=== PATIENT | female | born 1995 | race Caucasian/White ===

== ENCOUNTER 2017-10-15 20:05 | Emergency (ER) | payer OTHER ==
[2017-10-15] MEDS ORDERED: ONDANSETRON 4 MG (ODT) TAB ONE (20:35)
[2017-10-15] MEDS ORDERED: NA CHLORIDE 0.9% 1,000 ML ONE (22:48)
[2017-10-15] MEDS ORDERED: PROMETHAZINE 25 MG TABLET ONE (22:55)
[2017-10-15 23:11] LABS: Urine Blood NEGATIVE (NEG); Urine Glucose NEGATIVE (NEG); Urine Protein NEGATIVE (NEG); Urine Specific Gravity 1.025 (1.005-1.030)
[2017-10-15 23:34] LABS: Absolute Lymphocytes (CBC) 1.1 K/uL (0.7-4.9); Absolute Monocytes 0.3 K/uL (0.1-1.3); Absolute Neutrophil 3.4 K/uL (1.8-8.0); Basophils % 0.2 % (0-1.3); Eosinophils % 0.1 % (0-4.4); Lymphocytes % 22.1 % (15.3-44.8); MCH 28.6 pg (27.0-35.0); MCV 85.4 fL (80-100); RBC Red Blood Cell Count 4.68 M/uL (3.86-4.86)
[2017-10-15 23:40] LABS: Bicarbonate 25 mEq/L (21-31); Glucose Level 99 mg/dL (65-120); Lipase 20 U/L (22-51); Potassium 3.3 mEq/L (3.6-5.0); Sodium Level 136 mEq/L (135-145)
[2017-10-15 23:43] LABS: Urine Bacteria <20 /HPF (<20); Urine Culture Reflex Order REFLEXED; Urine Mucus 3+ /HPF (NONE SEEN); Urine RBC NONE SEEN /HPF (NONE SEEN)
[2017-10-15] MEDS ORDERED: POTASSIUM CL SA 10 MEQ TAB PO ONE (23:45)
[2017-10-15 23:46] LABS: ALT/SGPT 18 IU/L (10-60); AST/SGOT 27 IU/L (10-42); Albumin 4.4 g/dL (3.2-5.5); Alkaline Phosphatase 93 IU/L (42-121); Amylase Level 25 U/L (28-100); BUN Blood Urea Nitrogen 13 mg/dL (6-20); Bilirubin Direct 0.2 mg/dL (0-0.2); Protein, Total 7.8 g/dL (6.0-8.3)
--- NOTE | 2017-10-16 00:50 | ER ---
Nurse's Notes [facility] Name: Annabel Chamberlain Age: 22 yrs Sex: Female : 1995 Arrival Date: 10/15/2017 Time: 20:13 Bed 8 Private MD: Diagnosis: Other viral enteritis;Hypokalemia;Dehydration Presentation: 10/15 20:31 Presenting complaint: Patient states: I ate at burger yesterday and my stomach got la1 really grumbly and I have been having a lot of vomiting and a headache since then. Transition of care: patient was not received from another setting of care. Onset of symptoms was October 15, 2017. Initial Sepsis Screen: Does the patient meet any 2 criteria? No. Patient's initial sepsis screen is negative. Does the patient have a suspected source of infection? No. Patient's initial sepsis screen is negative. Care prior to arrival: None. 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 - Social history:: Smoking status: Patient/guardian denies using tobacco. - Family history:: not pertinent. - Hospitalizations: : No recent hospitalization is reported. Screenin:40 Abuse screen: Denies threats or abuse. Denies injuries from another. Nutritional mg2 screening: No deficits noted. Tuberculosis screening: No symptoms or risk factors identified. Fall Risk IV access (20 points). Assessment: 22:36 General: Appears in no apparent distress. comfortable, Behavior is calm, cooperative. mg2 Pain: Complains of pain in head, abdomen Pain does not radiate. Pain currently is 5 out of 10 on a pain scale. Quality of pain is described as aching, Pain began 1 day ago. Is intermittent, Alleviated by rest, Aggravated by eating, Also complains of nausea. Neuro: Level of Consciousness is awake, alert, obeys commands, Oriented to person, place, time. Cardiovascular: Capillary refill < 3 seconds Patient's skin is warm and dry. Respiratory: Airway is patent Respiratory effort is even, unlabored, Respiratory pattern is regular, symmetrical. GI: Reports lower abdominal pain, diarrhea, nausea, vomiting. : No signs and/or symptoms were reported regarding the genitourinary system. EENT: No signs and/or symptoms were reported regarding the EENT system. Derm: Skin is intact, Skin is pink, warm \T\ dry. normal. Musculoskeletal: Circulation, motion, and sensation intact. 23:36 Reassessment: patient sent to xray. mg2 10/16 00:16 Reassessment: Patient appears in no apparent distress at this time. Patient and/or mg2 family updated on plan of care and expected duration. Pain level reassessed. Patient is alert, oriented x 3, equal unlabored respirations, skin warm/dry/pink. Vital Signs: 10/15 20:32 BP 115 / 75; Pulse 119; Resp 19; Temp 98.3(TE); Pulse Ox 100% on R/A; Weight 71.67 kg; la1 Height 5 ft. 1 in. (154.94 cm); 22:52 BP 108 / 69; Pulse 108; Resp 16; Pulse Ox 99% on R/A; mt 23:52 BP 112 / 71; Pulse 75; Resp 18; Pulse Ox 99% on R/A; mt 20:32 Body Mass Index 29.85 (71.67 kg, 154.94 cm) la1 ED Course: 20:13 Patient arrived in ED. ds1 20:21 Rubia Trent FNP is [facility] kav 20:21 Kj Phillips MD is Attending Physician. kav 20:32 Triage completed. la1 20:32 Arm band placed on left wrist. la1 22:22 Patel Zamarripa, RN is Primary Nurse. mg2 22:40 No provider procedures requiring assistance completed. Inserted saline lock: 20 gauge mg2 in right antecubital area, using aseptic technique. Blood collected. 22:41 Patient has correct armband on for positive identification. Placed in gown. Bed in low mg2 position. Side rails up X2. Door closed. Noise minimized. Warm blanket given. 22:50 Radiology exam delayed due to PATIENT WAS USING THE RESTROOM NOT READY FOR EXAM. bb2 23:39 Patient moved to radiology via wheelchair. kw 23:39 X-ray completed. Patient tolerated procedure well. kw 23:39 Patient moved back from radiology. kw 23:40 Abdomen 1 View (KUB) XRAY In Process Unspecified. EDMS 05/17 01:01 IV discontinued, intact, bleeding controlled, No redness/swelling at site. Pressure mg2 dressing applied. Administered Medications: 10/15 21:05 Drug: Zofran 4 mg Route: PO; la1 22:53 Drug: NS 0.9% 1000 ml Route: IV; Rate: 1 bolus; Site: right antecubital; mg2 23:42 Follow up: Response: No adverse reaction; IV Status: Completed infusion mg2 22:56 Drug: Phenergan 25 mg Route: PO; mg2 23:42 Follow up: Response: No adverse reaction; Nausea is decreased mg2 23:46 Drug: Potassium Chloride 20 mEq Route: PO; mg2 10/16 01:02 Follow up: Response: No adverse reaction mg2 Outcome: 00:49 Discharge ordered by . rico 01:01 Discharged to home ambulatory, with family. mg2 01:01 Condition: stable 01:01 Discharge instructions given to patient, family, Instructed on discharge instructions, follow up and referral plans. medication usage, Demonstrated understanding of instructions, follow-up care, medications, Prescriptions given X 1. 01:04 Patient left the ED. mg2 Signatures: Dispatcher [employer] EDNE Rubia Trent, SCENIC ARTIST SCENIC ARTIST rico Walton, Deedee ds1 Sarah More Lee, RN RN la1 Krissy Adrian mt, Brittany bb2 Gardose, Michele, RN RN mg2
--- NOTE | 2017-10-16 00:50 | EDPHYS ---
Physician Documentation [facility] Name: Annabel Chamberlain Age: 22 yrs Sex: Female : 1995 Arrival Date: 10/15/2017 Time: 20:13 Bed 8 Private MD: ED Physician Kj Phillips HPI: 10/15 20:21 This 22 yrs old Female presents to ER via Unassigned with complaints of kav Weakness, Fever, Headache. 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 - Social history:: Smoking status: Patient/guardian denies using tobacco. - Family history:: not pertinent. - Hospitalizations: : No recent hospitalization is reported. ROS: 10/16 00:46 Constitutional: Negative for fever, chills, and weight loss, Eyes: Negative for injury, kav pain, redness, and discharge, ENT: Negative for injury, pain, and discharge, Neck: Negative for injury, pain, and swelling, Cardiovascular: Negative for chest pain, palpitations, and edema, Respiratory: Negative for shortness of breath, cough, wheezing, and pleuritic chest pain, Back: Negative for injury and pain, : Negative for injury, bleeding, discharge, and swelling, MS/Extremity: Negative for injury and deformity, Skin: Negative for injury, rash, and discoloration, Neuro: Negative for headache, weakness, numbness, tingling, and seizure, Psych: Negative for depression, anxiety, suicide ideation, homicidal ideation, and hallucinations, Allergy/Immunology: Negative for hives, rash, and allergies, Endocrine: Negative for neck swelling, polydipsia, polyuria, polyphagia, and marked weight changes, Hematologic/Lymphatic: Negative for swollen nodes, abnormal bleeding, and unusual bruising. Abdomen/GI: Positive for abdominal pain, nausea and vomiting. Exam: 00:46 Constitutional: This is a well developed, well nourished patient who is awake, alert, kav and in no acute distress. Head/Face: Normocephalic, atraumatic. Eyes: Pupils equal round and reactive to light, extra-ocular motions intact. Lids and lashes normal. Conjunctiva and sclera are non-icteric and not injected. Cornea within normal limits. Periorbital areas with no swelling, redness, or edema. ENT: Nares patent. No nasal discharge, no septal abnormalities noted. Tympanic membranes are normal and external auditory canals are clear. Oropharynx with no redness, swelling, or masses, exudates, or evidence of obstruction, uvula midline. Mucous membranes moist. Neck: Trachea midline, no thyromegaly or masses palpated, and no cervical lymphadenopathy. Supple, full range of motion without nuchal rigidity, or vertebral point tenderness. No Meningismus. Chest/axilla: Normal chest wall appearance and motion. Nontender with no deformity. No lesions are appreciated. Cardiovascular: Regular rate and rhythm with a normal S1 and S2. No gallops, murmurs, or rubs. Normal PMI, no JVD. No pulse deficits. Respiratory: Lungs have equal breath sounds bilaterally, clear to auscultation and percussion. No rales, rhonchi or wheezes noted. No increased work of breathing, no retractions or nasal flaring. Back: No spinal tenderness. No costovertebral tenderness. Full range of motion. Skin: Warm, dry with normal turgor. Normal color with no rashes, no lesions, and no evidence of cellulitis. MS/ Extremity: Pulses equal, no cyanosis. Neurovascular intact. Full, normal range of motion. Neuro: Awake and alert, GCS 15, oriented to person, place, time, and situation. Cranial nerves II-XII grossly intact. Motor strength 5/5 in all extremities. Sensory grossly intact. Cerebellar exam normal. Normal gait. Psych: Awake, alert, with orientation to person, place and time. Behavior, mood, and affect are within normal limits. 00:46 Abdomen/GI: Inspection: abdomen appears normal, Bowel sounds: hyperactive, in all quadrants, Palpation: abdomen is soft and non-tender. Vital Signs: 10/15 20:32 BP 115 / 75; Pulse 119; Resp 19; Temp 98.3(TE); Pulse Ox 100% on R/A; Weight 71.67 kg; la1 Height 5 ft. 1 in. (154.94 cm); 22:52 BP 108 / 69; Pulse 108; Resp 16; Pulse Ox 99% on R/A; mt 23:52 BP 112 / 71; Pulse 75; Resp 18; Pulse Ox 99% on R/A; mt 20:32 Body Mass Index 29.85 (71.67 kg, 154.94 cm) la1 MDM: 22:17 Medical screening is not applicable. [facility] 10/16 00:46 Data reviewed: vital signs, nurses notes, lab test result(s), radiologic studies, plain kav films. 10/15 22:43 Order name: Amylase, Serum; Complete Time: 00:44 [facility] 10/16 00:44 Interpretation: Abnormal: ARNOL 25. [facility] 10/15 22:43 Order name: Basic Metabolic Panel; Complete Time: 00:44 [facility] 10/15 23:41 Interpretation: Normal except: K 3.3. [facility] 10/15 22:43 Order name: CBC with Diff; Complete Time: 00:44 [facility] 10/16 00:44 Interpretation: Normal except: MCV 85.4; MCH 28.6. 10/15 22:43 Order name: Creatinine for Radiology; Complete Time: 23:41 [facility] 10/15 23:41 Interpretation: Within normal limits. [facility] 10/15 22:43 Order name: Hepatic Function; Complete Time: 00:44 [facility] 10/16 00:44 Interpretation: Within normal limits. 10/15 22:43 Order name: Lipase; Complete Time: 00:44 [facility] 10/15 23:42 Interpretation: Abnormal: LIP 20. 10/15 22:43 Order name: Abdomen 1 View (KUB) XRAY 10/16 00:45 Interpretation: constipation. 10/15 22:43 Order name: Urine Microscopic Only; Complete Time: 00:43 [facility] 10/16 00:43 Interpretation: Normal except: UWBC 5-10; SQEPI 5-10; MUCUS 3+. [facility] 10/15 23:01 Order name: Urine Dipstick--Ancillary (enter results); Complete Time: 23:41 [facility] 10/15 23:41 Interpretation: Abnormal: UKET 3+. 10/15 23:01 Order name: Urine --Ancillary (enter results); Complete Time: 23:41 [facility] 10/15 23:41 Interpretation: Within normal limits. [facility] 10/15 23:45 Order name: Urine Culture EDRI 10/15 22:43 Order name: IV Saline Lock; Complete Time: 22:46 [facility] 10/15 22:43 Order name: Labs collected and sent; Complete Time: 22:46 kav 10/15 22:43 Order name: Urine Dipstick-Ancillary (obtain specimen); Complete Time: 22:57 kav Administered Medications: 10/15 21:05 Drug: Zofran 4 mg Route: PO; la1 22:53 Drug: NS 0.9% 1000 ml Route: IV; Rate: 1 bolus; Site: right antecubital; mg2 23:42 Follow up: Response: No adverse reaction; IV Status: Completed infusion mg2 22:56 Drug: Phenergan 25 mg Route: PO; mg2 23:42 Follow up: Response: No adverse reaction; Nausea is decreased mg2 23:46 Drug: Potassium Chloride 20 mEq Route: PO; mg2 10/16 01:02 Follow up: Response: No adverse reaction mg2 Disposition: 07:10 Co-signature as Attending Physician, Kj Phillips MD I agree with the assessment and brice plan of care. Disposition: 10/16/17 00:49 Discharged to Home. Impression: Other viral enteritis, Hypokalemia, Dehydration. - Condition is Stable. - Discharge Instructions: Viral Gastroenteritis, [id number], Dehydration, Adult, [id number], Hypokalemia, Rehydration, Adult. - Prescriptions for Zofran 4 mg Oral Tablet - take 1 tablet by ORAL route every 12 hours As needed; 20 tablet. - Medication Reconciliation Form, Thank You Letter, Antibiotic Education, Prescription Opioid Use form. - Follow up: Private Physician; When: 5 - 6 days; Reason: If symptoms return, Recheck today's complaints, Continuance of care, Re-evaluation by your physician. - Problem is new. - Symptoms have improved. - Notes: ensure adequate hydration Signatures: Dispatcher [employer] EDKj Aquino MD MD cha Vern, Katherine, KEG FILLER KEG FILLER Pancho Jiang, RN RN la1 Patel Zamarripa RN RN mg2 Corrections: (The following items were deleted from the chart) 00:44 10/15 23:41 Abnormal: K 3.3. kav kav 10/16 00:45 00:45 No acute disease except. kav kav 01:04 00:49 10/16/2017 00:49 Discharged to Home. Impression: Other viral enteritis; mg2 Hypokalemia; Dehydration. Condition is Stable. Forms are Medication Reconciliation Form, Thank You Letter, Antibiotic Education, Prescription Opioid Use. Follow up: Private Physician; When: 5 - 6 days; Reason: If symptoms return, Recheck today's complaints, Continuance of care, Re-evaluation by your physician. Problem is new. Symptoms have improved. kav
[2017-10-16 01:32] VITALS: TEMP 98.3
[2017-10-16 01:33] VITALS: O2SAT 99
[2017-10-16 01:34] VITALS: BP 112/71
--- NOTE | 2017-10-16 08:37 | RAD REPORT ---
EXAM DESCRIPTION: RAD - Abdomen 1 View (KUB) - 10/15/2017 11:44 pm CLINICAL HISTORY: Pain COMPARISON: None. FINDINGS: The bowel gas pattern is non-obstructive. No evidence of free air or pneumatosis. No suspi cious calcifications. No significant bony findings. IMPRESSION: Negative examination.
== END 2017-10-16 01:04 | disposition home or self-care (01) ==
LOC: ER 20:05
DX: A08.39 Other viral enteritis (principal); E86.0 Dehydration; E87.6 Hypokalemia
CPT/HCPCS: 36415; 74018; 80048; 80076; 81003; 81015; 81025; 82150; 83690; 85025; 87086; 87088; 96360; 99284; J7030

== ENCOUNTER 2017-11-02 09:44 | Inpatient (IN) | payer OTHER ==
[2017-11-02] MEDS ORDERED: ONDANSETRON 4 MG/2 ML VIAL ONE (09:59)
[2017-11-02] MEDS ORDERED: FENTANYL CITR 100 MCG/2 ML ONE ×2 (09:59→12:37)
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
[2017-11-02 13:46] LABS: Hematocrit 37.5 % (36.0-45.0); MCH 28.7 pg (27.0-35.0); MCV 85.3 fL (80-100); MPV 9.4 fL (7.6-11.3); RBC Red Blood Cell Count 4.39 M/uL (3.86-4.86)
[2017-11-02 13:49] LABS: Bicarbonate 27 mEq/L (21-31); Glucose Level 115 mg/dL (65-120); Potassium 3.9 mEq/L (3.6-5.0); Sodium Level 138 mEq/L (135-145)
[2017-11-02 13:52] LABS: ALT/SGPT 16 IU/L (10-60); AST/SGOT 29 IU/L (10-42); Albumin 4.3 g/dL (3.2-5.5); Alkaline Phosphatase 79 IU/L (42-121); BUN Blood Urea Nitrogen 11 mg/dL (6-20); Bilirubin Total 0.4 mg/dL (0.3-1.2); Protein, Total 7.3 g/dL (6.0-8.3)
[2017-11-02 13:53] LABS: Urine Blood 3+ (NEG); Urine Glucose NEGATIVE (NEG); Urine Protein NEGATIVE (NEG); Urine Specific Gravity 1.015 (1.005-1.030); Urine pH 5.5 (5.0-7.0)
[2017-11-02 14:20] LABS: Urine Bacteria <20 /HPF (<20); Urine Culture Reflex Order NOT NEEDED; Urine RBC >50 /HPF (NONE SEEN)
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
[2017-11-02] MEDS ORDERED: Morphine 2 MG/2 ML SYR IV PRN (15:28)
[2017-11-02] MEDS ORDERED: ONDANSETRON 4 MG/2 ML VIAL IV PRN (15:28)
[2017-11-02] MEDS: NA CHLORIDE 0.9% 1,000 ML IV SCH (18:08)
[2017-11-02 20:44] VITALS: O2SAT 95
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
[2017-11-03] MEDS: NA CHLORIDE 0.9% 1,000 ML IV SCH (02:00)
[2017-11-03 04:45] LABS: Absolute Lymphocytes (CBC) 1.5 K/uL (0.7-4.9); Absolute Monocytes 0.3 K/uL (0.1-1.3); Absolute Neutrophil 2.1 K/uL (1.8-8.0); Basophils % 0.4 % (0-1.3); Eosinophils % 0.6 % (0-4.4); Hematocrit 33.6 % (36.0-45.0); Lymphocytes % 37.8 % (15.3-44.8); MCH 28.1 pg (27.0-35.0); MCV 84.9 fL (80-100); MPV 9.1 fL (7.6-11.3); Monocytes % 8.6 % (3.3-12.3); RBC Red Blood Cell Count 3.96 M/uL (3.86-4.86)
[2017-11-03 04:46] VITALS: BMI 29.8
[2017-11-03 05:01] LABS: ALT/SGPT 16 IU/L (10-60); AST/SGOT 24 IU/L (10-42); Albumin 3.6 g/dL (3.2-5.5); Alkaline Phosphatase 74 IU/L (42-121); BUN Blood Urea Nitrogen 10 mg/dL (6-20); Bicarbonate 24 mEq/L (21-31); Bilirubin Total 0.7 mg/dL (0.3-1.2); Glucose Level 96 mg/dL (65-120); Potassium 3.3 mEq/L (3.6-5.0); Protein, Total 6.5 g/dL (6.0-8.3); Sodium Level 139 mEq/L (135-145)
--- NOTE | 2017-11-03 07:38 | EKG ---
Test Date: 2017-11-02 Test Time: 09:47:47 Research And Evaluation Analyst: ROMAN MEASUREMENT RESULTS: Intervals: Rate: 65 NC: 140 QRSD: 78 QT: 420 QTc: 436 [place]: P: 45 NC: 140 QRS: 75 T: 65 INTERPRETIVE STATEMENTS: Normal sinus rhythm with sinus arrhythmia Normal ECG Compared to ECG 10/08/2015 10:23:15 No significant changes Electronically Signed On 11-03-17 07:37:49 CDT by Randolph Hahn
[2017-11-03 10:25] VITALS: BP 112/72
[2017-11-03 10:46] VITALS: TEMP 98.1
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
== END 2017-11-03 10:25 | disposition home or self-care (01) | DRG 948 ==
LOC: ER 09:44 → ERHOLD 14:20 → 3RD-ICU 16:54
PROVIDERS: ADMIT Surgery; ATTEND Surgery
DX: R18.8 Other ascites (principal); S80.812A Abrasion, left lower leg, initial encounter; S80.811A Abrasion, right lower leg, initial encounter; S40.212A Abrasion of left shoulder, initial encounter; S70.212A Abrasion, left hip, initial encounter; V43.62XA Car passenger injured in collision with other type car in traffic accident, initial encounter; Y92.410 Unspecified street and highway as the place of occurrence of the external cause; J45.909 Unspecified asthma, uncomplicated; R41.82 Altered mental status, unspecified
CPT/HCPCS: 36415; 70450; 71260; 72125; 74177; 80053; 81003; 81015; 81025; 85025; 85027; 86850; 86900; 86901; 93005; 96374; 96375; 99285; J2405; J3010; J7030

== ENCOUNTER 2018-03-09 12:03 | Emergency (ER) | payer OTHER ==
--- NOTE | 2018-03-09 14:05 | RAD REPORT ---
EXAM DESCRIPTION: Ribs Right - 03/09/2018 1:51 pm CLINICAL HISTORY: Fall, right-sided shoulder and rib pain COMPARISON: None. FINDINGS: No displaced rib fracture is evident. No aggressive rib lesion. No underlying pneumothorax, effusion, infiltrate or pulmonary contusion. IMPRESSION: Negative right rib series.
--- NOTE | 2018-03-09 14:23 | ER ---
Nurse's Notes [facility] Name: Annabel Chamberlain Age: 22 yrs Sex: Female : 1995 Arrival Date: 03/09/2018 Time: 12:07 Bed 12 Private MD: Diagnosis: Other chest pain-right lateral posterior chest wall pain Presentation: 03/09 12:20 Presenting complaint: Patient states: right shoulder pain that began Friday. Pt aa5 states "I think I hurt it when I was wheeling a trash cart out and I fell on Friday". Pt also reports nausea. Transition of care: patient was not received from another setting of care. Onset of symptoms was March 2018. Risk Assessment: Do you want to hurt yourself or someone else? Patient reports no desire to harm self or others. Initial Sepsis Screen: Does the patient meet any 2 criteria? No. Patient's initial sepsis screen is negative. Does the patient have a suspected source of infection? No. Patient's initial sepsis screen is negative. Care prior to arrival: None. 12:20 Method Of Arrival: Ambulatory aa5 12:20 Acuity: STEVEN 4 aa5 Triage Assessment: 14:38 GI: Reports. 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 - Social history:: Smoking status: Patient/guardian denies using tobacco. - Ebola Screening: : No symptoms or risks identified at this time. Screenin:54 Abuse screen: Denies threats or abuse. Denies injuries from another. Nutritional iw screening: No deficits noted. Tuberculosis screening: No symptoms or risk factors identified. Fall Risk None identified. Assessment: 12:52 General: Appears in no apparent distress. comfortable, Behavior is calm, cooperative. iw Pain: Complains of pain in anterior aspect of right shoulder and posterior aspect of right shoulder. Pain: Complains of pain in right scapular area and right subscapular area. Neuro: Level of Consciousness is awake, alert, obeys commands, Oriented to person, place, time, situation, Moves all extremities. Full function. Cardiovascular: Capillary refill < 3 seconds in bilateral fingers Patient's skin is warm and dry. Respiratory: Respiratory effort is even, unlabored, Respiratory pattern is regular. GI: Abdomen is flat, non-distended. Derm: Skin is intact, is healthy with good turgor. Musculoskeletal: Range of motion: intact in all extremities, Reports pain in anterior aspect of right shoulder and posterior aspect of right shoulder. Vital Signs: 12:22 BP 119 / 65; Pulse 52; Resp 16 S; Temp 98.8(TE); Pulse Ox 100% on R/A; Weight 70.31 kg aa5 (R); Height 5 ft. 1 in. (154.94 cm) (R); Pain 9/10; 12:22 Body Mass Index 29.29 (70.31 kg, 154.94 cm) aa5 ED Course: 12:07 Patient arrived in ED. rg4 12:21 Triage completed. aa5 12:21 Arm band placed on. aa5 12:25 Sel[facility] Goode [facility]C [facility]. kb 12:25 Kj Phillips MD is Attending Physician. kb 12:52 Andria Washington, RN is Primary Nurse. iw 12:54 No provider procedures requiring assistance completed. iw 13:47 X-ray completed. Patient tolerated procedure well. Patient moved back from radiology. sw 13:49 Ribs Right XRAY In Process Unspecified. EDMS 14:38 Patient has correct armband on for positive identification. iw 14:38 Patient did not have IV access during this emergency room visit. iw Administered Medications: No medications were administered Outcome: 14:23 Discharge ordered by MD. kb 14:38 Discharged to home ambulatory. iw 14:38 Condition: good 14:38 Discharge instructions given to patient, Instructed on discharge instructions, follow up and referral plans. Demonstrated understanding of instructions, follow-up care. 14:38 Patient left the ED. iw Signatures: Dispatcher [employer] EDID Selin Goode FNP-C FNP-Andria Ramirez, RN RN Niki Barney RN RN aa5 Beverley Harley Rubi rg4
--- NOTE | 2018-03-09 14:23 | EDPHYS ---
Physician Documentation [facility] Name: Annabel Chamberlain Age: 22 yrs Sex: Female : 1995 Arrival Date: 03/09/2018 Time: 12:07 Bed 12 Private MD: ED Physician Kj Phillips HPI: 03/09 14:21 This 22 yrs old Female presents to ER via Ambulatory with complaints of side kb pain, Nausea. 14:21 The patient or guardian reports chest pain that is located primarily in the right kb lateral posterior chest. Onset: The symptoms/episode began/occurred 4 day(s) ago. The pain does not radiate. Associated signs and symptoms: The patient has no apparent associated signs or symptoms. The chest pain is described as dull. Duration: The patient or guardian reports a single episode, that is still ongoing. Modifying factors: The symptoms are alleviated by nothing. the symptoms are aggravated by movement, palpation of area. Severity of pain: At its worst the pain was moderate in the emergency department the pain is unchanged. The patient has not experienced similar symptoms in the past. The patient has not recently seen a physician. Pt reports she was carrying a box that became uneven and fell. Has had pain to right lateral posterior chest since then. Pain worse with raising right arm. . 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 - Social history:: Smoking status: Patient/guardian denies using tobacco. - Ebola Screening: : No symptoms or risks identified at this time. ROS: 14:19 Constitutional: Negative for fever, chills, and weight loss, Cardiovascular: Negative kb for chest pain, palpitations, and edema, Respiratory: Negative for shortness of breath, cough, wheezing, and pleuritic chest pain, Abdomen/GI: Negative for abdominal pain, nausea, vomiting, diarrhea, and constipation, Skin: Negative for injury, rash, and discoloration, Neuro: Negative for headache, weakness, numbness, tingling, and seizure. 14:19 MS/extremity: Positive for pain, tenderness, of the right lateral posterior chest. Exam: 14:19 Constitutional: This is a well developed, well nourished patient who is awake, alert, kb and in no acute distress. Head/Face: Normocephalic, atraumatic. Chest/axilla: Normal chest wall appearance and motion. no deformity. No lesions are appreciated. Cardiovascular: Regular rate and rhythm with a normal S1 and S2. No gallops, murmurs, or rubs. Normal PMI, no JVD. No pulse deficits. Respiratory: Lungs have equal breath sounds bilaterally, clear to auscultation and percussion. No rales, rhonchi or wheezes noted. No increased work of breathing, no retractions or nasal flaring. Abdomen/GI: Soft, non-tender, with normal bowel sounds. No distension or tympany. No guarding or rebound. No evidence of tenderness throughout. Skin: Warm, dry with normal turgor. Normal color with no rashes, no lesions, and no evidence of cellulitis. MS/ Extremity: Pulses equal, no cyanosis. Neurovascular intact. Full, normal range of motion. Neuro: Awake and alert, GCS 15, oriented to person, place, time, and situation. Cranial nerves II-XII grossly intact. Motor strength 5/5 in all extremities. Sensory grossly intact. Cerebellar exam normal. Normal gait. 14:19 Chest/axilla: Palpation: tenderness, that is mild, of the right lateral posterior chest, that totally reproduces the patient's complaints. Vital Signs: 12:22 BP 119 / 65; Pulse 52; Resp 16 S; Temp 98.8(TE); Pulse Ox 100% on R/A; Weight 70.31 kg aa5 (R); Height 5 ft. 1 in. (154.94 cm) (R); Pain 9/10; 12:22 Body Mass Index 29.29 (70.31 kg, 154.94 cm) aa5 MDM: 12:37 Patient medically screened. kb 14:19 Data reviewed: vital signs, nurses notes. Data interpreted: Pulse oximetry: on room air kb is 100 %. Interpretation: normal. Counseling: I had a detailed discussion with the patient and/or guardian regarding: the historical points, exam findings, and any diagnostic results supporting the discharge/admit diagnosis, radiology results, the need for outpatient follow up, a family practitioner, to return to the emergency department if symptoms worsen or persist or if there are any questions or concerns that arise at home. 03/09 12:44 Order name: Ribs Right XRAY; Complete Time: 14:06 kb Administered Medications: No medications were administered Disposition: 03/10 07:26 Co-signature as Attending Physician, Kj Phillips MD I agree with the assessment and brice plan of care. Disposition: 03/09/18 14:23 Discharged to Home. Impression: Other chest pain - right lateral posterior chest wall pain. - Condition is Stable. - Discharge Instructions: Chest Wall Pain, [id number], Chest Contusion, [id number]. - Work release form, Medication Reconciliation Form, Thank You Letter, Antibiotic Education, Prescription Opioid Use form. - Follow up: Emergency Department; When: As needed; Reason: Worsening of condition. Follow up: Private Physician; When: 2 - 3 days; Reason: Recheck today's complaints, Continuance of care, Re-evaluation by your physician. Signatures: Dispatcher [employer] EDSelin Cantu, LABOR CONTRACT ANALYST-C LABOR CONTRACT ANALYST-Kj Denise MD MD cha Williams, Irene, RN RN Niki Desai, RN RN aa5 Corrections: (The following items were deleted from the chart) 03/09 14:38 14:23 03/09/2018 14:23 Discharged to Home. Impression: Other chest pain - right lateral iw posterior chest wall pain. Condition is Stable. Forms are Medication Reconciliation Form, Thank You Letter, Antibiotic Education, Prescription Opioid Use. Follow up: Emergency Department; When: As needed; Reason: Worsening of condition. Follow up: Private Physician; When: 2 - 3 days; Reason: Recheck today's complaints, Continuance of care, Re-evaluation by your physician. kb
[2018-03-09 14:42] VITALS: BP 119/65; TEMP 98.8; O2SAT 100
== END 2018-03-09 14:38 | disposition home or self-care (01) ==
LOC: ER 12:03
DX: R07.89 Other chest pain (principal)
CPT/HCPCS: 99283

== ENCOUNTER 2018-06-04 14:22 | Emergency (ER) | payer OTHER ==
[2018-06-04 15:30] LABS: Urine Blood NEGATIVE (NEG); Urine Glucose NEGATIVE (NEG); Urine Protein TRACE (NEG); Urine Specific Gravity >1.030 (1.005-1.030); Urine pH 5.5 (5.0-7.0)
[2018-06-04 15:43] LABS: Absolute Lymphocytes (CBC) 0.3 K/uL (0.7-4.9); Absolute Monocytes 0.2 K/uL (0.1-1.3); Absolute Neutrophil 6.1 K/uL (1.8-8.0); Basophils % 0.2 % (0-1.3); Eosinophils % 0.1 % (0-4.4); Hematocrit 42.7 % (36.0-45.0); Lymphocytes % 5.1 % (15.3-44.8); MPV 9.3 fL (7.6-11.3); Monocytes % 3.3 % (3.3-12.3); RBC Red Blood Cell Count 5.08 M/uL (3.86-4.86)
[2018-06-04] MEDS ORDERED: NA CHLORIDE 0.9% 1,000 ML ONE (15:51)
[2018-06-04] MEDS ORDERED: ONDANSETRON 4 MG/2 ML VIAL ONE (15:51)
[2018-06-04 16:03] LABS: Albumin 4.3 g/dL (3.4-5.0); Bilirubin Direct 0.2 mg/dL (0-0.2); Bilirubin Total 0.6 mg/dL (0.2-1.0); Potassium 3.5 mmol/L (3.5-5.1); Protein, Total 8.5 g/dL (6.4-8.2)
[2018-06-04 16:08] LABS: Platelet Estimate ADEQ; Urine White Blood Cell Casts OK
[2018-06-04 16:09] LABS: Blood Morphology Comment NOT SEEN (NOT SEEN); Platelets, Giant NOTED
--- NOTE | 2018-06-04 16:46 | EDPHYS ---
Physician Documentation [facility] Name: Annabel Chamberlain Age: 22 yrs Sex: Female : 1995 Arrival Date: 06/04/2018 Time: 14:26 Bed 18 Private MD: MINDY SALAZAR ED Physician Nick Rosas HPI: 06/04 15:58 This 22 yrs old Female presents to ER via Ambulatory with complaints of kb Nausea. 15:58 The patient presents to the emergency department with nausea, vomiting, abdominal pain. kb Onset: The symptoms/episode began/occurred yesterday. Possible causes: unknown. The symptoms are aggravated by nothing. The symptoms are alleviated by nothing. Associated signs and symptoms: Pertinent positives: abdominal pain, nausea, vomiting, Pertinent negatives: anorexia, belching, constipation, diarrhea, dysuria, fever, flatulence, GI bleeding, hematuria, vaginal discharge. Severity of symptoms: At their worst the symptoms were moderate in the emergency department the symptoms are unchanged. The patient has experienced a previous episode. The patient has not recently seen a physician. 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 - Social history:: Smoking status: Patient/guardian denies using tobacco, Patient/guardian denies using alcohol, street drugs. - Ebola Screening: : Patient negative for fever greater than or equal to 101.5 degrees Fahrenheit, and additional compatible Ebola Virus Disease symptoms Patient denies exposure to infectious person Patient denies travel to an Ebola-affected area in the 21 days before illness onset No symptoms or risks identified at this time. ROS: 15:53 Constitutional: Negative for fever, chills, and weight loss, ENT: Negative for injury, kb pain, and discharge, Neck: Negative for injury, pain, and swelling, Cardiovascular: Negative for chest pain, palpitations, and edema, Respiratory: Negative for shortness of breath, cough, wheezing, and pleuritic chest pain, Back: Negative for injury and pain, : Negative for injury, bleeding, discharge, and swelling, MS/Extremity: Negative for injury and deformity, Skin: Negative for injury, rash, and discoloration, Neuro: Negative for headache, weakness, numbness, tingling, and seizure. 15:53 Abdomen/GI: Positive for abdominal pain, nausea and vomiting, Negative for diarrhea, constipation, abdominal cramps, abdominal distension, anorexia. Exam: 15:57 Constitutional: This is a well developed, well nourished patient who is awake, alert, kb and in no acute distress. Head/Face: Normocephalic, atraumatic. ENT: Nares patent. No nasal discharge, no septal abnormalities noted. Tympanic membranes are normal and external auditory canals are clear. Oropharynx with no redness, swelling, or masses, exudates, or evidence of obstruction, uvula midline. Mucous membranes moist. Neck: Trachea midline, no thyromegaly or masses palpated, and no cervical lymphadenopathy. Supple, full range of motion without nuchal rigidity, or vertebral point tenderness. No Meningismus. Chest/axilla: Normal chest wall appearance and motion. Nontender with no deformity. No lesions are appreciated. Cardiovascular: Regular rate and rhythm with a normal S1 and S2. No gallops, murmurs, or rubs. Normal PMI, no JVD. No pulse deficits. Respiratory: Lungs have equal breath sounds bilaterally, clear to auscultation and percussion. No rales, rhonchi or wheezes noted. No increased work of breathing, no retractions or nasal flaring. Back: No spinal tenderness. No costovertebral tenderness. Full range of motion. Skin: Warm, dry with normal turgor. Normal color with no rashes, no lesions, and no evidence of cellulitis. MS/ Extremity: Pulses equal, no cyanosis. Neurovascular intact. Full, normal range of motion. Neuro: Awake and alert, GCS 15, oriented to person, place, time, and situation. Cranial nerves II-XII grossly intact. Motor strength 5/5 in all extremities. Sensory grossly intact. Cerebellar exam normal. Normal gait. 15:57 Abdomen/GI: Inspection: abdomen appears normal, Bowel sounds: normal, in all quadrants, Palpation: soft, in all quadrants, mild abdominal tenderness, in the right upper quadrant. Vital Signs: 14:30 BP 112 / 88; Pulse 135; Resp 20; Temp 99.6(O); Pulse Ox 99% on R/A; Weight 68.04 kg; ch Height 5 ft. 1 in. (154.94 cm); Pain 9/10; 15:25 BP 117 / 63; Pulse 112; Resp 28; Temp 98.4; Pulse Ox 98% ; hs1 16:52 BP 114 / 68; Pulse 95; Resp 18; Pulse Ox 99% on R/A; aj 14:30 Body Mass Index 28.34 (68.04 kg, 154.94 cm) ch MDM: 14:50 Patient medically screened. kb 15:56 Data reviewed: vital signs, nurses notes. Data interpreted: Pulse oximetry: on room air kb is 99 %. Interpretation: normal. 16:45 Counseling: I had a detailed discussion with the patient and/or guardian regarding: the kb historical points, exam findings, and any diagnostic results supporting the discharge/admit diagnosis, lab results, the need for outpatient follow up, a family practitioner, to return to the emergency department if symptoms worsen or persist or if there are any questions or concerns that arise at home. ED course: Tolerating PO intake. 06/04 14:50 Order name: Basic Metabolic Panel; Complete Time: 16:06 kb 06/04 14:50 Order name: CBC with Diff; Complete Time: 16:10 kb 06/04 14:50 Order name: Hepatic Function; Complete Time: 16:06 kb 06/04 14:50 Order name: Lipase; Complete Time: 16:06 kb 06/04 15:12 Order name: Urine Dipstick--Ancillary (enter results); Complete Time: 15:33 ag 06/04 15:12 Order name: Urine --Ancillary (enter results); Complete Time: 15:33 ag 06/04 14:50 Order name: IV Saline Lock; Complete Time: 16:01 kb 06/04 14:50 Order name: Labs collected and sent; Complete Time: 16:01 kb 06/04 15:46 Order name: CBC Smear Scan; Complete Time: 16:10 EDMS 06/04 16:31 Order name: PO challenge; Complete Time: 16:40 kb Administered Medications: 15:25 Drug: Zofran 4 mg Route: IVP; Site: right antecubital; aj 16:40 Follow up: Response: No adverse reaction; Nausea is decreased aj 16:01 Drug: NS 0.9% 1000 ml Route: IV; Rate: 1000 ml; Site: right antecubital; aj 16:41 Follow up: Response: No adverse reaction; IV Status: Completed infusion; IV Intake: aj 1000ml Disposition: 06/05 07:23 Co-signature as Attending Physician, Nick Rosas MD I agree with the assessment and kdr plan of care. Disposition: 06/04/18 16:46 Discharged to Home. Impression: Nausea and vomiting. - Condition is Stable. - Discharge Instructions: Nausea and Vomiting, Adult, [id number]. - Prescriptions for Bentyl 20 mg Oral Tablet - take 1 tablet by ORAL route every 6 hours As needed; 20 tablet. Zofran 4 mg Oral Tablet - take 1 tablet by ORAL route every 6 hours As needed; 20 tablet. - Medication Reconciliation Form, Thank You Letter, Antibiotic Education, Prescription Opioid Use form. - Follow up: Emergency Department; When: As needed; Reason: Worsening of condition. Follow up: Private Physician; When: 2 - 3 days; Reason: Recheck today's complaints, Continuance of care, Re-evaluation by your physician. Signatures: Dispatcher [employer] [facility] Selin Goode, ODILON-Flako PROCESS CONTROLS TECHNICIAN-Marylu Minaya, RN Nancy Kaufman ch, RN RN aj Rittger, Kevin, MD MD kdr Corrections: (The following items were deleted from the chart) 06/04 15:51 15:33 UA MICROSCOPIC+U.LAB.BRZ ordered. [facility] 17:17 16:46 06/04/2018 16:46 Discharged to Home. Impression: Nausea and vomiting. Condition aj is Stable. Forms are Medication Reconciliation Form, Thank You Letter, Antibiotic Education, Prescription Opioid Use. Follow up: Emergency Department; When: As needed; Reason: Worsening of condition. Follow up: Private Physician; When: 2 - 3 days; Reason: Recheck today's complaints, Continuance of care, Re-evaluation by your physician. kb
--- NOTE | 2018-06-04 16:46 | ER ---
Nurse's Notes [facility] Name: Annabel Chamberlain Age: 22 yrs Sex: Female : 1995 Arrival Date: 06/04/2018 Time: 14:26 Bed 18 Private MD: MINDY SALAZAR Diagnosis: Nausea and vomiting Presentation: 06/04 14:28 Presenting complaint: Patient states: pancreatitis hx, I think i am having a flare up. ch I am vomiting bile and I am having stomach pains. started yesterday, fever 100.0. I think I am dehydrated. Transition of care: patient was not received from another setting of care. Onset of symptoms was June 03, 2018 at 15:00. Risk Assessment: Do you want to hurt yourself or someone else? Patient reports no desire to harm self or others. Initial Sepsis Screen: Does the patient meet any 2 criteria? No. Patient's initial sepsis screen is negative. Does the patient have a suspected source of infection? No. Patient's initial sepsis screen is negative. Care prior to arrival: None. 14:28 Method Of Arrival: Ambulatory 14:28 Acuity: STEVEN 3 ch Triage Assessment: 14:30 General: Appears in no apparent distress. uncomfortable, Behavior is calm, cooperative, ch appropriate for age. Pain: Complains of pain in right upper quadrant and left upper quadrant Pain currently is 9 out of 10 on a pain scale. 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 - Social history:: Smoking status: Patient/guardian denies using tobacco, Patient/guardian denies using alcohol, street drugs. - Ebola Screening: : Patient negative for fever greater than or equal to 101.5 degrees Fahrenheit, and additional compatible Ebola Virus Disease symptoms Patient denies exposure to infectious person Patient denies travel to an Ebola-affected area in the 21 days before illness onset No symptoms or risks identified at this time. Screenin:52 Abuse screen: Denies threats or abuse. Denies injuries from another. Nutritional aj screening: No deficits noted. Tuberculosis screening: No symptoms or risk factors identified. Fall Risk None identified. Assessment: 15:59 General: Appears in no apparent distress. comfortable, Behavior is calm, cooperative, aj appropriate for age. Neuro: Level of Consciousness is awake, alert, obeys commands, Oriented to person, place, time, situation, Appropriate for age. Respiratory: Airway is patent Respiratory effort is even, unlabored, Respiratory pattern is regular, symmetrical. GI: Abdomen is flat, non-distended, Reports nausea. Derm: Skin is intact, is healthy with good turgor, Skin is pink, warm \T\ dry. normal. 16:52 Reassessment: Patient appears in no apparent distress at this time. No changes from aj previously documented assessment. Patient and/or family updated on plan of care and expected duration. Pain level reassessed. Patient is alert, oriented x 3, equal unlabored respirations, skin warm/dry/pink. Patient PO challenged with ice chips, no nausea reported Patient states feeling better. Patient states symptoms have improved. Vital Signs: 14:30 BP 112 / 88; Pulse 135; Resp 20; Temp 99.6(O); Pulse Ox 99% on R/A; Weight 68.04 kg; ch Height 5 ft. 1 in. (154.94 cm); Pain 9/10; 15:25 BP 117 / 63; Pulse 112; Resp 28; Temp 98.4; Pulse Ox 98% ; hs1 16:52 BP 114 / 68; Pulse 95; Resp 18; Pulse Ox 99% on R/A; aj 14:30 Body Mass Index 28.34 (68.04 kg, 154.94 cm) ED Course: 14:26 Patient arrived in ED. sb2 14:27 MINDY SALAZAR is Private Physician. sb2 14:29 Triage completed. 14:30 Arm band placed on left wrist. Patient placed in an exam room, on a stretcher. 14:50 Selin Goode FNP-C [facility]. kb 14:50 Nick Rosas MD is Attending Physician. kb 15:38 Bed in low position. Call light in reach. Adult w/ patient. Pulse ox on. NIBP on. [facility] 15:38 Urine collected: clean catch specimen, dixie colored. [facility] 15:39 Nancy Soto, RN is Primary Nurse. aj 16:52 No provider procedures requiring assistance completed. aj 16:54 IV discontinued, intact, 20 g to right AC inserted by [facility] tech. aj 17:00 IV discontinued, intact, Pressure dressing applied. [facility] Administered Medications: 15:25 Drug: Zofran 4 mg Route: IVP; Site: right antecubital; aj 16:40 Follow up: Response: No adverse reaction; Nausea is decreased aj 16:01 Drug: NS 0.9% 1000 ml Route: IV; Rate: 1000 ml; Site: right antecubital; aj 16:41 Follow up: Response: No adverse reaction; IV Status: Completed infusion; IV Intake: aj 1000ml Intake: 16:41 IV: 1000ml; Total: 1000ml. Outcome: 16:46 Discharge ordered by MD. kb 16:55 Discharged to home ambulatory. aj 16:55 Condition: good 16:55 Discharge instructions given to patient, family, Instructed on discharge instructions, follow up and referral plans. medication usage, Demonstrated understanding of instructions, follow-up care, medications, Prescriptions given X 2. 17:17 Patient left the ED. Signatures: Selin Goode, PHOTOCOPIER TECHNICIAN-C ODILON-Marylu Minaya, RN Nancy Kaufman ch, RN Tran Liu [facility] Danitza Tobias sb2 Yusuf Manzano hs1
[2018-06-04 17:37] VITALS: TEMP 98.4
[2018-06-04 17:38] VITALS: BP 114/68; O2SAT 99
== END 2018-06-04 17:17 | disposition home or self-care (01) ==
LOC: ER 14:22
DX: R11.2 Nausea with vomiting, unspecified (principal); F41.9 Anxiety disorder, unspecified; F32.9 Major depressive disorder, single episode, unspecified
CPT/HCPCS: 36415; 80048; 80076; 81003; 81025; 83690; 85025; 96361; 96374; 99284; J2405; J7030

== ENCOUNTER 2018-06-22 08:00 | Day surgery (SDC) | payer OTHER ==
[2018-06-18 16:58] LABS: Potassium 3.7 mmol/L (3.5-5.1)
[2018-06-22 08:33] LABS: Specific Gravity >= 1.030 (1.005-1.030)
[2018-06-22] MEDS ORDERED: Ringers Lactate 1,000 ML IV ONE (08:51)
[2018-06-22] MEDS ORDERED: CEFAZOLIN 1GM (PREMIX IV) 1 GM/50 ML BAG ONE (08:51)
[2018-06-22] MEDS ORDERED: MIDAZOLAM HCL 2 MG/2 ML INJ ONE (09:28)
[2018-06-22] MEDS ORDERED: BUPIVACAINE 0.5% PF 10 ML VIAL ONE (09:59)
[2018-06-22] MEDS ORDERED: PROPOFOL 200 MG/20 ML VIAL IV ONE (10:04)
[2018-06-22] MEDS ORDERED: FENTANYL CITR 100 MCG/2 ML ONE (10:05)
[2018-06-22] MEDS ORDERED: LIDOCAINE 2% MPF 5 ML VIAL ONE (10:05)
[2018-06-22] MEDS ORDERED: DEXAMETHASONE 10 MG/ML VIAL ONE (10:19)
--- NOTE | 2018-06-22 10:34 | P.BOP ---
Preoperative diagnosis: right inguinal tender enlarging mass Postoperative diagnosis: same Primary procedure: Excisional biopsy of deep inguinal tender mass 2.5 x 2 cm Senior Military Analyst: Fifi Quintero) Estimated blood loss: <5cc Specimen: mass Findings: inguinal mass below scarpas fascia Anesthesia: General Complications: None Transferred to: Recovery Room Condition: Good
[2018-06-22] MEDS ORDERED: KETOROLAC 30 MG/ML INJ ONE (10:39)
[2018-06-22] MEDS ORDERED: GLYCOPYRROLATE 0.2 MG/ML SYR ONE (10:43)
[2018-06-22] MEDS: FENTANYL CITR 100 MCG/2 ML ONE ×2 (11:15→11:20)
[2018-06-22 11:17] VITALS: O2SAT 100
[2018-06-22] MEDS ORDERED: CODEINE 30MG/APAP 300MG TAB ONE (12:12)
[2018-06-22 13:53] VITALS: BP 107/64; TEMP 97.5
--- NOTE | 2018-06-22 21:05 | OP ---
Date of Procedure: 06/22/2018 Surgeon: Juan Antonio Blanc MD Lathe Set Up Operator: CAITLIN Ureña. Preoperative Diagnosis: Right inguinal tender and enlarging mass. Postoperative Diagnosis: Right inguinal tender and enlarging mass. Procedure: Excisional biopsy of deep inguinal tender mass below the fascia, 2.5 x 2 cm. Specimen: Mass. Findings: Right inguinal mass below Goran's fascia, cannot rule out lymphadenopathy. Anesthesia: General plus local. Indications: This is a case of 23 years old patient, who comes with a larger mass in the right ingui nal region. We gave her time to recover and to have a followup imaging but the imaging shows increas ing in size. She is more tender in that area. The differential diagnosis was discussed with her fro m the mass, lymphadenopathy versus hernia. We booked her for excisional biopsy of right inguinal mas s with benefits, alternatives, and risks including, but not limited to infection, bleeding, damage to adjacent structures, anesthesia complication, recurrence, nonhealing wound, SC, and even . She also understands this may not relieve her symptoms. She might need more than one surgical intervent ion. She wants to have it excised. She does not want more followup. Description Of Procedure: The patient brought to the operating room, placed in supine position. Ane sthesia was induced without complication. Right inguinal area was prepped and draped in sterile fash ion. A time-out was called. An incision was made in the right inguinal region. Incision was emiliano d down to Goran's fascia. Goran's fascia was opened and then we went to the deep the inguinal memo on, we found this mass present. We carefully obtained control of the mass and removed it bluntly. T he mass was excised, sent to the pathologist. There were no other masses there. I cannot see any he rnias. It is hard for me to know if this is a mass or a large lymph node. We are going to let the p athologist figure that out. The area was irrigated. Then, we proceeded to close this in layers. A 3-0 chromic for the Goran's fascia and then after that, 3-0 chromic subcutaneous tissue and then the subcuticular closure on the skin. Sponge count and instrument counts were correct. The patient mai erated the procedure well. The patient was sent to recovery in stable condition. Disposition: Home. Activity: As tolerated. No heavy lifting. Followup: Follow up in my office in 1 week. Call for appointment [phone]. Medications: Tylenol No. 3 q.4 hours p.r.n. pain, Bactrim-DS p.o. b.i.d. JEANNA/MANUELA Voice ID: [id number] Report ID: [id number]
== END 2018-06-22 13:36 | disposition home or self-care (01) ==
LOC: OR 08:00
PROVIDERS: ATTEND Surgery
PROC: 0JBC0ZZ Excision of Pelvic Region Subcutaneous Tissue and Fascia, Open Approach (ICD-10-PCS; 2018-06-22)
PROC: 0JQ80ZZ Repair Abdomen Subcutaneous Tissue and Fascia, Open Approach (ICD-10-PCS; principal; 2018-06-22 09:45)
DX: R22.2 Localized swelling, mass and lump, trunk (principal); Z90.49 Acquired absence of other specified parts of digestive tract; Z82.49 Family history of ischemic heart disease and other diseases of the circulatory system
CPT/HCPCS: 36415; 80048; 81025; 85025; 88304; J0690; J1100; J2250; J2704; J3010

== ENCOUNTER 2019-03-29 20:05 | Emergency (ER) | payer OTHER, SELFPAY ==
[2019-03-29 21:41] LABS: Absolute Lymphocytes (CBC) 1.7 K/uL (0.7-4.9); Basophils % 0.4 % (0-1.3); Hematocrit 39.2 % (36.0-45.0); Lymphocytes % 37.1 % (15.3-44.8); MPV 9.7 fL (7.6-11.3); RBC Red Blood Cell Count 4.51 M/uL (3.86-4.86)
[2019-03-29 21:46] LABS: Protime INR 0.99
[2019-03-29 21:58] LABS: ALT/SGPT 21 U/L (12-78); AST/SGOT 18 U/L (15-37); Albumin 4.3 g/dL (3.4-5.0); Alkaline Phosphatase 104 U/L (45-117); BUN Blood Urea Nitrogen 16 mg/dL (7-18); Bicarbonate 27 mmol/L (21-32); Bilirubin Direct < 0.1 mg/dL (0-0.2); Bilirubin Total 0.3 mg/dL (0.2-1.0); CKMB Creatine Kinase MB < 1.0 ng/mL (0.3-3.6); Creatine Phosphokinase 74 U/L (26-192); Glucose Level 78 mg/dL (74-106); Lipase 87 U/L (73-393); Magnesium 2.2 mg/dL (1.8-2.4); Potassium 3.5 mmol/L (3.5-5.1); Protein, Total 7.7 g/dL (6.4-8.2); Sodium Level 142 mmol/L (136-145); Troponin (Emerg Dept Use Only) < 0.02 ng/mL (0.0-0.045)
[2019-03-29 22:09] LABS: Barbiturates NEGATIVE (NEGATIVE); Benzodiazepines POSITIVE (NEGATIVE); Cocaine NEGATIVE (NEGATIVE); METHAMPHETAM NEGATIVE (NEGATIVE); Methadone NEGATIVE (NEGATIVE); Opiates NEGATIVE (NEGATIVE); Phencyclidine NEGATIVE (NEGATIVE); THC Cannibis NEGATIVE (NEGATIVE)
[2019-03-29 22:15] LABS: Urine Blood NEGATIVE (NEG); Urine Glucose NEGATIVE (NEG); Urine Protein NEGATIVE (NEG); Urine pH 8.5 (5.0-7.0)
--- NOTE | 2019-03-29 22:37 | EDPHYS ---
Physician Documentation [facility] Name: Annabel Chamberlain Age: 23 yrs Sex: Female : 1995 Arrival Date: 03/29/2019 Time: 20:14 Bed 8 Private MD: ED Physician Amilcar Whitaker HPI: 03/29 22:40 This 23 yrs old Female presents to ER via EMS with complaints of Anxiety. tw4 22:40 The patient presents to the emergency department with anxiety, over unknown tw4 circumstances. Onset: The symptoms/episode began/occurred today. Past psychiatric history: Prior diagnosis: depression, anxiety disorder. The patient has experienced near-syncope, almost passed out, felt faint. Onset: The symptoms/episode began/occurred this morning. Duration: This was a single episode. Context: the episode(s) was witnessed, by no one. Associated injury: The patient did not suffer any apparent associated injury. Associated signs and symptoms: The patient has no apparent associated signs or symptoms. Current symptoms: Currently, the patient is not experiencing any symptoms. 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 - Social history:: Smoking status: Patient/guardian denies using tobacco. - Ebola Screening: : Patient denies travel to an Ebola-affected area in the 21 days before illness onset. ROS: 22:40 Constitutional: Negative for fever, chills, and weight loss, Eyes: Negative for injury, tw4 pain, redness, and discharge, Cardiovascular: Negative for chest pain, palpitations, and edema, Respiratory: Negative for shortness of breath, cough, wheezing, and pleuritic chest pain, Abdomen/GI: Negative for abdominal pain, nausea, vomiting, diarrhea, and constipation, Back: Negative for injury and pain, MS/Extremity: Negative for injury and deformity, Skin: Negative for injury, rash, and discoloration, Neuro: Negative for headache, weakness, numbness, tingling, and seizure. 22:40 Neuro: Positive for near syncope. 22:40 Psych: Positive for anxiety, Negative for depression, drug dependence, alcohol dependence, auditory hallucinations, visual hallucinations. Exam: 22:40 Abdomen/GI: Inspection: abdomen appears normal. tw4 22:40 Constitutional: This is a well developed, well nourished patient who is awake, alert, and in no acute distress. Head/Face: Normocephalic, atraumatic. Chest/axilla: Normal chest wall appearance and motion. Nontender with no deformity. No lesions are appreciated. Cardiovascular: Regular rate and rhythm with a normal S1 and S2. No gallops, murmurs, or rubs. Normal PMI, no JVD. No pulse deficits. Respiratory: Lungs have equal breath sounds bilaterally, clear to auscultation and percussion. No rales, rhonchi or wheezes noted. No increased work of breathing, no retractions or nasal flaring. Abdomen/GI: Soft, non-tender, with normal bowel sounds. No distension or tympany. No guarding or rebound. No evidence of tenderness throughout. Back: No spinal tenderness. No costovertebral tenderness. Full range of motion. MS/ Extremity: Pulses equal, no cyanosis. Neurovascular intact. Full, normal range of motion. Neuro: Awake and alert, GCS 15, oriented to person, place, time, and situation. Cranial nerves II-XII grossly intact. Motor strength 5/5 in all extremities. Sensory grossly intact. Cerebellar exam normal. Normal gait. Vital Signs: 20:17 BP 110 / 65; Pulse 82; Resp 16; Temp 98.0; Pulse Ox 100% on R/A; Weight 70.31 kg; aj1 Height 5 ft. 1 in. (154.94 cm) (R); Pain 6/10; 21:15 BP 120 / 68; Pulse 72; Resp 16; Pulse Ox 100% on R/A; aj1 22:21 BP 114 / 66; Pulse 65; Resp 12; Pulse Ox 100% on R/A; aj1 20:17 Body Mass Index 29.29 (70.31 kg, 154.94 cm) aj1 MDM: 20:24 Patient medically screened. tw4 22:40 Differential Diagnosis: aortic aneurysm, vasovagal episode. Data reviewed: vital signs, tw4 nurses notes. Counseling: I had a detailed discussion with the patient and/or guardian regarding: the historical points, exam findings, and any diagnostic results supporting the discharge/admit diagnosis, lab results. Special discussion: I discussed with the patient/guardian in detail that at this point there is no indication for admission to the hospital. It is understood, however, that if the symptoms persist or worsen the patient needs to return immediately for re-evaluation. 03/29 21:06 Order name: Basic Metabolic Panel; Complete Time: 22:30 tw4 03/29 21:06 Order name: CBC with Diff; Complete Time: 22:30 tw4 03/29 21:06 Order name: Ckmb; Complete Time: 22:30 tw4 03/29 21:06 Order name: CPK; Complete Time: 22:30 tw4 03/29 21:06 Order name: Hepatic Function; Complete Time: 22:30 tw4 03/29 21:06 Order name: Lipase; Complete Time: 22:30 tw4 03/29 21:06 Order name: Magnesium; Complete Time: 22:30 tw4 03/29 21:06 Order name: Protime (+inr); Complete Time: 22:30 tw4 03/29 21:06 Order name: Ptt, Activated; Complete Time: 22:30 tw4 03/29 21:06 Order name: Troponin (emerg Dept Use Only); Complete Time: 22:30 tw4 03/29 21:19 Order name: Urine Drug Screen; Complete Time: 22:30 tw4 03/29 21:46 Order name: Urine Dipstick--Ancillary (enter results); Complete Time: 22:30 mw2 03/29 21:46 Order name: Urine --Ancillary (enter results); Complete Time: 22:30 mw2 03/29 21:06 Order name: Cardiac monitoring; Complete Time: 22:33 tw4 03/29 21:06 Order name: EKG - Nurse/Tech; Complete Time: 22:33 tw4 03/29 21:06 Order name: IV Saline Lock; Complete Time: 22:17 tw4 03/29 21:06 Order name: Labs collected and sent; Complete Time: 22:17 tw4 03/29 21:06 Order name: NPO; Complete Time: 22:17 tw4 03/29 21:06 Order name: O2 Per Protocol; Complete Time: 22:18 tw4 03/29 21:06 Order name: O2 Sat Monitoring; Complete Time: 22:18 tw4 03/29 21:06 Order name: Urine Dipstick-Ancillary (obtain specimen); Complete Time: 22:18 tw4 03/29 21:06 Order name: Urine Test (obtain specimen); Complete Time: 22:16 tw4 Administered Medications: No medications were administered Disposition: 03/29/19 22:36 Discharged to Home. Impression: Anxiety disorder, unspecified. - Condition is Stable. - Prescriptions for Cymbalta 60 mg Oral capsule,delayed release(DR/EC) - take 1 capsule by ORAL route once daily; 30 capsule. - Work release form, Medication Reconciliation Form, Thank You Letter, Antibiotic Education, Prescription Opioid Use form. - Follow up: Private Physician; When: Upon discharge from the Emergency Department; Reason: Recheck today's complaints, Continuance of care. - Problem is new. - Symptoms have improved. Signatures: Dispatcher [employer] EDMS Donna Snyder RN RN aj1 Claudia Angeles RN RN ak1 Amilcar Whitaker MD MD tw4 Corrections: (The following items were deleted from the chart) 23:02 22:36 03/29/2019 22:36 Discharged to Home. Impression: Anxiety disorder, unspecified. ak1 Condition is Stable. Forms are Medication Reconciliation Form, Thank You Letter, Antibiotic Education, Prescription Opioid Use. Follow up: Private Physician; When: Upon discharge from the Emergency Department; Reason: Recheck today's complaints, Continuance of care. Problem is new. Symptoms have improved. tw4
--- NOTE | 2019-03-29 22:37 | ER ---
Nurse's Notes [facility] Name: Annabel Chamberlain Age: 23 yrs Sex: Female : 1995 Arrival Date: 03/29/2019 Time: 20:14 Bed 8 Private MD: Diagnosis: Anxiety disorder, unspecified Presentation: 03/29 20:14 Presenting complaint: Patient states: She has been having anxiety attacks for the past aj1 3 days. States that she used to take medication for anxiety but she has been off of it for about a year, she cannot remember the name of the psychiatrist she saw. Patient also reports chest pain that she reports as tightness. Transition of care: patient was not received from another setting of care. Onset of symptoms was March 2019. Risk Assessment: Do you want to hurt yourself or someone else? Patient reports no desire to harm self or others. Initial Sepsis Screen: Does the patient meet any 2 criteria? No. Patient's initial sepsis screen is negative. Does the patient have a suspected source of infection? No. Patient's initial sepsis screen is negative. Care prior to arrival: None. 20:14 Method Of Arrival: EMS: [facility] aj1 20:14 Acuity: STEVEN 4 aj1 Triage Assessment: 20:17 General: Appears in no apparent distress. comfortable, Behavior is cooperative, aj1 anxious. Pain: Complains of pain in chest. 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 - Social history:: Smoking status: Patient/guardian denies using tobacco. - Ebola Screening: : Patient denies travel to an Ebola-affected area in the 21 days before illness onset. Screenin:19 Abuse screen: Denies threats or abuse. Denies injuries from another. Nutritional aj1 screening: No deficits noted. Tuberculosis screening: No symptoms or risk factors identified. 22:23 Fall Risk None identified. aj1 Assessment: 20:19 General: Appears in no apparent distress. comfortable, Behavior is cooperative, aj1 anxious. Pain: Complains of pain in chest Pain does not radiate. Pain currently is 6 out of 10 on a pain scale. Quality of pain is described as tightness Pain began 2-3 days ago. Neuro: Level of Consciousness is awake, alert, obeys commands, Oriented to person, place, time, situation. Cardiovascular: Heart tones S1 S2 present Patient's skin is warm and dry. Respiratory: Airway is patent Respiratory effort is even, unlabored, Respiratory pattern is regular, symmetrical. GI: No signs and/or symptoms were reported involving the gastrointestinal system. : No signs and/or symptoms were reported regarding the genitourinary system. EENT: No signs and/or symptoms were reported regarding the EENT system. Derm: No signs and/or symptoms reported regarding the dermatologic system. Skin is pink, warm \T\ dry. normal. Musculoskeletal: No signs and/or symptoms reported regarding the musculoskeletal system. Circulation, motion, and sensation intact. 21:15 Reassessment: Patient appears in no apparent distress at this time. No changes from aj1 previously documented assessment. Patient and/or family updated on plan of care and expected duration. Pain level reassessed. Patient is alert, oriented x 3, equal unlabored respirations, skin warm/dry/pink. 22:23 Reassessment: Patient appears in no apparent distress at this time. No changes from aj1 previously documented assessment. Patient and/or family updated on plan of care and expected duration. Pain level reassessed. Patient is alert, oriented x 3, equal unlabored respirations, skin warm/dry/pink. Vital Signs: 20:17 BP 110 / 65; Pulse 82; Resp 16; Temp 98.0; Pulse Ox 100% on R/A; Weight 70.31 kg; aj1 Height 5 ft. 1 in. (154.94 cm) (R); Pain 6/10; 21:15 BP 120 / 68; Pulse 72; Resp 16; Pulse Ox 100% on R/A; aj1 22:21 BP 114 / 66; Pulse 65; Resp 12; Pulse Ox 100% on R/A; aj1 20:17 Body Mass Index 29.29 (70.31 kg, 154.94 cm) aj1 ED Course: 20:14 Patient arrived in ED. aj1 20:16 Triage completed. aj1 20:17 Arm band placed on. aj1 20:19 Patient has correct armband on for positive identification. aj1 20:19 No provider procedures requiring assistance completed. aj1 20:24 Amilcar Whitaker MD is Attending Physician. tw4 22:16 Donna Snyder, RN is Primary Nurse. aj1 22:51 IV discontinued, intact, bleeding controlled, No redness/swelling at site. Pressure ak1 dressing applied. Administered Medications: No medications were administered Outcome: 22:29 Condition: improved ak1 22:36 Discharge ordered by . tw4 23:01 Discharged to home ambulatory, with family. ak1 23:01 Discharge instructions given to patient, Instructed on discharge instructions, follow up and referral plans. no drinking with medication, no driving heavy equipment, medication usage, Demonstrated understanding of instructions, follow-up care, medications, Prescriptions given X 1. 23:02 Patient left the ED. ak1 Signatures: Donna Snyder, RN RN Claudia Patino RN RN ak1 Amilcar Whitaker MD MD tw
[2019-03-29 23:11] VITALS: TEMP 98; O2SAT 100
[2019-03-29 23:13] VITALS: BP 114/66
--- NOTE | 2019-03-30 10:18 | EKG ---
Test Date: 2019-03-29 Test Time: 22:25:39 Lead Carpenter: DESTINY MEASUREMENT RESULTS: Intervals: Rate: 63 VA: 134 QRSD: 80 QT: 426 QTc: 435 Ione: P: 43 VA: 134 QRS: 70 T: 56 INTERPRETIVE STATEMENTS: Normal sinus rhythm with sinus arrhythmia Normal ECG Compared to ECG 11/02/2017 09:47:47 No significant changes Electronically Signed On 03-30-19 10:16:06 CDT by Ben Monsalve
== END 2019-03-29 23:02 | disposition home or self-care (01) ==
LOC: ER 20:05
DX: F41.9 Anxiety disorder, unspecified (principal)
CPT/HCPCS: 36415; 80048; 80076; 80307; 81003; 81025; 82550; 82553; 83690; 83735; 84484; 85025; 85610; 85730; 93005; 99283

== ENCOUNTER 2020-06-27 08:32 | Emergency (ER) | payer SELFPAY ==
--- OUTSIDE RECORDS SUMMARY | 2020-06-27 09:08 | XMS REPORT | Continuity of Care Document ---
:1995 Author Organization [facility] t Address [address] [place] [address] Dr. Pimentel [address] [place] [id number] Care Team Providers Name Role Phone Unavailable Unavailable Unavailable Problems This patient has no known problems. Allergies, Adverse Reactions, Alerts This patient has no known allergies or adverse reactions. Medications This patient has no known medications. Procedures This patient has no known procedures. Results This patient has no known results.
[2020-06-27 10:36] LABS: Bilirubin Direct 0.1 mg/dL (0-0.2); Bilirubin Total 0.4 mg/dL (0.2-1.0); Potassium 3.9 mmol/L (3.5-5.1); Protein, Total 7.5 g/dL (6.4-8.2)
[2020-06-27 10:39] LABS: Absolute Lymphocytes (CBC) 1.2 K/uL (0.7-4.9); Basophils % 0.5 % (0-1.3); Hematocrit 35.4 % (36.0-45.0); Lymphocytes % 37.1 % (15.3-44.8); MPV 9.3 fL (7.6-11.3); RBC Red Blood Cell Count 4.19 M/uL (3.86-4.86)
--- NOTE | 2020-06-27 11:12 | RAD REPORT ---
EXAM DESCRIPTION: US - Transvaginal Study Probe - 06/27/2020 10:38 am CLINICAL HISTORY: right adnexal pain COMPARISON: PELVIC COMPLETE dated 03/16/2010 TECHNIQUE: Endovaginal sonography was performed. FINDINGS: Endometrium is 9 mm in thickness. No endometrial mass or polyp identifiable. No myometrial mass lesions seen. Uterine assessment is somewhat limited due to body habitus affects. No uterine ab normality was seen. Uterus is 8.2 x 4.5 x 4.5 cm. Both ovaries are identified and normal size. Doppler evaluation shows normal blood flow within the ov christophe stroma. No solid or cystic ovarian or adnexal abnormality seen. No blood or fluid in the cul de sac. IMPRESSION: Endovaginal pelvic ultrasound shows no significant or suspicious finding.
[2020-06-27 11:36] LABS: Urine Blood NEGATIVE (NEG); Urine Glucose NEGATIVE (NEG); Urine Protein NEGATIVE (NEG); Urine Specific Gravity 1.025 (1.005-1.030)
[2020-06-27] MEDS ORDERED: KETOROLAC 30 MG/ML INJ ONE (11:46)
[2020-06-27] MEDS ORDERED: ONDANSETRON 4 MG/2 ML VIAL ONE (11:46)
--- NOTE | 2020-06-27 12:37 | RAD REPORT ---
EXAM DESCRIPTION: CT - Abdomen Pelvis W Contrast - 06/27/2020 12:22 pm CLINICAL HISTORY: RLQ abdomen pain COMPARISON: CT ABD PELVIS W CONTRAST dated 08/17/2015 TECHNIQUE: Biphasic, helical CT imaging of the abdomen and pelvis was performed following 100 ml non -ionic IV contrast. No oral contrast. All CT scans are performed using dose optimization technique as appropriate and may include automated exposure control or mA/KV adjustment according to patient size. FINDINGS: No suspicious findings in the lung bases. The liver, spleen, and pancreas show no suspicious findings. Cholecystectomy clips are present. No bi liary tree dilatation. Symmetric renal function is seen with no hydronephrosis or suspicious renal mass. No pyelonephritis o r acute parenchymal process. Nonobstructing 6 mm calcification present lower pole right kidney simila r to 2016. No adrenal abnormalities. No urinary bladder abnormality seen. Uterus and ovaries show no suspicious findings. No dilated bowel loops or bowel wall thickening. No appendicitis. Mild to moderate stool volume seen throughout the colon. No free air, free fluid or inflammatory stranding. No hernia, mass or bulky ly mphadenopathy. No suspicious bony findings. IMPRESSION: Contrast enhanced CT abdomen and pelvis showing no significant or suspicious finding. Nonacute findings detailed in the body of the report.
--- NOTE | 2020-06-27 16:07 | ER ---
Nurse's Notes [facility] Name: Annabel Chamberlain Age: 25 yrs Sex: Female : 1995 Arrival Date: 06/27/2020 Time: 08:35 Bed 19 Private MD: Diagnosis: Lower abdominal pain, unspecified;Bacterial Vaginosis Presentation: 06/27 08:57 Chief complaint: Patient states: RLQ pain that began yesterday. Pt reports she is a few ss days late for her period, but UPT was negative at home. "I know it sounds weird, but I feel like a ball and like it might bust." Denies fever, N/V/D. Coronavirus screen: Client denies travel out of the [place] in the last 14 days. Ebola Screen: Patient denies exposure to infectious person. Patient denies travel to an Ebola-affected area in the 21 days before illness onset. Initial Sepsis Screen: Does the patient meet any 2 criteria? No. Patient's initial sepsis screen is negative. Does the patient have a suspected source of infection? No. Patient's initial sepsis screen is negative. Risk Assessment: Do you want to hurt yourself or someone else? Patient reports no desire to harm self or others. Onset of symptoms was June 26, 2020. 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 - Social history:: Smoking status: Patient denies any tobacco usage or history of. Screenin:33 Abuse screen: Denies threats or abuse. Nutritional screening: No deficits noted. ll1 Tuberculosis screening: No symptoms or risk factors identified. Fall Risk Total Borges Fall Scale indicates No Risk (0-24 pts). Assessment: 10:10 General: Appears uncomfortable, Behavior is calm, cooperative, appropriate for age. ll1 Pain: Complains of pain in RLQ Quality of pain is described as aching, pressure. Neuro: No deficits noted. Cardiovascular: No deficits noted. Respiratory: No deficits noted. GI: Abdomen is flat, Bowel sounds present X 4 quads. Abd is soft and non tender X 4 quads. Reports lower abdominal pain, nausea. 11:10 Reassessment: No changes from previously documented assessment. Patient and/or family ll1 updated on plan of care and expected duration. Pain level reassessed. 12:10 Reassessment: No changes from previously documented assessment. Patient and/or family ll1 updated on plan of care and expected duration. Pain level reassessed. Patient is alert, oriented x 3, equal unlabored respirations, skin warm/dry/pink. 13:10 Reassessment: No changes from previously documented assessment. Patient and/or family ll1 updated on plan of care and expected duration. Pain level reassessed. 14:10 Reassessment: No changes from previously documented assessment. Patient and/or family ll1 updated on plan of care and expected duration. Pain level reassessed. Patient is alert, oriented x 3, equal unlabored respirations, skin warm/dry/pink. 15:10 Reassessment: No changes from previously documented assessment. Patient and/or family ll1 updated on plan of care and expected duration. Pain level reassessed. Patient is alert, oriented x 3, equal unlabored respirations, skin warm/dry/pink. Vital Signs: 08:57 BP 116 / 74; Pulse 70; Resp 14; Temp 98.3(TE); Pulse Ox 100% on R/A; Weight 71.67 kg; Height 5 ft. 1 in. (154.94 cm); Pain 8/10; 16:18 BP 111 / 73; Pulse 63; Resp 16; Pulse Ox 100% ; ll1 08:57 Body Mass Index 29.85 (71.67 kg, 154.94 cm) ED Course: 08:35 Patient arrived in ED. am4 08:59 Triage completed. 08:59 Arm band placed on right wrist. 09:54 Kj Chauhan PA is PHCP. cp 09:54 Kj Phillips MD is Attending Physician. cp 10:04 Nima Gómez RN is Primary Nurse. ll1 10:10 Inserted saline lock: 22 gauge in right antecubital area, using aseptic technique. ll1 Blood collected. 10:34 Patient has correct armband on for positive identification. Bed in low position. Call ll1 light in reach. Side rails up X 1. 10:42 Ultrasound completed. Patient tolerated well. lc3 12:21 CT Abd/Pelvis - IV Contrast Only In Process Unspecified. EDMS 12:21 CT completed. Patient tolerated procedure well. Patient moved to CO via wheelchair. sw Patient moved back from CO. 16:04 Melinda Ernst MD is Referral Physician. cp 16:19 No provider procedures requiring assistance completed. IV discontinued, intact, ll1 bleeding controlled, No redness/swelling at site. Pressure dressing applied. Administered Medications: 11:37 Drug: TORadol - Ketorolac 15 mg Route: IVP; Site: right antecubital; ll1 15:29 Follow up: Response: No adverse reaction; RASS: Alert and Calm (0) ll1 11:37 Drug: Zofran (Ondansetron) 4 mg Route: IVP; Site: right antecubital; ll1 15:29 Follow up: Response: No adverse reaction ll1 15:29 Drug: Zithromax 1 grams Route: PO; ll1 16:21 Follow up: Response: No adverse reaction; RASS: Alert and Calm (0) ll1 15:29 Drug: Rocephin (cefTRIAXone) 250 mg Route: IM; Site: right gluteus; ll1 16:21 Follow up: Response: No adverse reaction; RASS: Alert and Calm (0) ll1 Outcome: 16:07 Discharge ordered by MD. cp 16:19 Discharged to home ambulatory. ll1 16:19 Condition: stable 16:19 Discharge instructions given to patient, Instructed on discharge instructions, follow up and referral plans. medication usage, Demonstrated understanding of instructions, follow-up care, medications, Prescriptions given X 4. 16:21 Patient left the ED. ll1 Signatures: Dispatcher [employer] EDMS Brittany Loomis RN RN Beverley Valdovinos Corey, PA PA cp Cunningham, Laulita lc3 Lewis, Lynsay RN RN ll1 Kaylyn Blanc am4
--- NOTE | 2020-06-27 16:07 | EDPHYS ---
Physician Documentation [facility] – [place], [place] Name: Annabel Chamberlain Age: 25 yrs Sex: Female : 1995 Arrival Date: 06/27/2020 Time: 08:35 Bed 19 Private MD: Kj Samaniego HPI: 06/27 10:02 This 25 yrs old Female presents to ER via Ambulatory with complaints of cp Abdominal Pain. 10:02 The patient presents with abdominal pain right adnexal area. Onset: The cp symptoms/episode began/occurred 1 week(s) ago, and became worse last night. The symptoms do not radiate. Associated signs and symptoms: Pertinent negatives: nausea and vomiting, anorexia, constipation, diarrhea, dysuria, fever. Modifying factors: the symptoms are aggravated by pressure. 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 - Social history:: Smoking status: Patient denies any tobacco usage or history of. ROS: 10:05 Constitutional: Negative for body aches, chills, fever, poor PO intake. cp 10:05 Eyes: Negative for injury, pain, redness, and discharge. cp 10:05 Respiratory: Negative for cough, shortness of breath, wheezing. 10:05 Abdomen/GI: Positive for abdominal pain, Negative for vomiting, diarrhea, constipation, anorexia, black/tarry stool, rectal bleeding. 10:05 : Positive for vaginal discharge, Negative for urinary symptoms, vaginal bleeding. 10:05 All other systems are negative. Exam: 10:10 Constitutional: The patient appears in no acute distress, alert, awake, non-toxic, well cp developed, well nourished. 10:10 Head/Face: Normocephalic, atraumatic. cp 10:10 Eyes: Periorbital structures: appear normal, Conjunctiva: normal, no exudate, no injection, Sclera: no appreciated abnormality, Lids and lashes: appear normal, bilaterally. 10:10 ENT: External ear(s): are unremarkable, Nose: is normal, Posterior pharynx: Airway: no evidence of obstruction, patent. 10:10 Chest/axilla: Inspection: normal, Palpation: is normal, no crepitus, no tenderness. 10:10 Cardiovascular: Rate: normal, Rhythm: regular. 10:10 Respiratory: the patient does not display signs of respiratory distress, Respirations: normal, no use of accessory muscles, no retractions, labored breathing, is not present, Breath sounds: are clear throughout, no decreased breath sounds, no stridor, no wheezing. 10:10 Abdomen/GI: Inspection: scar(s), are noted in the right lower quadrant, Bowel sounds: active, all quadrants, Palpation: soft, in all quadrants, mild abdominal tenderness, in the right adnexal area, rebound tenderness, is not appreciated, voluntary guarding, is not appreciated, involuntary guarding, is not appreciated. 10:10 Back: CVA tenderness, is absent. 10:10 Skin: cellulitis, is not appreciated, no rash present. 14:30 : Pelvic Exam: External exam: is normal, Speculum exam: scant bleeding, os that is cp closed, bimanual exam reveals no cervical motion tenderness, no adnexa tenderness or masses bilaterally, discharge, bloody, the qa tech was present for the exam, Sexual behavior: the patient is sexually active, and reports a single partner, not applicable. Vital Signs: 08:57 BP 116 / 74; Pulse 70; Resp 14; Temp 98.3(TE); Pulse Ox 100% on R/A; Weight 71.67 kg; ss Height 5 ft. 1 in. (154.94 cm); Pain 8/10; 16:18 BP 111 / 73; Pulse 63; Resp 16; Pulse Ox 100% ; ll1 08:57 Body Mass Index 29.85 (71.67 kg, 154.94 cm) ss MDM: 10:00 Patient medically screened. brice 10:30 Differential diagnosis: appendicitis, bowel obstruction, Ectopic , cp Endometriosis, Ovarian Torsion, Pelvic Inflammatory Disease, Tubal Ovarian Abcess, Ureterolithiasis, urinary tract infection. 16:05 Data reviewed: vital signs, nurses notes, lab test result(s), radiologic studies, CT cp scan, ultrasound. 16:05 Counseling: I had a detailed discussion with the patient and/or guardian regarding: the cp historical points, exam findings, and any diagnostic results supporting the discharge/admit diagnosis, lab results, radiology results, the need for outpatient follow up, an OB/Gyne specialist, to return to the emergency department if symptoms worsen or persist or if there are any questions or concerns that arise at home. Response to treatment: the patient's symptoms have markedly improved after treatment, and as a result, I will discharge patient. Special discussion: Based on the patient's Hx, exam, and Dx evaluation, there is no indication for emergent surgery or inpatient Tx. It is understood by the patient/guardian that if the Sx's persist or worsen they need to return immediately for re-evaluation. 06/27 10:02 Order name: Basic Metabolic Panel 06/27 10:02 Order name: CBC with Diff; Complete Time: 11:15 06/27 11:15 Interpretation: Normal except: WBC 3.10; HCT 35.4; NEUT A 1.7. 06/27 10:02 Order name: Hepatic Function; Complete Time: 10:41 06/27 10:02 Order name: Lipase; Complete Time: 10:41 06/27 10:02 Order name: Basic Metabolic Panel; Complete Time: 10:41 [facility] 06/27 10:41 Interpretation: Normal except: CL 110; GFR 87. 06/27 11:31 Order name: Urine Dipstick--Ancillary (enter results); Complete Time: 13:37 06/27 10:02 Order name: US Transvaginal Study (Probe) 06/27 11:13 Order name: US; Complete Time: 11:15 [facility] 06/27 11:17 Order name: CT Abd/Pelvis - IV Contrast Only; Complete Time: 13:37 06/27 11:31 Order name: Urine --Ancillary (enter results); Complete Time: 13:37 06/27 13:41 Order name: GC (GONORR/CHLAMYDIA) Probe 06/27 13:41 Order name: Wet Prep; Complete Time: 16:04 06/27 10:02 Order name: IV Saline Lock; Complete Time: 10:04 06/27 10:02 Order name: Labs collected and sent; Complete Time: 10:04 06/27 10:02 Order name: Urine Dipstick-Ancillary (obtain specimen); Complete Time: 10:59 cp 06/27 10:02 Order name: Urine Test (obtain specimen); Complete Time: 10:59 cp 06/27 13:38 Order name: PO challenge; Complete Time: 15:12 cp 06/27 13:41 Order name: Pelvic Exam Setup; Complete Time: 15:12 cp Administered Medications: 11:37 Drug: TORadol - Ketorolac 15 mg Route: IVP; Site: right antecubital; ll1 15:29 Follow up: Response: No adverse reaction; RASS: Alert and Calm (0) ll1 11:37 Drug: Zofran (Ondansetron) 4 mg Route: IVP; Site: right antecubital; ll1 15:29 Follow up: Response: No adverse reaction ll1 15:29 Drug: Zithromax 1 grams Route: PO; ll1 16:21 Follow up: Response: No adverse reaction; RASS: Alert and Calm (0) ll1 15:29 Drug: Rocephin (cefTRIAXone) 250 mg Route: IM; Site: right gluteus; ll1 16:21 Follow up: Response: No adverse reaction; RASS: Alert and Calm (0) ll1 Disposition: 17:32 Co-signature as Attending Physician, Kj Phillips MD I agree with the assessment and brice plan of care. Disposition: 06/27/20 16:07 Discharged to Home. Impression: Lower abdominal pain, unspecified, Bacterial Vaginosis. - Condition is Stable. - Discharge Instructions: Abdominal Pain, Adult, Bacterial Vaginosis. - Prescriptions for Zofran 4 mg Oral Tablet - take 1 tablet by ORAL route every 12 hours As needed; 20 tablet. Metronidazole 500 mg Oral Tablet - take 1 tablet by ORAL route every 8 hours; 30 tablet. Doxycycline Monohydrate 100 mg Oral Tablet - take 1 tablet by ORAL route every 12 hours for 10 days; 20 tablet. Ibuprofen 800 mg Oral Tablet - take 1 tablet by ORAL route every 8 hours As needed take with food; 30 tablet. - Medication Reconciliation Form, Thank You Letter, Antibiotic Education, Prescription Opioid Use, Work release form form. - Follow up: Melinda Ernst MD; When: 2 - 3 days; Reason: Recheck today's complaints. - Problem is new. - Symptoms have improved. Signatures: Dispatcher [employer] Kj Duran MD MD cha Smirch Brittany, RN RN ss Kj Chauhan PA PA cp Nima Gómez, RN RN ll1 Corrections: (The following items were deleted from the chart) 16:08 16:07 06/27/2020 16:07 Discharged to Home. Impression: Lower abdominal pain, cp unspecified. Condition is Stable. Forms are Medication Reconciliation Form, Thank You Letter, Antibiotic Education, Prescription Opioid Use. Follow up: Melinda Ernst; When: 2 - 3 days; Reason: Recheck today's complaints. Problem is new. Symptoms have improved. cp 16:21 16:08 06/27/2020 16:07 Discharged to Home. Impression: Lower abdominal pain, ll1 unspecified; Bacterial Vaginosis. Condition is Stable. Discharge Instructions: Abdominal Pain, Adult, Bacterial Vaginosis. Prescriptions for Zofran 4 mg Oral Tablet - take 1 tablet by ORAL route every 12 hours As needed; 20 tablet, Metronidazole 500 mg Oral Tablet - take 1 tablet by ORAL route every 8 hours; 30 tablet, Doxycycline Monohydrate 100 mg Oral Tablet - take 1 tablet by ORAL route every 12 hours for 10 days; 20 tablet, Ibuprofen 800 mg Oral Tablet - take 1 tablet by ORAL route every 8 hours As needed take with food; 30 tablet. and Forms are Medication Reconciliation Form, Thank You Letter, Antibiotic Education, Prescription Opioid Use. Follow up: Melinda Kabill; When: 2 - 3 days; Reason: Recheck today's complaints. Problem is new. Symptoms have improved. cp
[2020-06-27 16:27] VITALS: TEMP 98.3; O2SAT 100
[2020-06-27 16:28] VITALS: BP 111/73
[2020-06-29 20:48] LABS: C.trachomatis RNA,TMA Not Detected (Not Detected)
== END 2020-06-27 16:21 | disposition home or self-care (01) ==
LOC: ER 08:32
DX: N76.0 Acute vaginitis (principal)
CPT/HCPCS: 36415; 74177; 76830; 80048; 80076; 81003; 81025; 83690; 85025; 87210; 87490; 87590; 96372; 96374; 96375; 99284; J2405; Q9967

== ENCOUNTER 2022-04-08 20:35 | Emergency (ER) | payer OTHER, SELFPAY ==
--- OUTSIDE RECORDS SUMMARY | 2022-04-08 20:38 | XMS REPORT | Continuity of Care Document ---
:1995 Author Organization [facility] t Address [address] [place] [address] Care Team Providers Name Role Phone PCP, PATIENT DOES NOT HAVE A Primary Care Physician Unavaila LETI Lees Attending Clinician Unavailable Isaac UNIT AIDPortia Smith Attending Clinician Unknown, Attending Attending Clinician Unavailable PORTIA GRAY Attending Clinician Unavailable Brissa Alves Attending Clinician Lissett Julio Attending Clinician LISSETT TORRES Attending Clinician Unavailable Doctor Unassigned, [place] Attending Clinician Unavailable UNKNOWN, ATTENDING Attending Clinician Unavailable REN MEZA Attending Clinician Unavailable Jose CHOUPRen Attending Clinician GANESH LUNA Attending Clinician Unavailable Payers Payer Name Policy Type Policy Number Effective Date Expiration Date Bhaskar CEBALLOS [place] [id number] 2021 HEALTHCARE 00:00:00 Problems Condition Condition Condition Status Onset Resolution Last Treating Co mments Source Name Details Category Date Date Treatment Clinician Date Anxiety Anxiety Disease Active Univers and and 9-12 [place] Anemia, Anemia, Disease Active Univers unspecifie unspecifie 2-08 it y of d anemia d anemia 00:00: [place] type type 00 Medical Branch Surveillan Surveillan Disease Active U nivers ce of ce of 2-08 [place] of [place] prescribed 00 Me dical contracept contracept Br anch timo method timo method Well woman Well woman Disease Active U nivers exam with exam with 2-08 ity of routine routine 00:00: [place] gynecologi gynecologi 00 Me dical arturo exam arturo exam Branch Susceptibl Susceptibl Disease Active U nivers e to e to 4-28 ity of varicella varicella [place] (non-immun (non-immun 00 Me dical e), e), Branch currently currently Rubella Rubella Disease Active Univers non-immune non-immune 4 it y of status, status, 00:00: [place] antepartum antepartum 00 Me dical Branch Generalize Generalize Disease Active U nivagatha d anxiety d anxiety 4-27 ity of disorder disorder 00:00: [place] 00 Medical Branch History of History of Disease Active U nivagatha depression depression - it y of 00:00: [place] 00 Medical Branch Asthma Asthma Disease Active Overview: Univer s 4-27 Formattin ity of 00:00: g of this [place] 00 note Medical might be Branch different from the original. 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 [place] History SDOH University o f Alcohol Std [place] Medical Drinks Branch History [facility] University o f Alcohol Binge [place] Medic al Branch Exposure to 2022-03-17 2022-03-27 Not sure University of SARS-CoV-2 00:00:00 09:04:00 [facility] (event) Branch Alcohol intake 2022-03-27 2022-03-27 Current drinker of Un iversity of 00:00:00 00:00:00 alcohol (finding) [facility] [place] Tobacco use and 2022-02-11 2022-02-11 Smokeless tobacco Un iversity of exposure 00:00:00 00:00:00 non-user [facility] Tobacco Comment 2022-02-11 2022-02-11 Smoked occasionally University of 00:00:00 00:00:00 for 1.5 years, a [facility] dical pack would last 2 Branch months Alcohol Comment 2017-03-10 2017-03-10 on special Universit y of 00:00:00 00:00:00 occassions [facility] Sex Ass[birth year] At [birth year] Universit y of 00:00:00 00:00:00 [facility] Smoking Status Start Date Stop Date Source Ex-smoker 2022-02-11 00:00:00 2022-02-11 00:00:00 Universi ty of [facility] Medications Ordered Filled Start Stop Current Ordering Indication Dosage Frequency Signature Comments Components Source Medication Medication Date Date Medication? Clinician (SIG) Name Name cefdinir 2021-06 Yes [id number] 600mg Take 2 U nivers 300 mg 0-26 11-06 capsules ity of capsule 00:00: 04:59 by mouth [place] 00 :00 in the [facility] for 10 days. cefdinir 2021-06- Yes [id number] 600mg Take 2 U nivers 300 mg 0-26 11-06 capsules ity of capsule 00:00: 04:59 by mouth [place] 00 :00 in the [facility] for 10 days. bromphenira Yes [id number] 10mL Take 10 mL Univers mine-pseudo 9-12 by mouth 4 it y of ephedrine-D 00:00[place] ([place] (BROMFED 00 times Medical DM) 2-30-10 daily as Bran ch mg/5 mL needed for syrup Congestion /Allergies . bromphenira Yes [id number] 10mL Take 10 mL Univers mine-pseudo 9-12 by mouth 4 it y of ephedrine-D 00:00: ([place] (BROMFED 00 times Medical DM) 2-30-10 daily as Bran ch mg/5 mL needed for syrup Congestion /Allergies . bromphenira Yes [id number] 10mL Take 10 mL Univers mine-pseudo 9-12 by mouth 4 it y of ephedrine-D 00:00[place] ([place] (BROMFED 00 times Medical DM) 2-30-10 daily as Bran ch mg/5 mL needed for syrup Congestion /Allergies . bromphenira 2021-0 Yes [id number] 10mL Take 10 mL Univers mine-pseudo 9-12 by mouth 4 it y of ephedrine-D 00:00: (four[place] (BROMFED 00 times Medical DM) 2-30-10 daily as Bran ch mg/5 mL needed for syrup Congestion /Allergies . bromphenira 2021-0 Yes [id number] 10mL Take 10 mL Univers mine-pseudo 9-12 by mouth 4 it y of ephedrine-D 00:00: ([place] (BROMFED 00 times Medical DM) 2-30-10 daily as Bran ch mg/5 mL needed for syrup Congestion /Allergies . ondansetron 2021- No [id number] 4mg Take 1 Univers 4 mg 4-21 09-12 tablet by ity of disintegrat 00:00: 00:00 [place] tablet 00 :00 every 8 Medica l (eight) Branch hours as needed for Nausea and Vomiting (N/V). ondansetron 2021- No [id number] 4mg Take 1 Univers 4 mg 4-21 09-12 tablet by ity of disintegrat 00:00: 00:00 [place] tablet 00 :00 every 8 Medica l (eight) Branch hours as needed for Nausea and Vomiting (N/V). Immunizations Ordered Filled Immunization Date Status Comments [facility] e Immunization Name Name [facility] 2015-02-27 Completed University 00:00:00 [facility] 2015-02-27 Completed University :00:00 [facility] 2015-02-27 Completed University of 00:00:00 [facility] 2015-02-27 Completed University of 00:00:00 [facility] 2015-02-27 Completed University of 00:00:00 [facility] Td 2006-06-02 Completed University of 00:00:00 [facility] 2006-06-02 Completed University of 00:00:00 [facility] 2006-06-02 Completed University of 00:00:00 [facility] 2006-06-02 Completed University of 00:00:00 [facility] 2006-06-02 Completed University of 00:00:00 [facility] Vital Signs Vital Name Observation Time Observation Value Comments Source Systolic blood 2022-03-27 14:14:00 131 mm[Hg] Univer sity of pressure [place] [facility] Diastolic blood 2022-03-27 14:14:00 79 mm[Hg] Unive rsity of pressure [facility] Heart rate 2022-03-27 14:14:00 79 /min Universi ty of [place] [facility] [place] Body temperature 2022-03-27 14:14:00 36.72 [facility] ersity of [facility] Respiratory rate 2022-03-27 14:14:00 18 /min Univ ersity of [place] [facility] Body height 2022-03-27 14:14:00 154.9 cm Universi ty of [place] [facility] [place] Body weight 2022-03-27 14:14:00 73.982 kg Universi ty of [place] [facility] BMI 2022-03-27 14:14:00 30.82 kg/m2 Universi ty of [place] [facility] [place] Oxygen saturation in 2022-03-27 14:14:00 98 /min University of Arterial blood by [facility] Pulse oximetry Branch Systolic blood 2022-02-11 16:49:00 120 mm[Hg] Univer sity of pressure [place] [facility] Diastolic blood 2022-02-11 16:49:00 82 mm[Hg] Unive rsity of pressure [facility] Heart rate 2022-02-11 16:49:00 81 /min Universi ty of [place] [facility] Body temperature 2022-02-11 16:49:00 37.22 [facility] ersity of [place] [facility] [place] Body height 2022-02-11 16:49:00 156.2 cm Universi ty of [place] [facility] Body weight 2022-02-11 16:49:00 72.439 kg Universi ty of [place] [facility] BMI 2022-02-11 16:49:00 29.69 kg/m2 Universi ty of [place] [facility] Oxygen saturation in 2022-02-11 16:49:00 99 /min University of Arterial blood by [facility] Pulse oximetry Branch Procedures Procedure Date / Time Performed Performing Clinician Sour e POCT URINALYSIS 2022-03-27 00:00:00 Portia Gray [place] o f [facility] POCT TEST 2022-03-27 00:00[facility]00 [facility] Start End Encounter Admission Attending Care Care Encounter Source Date/Time Date/Time Type Type Clinicians Facility Department ID 2022-04-09 2022-04-09 Outpatient Kelsey AMIN [facility] [id number] Univers 16:20:00 16:20:[address] [facility] 2022-03-27 2022-03-27 Urgent Portia Gray [facility] [id number] Univers 09:20:00 09:40:00 Care Unknown, [facility] HEALTH [id number] ity of [place] 4.2.7.2.686 Kike as SLICK?BLEA [id number] [address] MEDICAL OFFICE BUILDING 2022-03-27 2022-03-27 Outpatient Kelsey GRAY [facility] [id number] Univers 09:20:00 09:20:[address] [facility] 2022-03-27 2022-03-27 Letter Isaac [facility] [id number] Univers 00:00:00 00:00:00 (Out) [facility] 350.1.13.10 it y of [place] 4.2.7.2.686 Kike as SLICK?BLEA [id number] [address] MEDICAL OFFICE BUILDING 2022-02-11 2022-02-11 [facility] [id number] Univers 11:20:00 12:21:36 Visit [facility] 350.1.13.10 ity of [place] 4.2.7.2.686 Kike as SLICK?BLEA [id number] [facility] [address] [place] MEDICAL OFFICE BUILDING 2022-02-11 2022-02-11 Outpatient Kelsey AMIN [facility] [id number] Univers 11:20:00 12:21:[address] [facility] 2022-02-11 2022-02-11 Outpatient Kelsey AMIN [facility] [id number] Univers 11:20:00 11:20:[address] [facility] 2022-02-11 2022-02-11 Vinnie [facility] [id number] Univers 00:00:00 00:00:00 (Out) [facility] 350.1.13.10 ity of [place] 4.2.7.2.686 Kike as SLICK?BLEA [id number] [facility] [address] [place] MEDICAL OFFICE [facility] 2022-02-08 2022-02-08 Outpatient R ISAAC [facility] [id number] Univers 16:20:00 16:50:[address] [facility] 2022-02-08 2022-02-08 Urgent Isaac Atiliobaldev [facility] 1.2.840.114 [id number] Univers 16:20:00 16:40:00 Care [facility] 350.1.13.10 ity of [place] 4.2.7.2.686 Kike as SLICK?BLEA [id number] [facility] [address] [facility] OFFICE [facility] 2021-09-20 2021-09-20 Urgent [place] [facility] 1.2.840.114 [id number] Univers 11:00:00 11:34:43 [facility] 350.1.13.10 ity of [place] 4.2.7.2.686 Kike as SLICK?BLEA [id number] [facility] [address] [place] MEDICAL OFFICE [facility] 2021-09-20 2021-09-20 Outpatient R BRIAN [facility] [id number] Univers 11:00:00 11:34:43 [facility] 2021-09-20 2021-09-20 Orders Doctor ECHEVERRIA 1.2.840.114 [id number] Univers 00:00:00 00:00:00 Only Unassigned, YOVANA 350.1.13.10 ity of [place] [facility] 4.2.7.2.686 Kike as [id number] [address] 2021-09-19 2021-09-19 Outpatient R ANDREW [facility] [id number] Univers 19:20:00 19:20:[address] [facility] 2021-09-19 2021-09-19 Clinic [facility] 1.2.840.114 [id number] Univers 00:00:00 00:00:00 Assessment [facility] 350.1.13.10 ity of [place] 4.2.7.2.686 Kike as SLICK?BLEA [id number] [place] [address] MEDICAL OFFICE BUILDING 2021-06-10 2021-06-10 [facility]patient [facility] [id number] Univers 17:00:00 18:43:38 REN [facility] 2021-06-10 2021-06-10 Urgent Unknown, Attending 1.2.840.1 [id number] Univers 17:00:00 18:43:38 Ren Mcdonnell 57438.1.1 ity of 3.104.2.7 [place] .[id number] Medica l .8 [place] 2021-06-10 2021-06-10 Travel 1.2.840.1 [id number] [id number] Univers 00:00:00 00:00:00 [id number] 350.1.13.10 ity of 3.104.2.7 4[place]7.3.698 [place] .[id number] 084.8 Medica l .8 [place] 2020-09-04 2020-09-04 Outpatient [facility] [id number] Univers 14:40:00 14:40:00 [facility] 2020-08-07 2020-08-07 Outpatient [facility] [id number] Univers 12:40:00 12:40:00 [facility] 2020-05-24 2020-05-24 Outpatient [facility] [id number] Univers 08:45:00 08:45:00 GANESH [facility] Results Test Description Test Time Test Comments Results Result Comments Source POCT TEST 2022-03-27 14:26:00 Test Item Value Reference Range Interpretation Comme nts POCT PREG (test code = 1605) Negative On board controls acceptable with C Line (test code = 3574) Yes POCT PREG LOT # (test code = 3575) POCT PREG TEST DATE (test code = 3576) [facility] SPECIFIC [id number] 14:21:00 Test Item Value Reference Range Interpretation Comments POCT U SP GRAV (test code = 1.010 mg/dl 1.005-1.025 3255) POCT PH U (test code = 3254) 7 mg/dl 5-8 POCT U LEUK EST (test code = ++ Negative - Negative 3263) POCT U NIT (test code = 3262) negative Negative - Negative POCT U PROT (test code = Negative - Negative 3259) POCT U GLU (test code = 3256) normal Negative - Negative POCT U KETONE (test code = negative Negative - Negative 3258) POCT U UROBILI (test code = normal 0.2-1 3260) POCT U BILI (test code = negative Negative - Negative 3261) POCT U BLD (test code = 3257) negative Negative - Negative POCT U COLOR (test code = yellow 3266) POCT U APPEAR (test code = clear 3267) [facility] [place], NAAT, [id number] 11:31:42 Test Item Value Reference Range Interpretation Comments GONORRHEA, NAAT NEGATIVE NEGATIVE IMPORTA NT NOTICE: SEE (test code = [place] [address]) https://wwwMaterial Mix/Jose Storie Note: Assay methodology is nucleic acid amplification b y termite inspector m ediated amplification ( TMA) utilizing the A ptima Combo 2 Assay. IM PORTANT NOTICE: SEE JAMILAH OUNCEMENT AT https://wwwMaterial Mix/Jose Storie Note: Assay methodology is nucleic acid amplification b y termite inspector m ediated amplification ( TMA) utilizing the A ptima Combo 2 Assay. CHLAMYDIA, NAAT NEGATIVE NEGATIVE IMPORTA NT NOTICE: SEE (test code = [place] [address]) https://wwwMaterial Mix/Jose Storie Note: Assay methodology is nucleic acid amplification b y termite inspector m ediated amplification ( TMA) utilizing the A ptima Combo 2 Assay. IM PORTANT NOTICE: SEE JAMILAH OUNCEMENT AT https://wwwMaterial Mix/[employer] Note: Assay methodology is nucleic acid amplification b y termite inspector m ediated amplification ( TMA) utilizing the A ptima Combo 2 Assay. PAP TEST, THINPREP, [id number] 10:40:24 Test Item Value Reference Range Interpretation Comments SOURCE: (test code = Cervical 8001) SLIDES: (test code = 1 8011) LMP: (test code = 10/13/2021 8021) SPECIMEN ADEQUACY: (NOTE) Satisfac tory for (test code = 76666) evaluati on. Endocervical cells/transform ation zone component present. INTERPRETATION: ASCUS/EPITH. A --------- (test code = 92991) ABNORMALITY; -------- SEE BELOW ------ ------- EPITHELIAL CELL ABNORMALITY Atypical squamo us cells of undete rmined significance (ASC-US)------- ------ ------ ------ ARMATURE TESTER: Jennifer Vazquez (test code = 8101) NIMO Lynne(ASCP)I AC PATHOLOGIST Annalise Swan INTERPRETATION BY: (test code = 8122) LOCATION: (test code (NOTE) Specime ns processed = 60483) at [employer], [address] [facility] [place] [place] [address], Phone: , CLIA: [id number] interpreted at [facility], [address], Path ology [facility]New [facility] [address], Phone: , CLIA: [id number] CPT: (test code = (NOTE) 84134, 881 41 UNLESS 8140) OTHERWISE INDIC ATED, COMPUTER AIDED AND CYTOTECHNOLOGIS T SCREENING PERFO RMED. The Pap test is a screening test with an inherent, bu t low probability of error. Your patient sh ould be reminded to consult you immediately if she experiences any suspicious sign s or symptoms, regar dless of her Pap test result. An alte rnate report format containing imag es or consolidated pr ior Pap history is available as applicable. UNL ESS OTHERWISE INDIC ATED, ALL TESTING PER [facility], [facility]. [address] [place] [address] ROSALIND HEWITT DIRECTOR: RADHA ALEMAN M.D. [place] NUMBER [id number] CAP ACCREDITATION N O. [id number] VAGINAL PATHOGENS DNA [id number] 14:48:29 Test Item Value Reference Range Interpretation Comments CHARLES SPECIES (test code = 08951) NEGATIVE NEGATIVE G. VAGINALIS (test code = 52536) POSITIVE NEGATIVE A T. VAGINALIS (test code = 96976) NEGATIVE NEGATIVE HIV 1/2 4TH GEN, RFLX [id number] 04:04:35 Test Item Value Reference Range Interpretation Comments HIV 1/2 4TH GEN, RFLX CONF (test NON-REACTIVE NON-REACTIVE code = 3514) HEPATITIS PANEL, [id number] 04:04:35 Test Item Value Reference Range Interpretation Comments HEPATITIS A IgM (test NON-REACTIVE NON-REACTIVE code = 45710) HEPATITIS B CORE IgM NON-REACTIVE NON-REACTIVE (test code = 4644) HEPATITIS B SURF AG NON-REACTIVE NON-REACTIVE (test code = 2739) HEPATITIS C ANTIBODY NON-REACTIVE NON-REACTIVE (test code = 4675) INTERPRETATION (NOTE) Hepatitis A HEPATITIS A: (test serology shows no code = 2552) evidence of acu te hepatitis A. INTERPRETATION (NOTE) Hepatitis B HEPATITIS B: (test serology shows no code = 68453) evidence of ac angelo hepatitis B and no indication of exposure to hepatitis B vir us in the previous si xto eight months. INTERPRETATION (NOTE) Hepatitis C HEPATITIS C: (test serology shows no code = 39531) evidence of ex posure to hepatitisC v irus at this time. I t can take up to 12 m onths after exposure tothe hepatitis C vir us for antibodies to become detectab le in the blood in ce rtain patients. UNLES S OTHERWISE INDIC ATED, ALL TESTING PERFORMED [facility], [facility]. [address] [facility] [place] [facility] [place] [address] [facility] MARCELINA DIRECTOR: RADHA ALEMAN M.D. [facility] NUMBER [id number] [place] [id number] 02:50:30 Test Item Value Reference Range Interpretation Comments RPR RESULT (test code = NON-REACTIVE NON-REACTIVE 3501) RPR TITER (test code = 3500) NOT INDIC. TITER NOT INDIC.
[2022-04-08] MEDS ORDERED: LORAZEPAM 0.5 MG TABLET ONE (21:05)
--- NOTE | 2022-04-08 21:43 | ER ---
Nurse's Notes [facility] Name: Annabel Chamberlain Age: 26 yrs Sex: Female : 1995 Arrival Date: 04/08/2022 Time: 20:38 Bed 19 Private MD: Diagnosis: Anxiety disorder, unspecified Presentation: 04/08 20:50 Chief complaint: Patient states: Pt c/o anxiety attacks since this morning. Reports ld1 being out of anxiety medication. Coronavirus screen: At this time, the client does not indicate any symptoms associated with coronavirus-19. Ebola Screen: No symptoms or risks identified at this time. Initial Sepsis Screen: Does the patient meet any 2 criteria? No. Patient's initial sepsis screen is negative. Does the patient have a suspected source of infection? No. Patient's initial sepsis screen is negative. Risk Assessment: Do you want to hurt yourself or someone else? Patient reports no desire to harm self or others. Onset of symptoms was April 08, 2022 at 20:53. 20:50 Method Of Arrival: Ambulatory ld1 20:50 Acuity: STEVEN 3 ld1 Triage Assessment: 20:53 General: Appears in no apparent distress. comfortable, Behavior is calm, cooperative, ld1 appropriate for age. Pain: Denies pain. EENT: No signs and/or symptoms were reported regarding the EENT system. Neuro: Level of Consciousness is awake, alert, obeys commands, Oriented to person, place, time, situation, Appropriate for age. Cardiovascular: Capillary refill < 3 seconds Patient's skin is warm and dry. Respiratory: Airway is patent Respiratory effort is even, unlabored. GI: Abdomen is flat, non-distended. : No signs and/or symptoms were reported regarding the genitourinary system. Derm: No signs and/or symptoms reported regarding the dermatologic system. Historical: - Allergies: 20:53 No Known Allergies; ld1 - PMHx: 20:53 Anxiety; Asthma; Depression; Pancreatitis; Seizures; ld1 - PSHx: 20:53 Cholecystectomy; ld1 - Immunization history:: Adult Immunizations up to date, Client reports receiving the 2nd dose of the Covid vaccine. - Social history:: Smoking status: Patient denies any tobacco usage or history of. Patient/guardian denies using alcohol. Screenin:03 Abuse screen: Denies threats or abuse. Denies injuries from another. Nutritional kd3 screening: No deficits noted. Tuberculosis screening: No symptoms or risk factors identified. Fall Risk None identified. Assessment: 22:04 General: Appears in no apparent distress. Behavior is calm, cooperative. Neuro: Level kd3 of Consciousness is awake, alert, obeys commands, Oriented to person, place, time, situation. Cardiovascular: Patient's skin is warm and dry. Respiratory: Airway is patent Trachea midline Respiratory effort is even, Respiratory pattern is regular. Vital Signs: 20:50 BP 124 / 67; Pulse 66; Resp 18; Pulse Ox 100% on R/A; Weight 72.57 kg; Height 5 ft. 1 ld1 in. (154.94 cm); Pain 0/10; 22:05 BP 121 / 63; Pulse 60; Resp 17; Pulse Ox 100% on R/A; kd3 20:50 Body Mass Index 30.23 (72.57 kg, 154.94 cm) ld1 ED Course: 20:38 Patient arrived in ED. bp1 20:43 [facility] Goode [facility]-C [facility] kb 20:43 Pankaj Salter MD is Attending Physician. kb 20:48 Idalmis Moffett RN is Primary Nurse. kd3 20:53 Triage completed. ld1 20:53 Arm band placed on right wrist. ld1 22:03 Patient has correct armband on for positive identification. kd3 22:03 No provider procedures requiring assistance completed. Patient did not have IV access kd3 during this emergency room visit. Administered Medications: 21:10 Drug: Ativan (LORazepam) 0.5 mg Route: PO; kd3 22:05 Follow up: Response: No adverse reaction; Anxiety decreased kd3 Medication: 22:04 VIS not applicable for this client. kd3 Outcome: 21:42 Discharge ordered by . kb 22:04 Discharged to home ambulatory. kd3 22:04 Condition: stable 22:04 Discharge instructions given to patient, family, Instructed on discharge instructions, follow up and referral plans. medication usage, Demonstrated understanding of instructions, follow-up care, medications, Prescriptions given X 1. 22:05 Patient left the ED. kd3 Signatures: Selin Goode FNP-C FNP-Cheryl Diggs Lauren RN RN ld1 Idalmis Moffett, RN RN kd3
--- NOTE | 2022-04-08 21:43 | EDPHYS ---
Physician Documentation [facility] Name: Annabel Chamberlain Age: 26 yrs Sex: Female : 1995 Arrival Date: 04/08/2022 Time: 20:38 Bed 19 Private MD: ED Physician Pankaj Salter HPI: 04/08 21:03 This 26 yrs old Female presents to ER via Ambulatory with complaints of Anxiety. kb 21:03 The patient presents to the emergency department with anxiety. Onset: The kb symptoms/episode began/occurred this morning. Past psychiatric history: Prior diagnosis: depression, anxiety. Associated signs and symptoms: Pertinent positives; anxiety, Pertinent negatives: abdominal pain, chest pain, chills, delusions, depression, fever, hallucinations, headache, homicidal ideation, nausea, night sweats, palpitations, paranoia, shortness of breath, substance abuse, suicide ideation, tremor, vomiting. Severity of symptoms: At their worst the symptoms were moderate in the emergency department the symptoms have improved mildly. The patient has experienced similar episodes in the past, multiple times. The patient has not recently seen a physician. Pt reports she has had anxiety all day. States it started at work and she normally gets away from everyone to calm herself down, but was unable to today. Reports she has been off of cymbalta for months, but found some natural supplements that normally help. States the store she normally gets the supplements at was out today. Reports she was having back to back anxiety attacks and she is tired of having them. Denies homicidal or suicidal ideations. States this feels exactly like previous anxiety episodes. States she came in to get something to calm her down. Historical: - Allergies: 20:53 No Known Allergies; ld1 - PMHx: 20:53 Anxiety; Asthma; Depression; Pancreatitis; Seizures; ld1 - PSHx: 20:53 Cholecystectomy; ld1 - Immunization history:: Adult Immunizations up to date, Client reports receiving the 2nd dose of the Covid vaccine. - Social history:: Smoking status: Patient denies any tobacco usage or history of. Patient/guardian denies using alcohol. ROS: 21:06 Constitutional: Negative for fever, chills, and weight loss. kb 21:06 Psych: Positive for anxiety, Negative for depression, drug dependence, alcohol dependence, auditory hallucinations, visual hallucinations, homicidal ideation, insomnia, suicide gesture, suicidal ideation. 21:06 All other systems are negative. Exam: 21:06 Constitutional: This is a well developed, well nourished patient who is awake, alert, kb and in no acute distress. Head/Face: Normocephalic, atraumatic. ENT: Moist Mucous membranes Cardiovascular: Regular rate and rhythm with a normal S1 and S2. No gallops, murmurs, or rubs. No pulse deficits. Respiratory: Respirations even and unlabored. No increased work of breathing. Talking in full sentences Abdomen/GI: Soft, non-tender. No distention Skin: Warm, dry with normal turgor. Normal color. MS/ Extremity: Pulses equal, no cyanosis. Neurovascular intact. Full, normal range of motion. Neuro: Awake and alert, GCS 15, oriented to person, place, time, and situation. Moves all extremities. Normal gait. 21:06 Psych: Behavior/mood is pleasant, cooperative, Affect is calm, Oriented to person, place, time, Patient has no thoughts/intents to harm self or others. Judgement / Insight is normal. Memory is normal. Delusions/hallucinations are not present. 21:38 ECG was reviewed by the Attending Physician. Vital Signs: 20:50 BP 124 / 67; Pulse 66; Resp 18; Pulse Ox 100% on R/A; Weight 72.57 kg; Height 5 ft. 1 ld1 in. (154.94 cm); Pain 0/10; 22:05 BP 121 / 63; Pulse 60; Resp 17; Pulse Ox 100% on R/A; kd3 20:50 Body Mass Index 30.23 (72.57 kg, 154.94 cm) ld1 MDM: 20:43 Patient medically screened. 21:02 Data reviewed: vital signs, nurses notes. Data interpreted: Pulse oximetry: on room air kb is 100 %. Interpretation: normal. Counseling: I had a detailed discussion with the patient and/or guardian regarding: the historical points, exam findings, and any diagnostic results supporting the discharge/admit diagnosis, the need for outpatient follow up, a family practitioner, to return to the emergency department if symptoms worsen or persist or if there are any questions or concerns that arise at home. 04/08 20:51 Order name: EKG; Complete Time: 20:51 kb 04/08 20:51 Order name: EKG - Nurse/Tech; Complete Time: 21:32 kb EC:38 Rate is 55 beats/min. Rhythm is regular. QRS [place] is Normal. GA interval is normal at kb 136 msec. QRS interval is normal at 78 msec. QT interval is normal at 413 msec. Administered Medications: 21:10 Drug: Ativan (LORazepam) 0.5 mg Route: PO; kd3 22:05 Follow up: Response: No adverse reaction; Anxiety decreased kd3 Disposition Summary: 04/08/22 21:42 Discharge Ordered Location: Home kb Condition: Stable kb Diagnosis - Anxiety disorder, unspecified kb Followup: kb - With: Emergency Department - When: As needed - Reason: Worsening of condition Followup: kb - With: Private Physician - When: 2 - 3 days - Reason: Recheck today's complaints, Continuance of care, Re-evaluation by your physician Discharge Instructions: - Discharge Summary Sheet kb - Panic Attack, [id number] kb Forms: - Medication Reconciliation Form kb - Thank You Letter kb - Antibiotic Education kb - Prescription Opioid Use kb - Work release form wm Prescriptions: - Hydroxyzine HCl 25 mg Oral Tablet - take 1 tablet by ORAL route every 8 hours As needed; 15 tablet; Refills: 0, kb Product Selection Permitted Signatures: Slein Goode, [employer]-[place], RN RN ld1 Idalmis Moffett RN RN kd3 Corrections: (The following items were deleted from the chart) 21:07 21:03 Pt reports she has had anxiety all day. States it started at work and she kb normally gets away from everyone to calm herself down, but was unable to today. Reports she has been off of cymbalta for months, but found some natural supplements that normally help. States the store she normally gets the supplements at was out today. Reports she was having back to back anxiety attacks and she is tired of having them. Denies homicidal or suicidal ideations. States this feels exactly like previous anxiety episodes. . kb
[2022-04-08 23:28] VITALS: BP 121/63; O2SAT 100
--- NOTE | 2022-04-09 13:56 | EKG ---
Test Date: 2022-04-08 Test Time: 21:29:26 Locker Room Supervisor: ALVA MEASUREMENT RESULTS: Intervals: Rate: 55 NE: 136 QRSD: 78 QT: 432 QTc: 413 [place]: P: 26 NE: 136 QRS: 82 T: 69 INTERPRETIVE STATEMENTS: Sinus bradycardia Otherwise normal ECG Compared to ECG 03/29/2019 22:25:39 Sinus rhythm no longer present Sinus arrhythmia no longer present Electronically Signed On 04-09-22 13:54:24 JOB PRINTER by Earl Whittaker
== END 2022-04-08 22:05 | disposition home or self-care (01) ==
LOC: ER 20:35
DX: F41.9 Anxiety disorder, unspecified (principal)
CPT/HCPCS: 93005; 99283

== ENCOUNTER 2022-10-02 14:36 | Emergency (ER) | payer OTHER ==
--- OUTSIDE RECORDS SUMMARY | 2022-10-02 15:33 | XMS REPORT | Continuity of Care Document ---
:1995 Author Organization [facility] [place] t Address [address] [place] [address]. [address] [place] [address] Care Team Providers Name Role Phone PCP, PATIENT DOES NOT HAVE A Primary Care Physician Unavaila ÁNGELA Nevarez Attending Clinician Unavailable Ángela Gordon MD Attending Clinician Unknown, Attending Attending Clinician Unavailable Provider, [facility] Attending Clinician Unavailable LETI AMIN Attending Clinician Unavailable Portia Valle Attending Clinician PORTIA GRAY Attending Clinician Unavailable Brissa Alves Attending Clinician Lissett Julio Attending Clinician LISSETT TORRES Attending Clinician Unavailable Doctor Unassigned, [place] Attending Clinician Unavailable UNKNOWN, ATTENDING Attending Clinician Unavailable REN MEZA Attending Clinician Unavailable Jose CHOUPRen Attending Clinician ANTONI LUNA Attending Clinician Unavailable Payers Payer Name Policy Type Policy Number Effective Date Expiration Date Bhaskar qiu [facility] [id number] 2021 HEALTHCARE 00:00:00 Problems Condition Condition Condition [...] with 2-08 ity of routine routine 00:00: [place] gynecologi gynecologi 00 Me dical arturo exam arturo exam Branch Rubella Rubella Disease Active Univers non-immune non-immune 09-27 it y of status, status, 00:00: [place] antepartum antepartum 00 Me dical Branch Susceptibl Susceptibl Disease Active U nivers e to e to 09-27 ity of varicella varicella 00:[place] (non-immun (non-immun 00 Me dical e), e), Branch currently currently Generalize Generalize Disease Active U nivagatha d anxiety d anxiety -27 ity of disorder disorder 00:00: [place] 00 Medical Branch History of History of Disease Active U nivers depression depression - it y of 00:00: [place] 00 Medical Branch Asthma Asthma Disease Active Overview: Univer s 09-26 Formattin ity of 00:00: g of this 00 note Medical might be Branch different from the original. 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 Utility Allergies, Adverse Reactions, Alerts Allergy Allergy Status Severity Reaction(s) Onset Inactive Treating Comm ents Source Name Type Date Date Clinician NO KNOWN Drug Active Univers ALLERGIE Class ity of S [facility] Social History Social Habit Start Date Stop Date Quantity Comments Source History of Cigarette Smoker Universi ty of tobacco use [place] [facility] History [facility] University o f Alcohol Frequency [facility] edical Branch History [facility] University o f Alcohol Std [place] [facility] Drinks Branch History [facility] University o f Alcohol Binge [place] [facility] al Branch Alcohol intake 2022-06-30 2022-06-30 Current drinker of Un iversity of 00:00:00 00:00:00 alcohol (finding) [facility] edical Branch Exposure to 2022-03-17 2022-03-27 Not sure University of SARS-CoV-2 00:00:00 09:04:00 [place] [facility] (event) Branch Tobacco use and 2022-02-11 2022-02-11 Smokeless tobacco Un iversity of exposure 00:00:00 00:00:00 non-user [facility] Tobacco Comment 2022-02-11 2022-02-11 Smoked occasionally [facility] 00:00:00 00:00:00 for 1.5 years, a [facility] dical pack would last 2 Branch months Alcohol Comment 2017-03-10 2017-03-10 on special Universit y of 00:00:00 00:00:00 occassions [facility] Sex Assigned At [birth year] Universit y of 00:00:00 00:00:00 [facility] Smoking Status Start Date Stop Date Source Ex-smoker 2022-02-11 00:00:00 2022-02-11 00:00:00 [facility] Medications Ordered Filled Start Stop Current Ordering Indication Dosage Frequency Signature Comments Components Source Medication Medication Date Date Medication? Clinician (SIG) Name Name azelastine Yes [id number] 1{spray Use 1 Univers 137 mcg 1-29 } [place] in ity of (0.1 %) 00:00: each [place] nasal spray 00 nostril in Me dical the Branch morning and 1 [place] in the evening. Use in each nostril as directed fluticasone Yes [id number] 1{spray Use 1 Univers propionate 1-29 } [place] in ity o f 50 00:00: each [place] mcg/actuati 00 nostril in Me dical on nasal the Branch spray morning. benzonatate Yes [id number] 200mg Take 2 Univers 100 mg 1-29 capsules ity of capsule 00:00: by mouth [place] 00 every 8 Medical (eight) Branch hours as needed for Cough. azelastine Yes [id number] 1{spray Use 1 Univers 137 mcg 1-29 } [place] in ity of (0.1 %) 00:00: each [place] nasal spray 00 nostril in Me dical the Branch morning and 1 [place] in the evening. Use in each nostril as directed fluticasone Yes [id number] 1{spray Use 1 Univers propionate 1-29 } [place] in ity o f 50 00:00: each [place] mcg/actuati 00 nostril in Me dical on nasal the Branch spray morning. benzonatate Yes [id number] 200mg Take 2 Univers 100 mg 1-29 capsules ity of capsule 00:00: by mouth [place] 00 every 8 Medical (eight) Branch hours as needed for Cough. amoxicillin 2022- No [id number] 1{tbl} Take 1 Univers -clavulanat 1-29 02-06 tablet by it y of e 00:00: 05:59 mouth in [place] (AUGMENTIN) 00 :00 the Medical 875-125 mg morning Branch per tablet and 1 tablet in the evening. Do all this for 7 days. amoxicillin 2022- No [id number] 1{tbl} Take 1 Univers -clavulanat 1-29 02-06 tablet by it y of e 00:00: 05:59 mouth in [place] (AUGMENTIN) 00 :00 the Medical 875-125 mg morning Branch per tablet and 1 tablet in the evening. Do all this for 7 days. cefdinir 2021-06- No [id number] 600mg Take 2 U nivers 300 mg 0-26 11-06 capsules ity of capsule 00:00: 04:59 by mouth [place] 00 :00 in the Medical morning Branch for 10 days. cefdinir 2021-06- No [id number] 600mg Take 2 U nivers 300 mg 0-26 11-06 capsules ity of capsule 00:00: 04:59 by mouth [place] 00 :00 in the Medical morning Branch for 10 days. bromphenira Yes [id number] 10mL Take 10 mL Univers mine-pseudo 9-12 by mouth 4 it y of ephedrine-D 00:00: (four[place] (BROMFED 00 times Medical DM) 2-30-10 daily as Bran ch mg/5 mL needed for syrup Congestion /Allergies . bromphenira 0 Yes [id number] 10mL Take 10 mL Univers mine-pseudo 9-12 by mouth 4 it y of ephedrine-D 00:00: (four[place] (BROMFED 00 times Medical DM) 2-30-10 daily as Bran ch mg/5 mL needed for syrup Congestion /Allergies . bromphenira Yes [id number] 10mL Take 10 mL Univers mine-pseudo 9-12 by mouth 4 it y of ephedrine-D 00:00: (four[place] (BROMFED 00 times Medical DM) 2-30-10 daily as Bran ch mg/5 mL needed for syrup Congestion /Allergies . bromphenira 2021-0 Yes [id number] 10mL Take 10 mL Univers mine-pseudo 9-12 by mouth 4 it y of ephedrine-D 00:00: (four[place] (BROMFED 00 times Medical DM) 2-30-10 daily as Bran ch mg/5 mL needed for syrup Congestion /Allergies . bromphenira 2021-0 Yes [id number] 10mL Take 10 mL Univers mine-pseudo 9-12 by mouth 4 it y of ephedrine-D 00:00: (four[place] (BROMFED 00 times Medical DM) 2-30-10 daily as Bran ch mg/5 mL needed for syrup Congestion /Allergies . bromphenira 2021-0 Yes [id number] 10mL Take 10 mL Univers mine-pseudo 9-12 by mouth 4 it y of ephedrine-D 00:00: (four[place] (BROMFED 00 times Medical DM) 2-30-10 daily as Bran ch mg/5 mL needed for syrup Congestion /Allergies . bromphenira 0 Yes [id number] 10mL Take 10 mL Univers mine-pseudo 9-12 by mouth 4 it y of ephedrine-D 00:00: (four[place] (BROMFED 00 times Medical DM) 2-30-10 daily as Bran ch mg/5 mL needed for syrup Congestion /Allergies . ondansetron 2021- No [id number] 4mg Take 1 Univers 4 mg 4-21 09-12 tablet by ity of disintegrat 00:00: 00:00 [place] tablet 00 :00 every 8 Medica l (eight) Branch hours as needed for Nausea and Vomiting (N/V). ondansetron 2021- No [id number] 4mg Take 1 Univers 4 mg 4-21 09-12 tablet by ity of disintegrat 00:00: 00:00 [place] tablet 00 :00 every 8 Medica l (eight) Branch hours as needed for Nausea and Vomiting (N/V). Immunizations Ordered Filled Immunization Date Status Comments [facility] e Immunization Name Name TDAP 2015-02-27 Completed University of 00:00:00 [place] [facility] TDAP 2015-02-27 Completed University of 00:00:00 [place] [facility] TDAP 2015-02-27 Completed University of 00:00:00 [place] [facility] TDAP 2015-02-27 Completed University of 00:00:00 [place] [facility] TDAP 2015-02-27 Completed University of 00:00:00 [place] [facility] TDAP 2015-02-27 Completed University of 00:00:00 [place] [facility] TDAP 2015-02-27 Completed University of 00:00:00 [place] [facility] Td 2006-06-02 Completed University of 00:00:00 [facility] Branch Td 2006-06-02 Completed University of 00:00:00 [facility] Branch Td 2006-06-02 Completed University of 00:00:00 [place] [facility] Td 2006-06-02 Completed University of 00:00:00 [facility] Td 2006-06-02 Completed University of 00:00:00 [facility] TD, NOS 2006-06-02 Completed University of 00:00:00 [facility] TD, NOS 2006-06-02 Completed University of 00:00:00 [facility] Vital Signs Vital Name Observation Time Observation Value Comments Source Systolic blood 2022-06-30 19:52:00 125 mm[Hg] Univer sity of pressure [facility] Diastolic blood 2022-06-30 19:52:00 87 mm[Hg] Unive rsity of pressure [facility] Heart rate 2022-06-30 19:52:00 101 /min [facility] Body temperature 2022-06-30 19:52:00 37.06 Kathleen [facility] Respiratory rate 2022-06-30 19:52:00 16 /min [facility] Body height 2022-06-30 19:52:00 156.2 cm [facility] Body weight 2022-06-30 19:52:00 73.755 kg [facility] BMI 2022-06-30 19:52:00 30.23 kg/m2 [facility] Oxygen saturation in 2022-06-30 19:52:00 98 /min [facility] Arterial blood by [facility] Pulse oximetry Branch Systolic blood 2022-03-27 14:14:00 131 mm[Hg] Univer sity of pressure [place] [facility] Diastolic blood 2022-03-27 14:14:00 79 mm[Hg] Unive rsity of pressure [place] [facility] Heart rate 2022-03-27 14:14:00 79 /min Universi ty of [place] [facility] [place] Body temperature 2022-03-27 14:14:00 36.72 Kathleen Univ ersity of [facility] Respiratory rate 2022-03-27 14:14:00 18 /min Univ ersity of [place] [facility] [place] Body height 2022-03-27 14:14:00 154.9 cm Universi ty of [place] [facility] [place] Body weight 2022-03-27 14:14:00 73.982 kg Universi ty of [place] [facility] [place] BMI 2022-03-27 14:14:00 30.82 kg/m2 Universi ty of [place] [facility] [place] Oxygen saturation in 2022-03-27 14:14:00 98 /min University of Arterial blood by [facility] Pulse oximetry Branch Systolic blood 2022-02-11 16:49:00 120 mm[Hg] Univer sity of pressure [place] [facility] Diastolic blood 2022-02-11 16:49:00 82 mm[Hg] Unive rsity of pressure [place] [facility] [place] Heart rate 2022-02-11 16:49:00 81 /min Universi ty of [place] [facility] Body temperature 2022-02-11 16:49:00 37.22 Kathleen Univ ersity of [place] [facility] [place] Body height 2022-02-11 16:49:00 156.2 cm Universi ty of [place] [facility] Body weight 2022-02-11 16:49:00 72.439 kg Universi ty of [place] [facility] BMI 2022-02-11 16:49:00 29.69 kg/m2 Universi ty of [place] [facility] Oxygen saturation in 2022-02-11 16:49:00 99 /min University of Arterial blood by [facility] arturo Pulse oximetry Branch Procedures Procedure Date / Time Performed Performing Clinician Sour e POCT SARS-COV-2 2022-06-30 00:00:00 Ángela Gordon [place] o f [place] ANTIGEN (BINAX NOW) Medical [facility] POCT URINALYSIS 2022-03-27 00:00:00 Portia Gray [place] o f [facility] POCT TEST 2022-03-27 00:00:00 Portia Gray [facility] Encounters Start End Encounter Admission Attending Care Care Encounter Source Date/Time Date/Time Type Type Clinicians Facility Department ID 2022-09-16 2022-09-16 Outpatient [facility] [id number] Antoni 14:28:09 14:28:09 [id number] F Jesus 2022-06-30 2022-06-30 Outpatient Kelsey GORDON [facility] [id number] Univers 14:00:00 14:22:01 ÁNGELA desai [facility] 2022-06-30 2022-06-30 Urgent Ángela Gordon [facility] 1.2.840.114 [id number] Univers 14:00:00 14:20:00 Care Unknown, Attending HEALTH 350.1.13.10 ity [facility] 4.2.7.2.686 Kike as SLICK?BLEA [id number] [address] MEDICAL OFFICE [facility] 2022-06-30 2022-06-30 [facility] [id number] Univers 00:00:00 00:00:00 (Out) Ang HEALTH 350.1.13.10 it y of Urgent Care [place] 4.2.7.2.686 [place] SLICK?BLEA [id number] [address] MEDICAL OFFICE [facility] 2022-04-27 2022-04-27 Outpatient [facility] [id number] Antoni 09:05:52 09:05:52 [id number] [place] 2022-04-26 2022-04-26 Outpatient [facility] [id number] Antoni 12:05:12 12:05:12 [id number] [place] 2022-04-09 2022-04-09 Outpatient Kelsey AMIN [facility] [id number] Univers 16:20:00 16:20:00 LETI desai [facility] 2022-03-27 2022-03-27 Urgent Portia Gray [facility] 1.2.840.114 [id number] Univers 09:20:00 09:40:00 Care Unknown, Attending HEALTH 350.1.13.10 ity of [place] 4.2.7.2.686 Kike as SLICK?BLEA [id number] [facility] [place] [address] MEDICAL OFFICE [facility] 2022-03-27 2022-03-27 Outpatient R ISAAC [facility] [id number] Univers 09:20:00 09:20:00 [facility] 2022-03-27 2022-03-27 Vinnie Gray [facility] 1.2.840.114 [id number] Univers 00:00:00 00:00:00 (Out) [facility] 350.1.13.10 it y of [place] 4.2.7.2.686 Kike as SLICK?BLEA [id number] [address] OFFICE [facility] 2022-02-11 2022-02-11 Office [facility] 1.2.840.114 [id number] Univers 11:20:00 12:21:36 Visit [facility] 350.1.13.10 ity of [place] 4.2.7.2.686 Kike as SLICK?BLEA [id number] [facility] [place] [address] MEDICAL OFFICE [facility] 2022-02-11 2022-02-11 Outpatient R ELOISA [facility] [id number] Univers 11:20:00 12:21:36 [facility] 2022-02-11 2022-02-11 Outpatient R ELOISA, [facility] [id number] Univers 11:20:00 11:20:00 [facility] 2022-02-11 2022-02-11 Vinnie [facility] .2.840.114 [id number] Univers 00:00:00 00:00:00 (Out) [facility] 350.1.13.10 ity of [place] 4.2.7.2.686 Kike as SLICK?BLEA [id number] [address] OFFICE [facility] 2022-02-08 2022-02-08 Outpatient R ISAAC [facility] [id number] Univers 16:20:00 16:50:36 PORTIA jen [facility] 2022-02-08 2022-02-08 Urgent Portia Gray [facility] .2.840.114 [id number] Univers 16:20:00 16:40:00 Care Lefty Brissa [facility] 350.1.13.10 ity of [place] 4.2.7.2.686 Kike as SLICK?BLEA [id number] [address] OFFICE [facility] 2021-09-20 2021-09-20 Urgent Brissa Olea [facility] 1.2.840.114 [id number] Univers 11:00:00 11:34:43 [facility] 350.1.13.10 ity of [place] 4.2.7.2.686 Kike as SLICK?BLEA [id number] [address] OFFICE [facility] 2021-09-20 2021-09-20 [facility] [id number] Univers 11:00:00 11:34:43 [facility] 2021-09-20 2021-09-20 Orders Doctor ECHEVERRIA 1.2.840.114 [id number] Univers 00:00:00 00:00:00 Only Unassigned, [place] 350.1.13.10 ity of [place] [facility] 4.2.7.2.686 Kike as [id number] [address] 2021-09-19 2021-09-19 Outpatient R ANDREW, [facility] [id number] Univers 19:20:00 19:20:00 ATTENDING itjen [facility] 2021-09-19 2021-09-19 Clinic Isaac [facility] 1.2.840.114 [id number] Univers 00:00:00 00:00:00 Assessment Ranpa HEALTH 350.1.13.10 ity of [place] 4.2.7.2.686 Kike as SLICK?BLEA [id number] [address] MEDICAL OFFICE [facility] 2021-06-10 2021-06-10 Outpatient R JOSE [facility] [id number] Univers 17:00:00 18:43:38 REN desai [facility] 2021-06-10 2021-06-10 Urgent Unknown, Attending 1.2.840.1 [id number] Univers 17:00:00 18:43:38 [place] [address].1.1 ity of 3.104.2.7 [place] .[id number] Medica l .[address] [place] 2021-06-10 2021-06-10 Travel 1.2.840.1 [id number] Univers 00:00:00 00:00:00 [id number] 350.1.13.10 ity of 3.104.2.7 4.[place].7.3.698 [place] .[id number] 084.8 Medica l .[address] [place] 2020-09-04 2020-09-04 Outpatient [facility] [id number] Univers 14:40:00 14:40:00 [facility] 2020-08-07 2020-08-07 Outpatient [facility] [id number] Univers 12:40:00 12:40:00 [facility] 2020-05-24 2020-05-24 Outpatient [facility] [id number] Univers 08:45:00 08:45:00 ANTONI [facility] Results Test Description Test Time Test Comments Results Result Comments Source POCT SARS-COV-2 ANTIGEN (BINAX NOW) 2022-06-30 20:18:00 Test Item Value Reference Range Interpretation Comme nts POCT SARS-COV-2 ANTIGEN (test code = 30710-0) Not Detected Not Dete cted On board controls acceptable with C Line (test code = Yes 3574) [facility] [id number] 14:26:00 Test Item Value Reference Range Interpretation Comments POCT PREG (test code = 1605) Negative On board controls acceptable with C Yes Line (test code = 3574) POCT PREG LOT # (test code = 3575) POCT PREG TEST DATE (test code = 3576) General acute hospital URINALYSIS W SPECIFIC [id number] 14:21:00 Test Item Value Reference Range Interpretation [...] U APPEAR (test code = clear 3267) [facility], NAAT, [id number] 11:31:42 Test Item Value Reference Range Interpretation Comments GONORRHEA, NAAT NEGATIVE NEGATIVE IMPORTA NT NOTICE: SEE (test code = [place] [address]) [email or web address] [email or web address] Note: Assay methodology is nucleic acid amplification b y 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 IM PORTANT NOTICE: SEE JAMILAH OUNCEMENT AT [email or web address] [email or web address] Note: Assay methodology is nucleic acid amplification b y 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 CHLAMYDIA, NAAT NEGATIVE NEGATIVE IMPORTA NT NOTICE: SEE (test code = [place] [address]) [email or web address] Note: Assay methodology is nucleic acid amplification b y 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 IM PORTANT NOTICE: SEE JAMILAH OUNCEMENT AT [email or web address] Note: Assay methodology is nucleic acid amplification b y 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 PAP TEST, THINPREP, [id number] 10:40:24 Test Item Value Reference Range Interpretation Comments SOURCE: (test code = Cervical 8001) SLIDES: (test code = 1 8011) LMP: (test code = 10/13/2021 8021) SPECIMEN ADEQUACY: (NOTE) Tyrone barroso for (test code = 42844) evaluati on. Endocervical cells/transform ation zone component present. INTERPRETATION: ASCUS/EPITH. A --------- (test code = 28047) ABNORMALITY; -------- SEE BELOW ------ ------- EPITHELIAL CELL ABNORMALITY Atypical squamo us cells of undete rmined significance (ASC-US)------- ------ ------ ------ ADMINISTRATOR HEALTH CARE FACILITY: Jennifer Vazquez (test code = 8101) NIMO Lynne(ASCP)I AC PATHOLOGIST Annalise Swan INTERPRETATION BY: (test code = 8122) LOCATION: (test code (NOTE) Specime ns processed = 27771) at [facility] [employer] [facility], [address] [place] [address], Phone: , CLIA: [id number] interpreted at [facility]ology Dept, [address] [facility] [place] [address], Phone: , CLIA: [id number] CPT: (test code = (NOTE) 02631, 881 41 UNLESS 8140) OTHERWISE INDIC ATED, [...] ESS OTHERWISE INDIC ATED, ALL TESTING PER FORMED ATCLINICAL PATH OLOGY LABORATORIES, [place] [address] [facility] [place] [address] ROSALIND BARROSO DIRECTOR: RADHA ALEMAN M.D. CLIA NUMBER [id number] CAP ACCREDITATION N O. VAGINAL PATHOGENS DNA [id number] 14:48:29 Test Item Value Reference Range Interpretation Comments CHARLES SPECIES (test code = ) NEGATIVE NEGATIVE G. VAGINALIS (test code = ) POSITIVE NEGATIVE A T. VAGINALIS (test code = ) NEGATIVE NEGATIVE HEPATITIS PANEL, [id number] 04:04:35 Test Item Value Reference Range Interpretation Comments HEPATITIS A IgM (test NON-REACTIVE NON-REACTIVE code = 83481) HEPATITIS B CORE IgM NON-REACTIVE NON-REACTIVE (test code = 4644) HEPATITIS B SURF AG NON-REACTIVE NON-REACTIVE (test code = 2739) HEPATITIS C ANTIBODY NON-REACTIVE NON-REACTIVE (test code = 4675) INTERPRETATION (NOTE) Hepatitis A HEPATITIS A: (test serology shows no code = 2552) evidence of acu te hepatitis A. INTERPRETATION (NOTE) Hepatitis B HEPATITIS B: (test serology shows no code = 18683) evidence of ac [place] hepatitis B and no indication of exposure to hepatitis B vir us in the previous si xto eight months. INTERPRETATION (NOTE) Hepatitis C HEPATITIS C: (test serology shows no code = 70014) evidence of ex posure to hepatitisC v irus at this time. I t can take up to 12 m onths after exposure tothe hepatitis C vir us for antibodies to become detectab le in the blood in ce rtain patients. UNLE SS OTHERWISE INDIC ATED, ALL TESTING PERFORMED ATC NICAL PATHOLOGY LABORATORIES, [place] [address] [facility] [place] [address] ROSALIND BARROSO DIRECTOR: RADHA ALEMAN M.D. CLIA NUMBER [id number] CAP ACCREDITATI ON NO. HIV 1/2 4TH GEN, RFLX [id number] 04:04:35 Test Item Value Reference Range Interpretation Comments HIV 1/2 4TH GEN, RFLX CONF (test NON-REACTIVE NON-REACTIVE code = 3514) [id number] 02:50:30 Test Item Value Reference Range Interpretation Comments RPR RESULT (test code = NON-REACTIVE NON-REACTIVE 3501) RPR TITER (test code = 3500) NOT INDIC. TITER NOT INDIC.
[2022-10-02] MEDS ORDERED: ONDANSETRON 4 MG/2 ML VIAL ONE (17:23)
[2022-10-02] MEDS ORDERED: NA CHLORIDE 0.9% 1,000 ML ONE (17:23)
[2022-10-02 17:36] LABS: Hematocrit 36.1 % (36.0-45.0); Lymphocytes % 45.1 % (15.3-44.8); MCV 81.9 fL (80-100); MPV 8.8 fL (7.6-11.3); RBC Red Blood Cell Count 4.41 M/uL (3.86-4.86)
[2022-10-02 17:41] LABS: Specific Gravity 1.026 (1.005-1.030); Urine Bacteria <20 /HPF (<20); Urine Bilirubin NEGATIVE (Negative); Urine Blood Negative (Negative); Urine Clarity Turbid (Clear); Urine Color Yellow (Yellow); Urine Glucose NEGATIVE (Negative); Urine Mucus 4+ /HPF (None Seen); Urine Protein TRACE (Negative); Urine RBC <5 /HPF (None Seen); Urine Urobilinogen Normal (Normal)
[2022-10-02 17:57] LABS: Specific Gravity 1.026 (1.005-1.030)
[2022-10-02 17:58] LABS: Albumin 4.1 g/dL (3.4-5.0); Bilirubin Total 0.4 mg/dL (0.2-1.0); Potassium 3.5 mEq/L (3.5-5.1); Protein, Total 7.8 g/dL (6.4-8.2)
[2022-10-02] MEDS ORDERED: ASPIRIN 81 MG CHEWABLE TABLET ONE (18:15)
--- NOTE | 2022-10-02 18:35 | RAD REPORT ---
EXAM DESCRIPTION: Kimmie Liriano (2 Views)10/02/2022 6:12 pm CLINICAL HISTORY: Chest pain COMPARISON: 2016 FINDINGS: The lungs appear clear of acute infiltrate. The heart is normal size IMPRESSION: No acute abnormalities displayed
--- NOTE | 2022-10-02 18:37 | EDPHYS ---
Physician Documentation [facility] Name: Annabel Chamberlain Age: 27 yrs Sex: Female : 1995 Arrival Date: 10/02/2022 Time: 14:36 Bed 11 Private MD: ARCHIE Physician Kj Phillips HPI: 10/02 17:56 This 27 yrs old Female presents to ER via Ambulatory with complaints of brice Dizziness, Chest Pain. 17:56 The patient presents with dizziness, generalized weakness. brice 17:56 The patient or guardian reports chest pain that is located primarily in the substernal [facility] area. Onset: The symptoms/episode began/occurred 2 day(s) ago. Context: occurred at work. Modifying factors: The symptoms are alleviated by nothing, the symptoms are aggravated by nothing. Associated signs and symptoms: Pertinent positives: shortness of breath. The pain does not radiate. Severity of symptoms: At their worst the symptoms were mild in the emergency department the symptoms are unchanged. Associated signs and symptoms: Pertinent positives: dizziness. The chest pain is described as aching. Severity of pain: At its worst the pain was mild in the emergency department the pain is unchanged. 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 - Social history:: Smoking status: Patient reports the use of cigarette tobacco products, denies chronic smoking, but will smoke occasionally. - Family history:: not pertinent. ROS: 17:56 Constitutional: Negative for fever, chills, and weight loss, Eyes: Negative for injury, brice pain, redness, and discharge, ENT: Negative for injury, pain, and discharge, Neck: Negative for injury, pain, and swelling, Respiratory: Negative for shortness of breath, cough, wheezing, and pleuritic chest pain, Abdomen/GI: Negative for abdominal pain, nausea, vomiting, diarrhea, and constipation, Back: Negative for injury and pain, : Negative for injury, bleeding, discharge, and swelling, MS/Extremity: Negative for injury and deformity, Skin: Negative for injury, rash, and discoloration, Neuro: Negative for headache, weakness, numbness, tingling, and seizure, Psych: Negative for depression, anxiety, suicide ideation, homicidal ideation, and hallucinations, Allergy/Immunology: Negative for hives, rash, and allergies, Endocrine: Negative for neck swelling, polydipsia, polyuria, polyphagia, and marked weight changes, Hematologic/Lymphatic: Negative for swollen nodes, abnormal bleeding, and unusual bruising. 17:56 Cardiovascular: Positive for chest pain. Exam: 17:56 Constitutional: This is a well developed, well nourished patient who is awake, alert, brice and in no acute distress. Head/Face: Normocephalic, atraumatic. Eyes: Pupils equal round and reactive to light, extra-ocular motions intact. Lids and lashes normal. Conjunctiva and sclera are non-icteric and not injected. Cornea within normal limits. Periorbital areas with no swelling, redness, or edema. ENT: Nares patent. No nasal discharge, no septal abnormalities noted. Tympanic membranes are normal and external auditory canals are clear. Oropharynx with no redness, swelling, or masses, exudates, or evidence of obstruction, uvula midline. Mucous membranes moist. Neck: Trachea midline, no thyromegaly or masses palpated, and no cervical lymphadenopathy. Supple, full range of motion without nuchal rigidity, or vertebral point tenderness. No Meningismus. Chest/axilla: Normal chest wall appearance and motion. Nontender with no deformity. No lesions are appreciated. Cardiovascular: Regular rate and rhythm with a normal S1 and S2. No gallops, murmurs, or rubs. Normal PMI, no JVD. No pulse deficits. Respiratory: Lungs have equal breath sounds bilaterally, clear to auscultation and percussion. No rales, rhonchi or wheezes noted. No increased work of breathing, no retractions or nasal flaring. Abdomen/GI: Soft, non-tender, with normal bowel sounds. No distension or tympany. No guarding or rebound. No evidence of tenderness throughout. Back: No spinal tenderness. No costovertebral tenderness. Full range of motion. Skin: Warm, dry with normal turgor. Normal color with no rashes, no lesions, and no evidence of cellulitis. MS/ Extremity: Pulses equal, no cyanosis. Neurovascular intact. Full, normal range of motion. Neuro: Awake and alert, GCS 15, oriented to person, place, time, and situation. Cranial nerves II-XII grossly intact. Motor strength 5/5 in all extremities. Sensory grossly intact. Cerebellar exam normal. Normal gait. Psych: Awake, alert, with orientation to person, place and time. Behavior, mood, and affect are within normal limits. 17:56 ECG was reviewed by the Attending Physician. 18:02 Abdomen/GI: Inspection: abdomen appears normal, Bowel sounds: normal, Palpation: [facility] abdomen is soft and non-tender, in all quadrants, Liver: no appreciated palpable abnormalities, Hernia: not appreciated. Vital Signs: 15:03 BP 123 / 84; Pulse 65; Resp 16 S; Temp 97.3(TE); Pulse Ox 100% on R/A; Weight 73.48 kg aa5 (R); Height 5 ft. 1 in. (R); 18:50 BP 118 / 80; Pulse 68; Resp 16; Pulse Ox 99% ; ko1 15:03 Body Mass Index 30.61 (73.48 kg, 154.94 cm) aa5 MDM: 14:57 Patient medically screened. kb 15:49 Patient medically screened. brice 17:58 Differential diagnosis: abnormal EKG, acute pericarditis, chest wall pain, brice costochondritis, esophagitis, gastritis, hiatal hernia, pleurisy, pulmonary embolus, stable angina, unstable angina. HEART Score: History: Slightly Suspicious (0), ECG: Normal (0), Age: < or = 45 years (0), Risk Factors: No Risk Factors Known (0), Troponin: < or = 1 x Normal Limit (0). Differential diagnosis: cardiac arrhythmia, CVA, generalized weakness, GI bleed, near-syncope, . BASSAM Risk Score: TOTAL SCORE = 0. Data reviewed: vital signs, nurses notes, lab test result(s), CBC, electrolytes, hepatic panel, EKG, radiologic studies, plain films. Consideration of Admission/Observation Escalation of care including admission/observation considered. 18:35 Independent interpretation of the following test(s) in the Emergency Department EKG: brice See my EKG interpretation above. Test considered but Not performed: CT: NO CT CHEST. 10/02 15:06 Order name: CBC with Diff; Complete Time: 17:59 brice 10/02 15:06 Order name: Comprehensive Metabolic Panel; Complete Time: 17:59 [facility] 10/02 15:06 Order name: Urinalysis w/ reflexes; Complete Time: 17:43 [facility] 10/02 15:06 Order name: PREGU; Complete Time: 17:59 [facility] 10/02 17:18 Order name: Troponin HS; Complete Time: 18:35 [facility] 10/02 17:18 Order name: D-Dimer; Complete Time: 18:35 [facility] 10/02 17:20 Order name: Chest Pa And Lat (2 Views) XRAY [facility] 10/02 15:40 Order name: EKG Strip; Complete Time: 15:40 aa5 EC:56 Rate is 57 beats/min. Rhythm is regular. QRS Rowe is Normal. MI interval is normal. QRS brice interval is normal. QT interval is normal. No Q waves. T waves are Normal. No ST changes noted. Clinical impression: NSR w/ Non-specific ST/T Changes and No evidence of ischemia. Interpreted by me. Reviewed by me. Administered Medications: 17:31 Drug: NS 0.9% IV 1000 ml Route: IV; Rate: 1 bolus; Site: right antecubital; ko1 17:32 Drug: Ondansetron IVP 4 mg Route: IVP; Site: right antecubital; ko1 18:20 Drug: Aspirin PO Chewable Tablet 81 mg Route: PO; ko1 Disposition Summary: 10/02/22 18:36 Discharge Ordered Location: Home brice Problem: new brice Symptoms: have improved brice Condition: Stable brice Diagnosis - Chest pain, unspecified brice - Dizziness and giddiness brice Followup: brice - With: Private Physician - When: 2 - 3 days - Reason: Recheck today's complaints, Continuance of care, Re-evaluation by your physician Followup: brice - With: - When: 2 - 3 days - Reason: Recheck today's complaints, Re-evaluation by your physician Discharge Instructions: - Discharge Summary Sheet brice - Nonspecific Chest Pain, Adult brice - Chest Wall Pain brice - Dizziness brice - Chest Wall Pain, [id number] brice - Nonspecific Chest Pain, Adult, [id number] brice - Aspirin and Your Heart brice - Dizziness, [id number] brice Forms: - Medication Reconciliation Form brice - Thank You Letter brice - Antibiotic Education brice - Prescription Opioid Use brice Prescriptions: - Pepcid 20 mg Oral Tablet - take 1 tablet by ORAL route every 12 hours for 10 days; 20 tablet; Refills: 0, brice Product Selection Permitted Signatures: Dispatcher [employer] Selin Valadez, SHIPPING AND RECEIVING ASSOCIATEStaciaC ODILON-Kj Denise MD MD cha Calderon, Audri, RN RN aa5 Suzan Florentino RN RN ko1
--- NOTE | 2022-10-02 18:37 | ER ---
Nurse's Notes [facility] Name: Annabel Chamberlain Age: 27 yrs Sex: Female : 1995 Arrival Date: 10/02/2022 Time: 14:36 Bed 11 Private MD: Diagnosis: Chest pain, unspecified;Dizziness and giddiness Presentation: 10/02 15:03 Chief complaint: Chief complaint: Patient states: "I started taking a new medicine for aa5 anxiety, propanolol, about 1 or 2 weeks ago and I noticed on Friday it was making me feel dizzy and lightheaded so I went to the pharmacy took my blood pressure and it was 95 (systolic) so they pharmacist told me to stay off the medicine". Pt reports last propanolol dose was yesterday morning. Today reports heaviness to yvonne arms and legs, chest pain, and SOB. 15:03 Acuity: STEVEN 3 aa5 15:03 Coronavirus screen: At this time, the client does not indicate any symptoms associated aa5 with coronavirus-19. Ebola Screen: Patient denies travel to an Ebola-affected area in the 21 days before illness onset. Initial Sepsis Screen: Does the patient meet any 2 criteria? No. Patient's initial sepsis screen is negative. Does the patient have a suspected source of infection? No. Patient's initial sepsis screen is negative. Risk Assessment: Do you want to hurt yourself or someone else? Patient reports no desire to harm self or others. Onset of symptoms was September 2022. 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 - Social history:: Smoking status: Patient reports the use of cigarette tobacco products, denies chronic smoking, but will smoke occasionally. - Family history:: not pertinent. Screenin:30 [facility] ED Fall Risk Assessment (Adult) History of falling in the last 3 months, ko1 including since admission No falls in past 3 months (0 pts) Confusion or Disorientation No (0 pts) Intoxicated or Sedated No (0 pts) Impaired Gait No (0 pts) Mobility Assist Device Used No (0 pt) Altered Elimination No (0 pt) Score/Fall Risk Level 0 - 2 = Low Risk Oriented to surroundings, Maintained a safe environment, Educated pt \\T\\ family on fall prevention, incl call for assistance when getting out of bed, Assessed \\T\\ reinforced patient's understanding of fall precautions, Provided non-skid footwear, Hourly rounding (assess needs \\T\\ fall precautionary measures) done, Used ambulatory aids as needed (educated on \\T\\ assisted with), Used gait belt as appropriate. Abuse screen: Denies threats or abuse. Denies injuries from another. Nutritional screening: No deficits noted. Tuberculosis screening: No symptoms or risk factors identified. Assessment: 17:30 General: Appears in no apparent distress. uncomfortable, Behavior is calm, cooperative, ko1 appropriate for age. Pain: Complains of pain in chest Neuro: No deficits noted. Cardiovascular: No deficits noted. Respiratory: No deficits noted. GI: No deficits noted. : No deficits noted. EENT: No deficits noted. Derm: No deficits noted. Musculoskeletal: No deficits noted. Vital Signs: 15:03 BP 123 / 84; Pulse 65; Resp 16 S; Temp 97.3(TE); Pulse Ox 100% on R/A; Weight 73.48 kg aa5 (R); Height 5 ft. 1 in. (R); 18:50 BP 118 / 80; Pulse 68; Resp 16; Pulse Ox 99% ; ko1 15:03 Body Mass Index 30.61 (73.48 kg, 154.94 cm) aa5 ED Course: 14:50 Patient arrived in ED. am2 14:57 Selin Goode FNP-C is PHCP. kb 14:57 Kj Phillips MD is Attending Physician. kb 15:04 Arm band placed on. aa5 15:05 Kj Phillips MD is Attending Physician. [facility] 15:06 Triage completed. aa5 17:10 Suzan Florentino, SUJATA is Primary Nurse. ko1 17:30 Patient has correct armband on for positive identification. Bed in low position. Call ko1 light in reach. Side rails up X 1. Door closed. Noise minimized. Lights dimmed. Warm blanket given. 17:30 No provider procedures requiring assistance completed. Inserted saline lock: 22 gauge ko1 in right antecubital area, using aseptic technique. Blood collected. 17:31 Troponin HS Sent. ko1 17:31 PREGU Sent. ko1 17:31 Urinalysis w/ reflexes Sent. ko1 17:32 Comprehensive Metabolic Panel Sent. ko1 17:32 CBC with Diff Sent. ko1 18:11 D-Dimer Sent. ko1 18:13 Chest Pa And Lat (2 Views) XRAY In Process Unspecified. EDMS 18:36 Earl Whittaker MD is Referral Physician. brice 18:50 IV discontinued, intact, bleeding controlled, No redness/swelling at site. Pressure ko1 dressing applied. Administered Medications: 17:31 Drug: NS 0.9% IV 1000 ml Route: IV; Rate: 1 bolus; Site: right antecubital; ko1 17:32 Drug: Ondansetron IVP 4 mg Route: IVP; Site: right antecubital; ko1 18:20 Drug: Aspirin PO Chewable Tablet 81 mg Route: PO; ko1 Medication: 17:30 VIS not applicable for this client. ko1 Outcome: 18:36 Discharge ordered by . brice 18:50 Discharged to home ambulatory, with family. ko1 18:50 Condition: improved 18:50 Discharge instructions given to patient, Instructed on discharge instructions, follow up and referral plans. medication usage, Demonstrated understanding of instructions, follow-up care, medications, Prescriptions given X 1. 18:57 Patient left the ED. ko1 Signatures: Dispatcher [employer] EDOH Selin Goode, SCREEN PRINTING MACHINE OPERATOR HELPER-C SCREEN PRINTING MACHINE OPERATOR HELPER-Ckb Kj Phillips MD MD cha Calderon, Audri RN RN [email or web address] Nancy Peguero Kathy, SUJATA RN ko1 Corrections: (The following items were deleted from the chart) 15:09 15:03 Chief complaint: aa5 aa5 15:13 15:03 BP 123 / 84; Pulse 65bpm; Resp 16bpm; Spontaneous; Pulse Ox 100% RA; Temp 97.3F aa5 Temporal; aa5
[2022-10-02 19:11] VITALS: TEMP 97.3
[2022-10-02 19:12] VITALS: BP 118/80; O2SAT 99
--- NOTE | 2022-10-03 11:02 | EKG ---
Test Date: 2022-10-02 Test Time: 15:39:38 Folding Machine Operator: ALISHA MEASUREMENT RESULTS: Intervals: Rate: 57 NE: 128 QRSD: 90 QT: 430 QTc: 418 Fleming: P: 52 NE: 128 QRS: 81 T: 85 INTERPRETIVE STATEMENTS: Sinus bradycardia Otherwise normal ECG Compared to ECG 04/08/2022 21:29:26 No significant changes Electronically Signed On 10-03-22 11:01:36 CDT by Ben Monsalve
== END 2022-10-02 18:57 | disposition home or self-care (01) ==
LOC: ER 14:36
DX: R07.89 Other chest pain (principal); R42 Dizziness and giddiness; R53.1 Weakness; F17.210 Nicotine dependence, cigarettes, uncomplicated
CPT/HCPCS: 85025; 81001; 36415; 81025; 85379; 84484; 80053; 71046; J2405; J7030; 93005; 96374; 99284

== ENCOUNTER 2023-01-27 08:32 | Emergency (ER) | payer OTHER ==
--- OUTSIDE RECORDS SUMMARY | 2023-01-27 08:38 | XMS REPORT | Continuity of Care Document ---
:1995 Author Organization [facility] t Address [address] [place] [address]. [address] [place] [address] Care Team Providers Name Role Phone Pcp, Patient Does Not Have A Primary Care Physician +[phone] Cortney Castañeda MA Attending Clinician Unavailable YAIMA HATCH Attending Clinician Unavailable Yaima Hatch MD Attending Clinician CHARLIE TREJO Attending Clinician Unavailable Charlie Hernández Attending Clinician ÁNGELA GORDON Attending Clinician Unavailable Ángela Gordon MD Attending Clinician Unknown, Attending Attending Clinician Unavailable Doctor Unassigned, [place] Attending Clinician Unavailable Provider, [facility] Attending Clinician Unavailable LETI IRVING Attending Clinician Unavailable Portia Valle Attending Clinician PORTIA GRAY Attending Clinician Unavailable Brissa Alves Attending Clinician Lissett Julio Attending Clinician LISSETT TORRES Attending Clinician Unavailable UNKNOWN, ATTENDING Attending Clinician Unavailable REN MEZA Attending Clinician Unavailable Ren Marcus Attending Clinician ANTONI LUNA Attending Clinician Unavailable Payers Payer Name Policy Type Policy Number Effective Date Expiration Date S [facility] [id number] 2021 HEALTHCARE 00:00:00 Problems Condition Condition Condition Status Onset Resolution Last Treating Co mments Source Name Details Category Date Date Treatment Clinician Date Hand Hand Disease Active Univers injury, injury, 5-16 ity of left, left, 00:00: [place] subsequent subsequent 00 Me dical encounter encounter Bran ch Anxiety Anxiety Disease Active Univers and and [...] with 2-08 ity of routine routine 00:00: [place] gynecologi gynecologi 00 Me dical arturo exam arturo exam Branch Rubella Rubella Disease Active Univers non-immune non-immune 4-28 it y of status, status, 00:00: [place] antepartum antepartum 00 Me dical Branch Susceptibl Susceptibl Disease Active U nivers e to e to 4-28 ity of varicella varicella 00:00: [place] (non-immun (non-immun 00 Me dical e), e), Branch currently currently Generalize Generalize Disease Active U nivers d anxiety d anxiety 4-27 ity of disorder disorder 00:00: [place] 00 Medical Branch History of History of Disease Active U nivers depression depression 4-27 it y of 00:00: [place] 00 Medical Branch Asthma Asthma Disease Active Overview: Univer s 4-27 Formattin ity of 00:00: g of this [place] note Medical might be Branch different from the original. ICD10 Diagnosis Term [employer] Utility Allergies, Adverse Reactions, Alerts Allergy Allergy Status Severity Reaction(s) Onset Inactive Treating Comm ents Source Name Type Date Date Clinician NO KNOWN Drug Active Univers ALLERGIE Class ity of S [facility] Social History Social Habit Start Date Stop Date Quantity Comments Source History of tobacco Cigarette Smoker University of use [facility] History [facility] University o f Alcohol Frequency [place] M ed[facility] History SDHI University o f Alcohol Std Drinks [place] [facility] [place] History [facility], [facility]1983 o f Alcohol Binge [place] [facility] Gender identity Universit y of [facility] Sexual orientation Univer sity of [facility] Alcohol intake 2022-10-16 2022-10-16 Current drinker of Un iversity of 00:00:00 00:00:00 alcohol (finding) [place] edical Branch Exposure to 2022-10-05 2022-10-15 Not sure University of SARS-CoV-2 (event) 00:00:00 11:37:00 [facility] Tobacco use and 2022-02-11 2022-02-11 Smokeless tobacco Un iversity of exposure 00:00:00 00:00:00 non-user [facility] Tobacco Comment 2022-02-11 2022-02-11 Smoked occasionally University 00:00:00 00:00:00 for 1.5 years, a [facility] dical pack would last 2 Branch months History of Social 2022-02-11 2022-02-11 Univers ity of function 00:00:00 00:00:00 [facility] Alcohol Comment 2017-03-10 2017-03-10 on special Universit y of 00:00:00 00:00:00 occassions [facility] Sex Ass[birth year] At [birth year] Universit y of 00:00:00 00:00:00 [facility] Smoking Status Start Date Stop Date Source Ex-smoker 2022-02-11 00:00:00 2022-02-11 00:00:00 Universi ty of [facility] Medications Ordered Filled Start Stop Current Ordering Indication Dosage Frequency Signature Comments Components Source Medication Medication Date Date Medication? Clinician (SIG) Name Name propranoloL Yes Univer s 10 mg 4-18 ity of tablet 00:00: [place] 00 Medical Branch busPIRone 5 2022- Yes 5mg Take 1 Univ ers mg tablet 4-18 tablet by ity o f 00:00: mouth in [place] [address] the Medical morning Branch and 1 tablet in the evening. propranoloL Yes Univer s 10 mg 4-18 ity of tablet 00:00: [place] [facility] busPIRone 5 2022- Yes 5mg Take 1 Univ ers mg tablet 4-18 tablet by ity o f 00:00: mouth in [place] 00 the Medical morning Branch and 1 tablet in the evening. propranoloL 2023-0 Yes Univer s 10 mg 4-18 ity of tablet 00:00: [place] 00 Medical Branch busPIRone 5 2023-0 Yes 5mg Take 1 Univ ers mg tablet 4-18 tablet by ity o f 00:00: mouth in [place] 00 the Medical morning Branch and 1 tablet in the evening. propranoloL 2023-0 Yes Univer s 10 mg 4-18 ity of tablet 00:00: [place] [facility] busPIRone 5 2023-0 Yes 5mg Take 1 Univ ers mg tablet 4-18 tablet by ity o f 00:00: mouth in [place] 00 the Medical morning Branch and 1 tablet in the evening. propranoloL 2023-0 Yes Univer s 10 mg 4-18 ity of tablet 00:00: [place] [facility] busPIRone 5 2023-0 Yes 5mg Take 1 Univ ers mg tablet 4-18 tablet by ity o f 00:00: mouth in [place] the Medical morning Branch and 1 tablet in the evening. propranoloL 2023-0 Yes Univer s 10 mg 4-18 ity of tablet 00:00: [place] [facility] busPIRone 5 2023-0 Yes 5mg Take 1 Univ ers mg tablet 4-18 tablet by ity o f 00:00: mouth in [place] the Medical morning Branch and 1 tablet in the evening. propranoloL 2023-0 Yes Univer s 10 mg 4-18 ity of tablet 00:00: [place] [facility] busPIRone 5 2023-0 Yes 5mg Take 1 Univ ers mg tablet 4-18 tablet by ity o f 00:00: mouth in [place] the Medical morning Branch and 1 tablet in the evening. propranoloL 2023-0 Yes Univer s 10 mg 4-18 ity of tablet 00:00: [place] [facility] busPIRone 5 2023-0 Yes 5mg Take 1 Univ ers mg tablet 4-18 tablet by ity o f 00:00: mouth in [place] [address] the Medical morning Branch and 1 tablet in the evening. propranoloL 2023-0 Yes Univer s 10 mg 4-18 ity of tablet 00:00: [place] [facility] busPIRone 5 2023-0 Yes 5mg Take 1 Univ ers mg tablet 4-18 tablet by ity o f 00:00: mouth in [place] 00 the Medical morning Branch and 1 tablet in the evening. propranoloL 2023-0 Yes Univer s 10 mg 4-18 ity of tablet 00:00: [place] 00 Medical Branch busPIRone 5 3-0 Yes 5mg Take 1 Univ ers mg tablet 4-18 tablet by ity o f 00:00: mouth in [place] 00 the Medical morning Branch and 1 tablet in the evening. azelastine 2023-0 Yes [id number] 1{spray Use 1 Univers 137 mcg 1-29 } [place] in ity of (0.1 %) 00:00: each [place] nasal spray 00 nostril in Me dical the Branch morning and 1 [place] in the evening. Use in each nostril as directed fluticasone 2023-0 Yes [id number] 1{spray Use 1 Univers propionate 1-29 } [place] in ity o f 50 00:00: each [place] mcg/actuati 00 nostril in Me dical on nasal the Branch spray morning. benzonatate 2023-0 Yes [id number] 200mg Take 2 Univers 100 mg 1-29 capsules ity of capsule 00:00: by mouth [place] 00 every 8 Medical (eight) Branch hours as needed for Cough. azelastine 2023-0 Yes [id number] 1{spray Use 1 Univers 137 mcg 1-29 } [place] in ity of (0.1 %) 00:00: each [place] nasal spray 00 nostril in Me dical the Branch morning and 1 [place] in the evening. Use in each nostril as directed fluticasone 2023-0 Yes [id number] 1{spray Use 1 Univers propionate 1-29 } [place] in ity o f 50 00:00: each [place] mcg/actuati 00 nostril in Me dical on nasal the Branch spray morning. benzonatate 2023-0 Yes [id number] 200mg Take 2 Univers 100 mg 1-29 capsules ity of capsule 00:00: by mouth [place] 00 every 8 Medical (eight) Branch hours as needed for Cough. azelastine 2023-0 Yes [id number] 1{spray Use 1 Univers 137 mcg 1-29 } [place] in ity of (0.1 %) 00:00: each [place] nasal spray 00 nostril in Me dical the Branch morning and 1 [place] in the evening. Use in each nostril as directed fluticasone 2023-0 Yes [id number] 1{spray Use 1 Univers propionate 1-29 } [place] in ity o f 50 00:00: each [place] mcg/actuati 00 nostril in Me dical on nasal the Branch spray morning. benzonatate 2023-0 Yes [id number] 200mg Take 2 Univers 100 mg 1-29 capsules ity of capsule 00:00: by mouth [place] 00 every 8 Medical (eight) Branch hours as needed for Cough. azelastine 2023-0 Yes [id number] 1{spray Use 1 Univers 137 mcg 1-29 } [place] in ity of (0.1 %) 00:00: each [place] nasal spray 00 nostril in Me dical the Branch morning and 1 [place] in the evening. Use in each nostril as directed fluticasone 2023-0 Yes [id number] 1{spray Use 1 Univers propionate 1-29 } [place] in ity o f 50 00:00: each [place] mcg/actuati 00 nostril in Me dical on nasal the Branch spray morning. benzonatate 2023-0 Yes [id number] 200mg Take 2 Univers 100 mg 1-29 capsules ity of capsule 00:00: by mouth [place] 00 every 8 Medical (eight) Branch hours as needed for Cough. azelastine 2023-0 Yes [id number] 1{spray Use 1 Univers 137 mcg 1-29 } [place] in ity of (0.1 %) 00:00: each [place] nasal spray 00 nostril in Me dical the Branch morning and 1 [place] in the evening. Use in each nostril as directed fluticasone 2023-0 Yes [id number] 1{spray Use 1 Univers propionate 1-29 } [place] in ity o f 50 00:00: each [place] mcg/actuati 00 nostril in Me dical on nasal the Branch spray morning. benzonatate 2023-0 Yes [id number] 200mg Take 2 Univers 100 mg 1-29 capsules ity of capsule 00:00: by mouth [place] 00 every 8 Medical (eight) Branch hours as needed for Cough. azelastine 2023-0 Yes [id number] 1{spray Use 1 Univers 137 mcg 1-29 } [place] in ity of (0.1 %) 00:00: each [place] nasal spray 00 nostril in Me dical the Branch morning and 1 [place] in the evening. Use in each nostril as directed fluticasone 2023-0 Yes [id number] 1{spray Use 1 Univers propionate 1-29 } [place] in ity o f 50 00:00: each [place] mcg/actuati 00 nostril in Me dical on nasal the Branch spray morning. benzonatate 2023-0 Yes [id number] 200mg Take 2 Univers 100 mg 1-29 capsules ity of capsule 00:00: by mouth [place] 00 every 8 Medical (eight) Branch hours as needed for Cough. azelastine 2023-0 Yes [id number] 1{spray Use 1 Univers 137 mcg 1-29 } [place] in ity of (0.1 %) 00:00: each [place] nasal spray 00 nostril in Me dical the Branch morning and 1 [place] in the evening. Use in each nostril as directed fluticasone 2023-0 Yes [id number] 1{spray Use 1 Univers propionate 1-29 } [place] in ity o f 50 00:00: each [place] mcg/actuati 00 nostril in Me dical on nasal the Branch spray morning. benzonatate 2023-0 Yes [id number] 200mg Take 2 Univers 100 mg 1-29 capsules ity of capsule 00:00: by mouth [place] 00 every 8 Medical (eight) Branch hours as needed for Cough. azelastine 2023-0 Yes [id number] 1{spray Use 1 Univers 137 mcg 1-29 } [place] in ity of (0.1 %) 00:00: each [place] nasal spray 00 nostril in Me dical the Branch morning and 1 [place] in the evening. Use in each nostril as directed fluticasone 2023-0 Yes [id number] 1{spray Use 1 Univers propionate 1-29 } [place] in ity o f 50 00:00: each [place] mcg/actuati 00 nostril in Me dical on nasal the Branch spray morning. benzonatate 2023-0 Yes [id number] 200mg Take 2 Univers 100 mg 1-29 capsules ity of capsule 00:00: by mouth [place] 00 every 8 Medical (eight) Branch hours as needed for Cough. azelastine 2023-0 Yes [id number] 1{spray Use 1 Univers 137 mcg 1-29 } [place] in ity of (0.1 %) 00:00: each [place] nasal spray 00 nostril in Me dical the Branch morning and 1 [place] in the evening. Use in each nostril as directed fluticasone 2023-0 Yes [id number] 1{spray Use 1 Univers propionate 1-29 } [place] in ity o f 50 00:00: each [place] mcg/actuati 00 nostril in Me dical on nasal the Branch spray morning. benzonatate 2023-0 Yes [id number] 200mg Take 2 Univers 100 mg 1-29 capsules ity of capsule 00:00: by mouth [place] 00 every 8 Medical (eight) Branch hours as needed for Cough. azelastine 2023-0 Yes [id number] 1{spray Use 1 Univers 137 mcg 1-29 } [place] in ity of (0.1 %) 00:00: each [place] nasal spray 00 nostril in Me dical the Branch morning and 1 [place] in the evening. Use in each nostril as directed fluticasone 2023-0 Yes [id number] 1{spray Use 1 Univers propionate 1-29 } [place] in ity o f 50 00:00: each [place] mcg/actuati 00 nostril in Me dical on nasal the Branch spray morning. benzonatate 2023-0 Yes [id number] 200mg Take 2 Univers 100 mg 1-29 capsules ity of capsule 00:00: by mouth [place] 00 every 8 Medical (eight) Branch hours as needed for Cough. azelastine 2023-0 Yes [id number] 1{spray Use 1 Univers 137 mcg 1-29 } [place] in ity of (0.1 %) 00:00: each [place] nasal spray 00 nostril in Me dical the Branch morning and 1 [place] in the evening. Use in each nostril as directed fluticasone 2023-0 Yes [id number] 1{spray Use 1 Univers propionate 1-29 } [place] in ity o f 50 00:00: each [place] mcg/actuati 00 nostril in Me dical on nasal the Branch spray morning. benzonatate 2023-0 Yes [id number] 200mg Take 2 Univers 100 mg 1-29 capsules ity of capsule 00:00: by mouth [place] 00 every 8 Medical (eight) Branch hours as needed for Cough. azelastine 2023-0 Yes [id number] 1{spray Use 1 Univers 137 mcg 1-29 } [place] in ity of (0.1 %) 00:00: each [place] nasal spray 00 nostril in Me dical the Branch morning and 1 [place] in the evening. Use in each nostril as directed fluticasone 3-0 Yes [id number] 1{spray Use 1 Univers propionate 1-29 } [place] in ity o f 50 00:00: each [place] mcg/actuati 00 nostril in Me dical on nasal the Branch spray morning. benzonatate 2022-0 Yes [id number] 200mg Take 2 Univers 100 mg 1-29 capsules ity of capsule 00:00: by mouth [place] 00 every 8 Medical (eight) Branch hours as needed for Cough. azelastine 2022-0 Yes [id number] 1{spray Use 1 Univers 137 mcg 1-29 } [place] in ity of (0.1 %) 00:00: each [place] nasal spray 00 nostril in Me dical the Branch morning and 1 [place] in the evening. Use in each nostril as directed fluticasone 2022-0 Yes [id number] 1{spray Use 1 Univers propionate 1-29 } [place] in ity o f 50 00:00: each [place] mcg/actuati 00 nostril in Me dical on nasal the Branch spray morning. benzonatate 2022-0 Yes [id number] 200mg Take 2 Univers 100 mg 1-29 capsules ity of capsule 00:00: by mouth [place] 00 every 8 Medical (eight) Branch hours as needed for Cough. amoxicillin 2022-0 2022- No [id number] 1{tbl} Take 1 Univers -clavulanat 1- 02-06 tablet by it y of e 00:00: 05:59 mouth in [place] (AUGMENTIN) 00 :00 the Medical 875-125 mg morning Branch per tablet and 1 tablet in the evening. Do all this for 7 days. amoxicillin 2022-0 2022- No [id number] 1{tbl} Take 1 Univers -clavulanat 1-29 02-06 tablet by it y of e 00:00: 05:59 mouth in [place] (AUGMENTIN) 00 :00 the Medical 875-125 mg morning Branch per tablet and 1 tablet in the evening. Do all this for 7 days. cefdinir 2021-06 2022- No [id number] 600mg Take 2 U nivers 300 mg 0-26 11-06 capsules ity of capsule 00:00: 04:59 by mouth [place] 00 :00 in the [facility] morning Branch for 10 days. cefdinir 2021-06- No [id number] 600mg Take 2 U nivers 300 mg 0-26 11-06 capsules ity of capsule 00:00: 04:59 by mouth [place] 00 :00 in the [facility] Branch for 10 days. bromphenira 2021-0 Yes [id number] 10mL Take 10 mL Univers mine-pseudo 9-12 by mouth 4 it y of ephedrine-D 00:00: (four) [place] (BROMFED 00 times Medical DM) 2-30-10 daily as Bran ch mg/5 mL needed for syrup Congestion /Allergies . bromphenira 2021-0 Yes [id number] 10mL Take 10 mL Univers mine-pseudo 9-12 by mouth 4 it y of ephedrine-D 00:00: (four) [place] (BROMFED 00 times Medical DM) 2-30-10 daily as Bran ch mg/5 mL needed for syrup Congestion /Allergies . bromphenira 0 Yes [id number] 10mL Take 10 mL Univers mine-pseudo 9-12 by mouth 4 it y of ephedrine-D 00:00: (four) [place] (BROMFED 00 times Medical DM) 2-30-10 daily as Bran ch mg/5 mL needed for syrup Congestion /Allergies . bromphenira 0 Yes [id number] 10mL Take 10 mL Univers mine-pseudo 9-12 by mouth 4 it y of ephedrine-D 00:00: (four) [place] (BROMFED 00 times Medical DM) 2-30-10 daily as Bran ch mg/5 mL needed for syrup Congestion /Allergies . bromphenira 2021-0 Yes [id number] 10mL Take 10 mL Univers mine-pseudo 9-12 by mouth 4 it y of ephedrine-D 00:00: (four) [place] (BROMFED 00 times Medical DM) 2-30-10 daily as Bran ch mg/5 mL needed for syrup Congestion /Allergies . bromphenira 2021-0 Yes [id number] 10mL Take 10 mL Univers mine-pseudo 9-12 by mouth 4 it y of ephedrine-D 00:00: (four) [place] (BROMFED 00 times Medical DM) 2-30-10 daily as Bran ch mg/5 mL needed for syrup Congestion /Allergies . bromphenira 2021-0 Yes [id number] 10mL Take 10 mL Univers mine-pseudo 9-12 by mouth 4 it y of ephedrine-D 00:00: (four) [place] (BROMFED 00 times Medical DM) 2-30-10 daily as Bran ch mg/5 mL needed for syrup Congestion /Allergies . bromphenira 2021-0 Yes [id number] 10mL Take 10 mL Univers mine-pseudo 9-12 by mouth 4 it y of ephedrine-D 00:00: (four) [place] (BROMFED 00 times Medical DM) 2-30-10 daily as Bran ch mg/5 mL needed for syrup Congestion /Allergies . bromphenira 2021-0 Yes [id number] 10mL Take 10 mL Univers mine-pseudo 9-12 by mouth 4 it y of ephedrine-D 00:00: (four) [place] (BROMFED 00 times Medical DM) 2-30-10 daily as Bran ch mg/5 mL needed for syrup Congestion /Allergies . bromphenira 2021-0 Yes [id number] 10mL Take 10 mL Univers mine-pseudo 9-12 by mouth 4 it y of ephedrine-D 00:00: (four) [place] (BROMFED 00 times Medical DM) 2-30-10 daily as Bran ch mg/5 mL needed for syrup Congestion /Allergies . bromphenira 2021-0 Yes [id number] 10mL Take 10 mL Univers mine-pseudo 9-12 by mouth 4 it y of ephedrine-D 00:00: (four) [place] (BROMFED 00 times Medical DM) 2-30-10 daily as Bran ch mg/5 mL needed for syrup Congestion /Allergies . bromphenira 2021-0 Yes [id number] 10mL Take 10 mL Univers mine-pseudo 9-12 by mouth 4 it y of ephedrine-D 00:00: (four) [place] (BROMFED 00 times Medical DM) 2-30-10 daily as Bran ch mg/5 mL needed for syrup Congestion /Allergies . bromphenira 2-0 Yes [id number] 10mL Take 10 mL Univers mine-pseudo 9-12 by mouth 4 it y of ephedrine-D 00:00: (four) [place] (BROMFED 00 times Medical DM) 2-30-10 daily as Bran ch mg/5 mL needed for syrup Congestion /Allergies . bromphenira 0 Yes [id number] 10mL Take 10 mL Univers mine-pseudo 9-12 by mouth 4 it y of ephedrine-D 00:00: (four) [place] (BROMFED 00 times Medical DM) 2-30-10 daily as Bran ch mg/5 mL needed for syrup Congestion /Allergies . bromphenira 0 Yes [id number] 10mL Take 10 mL Univers mine-pseudo 9-12 by mouth 4 it y of ephedrine-D 00:00: (four) [place] (BROMFED 00 times Medical DM) 2-30-10 daily as Bran ch mg/5 mL needed for syrup Congestion /Allergies . bromphenira 0 Yes [id number] 10mL Take 10 mL Univers mine-pseudo 9-12 by mouth 4 it y of ephedrine-D 00:00: (four) [place] (BROMFED 00 times Medical DM) 2-30-10 daily as Bran ch mg/5 mL needed for syrup Congestion /Allergies . bromphenira 0 Yes [id number] 10mL Take 10 mL Univers mine-pseudo 9-12 by mouth 4 it y of ephedrine-D 00:00: (four) [place] (BROMFED 00 times Medical DM) 2-30-10 daily as Bran ch mg/5 mL needed for syrup Congestion /Allergies . bromphenira 0 Yes [id number] 10mL Take 10 mL Univers mine-pseudo 9-12 by mouth 4 it y of ephedrine-D 00:00: (four) [place] (BROMFED 00 times Medical DM) 2-30-10 daily as Bran ch mg/5 mL needed for syrup Congestion /Allergies . ondansetron 2- No [id number] 4mg Take 1 Univers 4 mg 4-21 09-12 tablet by ity of disintegrat 00:00: 00:00 [place] tablet 00 :00 every 8 Medica l (eight) Branch hours as needed for Nausea and Vomiting (N/V). ondansetron 2021- No [id number] 4mg Take 1 Univers 4 mg 09-20 tablet by itjen of disintegrat 00:00: 00:00 [place] tablet 00 :00 every 8 Medica l (eight) Branch hours as needed for Nausea and Vomiting (N/V). Immunizations Ordered Filled Immunization Date Status Comments [facility] e Immunization Name Name SARS-COV-2 COVID-19 2020-10-05 Completed Unive rsity of MODERNA 12+ YRS 00:00:00 [facility] ical VACCINE Branch SARS-COV-2 COVID-19 2020-10-05 Completed Unive rsity of MODERNA 12+ YRS 00:00:00 [facility] ical VACCINE Branch SARS-COV-2 COVID-19 2020-09-04 Completed Unive rsity of MODERNA 12+ YRS 00:00:00 [facility] ical VACCINE Branch SARS-COV-2 COVID-19 2020-09-04 Completed Unive rsity of MODERNA 12+ YRS 00:00:00 [facility] ical VACCINE Branch TDAP 2015-02-27 Completed University of 00:00:00 [facility] TDAP 2015-02-27 Completed University of 00:00:00 [facility] TDAP 2015-02-27 Completed University of 00:00:00 [facility] TDAP 2015-02-27 Completed University of 00:00:00 [facility] TDAP 2015-02-27 Completed University of 00:00:00 [facility] TDAP 2015-02-27 Completed University of 00:00:00 [facility] TDAP 2015-02-27 Completed University of 00:00:00 [facility] TDAP 2015-02-27 Completed University of 00:00:00 [facility] TDAP 2015-02-27 Completed University of 00:00:00 [facility] Branch TDAP 2015-02-27 Completed University of 00:00:00 [facility] TDAP 2015-02-27 Completed University of 00:00:00 [facility] TDAP 2015-02-27 Completed University of 00:00:00 [facility] TDAP 2015-02-27 Completed University of 00:00:00 [facility] TDAP 2015-02-27 Completed University of 00:00:00 [facility] TDAP 2015-02-27 Completed University of 00:00:00 [place] [facility] TDAP 2015-02-27 Completed University of 00:00:00 [place] [facility] TDAP 2015-02-27 Completed University of 00:00:00 [place] [facility] TDAP 2015-02-27 Completed University of 00:00:00 [place] [facility] Td 2006-06-02 Completed University of 00:00:00 [place] [facility] Td 2006-06-02 Completed University of 00:00:00 [place] [facility] Td 2006-06-02 Completed University of 00:00:00 [place] [facility] Td 2006-06-02 Completed University of 00:00:00 [place] [facility] Td 2006-06-02 Completed University of 00:00:00 [place] [facility] TD, NOS 2006-06-02 Completed University of 00:00:00 [place] [facility] TD, NOS 2006-06-02 Completed University of 00:00:00 [place] [facility] TD, NOS 2006-06-02 Completed University of 00:00:00 [place] [facility] TD, NOS 2006-06-02 Completed University of 00:00:00 [place] [facility] TD, NOS 2006-06-02 Completed University of 00:00:00 [place] [facility] TD, NOS 2006-06-02 Completed University of 00:00:00 [place] [facility] TD, NOS 2006-06-02 Completed University of 00:00:00 [place] [facility] TD, NOS 2006-06-02 Completed University of 00:00:00 [place] [facility] TD, NOS 2006-06-02 Completed University of 00:00:00 [place] [facility] TD, NOS 2006-06-02 Completed University of 00:00:00 [place] [facility] TD, NOS 2006-06-02 Completed University of 00:00:00 [place] [facility] TD, NOS 2006-06-02 Completed University of 00:00:00 [place] [facility] TD, NOS 2006-06-02 Completed University of 00:00:00 [facility] Branch Vital Signs Vital Name Observation Time Observation Value Comments Source Systolic blood 2022-10-16 19:28:00 116 mm[Hg] Univer sity of pressure [facility] Diastolic blood 2022-10-16 19:28:00 71 mm[Hg] Unive rsity of pressure [facility] Heart rate 2022-10-16 19:28:00 64 /min [facility] Body height 2022-10-16 19:28:00 156.2 cm [facility] Branch Body weight 2022-10-16 19:28:00 75.025 kg [facility] [place] [facility] BMI 2022-10-16 19:28:00 30.75 kg/m2 [facility] [place] [facility] Oxygen saturation in 2022-10-16 19:28:00 100 /min University of Arterial blood by [place] Medi arturo Pulse oximetry Branch Systolic blood 2022-10-15 16:28:00 101 mm[Hg] Univer sity of pressure [place] [facility] Diastolic blood 2022-10-15 16:28:00 67 mm[Hg] [facility] Heart rate 2022-10-15 16:28:00 70 /min [facility] Body temperature 2022-10-15 16:28:00 37.06 Kathleen [facility] Body height 2022-10-15 16:28:00 156.2 cm [facility] Body weight 2022-10-15 16:28:00 75.615 kg [facility] BMI 2022-10-15 16:28:00 30.99 kg/m2 [facility] Oxygen saturation in 2022-10-15 16:28:00 99 /min University of Arterial blood by [facility] arturo Pulse oximetry Branch Systolic blood 2022-10-07 14:47:00 114 mm[Hg] [facility] Diastolic blood 2022-10-07 14:47:00 74 mm[Hg] [facility] Heart rate 2022-10-07 14:47:00 67 /min [facility] Body temperature 2022-10-07 14:47:00 37 Kathleen [facility] Respiratory rate 2022-10-07 14:47:00 16 /min [facility] Body weight 2022-10-07 14:47:00 75.297 kg [facility] BMI 2022-10-07 14:47:00 30.86 kg/m2 [facility] Oxygen saturation in 2022-10-07 14:47:00 97 /min [facility] Pulse oximetry [facility] Systolic blood 2022-06-30 19:52:00 125 mm[Hg] [facility] Diastolic blood 2022-06-30 19:52:00 87 mm[Hg] [facility] Heart rate 2022-06-30 19:52:00 101 /min [facility] Body temperature 2022-06-30 19:52:00 37.06 Kathleen [facility] Respiratory rate 2022-06-30 19:52:00 16 /min [facility] Body height 2022-06-30 19:52:00 156.2 cm [facility] Body weight 2022-06-30 19:52:00 73.755 kg [facility] BMI 2022-06-30 19:52:00 30.23 kg/m2 [facility] Oxygen saturation in 2022-06-30 19:52:00 98 /min [facility] Arterial blood by [facility] [employer] arturo Pulse oximetry Branch Systolic blood 2022-03-27 14:14:00 131 mm[Hg] [facility] Diastolic blood 2022-03-27 14:14:00 79 mm[Hg] [facility] Heart rate 2022-03-27 14:14:00 79 /min [facility] Body temperature 2022-03-27 14:14:00 36.72 Kathleen [facility] Respiratory rate 2022-03-27 14:14:00 18 /min [facility] Body height 2022-03-27 14:14:00 154.9 cm [facility] Body weight 2022-03-27 14:14:00 73.982 kg [facility] BMI 2022-03-27 14:14:00 30.82 kg/m2 [facility] Oxygen saturation in 2022-03-27 14:14:00 98 /min [facility] Arterial blood by [facility] [employer] arturo Pulse oximetry Branch Systolic blood 2022-02-11 16:49:00 120 mm[Hg] [facility] Diastolic blood 2022-02-11 16:49:00 82 mm[Hg] [facility] Heart rate 2022-02-11 16:49:00 81 /min [facility] Body temperature 2022-02-11 16:49:00 37.22 Kathleen [facility] height 2022-02-11 16:49:00 156.2 cm [facility] Body weight 2022-02-11 16:49:00 72.439 kg [facility] BMI 2022-02-11 16:49:00 29.69 kg/m2 [facility] Oxygen saturation in 2022-02-11 16:49:00 99 /min [facility] Arterial blood by [facility] Pulse oximetry [place] Procedures Procedure Date / Time Performed Performing Clinician Sour e XR WRIST <3 VW LEFT 2022-10-07 15:12:46 Evan Ángela [facility] XR HAND 3+ VW LEFT 2022-10-07 15:12:46 [facility] XR HAND 3+ VW LEFT 2022-10-07 15:12:46 [facility] ASSIGNMENT OF BENEFITS 2022-10-07 14:41:25 Doctor Unassigned, No [facility] POCT SARS-COV-2 2022-06-30 00:00:00 [facility] (BINAX NOW) [facility] POCT URINALYSIS 2022-03-27 00:00:00 Isaac [facility] POCT TEST 2022-03-27 00:00:00 Portia Gray [facility] Encounters Start End Encounter Admission Attending Care Care Encounter Source Date/Time Date/Time Type Type Clinicians Facility Department ID 2022-12-06 2022-12-06 Telephone Castañeda, DEVIKAJihan [id number] Univers 00:00:00 00:00:00 Cortney ESTES 350.1.13.10 i ty mallorie MEYER 4.2.7.2.686 Mitul tolbert [id number] [facility] 086 Branch 2022-10-16 2022-10-16 Outpatient R MAMIE, [facility] [id number] [facility] 14:30:00 14:52:38 YAIMA desai [facility] 2022-10-16 2022-10-16 [facility] [id number] Univers 14:30:00 14:52:38 Visit Yaima CUENCA 350.1.13.10 it y of [place] 4.2.7.2.686 Kike as SLICK?BLEA [id number] Me dical EMILY 198 [facility] OFFICE [facility] 2022-10-15 2022-10-15 Outpatient R RYLIE [facility] [id number] Univers 11:30:00 12:00:30 CHARLIE desai [facility] 2022-10-15 2022-10-15 Office [facility] 1.2.840.114 [id number] Univers 11:30:00 12:00:30 Visit Charlie [facility] 350.1.13.10 it [facility] 4.2.7.2.686 Kike as SLICK?BLEA [id number] Me dicbel DIAZ 044 [facility] 2022-10-14 2022-10-14 Outpatient [facility] [id number] Antoni 11:16:28 11:16:28 0515 [address] [place] 2022-10-07 2022-10-07 Outpatient R EVAN [facility] [id number] Univers 09:54:04 23:59:00 ÁNGELAOSWALD desai [facility] 2022-10-07 2022-10-07 [facility] 1.2.840.114 [id number] Univers 09:54:04 23:59:00 [facility] 350.1.13.10 ity of [place] 4.2.7.2.686 Kike as SLICK?BLEA [id number] Me dical EMILY 808 [facility] 2022-10-07 2022-10-07 [facility] 1.2.840.114 [id number] Univers 09:54:04 23:59:00 Encounter Ángela HEALTH 350.1.13.10 ity of [place] 4.2.7.2.686 Kike as SLICK?BLEA [id number] Me dical KNEY 808 [facility] 2022-10-07 2022-10-07 Ángela Santana [facility] 1.2.840.114 [id number] Univers 09:40:00 10:18:33 Care Unknown, Attending HEALTH 350.1.13.10 ity of [place] 4.2.7.2.686 Kike as SLICK?BLEA [id number] [address] OFFICE [facility] 2022-10-07 2022-10-07 Orders Doctor JUWAN 1.2.840.114 [id number] Univers 00:00:00 00:00:00 Only Unassigned, YOVANA 350.1.13.10 ity of [place] [facility] 4.2.7.2.686 Kike as [id number] [address] 2022-10-07 2022-10-07 Vinnie Gordon [facility] 1.2.840.114 [id number] Univers 00:00:00 00:00:00 (Out) [facility] 350.1.13.10 it y of [place] 4.2.7.2.686 Kike as SLICK?BLEA [id number] [address] OFFICE [facility] 2022-09-16 2022-09-16 Outpatient [facility] [id number] Antoni 14:28:09 14:28:09 0417 F [place] 2022-06-30 2022-06-30 Outpatient R EVAN [facility] [id number] Univers 14:00:00 14:22:01 ÁNGELA itjen [facility] 2022-06-30 2022-06-30 Urgent Ángela Gordon [facility] 1.2.840.114 [id number] Univers 14:00:00 14:20:00 Care Unknown, [facility] 350.1.13.10 ity [facility] 4.2.7.2.686 Kike as SLICK?BLEA [id number] [address] OFFICE [facility] 2022-06-30 2022-06-30 Vinnie Rocha [facility] 1.2.612.574 [id number] Univers 00:00:00 00:00:00 (Out) Ang HEALTH 350.1.13.10 it y of Urgent Care [place] 4.2.7.2.686 [place] SLICK?BLEA [id number] [address] MEDICAL OFFICE [facility] 2022-04-27 2022-04-27 Outpatient [facility] [id number] Antoni 09:05:52 09:05:52 1126 F [place] 2022-04-26 2022-04-26 Outpatient [facility] [id number] Antoni 12:05:12 12:05:12 1125 F Jesus 2022-04-09 2022-04-09 [facility] [id number] Univers 16:20:00 16:20:00 [facility] 2022-03-27 2022-03-27 Urgent LucianPortia wolf [facility] 1.2.840.114 [id number] Univers 09:20:00 09:40:00 Care Unknown, [facility] HEALTH 350.1.13.10 ity of [place] 4.2.7.2.686 Kike as SLICK?BLEA [id number] [address] OFFICE [facility] 2022-03-27 2022-03-27 Outpatient R ISAAC [facility] [id number] Univers 09:20:00 09:20:00 PORTIA [facility] 2022-03-27 2022-03-27 Letter Isaac [facility] 1.2.840.114 [id number] Univers 00:00:00 00:00:00 (Out) [facility] 350.1.13.10 it y of [place] 4.2.7.2.686 Kike as SLICK?BLEA [id number] [address] MEDICAL OFFICE [facility] 2022-02-11 2022-02-11 Office [facility] 1.2.840.114 [id number] Univers 11:20:00 12:21:36 Visit [facility] 350.1.13.10 ity of [place] 4.2.7.2.686 Kike as SLICK?BLEA [id number] [facility] 044 [place] MEDICAL OFFICE [facility] 2022-02-11 2022-02-11 Outpatient Kelsey [facility] [id number] Univers 11:20:00 12:21:36 [facility] 2022-02-11 2022-02-11 Outpatient R [facility] [id number] Univers 11:20:00 11:20:00 LETI itjen [facility] 2022-02-11 2022-02-11 Letter [facility] 1.2.840.114 [id number] Univers 00:00:00 00:00:00 (Out) [facility] 350.1.13.10 ity [facility] 4.2.7.2.686 Kike as SLICK?BLEA [id number] [facility] 044 [place] MEDICAL OFFICE [facility] 2022-02-08 2022-02-08 Outpatient R [facility] [id number] Univers 16:20:00 16:50:36 PORTIA desai [facility] 2022-02-08 2022-02-08 Urgent Portia Gray [facility] 1.2.840.114 [id number] Univers 16:20:00 16:40:00 Care [facility] 350.1.13.10 ity of [place] 4.2.7.2.686 Kike as SLICK?BLEA [id number] [address] MEDICAL OFFICE [facility] 2021-09-20 2021-09-20 Urgent Lefty Brissa [facility] 1.2.840.114 [id number] Univers 11:00:00 11:34:43 Care Dov [facility] 350.1.13.10 ity of [place] 4.2.7.2.686 Kike as SLICK?BLEA [phone] [address] MEDICAL OFFICE [facility] 2021-09-20 2021-09-20 Outpatient R MARGARITAMANSIJEAN [facility]PROT[facility] [id number] Univers 11:00:00 11:34:43 [facility] 2021-09-20 2021-09-20 Orders Doctor ECHEVERRIA 1.2.840.114 [id number] Univers 00:00:00 00:00:00 Only Unassigned, YOVANA 350.1.13.10 ity of [place] [facility] 4.2.7.2.686 Kike as [id number] [address] 2021-09-19 2021-09-19 Outpatient R UNKNOWN, [facility] [id number] Univers 19:20:00 19:20:00 ATTENDING ity [facility] 2021-09-19 2021-09-19 Clinic [facility] 1.2.840.114 [id number] Univers 00:00:00 00:00:00 Assessment [facility] 350.1.13.10 ity of [place] 4.2.7.2.686 Kike as SLICK?BLEA [id number] Pa dical [address] MEDICAL OFFICE BUILDING 2021-06-10 2021-06-10 Outpatient Kelsey [facility] [id number] Univers 17:00:00 18:43:38 REN [facility] 2021-06-10 2021-06-10 Urgent Unknown, Attending 1.2.840.1 [id number] Univers 17:00:00 18:43:38 Ren Mcdonnell 94763.1.1 ity of 3.104.2.7 [place] .[id number] Medica l .8 [place] 2021-06-10 2021-06-10 Travel 1.2.840.1 [id number] [id number] Univers 00:00:00 00:00:00 43349.1.1 350.1.13.10 ity of 3.104.2.7 4.[place]7.3.698 [place] .3.770762 084.8 Medica l .8 [place] 2020-09-04 2020-09-04 Outpatient [facility] [id number] Univers 14:40:00 14:40:00 [facility] 2020-08-07 2020-08-07 Outpatient [facility] [id number] Univers 12:40:00 12:40:00 [facility] 2020-05-24 2020-05-24 Outpatient Kelsey [facility] [id number] Univers 08:45:00 08:45:00 ANTONI [facility] Results Test Description Test Time Test Comments Results Result Comments Source POCT SARS-COV-2 ANTIGEN (BINAX NOW) 2022-06-30 20:18:00 Test Item Value Reference Range Interpretation Comme nts POCT SARS-COV-2 ANTIGEN (test code = 48000-2) Not Detected Not Dete cted On board controls acceptable with C Line (test code = Yes 3572) [facility] [id number] 14:26:00 Test Item Value Reference Range Interpretation Comments POCT PREG (test code = 1605) Negative On board controls acceptable with C Yes Line (test code = 3574) POCT PREG LOT # (test code = 3575) POCT PREG TEST DATE (test code = 3576) [facility] URINALYSIS W SPECIFIC [id number] 14:21:00 Test Item Value Reference Range Interpretation [...] U APPEAR (test code = clear 3267) [facility], NAAT, [id number] 11:31:42 Test Item Value Reference Range Interpretation Comments GONORRHEA, NAAT NEGATIVE NEGATIVE IMPORTA NT NOTICE: SEE (test code = [place] [address]) [email or web address]/Jose heCCollegeWikissUrineKit Note: Assay methodology is nucleic acid amplification b y wrapper off mediated amplification ( TMA) utilizing the A ptima Combo 2 Assay. IM PORTANT NOTICE: SEE JAMILAH OUNCEMENT AT [email or web address]/Jose heCobasUrineKit Note: Assay methodology is nucleic acid amplification b y wrapper off m ediated amplification ( TMA) utilizing the A ptima Combo 2 Assay. CHLAMYDIA, NAAT NEGATIVE NEGATIVE IMPORTA NT NOTICE: SEE (test code = [place] [address]) [email or web address]/Jose Duel Note: Assay methodology is nucleic acid amplification b y wrapper off m ediated amplification ( TMA) utilizing the A ptima Combo 2 Assay. IM PORTANT NOTICE: SEE JAMILAH OUNCEMENT AT [email or web address] Duel Note: Assay methodology is nucleic acid amplification b y wrapper off m ediated amplification ( TMA) utilizing the A ptima Combo 2 Assay. PAP TEST, THINPREP, [id number] 10:40:24 Test Item Value Reference Range Interpretation Comments SOURCE: (test code = Cervical 8001) SLIDES: (test code = 1 8011) LMP: (test code = 10/13/2021 8021) SPECIMEN ADEQUACY: (NOTE) Satisfac torjen for (test code = 33384) evaluati on. Endocervical cells/transform ation zone component present. INTERPRETATION: ASCUS/EPITH. A --------- (test code = 01041) ABNORMALITY; -------- SEE BELOW ------ ------- EPITHELIAL CELL ABNORMALITY Atypical squamo us cells of undete rmined significance (ASC-US)------- ------ ------ ------ CASH MANAGEMENT OFFICER: Jennifer Vazquez (test code = 8101) NIMO Lynne(ASCP)I AC PATHOLOGIST Annalise Swan INTERPRETATION BY: (test code = 8122) LOCATION: (test code (NOTE) Specime ns processed = 88313) at [facility] [employer], [address] [place] [address], Phone: , CLIA: [id number] interpreted at [facility], [address], [facility] ology [place]Gall[facility] [place] [address], Phone: , CLIA: [id number] CPT: (test code = (NOTE) 30736, 881 41 UNLESS 8140) OTHERWISE INDIC ATED, [...] ESS OTHERWISE INDIC ATED, ALL TESTING PER [facility] AT[facility]ICAL [facility], [facility]. [address] [place] [address] ROSALIND PENA DIRECTOR: RADHA ALEMAN M.D. CLIA NUMBER [id number] CAP ACCREDITATION N O. [id number] VAGINAL PATHOGENS DNA [id number] 14:48:29 Test Item Value Reference Range Interpretation Comments CHARLES SPECIES (test code = 48742) NEGATIVE NEGATIVE G. VAGINALIS (test code = 86796) POSITIVE NEGATIVE A T. VAGINALIS (test code = 71731) NEGATIVE NEGATIVE HEPATITIS PANEL, [id number] 04:04:35 Test Item Value Reference Range Interpretation Comments HEPATITIS A IgM (test NON-REACTIVE NON-REACTIVE code = 23432) HEPATITIS B CORE IgM NON-REACTIVE NON-REACTIVE (test code = 4644) HEPATITIS B SURF AG NON-REACTIVE NON-REACTIVE (test code = 2739) HEPATITIS C ANTIBODY NON-REACTIVE NON-REACTIVE (test code = 4675) INTERPRETATION (NOTE) Hepatitis A HEPATITIS A: (test serology shows no code = 2552) evidence of acu te hepatitis A. INTERPRETATION (NOTE) Hepatitis B HEPATITIS B: (test serology shows no code = 33286) evidence of ac angelo hepatitis B and no indication of exposure to hepatitis B vir us in the previous si xto eight months. INTERPRETATION (NOTE) Hepatitis C HEPATITIS C: (test serology shows no code = 30054) evidence of ex posure to hepatitisC v irus at this time. I t can take up to 12 m onths after exposure tothe hepatitis C vir us for antibodies to become detectab le in the blood in ce rtain patients. UNLES S OTHERWISE INDIC ATED, ALL TESTING PERFORMED [facility], [place]. [address] [facility] [address] ROSALIND HEWITT DIRECTOR: RADHA ALEMAN M.D. CLIA NUMBER [id number] [place] [id number] HIV 1/2 4TH GEN, RFLX [id number] 04:04:35 Test Item Value Reference Range Interpretation Comments HIV 1/2 4TH GEN, RFLX CONF (test NON-REACTIVE NON-REACTIVE code = 3514) [id number] 02:50:30 Test Item Value Reference Range Interpretation Comments RPR RESULT (test code = NON-REACTIVE NON-REACTIVE 3501) RPR TITER (test code = 3500) NOT INDIC. TITER NOT INDIC. Notes Date/Time Note Provider Source 2022-12-06 10:20:30-00:00 Formatting of this note is d ifferent from the original. [facility] 12/06/22 [facility] and [facility] ach team contacted patient to assist in completing Health Maintenance topics that are overdue. Annabel Chamberlain [id number] Attempt Number: First Health Maintenance topics attempted to address: Health Maintenance Due Topic Date Due VARICELLA VACCINES (1 of 2 - 2-dose childhood s eries) Never done PNEUMOCOCCAL 0-64 YEARS COMBINED SERIES (1 - PC V) Never done HEPATITIS C (HCV) SCREEN Never done PAP SMEAR 09/26/2017 SARS-CoV-2 (COVID-19) Vaccine (3 - Booster for Moderna series) 11/30/2020 Call outcome: Attempted to c all patient to review overdue health maintenance: Pap Smear. [facility] with call back number. Researched Care everywhere and [facility] with no n ew medical records obtained. [place], [facility] II Community and Population Health 01/09/23 [facility] Wellness and [facility] ach team contacted patient to assist in completing Health Maintenance topics that are overdue. Annabel Chamberlain [id number] Attempt Number: 2nd/Final Health Maintenance topics addressed: Health Maintenance Due Topic Date Due VARICELLA VACCINES (1 of 2 - 2-dose childhood s eries) Never done PNEUMOCOCCAL 0-64 YEARS COMBINED SERIES (1 - PC V) Never done HEPATITIS C (HCV) SCREEN Never done PAP SMEAR 09/26/2017 SARS-CoV-2 (COVID-19) Vaccine (3 - Moderna seri es) 11/30/2020 Call outcome: Called patient to review overdue health maintenance: Pap Smear. Per patient she uses outside source. [place], [facility] II Community [facility] Population [facility]
[2023-01-27] MEDS ORDERED: ONDANSETRON 4 MG/2 ML VIAL ONE (09:03)
[2023-01-27] MEDS ORDERED: FAMOTIDINE 20 MG/2 ML VIAL IV ONE (09:03)
[2023-01-27] MEDS ORDERED: NA CHLORIDE 0.9% 1,000 ML ONE (09:03)
[2023-01-27 09:25] LABS: Specific Gravity > 1.030 (1.005-1.030)
[2023-01-27 09:36] LABS: Specific Gravity > 1.030 (1.005-1.030); Urine Bacteria None Seen /HPF (<20); Urine Bilirubin NEGATIVE (Negative); Urine Blood Negative (Negative); Urine Clarity Extremely Turbid (Clear); Urine Color Yellow (Yellow); Urine Glucose NEGATIVE (Negative); Urine Mucus 4+ /HPF (None Seen); Urine Protein 1+ (Negative); Urine RBC <5 /HPF (None Seen); Urine Urobilinogen Normal (Normal); Urine pH 5.5 (5.0-7.0)
[2023-01-27 09:59] LABS: Absolute Lymphocytes (CBC) 1.3 K/uL (0.7-4.9); Hematocrit 32.9 % (36.0-45.0); Lymphocytes % 37.5 % (15.3-44.8); MCV 83.7 fL (80-100); MPV 8.9 fL (7.6-11.3); Platelets 276 thou/uL (152-406); RBC Red Blood Cell Count 3.93 M/uL (3.86-4.86)
[2023-01-27 10:15] LABS: Albumin 3.3 g/dL (3.4-5.0); Bilirubin Total 0.4 mg/dL (0.2-1.0); Potassium 3.5 mEq/L (3.5-5.1); Protein, Total 6.4 g/dL (6.4-8.2)
--- NOTE | 2023-01-27 10:50 | RAD REPORT ---
EXAM DESCRIPTION: CT - Abdomen Pelvis W Contrast - 01/27/2023 9:54 am CLINICAL HISTORY: upper abd pain, vomiting COMPARISON: Abdomen Pelvis W Contrast dated 06/27/2020; CT ABD PELVIS W CONTRAST dated 08/17/2015 TECHNIQUE: Thin cut axial CT imaging of the abdomen and pelvis was performed following intravenous a dministration of 100 mL Isovue 300. Multiplanar reformats were generated and reviewed. All CT scans are performed using dose optimization technique as appropriate and may include automated exposure control or mA/KV adjustment according to patient size. FINDINGS: No suspicious findings in the lung bases. The liver, spleen, and pancreas show no suspicious findings. Sub centimeter left liver lobe hypoatten uating lesion suggestive of a cyst is stable and not well characterized. Adrenal glands are unremarka ble. Status post cholecystectomy. No evidence of intra or extrahepatic biliary ductal dilation. Symmetric renal function is seen with no hydronephrosis or suspicious renal mass. Right lower pole 6 millimeter nonobstructing calculus. No dilated bowel loops or bowel wall thickening. No free air, free fluid or inflammatory stranding. N o hernia, mass or bulky lymphadenopathy. The urinary bladder is without significant finding. No suspicious bony findings. IMPRESSION: Right lower renal pole 6 millimeter nonobstructing calculus. No evidence of hydrouretero nephrosis. No other acute intra-abdominal process.
--- NOTE | 2023-01-27 11:51 | EDPHYS ---
Physician Documentation [facility] Name: Annabel Chamberlain Age: 27 yrs Sex: Female : 1995 Arrival Date: 01/27/2023 Time: 08:32 Bed 5 Private MD: ED Physician Loki Smith HPI: 01/27 09:40 This 27 yrs old Female presents to ER via Ambulatory with complaints of Abdominal Pain. rn 09:40 The patient presents with abdominal pain in the epigastric area, in the upper abdomen. rn Onset: The symptoms/episode began/occurred 3 day(s) ago. The symptoms do not radiate. Associated signs and symptoms: Pertinent positives: nausea and vomiting, Pertinent negatives: blood in stools, chest pain, constipation, diarrhea, fever. The symptoms are described as achy, crampy. Modifying factors: The symptoms are alleviated by nothing, the symptoms are aggravated by touching the area. Severity of pain: At its worst the pain was moderate in the emergency department the pain is unchanged. The patient has experienced similar episodes in the past. Pt reports gallbladder removed several years ago, has intermittent upper abd pain since that time, approx 3 times/month, started again 3 days ago but not getting better, feels overall the same but also "a little different". No fever. + nausea/vomiting. + early fullness. NO blood in stool. . 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 - Social history:: Smoking status: Patient reports the use of cigarette tobacco products, denies chronic smoking, but will smoke occasionally. - Family history:: not pertinent. - Hospitalizations: : No recent hospitalization is reported. ROS: 09:40 Constitutional: Negative for fever, chills, and weight loss, Eyes: Negative for injury, rn pain, redness, and discharge, Neck: Negative for injury, pain, and swelling, Cardiovascular: Negative for chest pain, palpitations, and edema, Respiratory: Negative for shortness of breath, cough, wheezing, and pleuritic chest pain, Abdomen/GI: + upper abd pain and nuasea/vomiting MS/Extremity: Negative for injury and deformity, Skin: Negative for injury, rash, and discoloration, Neuro: Negative for headache, weakness, numbness, tingling, and seizure. Exam: 09:40 Constitutional: This is a well developed, well nourished patient who is awake, alert, rn seems anxious Cardiovascular: Regular rate and rhythm. No pulse deficits. Respiratory: No increased work of breathing, no retractions or nasal flaring. Abdomen/GI: soft, + epigastric tenderness, no rebound Back: No spinal tenderness. No costovertebral tenderness. Full range of motion. Skin: Warm, dry MS/ Extremity: Pulses equal, no cyanosis. Neuro: Awake and alert, GCS 15 Vital Signs: 08:59 BP 120 / 72; Pulse 72; Resp 18; Temp 97.3; Pulse Ox 100% on R/A; Weight 77.56 kg; mb9 Height 5 ft. 2 in. ; Pain 8/10; 09:49 BP 114 / 56; Pulse 60; Resp 16; Pulse Ox 100% on R/A; mb9 10:59 BP 108 / 57; Pulse 49; Resp 18 S; Pulse Ox 100% on R/A; kc6 08:59 Body Mass Index 31.28 (77.56 kg, 157.48 cm) mb9 08:59 Pain Scale: Adult mb9 MDM: 08:39 Patient medically screened. rn 11:49 Differential diagnosis: appendicitis, bowel obstruction, diverticulitis, Endometriosis, rn gastritis, gastroesophageal reflux disease, non-specific abd pain, pancreatitis, Peptic Ulcer Disease, Pyelonephritis, Ureterolithiasis, urinary tract infection. Differential diagnosis: Perf. Duodenal Ulcer, Perf. Gastric Ulcer. Data reviewed: vital signs, nurses notes. I considered the following discharge prescriptions or medication management in the emergency department Medications were administered in the Emergency Department. See MAR. Counseling: I had a detailed discussion with the patient and/or guardian regarding the historical points, exam findings, and any diagnostic results supporting the discharge/admit diagnosis, lab results, radiology results, the need for outpatient follow up, to return to the emergency department if symptoms worsen or persist or if there are any questions or concerns that arise at home. Response to treatment: the patient's symptoms have mildly improved after treatment, and as a result, I will discharge patient. Special discussion: Based on the patient's Hx, exam, and Dx evaluation, there is no indication for emergent surgery or inpatient Tx. It is understood by the patient/guardian that if the Sx's persist or worsen they need to return immediately for re-evaluation. I discussed with the patient/guardian in detail that at this point there is no indication for admission to the hospital. It is understood, however, that if the symptoms persist or worsen the patient needs to return immediately for re-evaluation. Based on the history and exam findings, there is no indication for further emergent testing or inpatient evaluation. I discussed with the patient/guardian the need to see the game designer for further evaluation of the symptoms. 11:49 ED course: NO acute findings in labs or imaging, pt with long hx of acid problems, not rn taking her medication, will prescribe antacids and have her f/u with GI for scope. Return precautions given and understood. . 01/27 08:49 Order name: CBC with Diff; Complete Time: 10:50 rn 01/27 08:49 Order name: CMP; Complete Time: 10:50 rn 01/27 08:49 Order name: Lipase; Complete Time: 10:50 rn 01/27 08:49 Order name: Test, Urine; Complete Time: 10:50 rn 01/27 08:49 Order name: Urinalysis w/ reflexes; Complete Time: 10:50 rn 01/27 09:40 Order name: Urine Culture EDTX 01/27 08:49 Order name: CT Abd/Pelvis - IV Contrast Only; Complete Time: 10:50 rn 01/27 08:49 Order name: IV Saline Lock; Complete Time: 09:17 rn 01/27 08:49 Order name: Labs collected and sent; Complete Time: 09: rn 01/27 09:35 Order name: Labs - recollect needed: green, lavender; Complete Time: 09:49 iw Administered Medications: 09:10 Drug: NS 0.9% IV 1000 ml Route: IV; Rate: 1 bolus; Site: right antecubital; mb9 12:04 Follow up: Response: No adverse reaction; IV Status: Completed infusion; IV Intake: kc6 1000ml 09:11 Drug: Ondansetron IVP 4 mg Route: IVP; Site: right antecubital; mb9 09:50 Follow up: Response: No adverse reaction mb9 09:13 Drug: Famotidine IVP 20 mg Route: IVP; Site: right antecubital; mb9 09:50 Follow up: Response: No adverse reaction mb9 Disposition Summary: 01/27/23 11:50 Discharge Ordered Location: Home rn Problem: new rn Symptoms: have improved rn Condition: Stable rn Diagnosis - Upper abdominal pain, unspecified rn - Gastritis, unspecified rn - Gastro-esophageal reflux disease without esophagitis rn Followup: rn - With: Familia Dugan MD - When: As needed - Reason: Recheck today's complaints, Re-evaluation by your physician Discharge Instructions: - Abdominal Pain, Adult rn - Gastroesophageal Reflux Disease, Adult rn - Discharge Summary Sheet mb9 Forms: - Medication Reconciliation Form rn - Thank You Letter rn - Antibiotic clay burner - Prescription Opioid Use rn - Patient Portal Instructions rn - Leadership Thank You Letter rn - Work release form mb9 Prescriptions: - Protonix 40 mg Oral Tablet - take 1 tablet by ORAL route once daily; 30 tablet; Refills: 0, Product rn Selection Permitted Signatures: Dispatcher [employer] Andria Staton, RN Loki Centeno MD MD rn Breneman, Mary Beth, RN RN jeb9 Rocio Peter RN kc6
--- NOTE | 2023-01-27 11:51 | ER ---
Nurse's Notes [facility] Name: Annabel Chamberlain Age: 27 yrs Sex: Female : 1995 Arrival Date: 01/27/2023 Time: 08:32 Bed 5 Private MD: Diagnosis: Upper abdominal pain, unspecified;Gastritis, unspecified;Gastro-esophageal reflux disease without esophagitis Presentation: 01/27 08:59 Chief complaint: Patient states: "3 days ago, I started having a dull pain in my right mb9 upper abdomen. Last night, it felt more swollen than usual and I started having N/V.". Coronavirus screen: Vaccine status: Patient reports receiving the 2nd dose of the covid vaccine. Ebola Screen: No symptoms or risks identified at this time. Initial Sepsis Screen: Does the patient meet any 2 criteria? No. Patient's initial sepsis screen is negative. Does the patient have a suspected source of infection? No. Patient's initial sepsis screen is negative. Risk Assessment: Do you want to hurt yourself or someone else? Patient reports no desire to harm self or others. Onset of symptoms was January 27, 2023. 08:59 Method Of Arrival: Ambulatory mb9 08:59 Acuity: STEVEN 3 mb9 Triage Assessment: 09:01 General: Appears uncomfortable, Behavior is calm, cooperative. Pain: Complains of pain mb9 in abdomen Pain radiates to RUQ Pain currently is 8 out of 10 on a pain scale. Quality of pain is described as aching, dull, Pain began gradually, Is continuous. Pain: Aggravated by eating, drinking. EENT: No signs and/or symptoms were reported regarding the EENT system. Neuro: Amador Agitation-Sedation Scale (RASS): 0 - Alert and Calm Level of Consciousness is awake, alert, obeys commands, Oriented to person, place, time, situation, Appropriate for age. Cardiovascular: Patient's skin is warm and dry. Respiratory: Airway is patent Respiratory effort is even, unlabored, Respiratory pattern is regular, symmetrical. GI: Abdomen is round non-distended, Bowel sounds present X 4 quads. Abd is soft Abdomen is tender to palpation in right upper quadrant and right lower quadrant Reports nausea, vomiting, Patient currently denies diarrhea. : No signs and/or symptoms were reported regarding the genitourinary system. Derm: Skin is pink, warm \\T\\ dry. Musculoskeletal: Range of motion: intact in all extremities. 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 - Social history:: Smoking status: Patient reports the use of cigarette tobacco products, denies chronic smoking, but will smoke occasionally. - Family history:: not pertinent. - Hospitalizations: : No recent hospitalization is reported. Screenin:02 [facility] ED Fall Risk Assessment (Adult) History of falling in the last 3 months, mb9 including since admission No falls in past 3 months (0 pts) Confusion or Disorientation No (0 pts) Intoxicated or Sedated No (0 pts) Impaired Gait No (0 pts) Mobility Assist Device Used No (0 pt) Altered Elimination No (0 pt) Score/Fall Risk Level 0 - 2 = Low Risk Oriented to surroundings, Maintained a safe environment, Educated pt \\T\\ family on fall prevention, incl call for assistance when getting out of bed. Abuse screen: Denies threats or abuse. Nutritional screening: No deficits noted. Tuberculosis screening: No symptoms or risk factors identified. Assessment: 09:17 Reassessment: see triage assessment. mb9 09:49 Reassessment: pt taken to CT via wheelchair. mb9 10:01 Reassessment: Patient appears in no apparent distress at this time. Patient and/or kc6 family updated on plan of care and expected duration. Pain level reassessed. Patient is alert, oriented x 3, equal unlabored respirations, skin warm/dry/pink. 10:59 Reassessment: Patient appears in no apparent distress at this time. No changes from kc6 previously documented assessment. Patient and/or family updated on plan of care and expected duration. Pain level reassessed. Patient is alert, oriented x 3, equal unlabored respirations, skin warm/dry/pink. 11:43 Reassessment: Patient appears in no apparent distress at this time. No changes from kc6 previously documented assessment. Patient and/or family updated on plan of care and expected duration. Pain level reassessed. Patient is alert, oriented x 3, equal unlabored respirations, skin warm/dry/pink. Vital Signs: 08:59 BP 120 / 72; Pulse 72; Resp 18; Temp 97.3; Pulse Ox 100% on R/A; Weight 77.56 kg; mb9 Height 5 ft. 2 in. ; Pain 8/10; 09:49 BP 114 / 56; Pulse 60; Resp 16; Pulse Ox 100% on R/A; mb9 10:59 BP 108 / 57; Pulse 49; Resp 18 S; Pulse Ox 100% on R/A; kc6 08:59 Body Mass Index 31.28 (77.56 kg, 157.48 cm) mb9 08:59 Pain Scale: Adult mb9 ED Course: 08:36 Patient arrived in ED. im 08:38 Loki Smith MD is Attending Physician. rn 08:59 Arm band placed on. mb9 09:00 Triage completed. mb9 09:03 Francisca Menezes RN is Primary Nurse. mb9 09:03 Placed in gown. Bed in low position. Call light in reach. Side rails up X 1. Client mb9 placed on continuous cardiac and pulse oximetry monitoring. NIBP monitoring applied. 09:03 No provider procedures requiring assistance completed. mb9 09:17 Inserted saline lock: 20 gauge in right antecubital area, using aseptic technique. mb9 Blood collected. 09:17 CBC with Diff Sent. mb9 09:17 CMP Sent. mb9 09:17 Lipase Sent. mb9 09:17 Test, Urine Sent. mb9 09:17 Urinalysis w/ reflexes Sent. mb9 09:42 Urine Culture Sent. mb9 09:56 CT Abd/Pelvis - IV Contrast Only In Process Unspecified. EDMS 10:01 Report given to SUJATA Chan. mb9 10:01 Report received from Antony Mcdonnell RN. kc6 11:50 Familia Dugan MD is Referral Physician. rn 12:05 IV discontinued, intact, bleeding controlled, No redness/swelling at site. Pressure kc6 dressing applied. Administered Medications: 09:10 Drug: NS 0.9% IV 1000 ml Route: IV; Rate: 1 bolus; Site: right antecubital; mb9 12:04 Follow up: Response: No adverse reaction; IV Status: Completed infusion; IV Intake: kc6 1000ml 09:11 Drug: Ondansetron IVP 4 mg Route: IVP; Site: right antecubital; mb9 09:50 Follow up: Response: No adverse reaction mb9 09:13 Drug: Famotidine IVP 20 mg Route: IVP; Site: right antecubital; mb9 09:50 Follow up: Response: No adverse reaction mb9 Medication: 09:18 VIS not applicable for this client. mb9 Intake: 12:04 IV: 1000ml; Total: 1000ml. kc6 Outcome: 11:50 Discharge ordered by . rn 12:04 Discharged to home ambulatory. kc6 12:04 Condition: improved 12:04 Discharge instructions given to patient, Instructed on discharge instructions, follow up and referral plans. medication usage, Demonstrated understanding of instructions, follow-up care, medications, Prescriptions given X 1. 12:05 Patient left the ED. kc6 Signatures: Dispatcher [employer] EDLoki Murcia MD MD rn Campbell, Kaitlyn, RN RN kc6 Francisca Menezes RN RN jeb9 Lena Bryant Corrections: (The following items were deleted from the chart) 10:01 10:00 Report given to SUJATA Chan mb9
[2023-01-27 12:14] VITALS: TEMP 97.3; O2SAT 100
[2023-01-27 12:27] VITALS: BP 108/57
== END 2023-01-27 12:05 | disposition home or self-care (01) ==
LOC: ER 08:32
DX: K29.70 Gastritis, unspecified, without bleeding (principal); K21.9 Gastro-esophageal reflux disease without esophagitis; F17.210 Nicotine dependence, cigarettes, uncomplicated
CPT/HCPCS: 96361; 87088; 85025; 81001; 87086; 36415; 81025; 83690; 80053; 74177; 96375; 96374; 99284; Q9967; J2405; J7030

== ENCOUNTER 2023-03-12 08:28 | Emergency (ER) | payer OTHER ==
--- OUTSIDE RECORDS SUMMARY | 2023-03-12 08:33 | XMS REPORT | Continuity of Care Document ---
:1995 Author Organization [facility] t Address [address] [place] [address] [address] [place] [address] Care Team Providers Name Role Phone Pcp, Patient Does Not Have A Primary Care Physician +[id number] PORTIA GRAY Attending Clinician Unavailable Ebmary LAMP SHADE MAKERPortia Attending Clinician Unknown, Attending Attending Clinician Unavailable Anatoliy Doe DO Attending Clinician Doctor Unassigned, [place] Attending Clinician Unavailable [facility] Attending Clinician Unavailable Bret Luciano MD Attending Clinician BRET LUCIANO Attending Clinician Unavailable Cortney Castañeda MA Attending Clinician Unavailable YAIMA HATCH Attending Clinician Unavailable Yaima Hatch MD Attending Clinician CHARLIE TREJO Attending Clinician Unavailable Charlie Hernández Attending Clinician ÁNGELA GORDON Attending Clinician Unavailable Ángela Gordon MD Attending Clinician Provider, [facility] Attending Clinician Unavailable LETI IRVING Attending Clinician Unavailable Brissa Alves Attending Clinician Lissett Julio Attending Clinician LISSETT TORRES Attending Clinician Unavailable UNKNOWN, ATTENDING Attending Clinician Unavailable REN MEZA Attending Clinician Unavailable Ren Marcus Attending Clinician ANTONI LUNA Attending Clinician Unavailable Payers Payer Name Policy Type Policy Number Effective Date Expiration Date Bhaskar HWANG [id number] 2021 HEALTHCARE 00:00:00 Problems Condition Condition Condition [...] 00:00: [place] gynecologi gynecologi 00 Me dical atruro exam arturo exam Branch Rubella Rubella Disease Active Univers non-immune non-immune 4-28 it y of status, status, 00:00: [place] antepartum antepartum 00 Me dical Branch Susceptibl Susceptibl Disease Active U nivers e to e to 4-28 ity of varicella var[place]ella [place] ([place]-immun (non-immun 00 Me dical e), e), Branch currently currently Generalize Generalize Disease Active U nivers d anxiety d anxiety 4-27 ity of disorder disorder 00:00: [place] 00 Medical Branch History of History of Disease Active U nivers depression depression 4-27 it y of 00:00: [place] 00 Medical Branch Asthma Asthma Disease Active Overview: Univer s 4-27 Formattin ity of 00:00: g of this [place] 00 note Medical might be Branch different from the original. 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 Allergies, Adverse Reactions, Alerts Allergy Allergy Status Severity Reaction(s) Onset Inactive Treating Comm ents Source Name Type Date Date Clinician NO KNOWN Drug Active Univers ALLERGIE Class ity of S [facility] Social History Social Habit Start Date Stop Date Quantity Comments Source History of tobacco Cigarette Smoker University of use [facility] History SDOH University o [facility] [place] History SDOH University o f Alcohol Std Drinks [facility] History SDAL University o f Alcohol Binge [place] [facility] [place] Gender identity Universit y of [facility] Sexual orientation Univer sity [facility] Alcohol intake 2023-01-28 2023-01-28 Current drinker of Un iversity of 00:00:00 00:00:00 alcohol (finding) [facility] edical [place] History of Social 2023-01-28 2023-01-28 Univers ity of function 00:00:00 00:00:00 [facility] Exposure to 2022-10-05 2022-10-15 Not sure University SARS-CoV-2 (event) 00:00:00 11:37:00 [facility] Tobacco use and 2022-02-11 2022-02-11 Smokeless tobacco Un iversity of exposure 00:00:00 00:00:00 non-user [facility] Tobacco Comment 2022-02-11 2022-02-11 Smoked occasionally University of 00:00:00 00:00:00 for 1.5 years, a [facility] dical pack would last 2 Branch months Alcohol Comment 2017-03-10 2017-03-10 on special Universit y of 00:00:00 00:00:00 occassions [facility] Sex Assigned At [birth year] Universit y of 00:00:00 00:00:00 [facility] Smoking Status Start Date Stop Date Source Ex-smoker 2022-02-11 00:00:00 2022-02-11 00:00:00 Universi ty of [facility] Medications Ordered Filled Start Stop Current Ordering Indication Dosage Frequency Signature Comments Components Source Medication Medication Date Date Medication? Clinician (SIG) Name Name ondansetron 2022-06- No [id number] 4mg Univers (ZOFRAN-ODT 03-06 ity of ) 00:30: 23:44 [place] disintegrat 00 :00 Medical ing tablet Branch 4 mg ondansetron 2022-06- No [id number] 4mg 4 mg, Univers (ZOFRAN-ODT 0-06 10-05 Oral, ity of ) 00:30: 23:44 ONCE, 1 [place] disintegrat 00 :00 dose, On Medi arturo ing tablet [place] Branch 4 mg 03/06/23 at 1930, Routine ondansetron 2022-06- No [id number] 4mg Univers (ZOFRAN-ODT 0-06 10-05 ity of ) 00:30: 23:44 [place] disintegrat 00 :00 Medical ing tablet Branch 4 mg ondansetron 2022-06- No [id number] 4mg 4 mg, Univers (ZOFRAN-ODT 0-06 10-05 Oral, ity of ) 00:30: 23:44 ONCE, 1 [place] disintegrat 00 :00 dose, On Medi arturo ing tablet [place] Branch 4 mg 03/06/23 at 1930, Routine cefdinir 2022-06- Yes [id number] 600mg Take 2 U nivers 300 mg 0-05 10-16 capsules ity of capsule 00:00: 04:59 by mouth [place] 00 :00 in the [facility] morning Branch for 10 days. cefdinir 2022-06- Yes [id number] 600mg Take 2 U nivers 300 mg 0-05 10-16 capsules ity of capsule 00:00: 04:59 by mouth [place] 00 :00 in the [facility] Branch for 10 days. ondansetron 2022-06- Yes [id number] 4mg Take 1 Univers 4 mg 0-05 10-11 tablet by ity of disintegrat 00:00: 04:59 [place] tablet 00 :00 every 8 Medica l (eight) Branch hours as needed for Nausea and Vomiting (N/V) for up to 5 days. ondansetron 2022-06- Yes [id number] 4mg Take 1 Univers 4 mg 0-05 10-11 tablet by ity of disintegrat 00:00: 04:59 [place] tablet 00 :00 every 8 Medica l (eight) Branch hours as needed for Nausea and Vomiting (N/V) for up to 5 days. pantoprazol Yes [id number] 40mg Take 1 Univers e 9-20 tablet by ity of (PROTONIX) 00:00: mouth in [place] 40 mg EC 00 the Medical tablet morning Branch and 1 tablet in the evening. pantoprazol 0 Yes [id number] 40mg Take 1 Univers e 9-20 tablet by ity of (PROTONIX) 00:00: mouth in [place] 40 mg EC 00 the Medical tablet morning Branch and 1 tablet in the evening. pantoprazol 0 Yes [id number] 40mg Take 1 Univers e 9-20 tablet by ity of (PROTONIX) 00:00: mouth in [place] 40 mg EC 00 the Medical tablet morning Branch and 1 tablet in the evening. pantoprazol 2022- Yes [id number] 40mg Take 1 Univers e 8-29 - tablet by ity of (PROTONIX) 00:00: 04:59 mouth in [place] 40 mg EC 00 :00 the Medical tablet morning Branch and 1 tablet in the evening. Do all this for 30 days. pantoprazol 2022- Yes [id number] 40mg Take 1 Univers e 802-28 tablet by ity of (PROTONIX) 00:00: 04:59 mouth in [place] 40 mg EC 00 :00 the Medical tablet morning Branch and 1 tablet in the evening. Do all this for 30 days. pantoprazol 2022- Yes [id number] 40mg Take 1 Univers e 8-28 02- tablet by ity of (PROTONIX) 00:00: 04:59 mouth in [place] 40 mg EC 00 :00 the Medical tablet morning Branch and 1 tablet in the evening. Do all this for 30 days. pantoprazol 2022- Yes [id number] 40mg Take 1 Univers e 8-28 02- tablet by ity of (PROTONIX) 00:00: 04:59 mouth in [place] 40 mg EC 00 :00 the Medical tablet morning Branch and 1 tablet in the evening. Do all this for 30 days. pantoprazol 2022- Yes [id number] 40mg Take 1 Univers e 8-28 02- tablet by ity of (PROTONIX) 00:00: 04:59 mouth in [place] 40 mg EC 00 :00 the Medical tablet morning Branch and 1 tablet in the evening. Do all this for 30 days. pantoprazol 2022-2022- Yes [id number] 40mg Take 1 Univers e 8-29 09-29 tablet by ity of (PROTONIX) 00:00: 04:59 mouth in [place] 40 mg EC 00 :00 the Medical tablet morning Branch and 1 tablet in the evening. Do all this for 30 days. pantoprazol 3-0 3- Yes [id number] 40mg Take 1 Univers e 01-28 tablet by ity of (PROTONIX) 00:00: 04:59 mouth in [place] 40 mg EC 00 :00 the Medical tablet morning Branch and 1 tablet in the evening. Do all this for 30 days. pantoprazol 3-0 3- No [id number] 40mg Take 1 Univers e 01-28 tablet by ity of (PROTONIX) 00:00: 00:00 mouth in [place] 40 mg EC 00 :00 the Medical tablet morning Branch and 1 tablet in the evening. Do all this for 30 days. propranoloL 3-0 Yes Univer s 10 mg 4-18 ity of tablet 00:00: [place] [facility] busPIRone 5 3-0 Yes 5mg Take 1 Univ ers mg tablet 4-18 tablet by ity o f 00:00: mouth in [place] the Medical morning Branch and 1 tablet in the evening. propranoloL 2023-0 Yes Univer s 10 mg 4-18 ity of tablet 00:00: [place] [facility] busPIRone 5 2023-0 Yes 5mg Take 1 Univ ers mg tablet 4-18 tablet by ity o f 00:00: mouth in [place] the Medical morning Branch and 1 tablet in the evening. propranoloL 2023-0 Yes Univer s 10 mg 4-18 ity of tablet 00:00: [place] [facility] busPIRone 5 2023-0 Yes 5mg Take 1 Univ ers mg tablet 4-18 tablet by ity o f 00:00: mouth in [place] the Medical morning Branch and 1 tablet in the evening. propranoloL 2023-0 Yes Univer s 10 mg 4-18 ity of tablet 00:00: [place] [facility] busPIRone 5 2023-0 Yes 5mg Take 1 Univ ers mg tablet 4-18 tablet by ity o f 00:00: mouth in [place] [address] the Medical morning Branch and 1 tablet in the evening. propranoloL 2023-0 Yes Univer s 10 mg 4-18 ity of tablet 00:00: [place] 00 Medical Branch busPIRone 5 3-0 Yes 5mg Take 1 Univ ers mg tablet 4-18 tablet by ity o f 00:00: mouth in [place] 00 the Medical morning Branch and 1 tablet in the evening. propranoloL 2023-0 Yes Univer s 10 mg 4-18 ity of tablet 00:00: [place] 00 Medical Branch busPIRone 5 3-0 Yes 5mg Take 1 Univ ers mg tablet 4-18 tablet by ity o f 00:00: mouth in [place] 00 the Medical morning Branch and 1 tablet in the evening. propranoloL 2023-0 Yes Univer s 10 mg 4-18 ity of tablet 00:00: [place] 00 Medical Branch busPIRone 5 3-0 Yes 5mg Take 1 Univ ers mg tablet 4-18 tablet by ity o f 00:00: mouth in [place] 00 the Medical morning Branch and 1 tablet in the evening. propranoloL 2023-0 Yes Univer s 10 mg 4-18 ity of tablet 00:00: [place] 00 Medical Branch busPIRone 5 3-0 Yes 5mg Take 1 Univ ers mg tablet 4-18 tablet by ity o f 00:00: mouth in [place] the Medical morning Branch and 1 tablet in the evening. propranoloL 2023-0 Yes Univer s 10 mg 4-18 ity of tablet 00:00: [place] 00 Medical Branch busPIRone 5 3-0 Yes 5mg Take 1 Univ ers mg tablet 4-18 tablet by ity o f 00:00: mouth in [place] 00 the Medical morning Branch and 1 tablet in the evening. propranoloL 2023-0 Yes Univer s 10 mg 4-18 ity of tablet 00:00: [place] 00 Medical Branch busPIRone 5 2023-0 Yes 5mg Take 1 Univ ers mg tablet 4-18 tablet by ity o f 00:00: mouth in [place] 00 the Medical morning Branch and 1 tablet in the evening. propranoloL 2023-0 Yes Univer s 10 mg 4-18 ity of tablet 00:00: [place] 00 Medical Branch busPIRone 5 2023-0 Yes 5mg Take 1 Univ ers mg tablet 4-18 tablet by ity o f 00:00: mouth in [place] 00 the Medical morning Branch and 1 tablet in the evening. propranoloL 2023-0 Yes Univer s 10 mg 4-18 ity of tablet 00:00: [place] 00 Medical Branch busPIRone 5 2023-0 Yes 5mg Take 1 Univ ers mg tablet 4-18 tablet by ity o f 00:00: mouth in [place] 00 the Medical morning Branch and 1 tablet in the evening. propranoloL 2023-0 Yes Univer s 10 mg 4-18 ity of tablet 00:00: [place] 00 Medical Branch busPIRone 5 2023-0 Yes 5mg Take 1 Univ ers mg tablet 4-18 tablet by ity o f 00:00: mouth in [place] 00 the Medical morning Branch and 1 tablet in the evening. propranoloL 2023-0 Yes Univer s 10 mg 4-18 ity of tablet 00:00: [place] 00 Medical Branch busPIRone 5 2023-0 Yes 5mg Take 1 Univ ers mg tablet 4-18 tablet by ity o f 00:00: mouth in [place] the Medical morning Branch and 1 tablet in the evening. propranoloL 2023-0 Yes Univer s 10 mg 4-18 ity of tablet 00:00: [place] 00 Medical Branch busPIRone 5 3-0 Yes 5mg Take 1 Univ ers mg tablet 4-18 tablet by ity o f 00:00: mouth in [place] the Medical morning Branch and 1 tablet in the evening. propranoloL 2023-0 Yes Univer s 10 mg 4-18 ity of tablet 00:00: [place] 00 Medical Branch busPIRone 5 2023-0 Yes 5mg Take 1 Univ ers mg tablet 4-18 tablet by ity o f 00:00: mouth in [place] 00 the Medical morning Branch and 1 tablet in the evening. propranoloL 2023-0 Yes Univer s 10 mg 4-18 ity of tablet 00:00: [place] 00 Medical Branch busPIRone 5 2023-0 Yes 5mg Take 1 Univ ers mg tablet 4-18 tablet by ity o f 00:00: mouth in [place] 00 the Medical morning Branch and 1 tablet in the evening. propranoloL 2023-0 Yes Univer s 10 mg 4-18 ity of tablet 00:00: [place] 00 Medical Branch busPIRone 5 2023-0 Yes 5mg Take 1 Univ ers mg tablet 4-18 tablet by ity o f 00:00: mouth in [place] [address] the Medical morning Branch and 1 tablet in the evening. propranoloL 2023-0 Yes Univer s 10 mg 4-18 ity of tablet 00:00: [place] 00 Medical Branch busPIRone 5 3-0 Yes 5mg Take 1 Univ ers mg tablet 4-18 tablet by ity o f 00:00: mouth in [place] 00 the Medical morning Branch and 1 tablet in the evening. propranoloL 2023-0 Yes Univer s 10 mg 4-18 ity of tablet 00:00: [place] [facility] busPIRone 5 2023-0 Yes 5mg Take 1 Univ ers mg tablet 4-18 tablet by ity o f 00:00: mouth in [place] 00 the Medical morning Branch and 1 tablet in the evening. propranoloL 2023-0 Yes Univer s 10 mg 4-18 ity of tablet 00:00: [place] [facility] Branch busPIRone 5 3-0 Yes 5mg Take 1 Univ ers mg tablet 4-18 tablet by ity o f 00:00: mouth in [place] 00 the Medical morning Branch and 1 tablet in the evening. propranoloL 2023-0 Yes Univer s 10 mg 4-18 ity of tablet 00:00: [place] [facility] busPIRone 5 3-0 Yes 5mg Take 1 Univ ers mg tablet 4-18 tablet by ity o f 00:00: mouth in [place] 00 the Medical morning Branch and 1 tablet in the evening. azelastine 2022-0 Yes [id number] 1{spray Use 1 Univers 137 mcg 1-29 } [place] in ity of (0.1 %) 00:00: each [place] nasal spray 00 nostril in [place] the Branch morning and 1 [place] in the evening. Use in each nostril as directed fluticasone 2022-0 Yes [id number] 1{spray Use 1 Univers propionate 1-29 } [place] in ity o f 50 00:00: each [place] mcg/actuati 00 nostril in [place] d[place] on nasal the Branch spray morning. benzonatate 3-0 Yes [id number] 200mg Take 2 Univers 100 mg 1-29 capsules ity of capsule 00:00: by mouth [place] 00 every 8 Medical (eight) Branch hours as needed for Cough. azelastine 2022-0 Yes [id number] 1{spray Use 1 Univers 137 mcg 1-29 } [place] in ity of (0.1 %) 00:00: each [place] nasal spray 00 nostril in Me dical the Branch morning and 1 [place] in the evening. Use in each nostril as directed fluticasone 2023-0 Yes [id number] 1{spray Use 1 Univers propionate 1-29 } [place] in ity o f 50 00:00: each [place] mcg/actuati 00 nostril in Me dical on nasal the Branch spray morning. benzonatate 2023-0 Yes [id number] 200mg Take 2 Univers 100 mg 1-29 capsules ity of capsule 00:00: by mouth [place] 00 every 8 Medical (eight) Branch hours as needed for Cough. azelastine 2023-0 Yes [id number] 1{spray Use 1 Univers 137 mcg 1-29 } [place] in ity of (0.1 %) 00:00: each [place] nasal spray 00 nostril in Me dical the Branch morning and 1 [place] in the evening. Use in each nostril as directed fluticasone 2023-0 Yes [id number] 1{spray Use 1 Univers propionate 1-29 } [place] in ity o f 50 00:00: each [place] mcg/actuati 00 nostril in Me dical on nasal the Branch spray morning. benzonatate 2023-0 Yes [id number] 200mg Take 2 Univers 100 mg 1-29 capsules ity of capsule 00:00: by mouth [place] 00 every 8 Medical (eight) Branch hours as needed for Cough. azelastine 2023-0 Yes [id number] 1{spray Use 1 Univers 137 mcg 1-29 } [place] in ity of (0.1 %) 00:00: each [place] nasal spray 00 nostril in Me dical the Branch morning and 1 [place] in the evening. Use in each nostril as directed fluticasone 2023-0 Yes [id number] 1{spray Use 1 Univers propionate 1-29 } [place] in ity o f 50 00:00: each [place] mcg/actuati 00 nostril in Me dical on nasal the Branch spray morning. benzonatate 2023-0 Yes [id number] 200mg Take 2 Univers 100 mg 1-29 capsules ity of capsule 00:00: by mouth [place] 00 every 8 Medical (eight) Branch hours as needed for Cough. azelastine 2023-0 Yes [id number] 1{spray Use 1 Univers 137 mcg 1-29 } [place] in ity of (0.1 %) 00:00: each [place] nasal spray 00 nostril in Me dical the Branch morning and 1 [place] in the evening. Use in each nostril as directed fluticasone 2023-0 Yes [id number] 1{spray Use 1 Univers propionate 1-29 } [place] in ity o f 50 00:00: each [place] mcg/actuati 00 nostril in Me dical on nasal the Branch spray morning. benzonatate 2023-0 Yes [id number] 200mg Take 2 Univers 100 mg 1-29 capsules ity of capsule 00:00: by mouth [place] 00 every 8 Medical (eight) Branch hours as needed for Cough. azelastine 2023-0 Yes [id number] 1{spray Use 1 Univers 137 mcg 1-29 } [place] in ity of (0.1 %) 00:00: each [place] nasal spray 00 nostril in Me dical the Branch morning and 1 [place] in the evening. Use in each nostril as directed fluticasone 2023-0 Yes [id number] 1{spray Use 1 Univers propionate 1-29 } [place] in ity o f 50 00:00: each [place] mcg/actuati 00 nostril in Me dical on nasal the Branch spray morning. benzonatate 2023-0 Yes [id number] 200mg Take 2 Univers 100 mg 1-29 capsules ity of capsule 00:00: by mouth [place] 00 every 8 Medical (eight) Branch hours as needed for Cough. azelastine 2023-0 Yes [id number] 1{spray Use 1 Univers 137 mcg 1-29 } [place] in ity of (0.1 %) 00:00: each [place] nasal spray 00 nostril in Me dical the Branch morning and 1 [place] in the evening. Use in each nostril as directed fluticasone 2023-0 Yes [id number] 1{spray Use 1 Univers propionate 1-29 } [place] in ity o f 50 00:00: each [place] mcg/actuati 00 nostril in Me dical on nasal the Branch spray morning. benzonatate 2023-0 Yes [id number] 200mg Take 2 Univers 100 mg 1-29 capsules ity of capsule 00:00: by mouth [place] 00 every 8 Medical (eight) Branch hours as needed for Cough. azelastine 2023-0 Yes [id number] 1{spray Use 1 Univers 137 mcg 1-29 } [place] in ity of (0.1 %) 00:00: each [place] nasal spray 00 nostril in Me dical the Branch morning and 1 [place] in the evening. Use in each nostril as directed fluticasone 2023-0 Yes [id number] 1{spray Use 1 Univers propionate 1-29 } [place] in ity o f 50 00:00: each [place] mcg/actuati 00 nostril in Me dical on nasal the Branch spray morning. benzonatate 2023-0 Yes [id number] 200mg Take 2 Univers 100 mg 1-29 capsules ity of capsule 00:00: by mouth [place] 00 every 8 Medical (eight) Branch hours as needed for Cough. azelastine 2023-0 Yes [id number] 1{spray Use 1 Univers 137 mcg 1-29 } [place] in ity of (0.1 %) 00:00: each [place] nasal spray 00 nostril in Me dical the Branch morning and 1 [place] in the evening. Use in each nostril as directed fluticasone 2023-0 Yes [id number] 1{spray Use 1 Univers propionate 1-29 } [place] in ity o f 50 00:00: each [place] mcg/actuati 00 nostril in Me dical on nasal the Branch spray morning. benzonatate 2023-0 Yes [id number] 200mg Take 2 Univers 100 mg 1-29 capsules ity of capsule 00:00: by mouth [place] 00 every 8 Medical (eight) Branch hours as needed for Cough. azelastine 2023-0 Yes [id number] 1{spray Use 1 Univers 137 mcg 1-29 } [place] in ity of (0.1 %) 00:00: each [place] nasal spray 00 nostril in Me dical the Branch morning and 1 [place] in the evening. Use in each nostril as directed fluticasone 2023-0 Yes [id number] 1{spray Use 1 Univers propionate 1-29 } [place] in ity o f 50 00:00: each [place] mcg/actuati 00 nostril in Me dical on nasal the Branch spray morning. benzonatate 2023-0 Yes [id number] 200mg Take 2 Univers 100 mg 1-29 capsules ity of capsule 00:00: by mouth [place] 00 every 8 Medical (eight) Branch hours as needed for Cough. azelastine 2023-0 Yes [id number] 1{spray Use 1 Univers 137 mcg 1-29 } [place] in ity of (0.1 %) 00:00: each [place] nasal spray 00 nostril in Me dical the Branch morning and 1 [place] in the evening. Use in each nostril as directed fluticasone 2023-0 Yes [id number] 1{spray Use 1 Univers propionate 1-29 } [place] in ity o f 50 00:00: each [place] mcg/actuati 00 nostril in Me dical on nasal the Branch spray morning. benzonatate 2023-0 Yes [id number] 200mg Take 2 Univers 100 mg 1-29 capsules ity of capsule 00:00: by mouth [place] 00 every 8 Medical (eight) Branch hours as needed for Cough. azelastine 2023-0 Yes [id number] 1{spray Use 1 Univers 137 mcg 1-29 } [place] in ity of (0.1 %) 00:00: each [place] nasal spray 00 nostril in Me dical the Branch morning and 1 [place] in the evening. Use in each nostril as directed fluticasone 2023-0 Yes [id number] 1{spray Use 1 Univers propionate 1-29 } [place] in ity o f 50 00:00: each [place] mcg/actuati 00 nostril in Me dical on nasal the Branch spray morning. benzonatate 2023-0 Yes [id number] 200mg Take 2 Univers 100 mg 1-29 capsules ity of capsule 00:00: by mouth [place] 00 every 8 Medical (eight) Branch hours as needed for Cough. azelastine 2023-0 Yes [id number] 1{spray Use 1 Univers 137 mcg 1-29 } [place] in ity of (0.1 %) 00:00: each [place] nasal spray 00 nostril in Me dical the Branch morning and 1 [place] in the evening. Use in each nostril as directed fluticasone 2023-0 Yes [id number] 1{spray Use 1 Univers propionate 1-29 } [place] in ity o f 50 00:00: each [place] mcg/actuati 00 nostril in Me dical on nasal the Branch spray morning. benzonatate 2023-0 Yes [id number] 200mg Take 2 Univers 100 mg 1-29 capsules ity of capsule 00:00: by mouth [place] 00 every 8 Medical (eight) Branch hours as needed for Cough. azelastine 2023-0 Yes [id number] 1{spray Use 1 Univers 137 mcg 1-29 } [place] in ity of (0.1 %) 00:00: each [place] nasal spray 00 nostril in Me dical the Branch morning and 1 [place] in the evening. Use in each nostril as directed fluticasone 2023-0 Yes [id number] 1{spray Use 1 Univers propionate 1-29 } [place] in ity o f 50 00:00: each [place] mcg/actuati 00 nostril in Me dical on nasal the Branch spray morning. benzonatate 2023-0 Yes [id number] 200mg Take 2 Univers 100 mg 1-29 capsules ity of capsule 00:00: by mouth [place] 00 every 8 Medical (eight) Branch hours as needed for Cough. azelastine 2023-0 Yes [id number] 1{spray Use 1 Univers 137 mcg 1-29 } [place] in ity of (0.1 %) 00:00: each [place] nasal spray 00 nostril in Me dical the Branch morning and 1 [place] in the evening. Use in each nostril as directed fluticasone 2023-0 Yes [id number] 1{spray Use 1 Univers propionate 1-29 } [place] in ity o f 50 00:00: each [place] mcg/actuati 00 nostril in Me dical on nasal the Branch spray morning. benzonatate 2023-0 Yes [id number] 200mg Take 2 Univers 100 mg 1-29 capsules ity of capsule 00:00: by mouth [place] 00 every 8 Medical (eight) Branch hours as needed for Cough. azelastine 2023-0 Yes [id number] 1{spray Use 1 Univers 137 mcg 1-29 } [place] in ity of (0.1 %) 00:00: each [place] nasal spray 00 nostril in Me dical the Branch morning and 1 [place] in the evening. Use in each nostril as directed fluticasone 2023-0 Yes [id number] 1{spray Use 1 Univers propionate 1-29 } [place] in ity o f 50 00:00: each [place] mcg/actuati 00 nostril in Me dical on nasal the Branch spray morning. benzonatate 2023-0 Yes [id number] 200mg Take 2 Univers 100 mg 1-29 capsules ity of capsule 00:00: by mouth [place] 00 every 8 Medical (eight) Branch hours as needed for Cough. azelastine 2023-0 Yes [id number] 1{spray Use 1 Univers 137 mcg 1-29 } [place] in ity of (0.1 %) 00:00: each [place] nasal spray 00 nostril in Me dical the Branch morning and 1 [place] in the evening. Use in each nostril as directed fluticasone 2023-0 Yes [id number] 1{spray Use 1 Univers propionate 1-29 } [place] in ity o f 50 00:00: each [place] mcg/actuati 00 nostril in Me dical on nasal the Branch spray morning. benzonatate 2023-0 Yes [id number] 200mg Take 2 [facility] 100 mg 1-29 capsules ity of capsule 00:00: by mouth [place] 00 every 8 Medical (eight) Branch hours as needed for Cough. azelastine 2023-0 Yes [id number] 1{spray Use 1 [facility] 137 mcg 1-29 } [place] in ity of (0.1 %) 00:00: each [place] nasal spray 00 nostril in Me dical the Branch morning and 1 [place] in the evening. Use in each nostril as directed fluticasone 2023-0 Yes [id number] 1{spray Use 1 [facility] propionate 1-29 } [place] in ity o f 50 00:00: each [place] mcg/actuati 00 nostril in Me dical on nasal the Branch spray morning. benzonatate 2023-0 Yes [id number] 200mg Take 2 [facility] 100 mg 1-29 capsules ity of capsule 00:00: by mouth [place] 00 every 8 Medical (eight) Branch hours as needed for Cough. azelastine 2023-0 Yes [id number] 1{spray Use 1 [facility] 137 mcg 1-29 } [place] in ity of (0.1 %) 00:00: each [place] nasal spray 00 nostril in Me dical the Branch morning and 1 [place] in the evening. Use in each nostril as directed fluticasone 2023-0 Yes [id number] 1{spray Use 1 [facility] propionate 1-29 } [place] in ity o f 50 00:00: each [place] mcg/actuati 00 nostril in Me dical on nasal the Branch spray morning. benzonatate 2023-0 Yes [id number] 200mg Take 2 [facility] 100 mg 1-29 capsules ity of capsule 00:00: by mouth [place] 00 every 8 Medical (eight) Branch hours as needed for Cough. azelastine 2023-0 Yes [id number] 1{spray Use 1 [facility] 137 mcg 1-29 } [place] in ity of (0.1 %) 00:00: each [place] nasal spray 00 nostril in Me dical the Branch morning and 1 [place] in the evening. Use in each nostril as directed fluticasone 2023-0 Yes [id number] 1{spray Use 1 [facility] propionate 1-29 } [place] in ity o f 50 00:00: each [place] mcg/actuati 00 nostril in Me dical on nasal the Branch spray morning. benzonatate 2023-0 Yes [id number] 200mg Take 2 [facility] 100 mg 1-29 capsules ity of capsule 00:00: by mouth [place] 00 every 8 Medical (eight) Branch hours as needed for Cough. azelastine 3-0 Yes [id number] 1{spray Use 1 [facility] 137 mcg 1-29 } [place] in ity of (0.1 %) 00:00: each [place] nasal spray 00 nostril in Me dical the Branch morning and 1 [place] in the evening. Use in each nostril as directed fluticasone 2023-0 Yes [id number] 1{spray Use 1 [facility] propionate 1-29 } [place] in ity o f 50 00:00: each [place] mcg/actuati 00 nostril in Me dical on nasal the Branch spray morning. benzonatate 2023-0 Yes [id number] 200mg Take 2 [facility] 100 mg 1-29 capsules ity of capsule 00:00: by mouth [place] 00 every 8 Medical (eight) Branch hours as needed for Cough. azelastine 2023-0 Yes [id number] 1{spray Use 1 [facility] 137 mcg 1-29 } [place] in ity of (0.1 %) 00:00: each [place] nasal spray 00 nostril in Me dical the Branch morning and 1 [place] in the evening. Use in each nostril as directed fluticasone 2023-0 Yes [id number] 1{spray Use 1 [facility] propionate 1-29 } [place] in ity o f 50 00:00: each [place] mcg/actuati 00 nostril in Me dical on nasal the Branch spray morning. benzonatate 2023-0 Yes [id number] 200mg Take 2 [facility] 100 mg 1-29 capsules ity of capsule 00:00: by mouth [place] 00 every 8 Medical (eight) Branch hours as needed for Cough. azelastine 2023-0 Yes [id number] 1{spray Use 1 [facility] 137 mcg 1-29 } [place] in ity of (0.1 %) 00:00: each [place] nasal spray 00 nostril in Me dical the Branch morning and 1 [place] in the evening. Use in each nostril as directed fluticasone 2023-0 Yes [id number] 1{spray Use 1 [facility] propionate 1-29 } [place] in ity o f 50 00:00: each [place] mcg/actuati 00 nostril in Me dical on nasal the Branch spray morning. benzonatate 2023-0 Yes [id number] 200mg Take 2 [facility] 100 mg 1-29 capsules ity of capsule 00:00: by mouth [place] 00 every 8 Medical (eight) Branch hours as needed for Cough. azelastine 2023-0 Yes [id number] 1{spray Use 1 [facility] 137 mcg 1-29 } [place] in ity of (0.1 %) 00:00: each [place] nasal spray 00 nostril in Me dical the Branch morning and 1 [place] in the evening. Use in each nostril as directed fluticasone 2023-0 Yes [id number] 1{spray Use 1 [facility] propionate 1-29 } [place] in ity o f 50 00:00: each [place] mcg/actuati 00 nostril in Me dical on nasal the Branch spray morning. benzonatate 2023-0 Yes [id number] 200mg Take 2 [facility] 100 mg 1-29 capsules ity of capsule 00:00: by mouth [place] 00 every 8 Medical (eight) Branch hours as needed for Cough. azelastine 2023-0 Yes [id number] 1{spray Use 1 [facility] 137 mcg 1-29 } [place] in ity of (0.1 %) 00:00: each [place] nasal spray 00 nostril in Me dical the Branch morning and 1 [place] in the evening. Use in each nostril as directed fluticasone 2023-0 Yes [id number] 1{spray Use 1 [facility] propionate 1-29 } [place] in ity o f 50 00:00: each [place] mcg/actuati 00 nostril in Me dical on nasal the Branch spray morning. benzonatate Yes [id number] 200mg Take 2 [facility] 100 mg 1-29 capsules ity of capsule 00:00: by mouth [place] 00 every 8 Medical (eight) Branch hours as needed for Cough. amoxicillin 2022- No [id number] 1{tbl} Take 1 [facility] -clavulanat 1-29 02-06 tablet by it y of e 00:00: 05:59 mouth in [place] (AUGMENTIN) 00 :00 the Medical 875-125 mg morning Branch per tablet and 1 tablet in the evening. Do all this for 7 days. amoxicillin 2022- No [id number] 1{tbl} Take 1 [facility] -clavulanat 1-29 02-06 tablet by it y of e 00:00: 05:59 mouth in [place] (AUGMENTIN) 00 :00 the Medical 875-125 mg morning Branch per tablet and 1 tablet in the evening. Do all this for 7 days. cefdinir 2021-06- No [id number] 600mg Take 2 [facility] 300 mg 0-26 11-06 capsules ity of capsule 00:00: 04:59 by mouth [place] 00 :00 in the Medical morning Branch for 10 days. cefdinir 2021-06- No [id number] 600mg Take 2 U nivers 300 mg 0-26 11-06 capsules ity of capsule 00:00: 04:59 by mouth [place] 00 :00 in the Medical morning Branch for 10 days. bromphenira Yes [id number] 10mL Take 10 mL [facility] mine-pseudo 9-12 by mouth 4 it y of ephedrine-D 00:00: (four[place] (BROMFED 00 times Medical DM) 2-30-10 daily as Bran ch mg/5 mL needed for syrup Congestion /Allergies . bromphenira Yes [id number] 10mL Take 10 mL [facility] mine-pseudo 9-12 by mouth 4 it y of ephedrine-D 00:00: (four[place] ([place]OMF[place] 00 times Medical DM) 2-30-10 daily as Bran ch mg/5 mL needed for syrup Congestion /Allergies . bromphenira Yes [id number] 10mL Take 10 mL [facility] mine-pseudo 9-12 by mouth 4 it y of ephedrine-D 00:00: (four[place] (BROMFED 00 times Medical DM) 2-30-10 daily as Bran ch mg/5 mL needed for syrup Congestion /Allergies . bromphenira 2021-0 Yes [id number] 10mL Take 10 mL [facility] mine-pseudo 9-12 by mouth 4 it y of ephedrine-D 00:00: (four[place] (BROMFED 00 times Medical DM) 2-30-10 daily as Bran ch mg/5 mL needed for syrup Congestion /Allergies . bromphenira 2021-0 Yes [id number] 10mL Take 10 mL [facility] mine-pseudo 9-12 by mouth 4 it y of ephedrine-D 00:00: (four[place] (BROMFED 00 times Medical DM) 2-30-10 daily as Bran ch mg/5 mL needed for syrup Congestion /Allergies . bromphenira 2021-0 Yes [id number] 10mL Take 10 mL [facility] mine-pseudo 9-12 by mouth 4 it y of ephedrine-D 00:00: (four[place] (BROMFED 00 times Medical DM) 2-30-10 daily as Bran ch mg/5 mL needed for syrup Congestion /Allergies . bromphenira 2021-0 Yes [id number] 10mL Take 10 mL [facility] mine-pseudo 9-12 by mouth 4 it y of ephedrine-D 00:00: (four[place] (BROMFED 00 times Medical DM) 2-30-10 daily as Bran ch mg/5 mL needed for syrup Congestion /Allergies . bromphenira 2021-0 Yes [id number] 10mL Take 10 mL [facility] mine-pseudo 9-12 by mouth 4 it y of ephedrine-D 00:00: (four[place] (BROMFED 00 times Medical DM) 2-30-10 daily as Bran ch mg/5 mL needed for syrup Congestion /Allergies . bromphenira 2021-0 Yes [id number] 10mL Take 10 mL [facility] mine-pseudo 9-12 by mouth 4 it y of ephedrine-D 00:00: (four[place] (BROMFED 00 times Medical DM) 2-30-10 daily as Bran ch mg/5 mL needed for syrup Congestion /Allergies . bromphenira 2021-0 Yes [id number] 10mL Take 10 mL [facility] mine-pseudo 9-12 by mouth 4 it y of ephedrine-D 00:00: (four[place] (BROMFED 00 times Medical DM) 2-30-10 daily as Bran ch mg/5 mL needed for syrup Congestion /Allergies . bromphenira 2021-0 Yes [id number] 10mL Take 10 mL [facility] mine-pseudo 9-12 by mouth 4 it y of ephedrine-D 00:00: (four[place] (BROMFED 00 times Medical DM) 2-30-10 daily as Bran ch mg/5 mL needed for syrup Congestion /Allergies . bromphenira 2021-0 Yes [id number] 10mL Take 10 mL [facility] mine-pseudo 9-12 by mouth 4 it y of ephedrine-D 00:00: (four[place] (BROMFED 00 times Medical DM) 2-30-10 daily as Bran ch mg/5 mL needed for syrup Congestion /Allergies . bromphenira 2021-0 Yes [id number] 10mL Take 10 mL [facility] mine-pseudo 9-12 by mouth 4 it y of ephedrine-D 00:00: (four[place] (BROMFED 00 times Medical DM) 2-30-10 daily as Bran ch mg/5 mL needed for syrup Congestion /Allergies . bromphenira 2021-0 Yes [id number] 10mL Take 10 mL [facility] mine-pseudo 9-12 by mouth 4 it y of ephedrine-D 00:00: (four[place] (BROMFED 00 times Medical DM) 2-30-10 daily as Bran ch mg/5 mL needed for syrup Congestion /Allergies . bromphenira 2021-0 Yes [id number] 10mL Take 10 mL [facility] mine-pseudo 9-12 by mouth 4 it y of ephedrine-D 00:00: (four[place] (BROMFED 00 times Medical DM) 2-30-10 daily as Bran ch mg/5 mL needed for syrup Congestion /Allergies . bromphenira 2021-0 Yes [id number] 10mL Take 10 mL [facility] mine-pseudo 9-12 by mouth 4 it y of ephedrine-D 00:00: (four[place] (BROMFED 00 times Medical DM) 2-30-10 daily as Bran ch mg/5 mL needed for syrup Congestion /Allergies . bromphenira 2021-0 Yes [id number] 10mL Take 10 mL [facility] mine-pseudo 9-12 by mouth 4 it y of ephedrine-D 00:00: (four[place] (BROMFED 00 times Medical DM) 2-30-10 daily as Bran ch mg/5 mL needed for syrup Congestion /Allergies . bromphenira 2021-0 Yes [id number] 10mL Take 10 mL [facility] mine-pseudo 9-12 by mouth 4 it y of ephedrine-D 00:00: (four[place] (BROMFED 00 times Medical DM) 2-30-10 daily as Bran ch mg/5 mL needed for syrup Congestion /Allergies . bromphenira 2021-0 Yes [id number] 10mL Take 10 mL [facility] mine-pseudo 9-12 by mouth 4 it y of ephedrine-D 00:00: (four[place] (BROMFED 00 times Medical DM) 2-30-10 daily as Bran ch mg/5 mL needed for syrup Congestion /Allergies . bromphenira 2021-0 Yes [id number] 10mL Take 10 mL [facility] mine-pseudo 9-12 by mouth 4 it y of ephedrine-D 00:00: (four[place] (BROMFED 00 times Medical DM) 2-30-10 daily as Bran ch mg/5 mL needed for syrup Congestion /Allergies . bromphenira 2021-0 Yes [id number] 10mL Take 10 mL [facility] mine-pseudo 9-12 by mouth 4 it y of ephedrine-D 00:00: (four) [place] (BROMFED 00 times Medical DM) 2-30-10 daily as Bran ch mg/5 mL needed for syrup Congestion /Allergies . bromphenira 2021-0 Yes [id number] 10mL Take 10 mL [facility] mine-pseudo 9-12 by mouth 4 it y of ephedrine-D 00:00: (four) [place] (BROMFED 00 times Medical DM) 2-30-10 daily as Bran ch mg/5 mL needed for syrup Congestion /Allergies . bromphenira 2021-0 Yes [id number] 10mL Take 10 mL [facility] mine-pseudo 9-12 by mouth 4 it y of ephedrine-D 00:00: (four) [place] (BROMFED 00 times Medical DM) 2-30-10 daily as Bran ch mg/5 mL needed for syrup Congestion /Allergies . bromphenira 2021-0 Yes [id number] 10mL Take 10 mL [facility] mine-pseudo 9-12 by mouth 4 it y of ephedrine-D 00:00: (four[place] (BROMFED 00 times Medical DM) 2-30-10 daily as Bran ch mg/5 mL needed for syrup Congestion /Allergies . bromphenira 2021-0 Yes [id number] 10mL Take 10 mL [facility] mine-pseudo 9-12 by mouth 4 it y of ephedrine-D 00:00: (four) [place] (BROMFED 00 times Medical DM) 2-30-10 daily as Bran ch mg/5 mL needed for syrup Congestion /Allergies . bromphenira 2021-0 Yes [id number] 10mL Take 10 mL [facility] mine-pseudo 9-12 by mouth 4 it y of ephedrine-D 00:00: (four) [place] (BROMFED 00 times Medical DM) 2-30-10 daily as Bran ch mg/5 mL needed for syrup Congestion /Allergies . bromphenira 2021-0 Yes [id number] 10mL Take 10 mL [facility] mine-pseudo 9-12 by mouth 4 it y of ephedrine-D 00:00: (four) [place] (BROMFED 00 times Medical DM) 2-30-10 daily as Bran ch mg/5 mL needed for syrup Congestion /Allergies . bromphenira 2021-0 Yes [id number] 10mL Take 10 mL [facility] mine-pseudo 9-12 by mouth 4 it y of ephedrine-D 00:00: (four) [place] (BROMFED 00 times Medical DM) 2-30-10 daily as Bran ch mg/5 mL needed for syrup Congestion /Allergies . bromphenira 2021-0 Yes [id number] 10mL Take 10 mL [facility] mine-pseudo 9-12 by mouth 4 it y of ephedrine-D 00:00: (four) [place] (BROMFED 00 times Medical DM) 2-30-10 daily as Bran ch mg/5 mL needed for syrup Congestion /Allergies . bromphenira Yes [id number] 10mL Take 10 mL [facility] mine-pseudo 9-12 by mouth 4 it y of ephedrine-D 00:00: (four) [place] (BROMFED 00 times Medical DM) 2-30-10 daily as Bran ch mg/5 mL needed for syrup Congestion /Allergies . ondansetron 2021- No [id number] 4mg Take 1 [facility] 4 mg -02-11 tablet by ity of disintegrat 00:00: 00:00 [place] tablet 00 :00 every 8 Medica l (eight) Branch hours as needed for Nausea and Vomiting (N/V). ondansetron 2021- No [id number] 4mg Take 1 [facility] 4 mg -02-11 tablet by ity of disintegrat 00:00: 00:00 [place] tablet 00 :00 every 8 Medica l (eight) Branch hours as needed for Nausea and Vomiting (N/V). Immunizations Ordered Filled Date Status Comments Source Immunization Name Immunization Name SARS-COV-2 COVID-19 2020-10-05 Completed Unive rsity of MODER[facility] 12+ YRS 00:00:00 [place] Med ical VACCINE Branch SARS-COV-2 COVID-19 2020-10-05 Completed Unive rsity of [facility] 12+ YRS 00:00:00 [place] Med ical VACCINE Branch SARS-COV-2 COVID-19 2020-10-05 Completed Unive rsity of [facility] 12+ YRS 00:00:00 [place] [facility] ical VACCINE Branch SARS-COV-2 COVID-19 2020-10-05 Completed Unive rsity of [facility] 12+ YRS 00:00:00 [place] Med ical VACCINE Branch SARS-COV-2 COVID-19 2020-10-05 Completed Unive rsity of MOD[facility] 12+ YRS 00:00:00 [place] Med ical VACCINE Branch SARS-COV-2 COVID-19 2020-10-05 Completed Unive rsity of [facility] 12+ YRS 00:00:00 [place] Med ical VACCINE Branch SARS-COV-2 COVID-19 2020-10-05 Completed Unive rsity of MODER[facility] 12+ YRS 00:00:00 [place] [facility] ical VACCINE Branch SARS-COV-2 COVID-19 2020-10-05 Completed Unive rsity of MODERNA 12+ YRS 00:00:00 [place] Med ical VACCINE Branch SARS-COV-2 COVID-19 2020-10-05 Completed Unive rsity of MODER[facility] 12+ YRS 00:00:00 [place] Med ical VACCINE Branch SARS-COV-2 COVID-19 2020-09-04 Completed Unive rsity of MODER[facility] 12+ YRS 00:00:00 [place] Med ical VACCINE Branch SARS-COV-2 COVID-19 2020-09-04 Completed Unive rsity of MODER[facility] 12+ YRS 00:00:00 [place] Med ical VACCINE Branch SARS-COV-2 COVID-19 2020-09-04 Completed Unive rsity of MODER[facility] 12+ YRS 00:00:00 [place] Med ical VACCINE Branch SARS-COV-2 COVID-19 2020-09-04 Completed Unive rsity of MODER[facility] 12+ YRS 00:00:00 [place] [facility] ical VACCINE Branch SARS-COV-2 COVID-19 2020-09-04 Completed Unive rsity of MODERNA 12+ YRS 00:00:00 [place] Med ical VACCINE Branch SARS-COV-2 COVID-19 2020-09-04 Completed Unive rsity of [facility] 12+ YRS 00:00:00 [place] Med ical VACCINE Branch SARS-COV-2 COVID-19 2020-09-04 Completed Unive rsity of MOD[facility] 12+ YRS 00:00:00 [place] Med ical VACCINE Branch SARS-COV-2 COVID-19 2020-09-04 Completed Unive rsity of MODERNA 12+ YRS 00:00:00 [place] Med ical VACCINE Branch SARS-COV-2 COVID-19 2020-09-04 Completed Unive rsity of MODERNA 12+ YRS 00:00:00 [place] Med ical VACCINE Branch TDAP 2015-02-27 Completed University of 00:00:00 [facility] TDAP 2015-02-27 Completed University of 00:00:00 [facility] TDAP 2015-02-27 Completed University of 00:00:00 [facility] TDAP 2015-02-27 Completed University of 00:00:00 [facility] TDAP 2015-02-27 Completed University of 00:00:00 [facility] TDAP 2015-02-27 Completed University of 00:00:00 [place] [facility] TDAP 2015-02-27 Completed University of 00:00:00 [place] [facility] TDAP 2015-02-27 Completed University of 00:00:00 [place] [facility] TDAP 2015-02-27 Completed University of 00:00:00 [place] [facility] TDAP 2015-02-27 Completed University of 00:00:00 [place] [facility] TDAP 2015-02-27 Completed [facility] of 00:00:00 [place] [facility] TDAP 2015-02-27 Completed [facility] of 00:00:00 [place] [facility] TDAP 2015-02-27 Completed University of 00:00:00 [place] [facility] TDAP 2015-02-27 Completed [facility] of 00:00:00 [place] [facility] TDAP 2015-02-27 Completed [facility] of 00:00:00 [place] [facility] TDAP 2015-02-27 Completed [facility] of 00:00:00 [place] [facility] TDAP 2015-02-27 Completed [facility] of 00:00:00 [place] [facility] TDAP 2015-02-27 Completed [facility] of 00:00:00 [place] [facility] TDAP 2015-02-27 Completed University of 00:00:00 [place] [facility] TDAP 2015-02-27 Completed University of 00:00:00 [place] [facility] TDAP 2015-02-27 Completed [facility] of 00:00:00 [place] [facility] TDAP 2015-02-27 Completed University of 00:00:00 [place] [facility] TDAP 2015-02-27 Completed University of 00:00:00 [place] [facility] TDAP 2015-02-27 Completed University of 00:00:00 [place] [facility] TDAP 2015-02-27 Completed University of 00:00:00 [place] [facility] Td 2006-06-02 Completed University of 00:00:00 [place] [facility] Td 2006-06-02 Completed University of 00:00:00 [place] [facility] Td 2006-06-02 Completed University of 00:00:00 [place] [facility] Td 2006-06-02 Completed University of 00:00:00 [place] [facility] Td 2006-06-02 Completed University of 00:00:00 [place] [facility] TD, NOS 2006-06-02 Completed University of 00:00:00 [place] [facility] TD, NOS 2006-06-02 Completed University of 00:00:00 [place] [facility] TD, NOS 2006-06-02 Completed University of 00:00:00 [place] [facility] TD, NOS 2006-06-02 Completed University of 00:00:00 [place] [facility] TD, NOS 2006-06-02 Completed University of 00:00:00 [place] [facility] TD, NOS 2006-06-02 Completed [facility] of 00:00:00 [place] [facility] TD, NOS 2006-06-02 Completed [facility] of 00:00:00 [place] [facility] TD, NOS 2006-06-02 Completed [facility] of 00:00:00 [place] [facility] TD, NOS 2006-06-02 Completed [facility] of 00:00:00 [place] [facility] TD, NOS 2006-06-02 Completed [facility] of 00:00:00 [place] [facility] TD, NOS 2006-06-02 Completed [facility] of 00:00:00 [place] [facility] TD, NOS 2006-06-02 Completed [facility] of 00:00:00 [place] [facility] TD, NOS 2006-06-02 Completed [facility] of 00:00:00 [place] [facility] TD, NOS 2006-06-02 Completed [facility] of 00:00:00 [place] [facility] TD, NOS 2006-06-02 Completed [facility] of 00:00:00 [place] [facility] TD, NOS 2006-06-02 Completed [facility] of 00:00:00 [place] [facility] TD, NOS 2006-06-02 Completed [facility] of 00:00:00 [place] [facility] TD, NOS 2006-06-02 Completed [facility] of 00:00:00 [place] [facility] TD, NOS 2006-06-02 Completed [facility] of 00:00:00 [place] [facility] TD, NOS 2006-06-02 Completed University of 00:00:00 [facility] TD, NOS Unknown Completed [facility] TDAP Unknown Completed [facility] SARS-COV-2 COVID-19 Unknown Completed Unive rsity of MODERNA 12+ YRS [place] [facility] ical VACCINE Branch SARS-COV-2 COVID-19 Unknown Completed Unive rsity of MODERNA 12+ YRS [place] [facility] ical VACCINE Branch TD, NOS Unknown Completed [facility] TDAP Unknown Completed [facility] SARS-COV-2 COVID-19 Unknown Completed Unive rsity of MODER[facility] 12+ YRS [facility] ical VACCINE Branch SARS-COV-2 COVID-19 Unknown Completed Unive rsity of MODERNA 12+ YRS [place] Med ical VACCINE Branch TD, NOS Unknown Completed [facility] TDAP Unknown Completed [facility] SARS-COV-2 COVID-19 Unknown Completed Unive rsity of [place] 12+ YRS [facility] ical VACCINE Branch SARS-COV-2 COVID-19 Unknown Completed Unive rsity of [place] 12+ YRS [facility] ical VACCINE Branch TD, NOS Unknown Completed [facility] TDAP Unknown Completed [facility] SARS-COV-2 COVID-19 Unknown Completed Unive rsity of [facility] 12+ YRS [facility] ical VACCINE Branch SARS-COV-2 COVID-19 Unknown Completed Unive rsity of [facility] 12+ YRS [facility] ical VACCINE Branch TD, NOS Unknown Completed [facility] TDAP Unknown Completed [facility] SARS-COV-2 COVID-19 Unknown Completed Unive rsity of [facility] 12+ YRS [facility] ical VACCINE Branch SARS-COV-2 COVID-19 Unknown Completed Unive rsity of MODERNA 12+ YRS [place] [facility] ical VACCINE Branch Vital Signs Vital Name Observation Time Observation Value Comments Source Systolic blood 2023-03-06 23:28:00 127 mm[Hg] Univer sity of pressure [facility] Diastolic blood 2023-03-06 23:28:00 82 mm[Hg] Unive rsity of [facility] Heart rate 2023-03-06 23:28:00 76 /min [facility] Body temperature 2023-03-06 23:28:00 37.17 Kathleen [facility] Res[facility] 2023-03-06 23:28:00 18 /min [facility] Body height 2023-03-06 23:28:00 154.9 cm [facility] Body weight 2023-03-06 23:28:00 80.06 kg [facility] BMI 2023-03-06 23:28:00 33.35 kg/m2 [facility] Oxygen saturation in 2023-03-06 23:28:00 99 /min [facility] Arterial blood by [facility] Pulse oximetry Branch Systolic blood 2023-01-28 13:56:00 115 mm[Hg] Univer sity of pressure [facility] Diastolic blood 2023-01-28 13:56:00 63 mm[Hg] Unive rsity of pressure [facility] Heart rate 2023-01-28 13:56:00 70 /min [facility] Body temperature 2023-01-28 13:56:00 36.83 [place] [facility] [place] [facility] Respiratory rate 2023-01-28 13:56:00 16 /min [facility] [place] [facility] Body height 2023-01-28 13:56:00 154.9 cm [facility] [place] [facility] Body weight 2023-01-28 13:56:00 79.652 kg [facility] [place] [facility] BMI 2023-01-28 13:56:00 33.18 kg/m2 [facility] [place] [facility] Oxygen saturation in 2023-01-28 13:56:00 99 /min [facility] of Arterial blood by [facility] arturo Pulse oximetry Branch Systolic blood 2022-10-16 19:28:00 116 mm[Hg] Univer sity of pressure [place] [facility] Diastolic blood 2022-10-16 19:28:00 71 mm[Hg] Unive rsity of pressure [place] [facility] Heart rate 2022-10-16 19:28:00 64 /min [facility] [place] [facility] Body height 2022-10-16 19:28:00 156.2 cm [facility] [place] [facility] Body weight 2022-10-16 19:28:00 75.025 kg [facility] [place] [facility] BMI 2022-10-16 19:28:00 30.75 kg/m2 [facility] [place] [facility] Oxygen saturation in 2022-10-16 19:28:00 100 /min [facility] of Arterial blood by [facility] Pulse oximetry Branch Systolic blood 2022-10-15 16:28:00 101 mm[Hg] Univer sity of pressure [place] [facility] Diastolic blood 2022-10-15 16:28:00 67 mm[Hg] Unive rsity of pressure [place] [facility] Heart rate 2022-10-15 16:28:00 70 /min [facility] [place] [facility] Body temperature 2022-10-15 16:28:00 37.06 Kathleen [facility] [place] [facility] Body height 2022-10-15 16:28:00 156.2 cm [facility] [place] [facility] Body weight 2022-10-15 16:28:00 75.615 kg [facility] [place] [facility] BMI 2022-10-15 16:28:00 30.99 kg/m2 [facility] [place] [facility] Oxygen saturation in 2022-10-15 16:28:00 99 /min [facility] Arterial blood by [place] [facility] arturo Pulse oximetry Branch Systolic blood 2022-10-07 14:47:00 114 mm[Hg] Univer sity of pressure [place] [facility] Diastolic blood 2022-10-07 14:47:00 74 mm[Hg] Unive rsity of pressure [place] [facility] Heart rate 2022-10-07 14:47:00 67 /min [facility] [place] [facility] Body temperature 2022-10-07 14:47:00 37 [place] [facility] [place] [facility] Respiratory rate 2022-10-07 14:47:00 16 /min [facility] [place] [facility] Body weight 2022-10-07 14:47:00 75.297 kg [facility] [place] [facility] BMI 2022-10-07 14:47:00 30.86 kg/m2 [facility] [place] [facility] Oxygen saturation in 2022-10-07 14:47:00 97 /min [facility] blood [facility] [facility] Pulse oximetry Branch Systolic blood 2022-06-30 19:52:00 125 mm[Hg] [facility] [place] [facility] Diastolic blood 2022-06-30 19:52:00 87 mm[Hg] [facility] [place] [facility] Heart rate 2022-06-30 19:52:00 101 /min [facility] [place] [facility] Body temperature 2022-06-30 19:52:00 37.06 Kathleen [facility] [place] [facility] Respiratory rate 2022-06-30 19:52:00 16 /min [facility] [place] [facility] Body height 2022-06-30 19:52:00 156.2 cm [facility] [place] [facility] Body weight 2022-06-30 19:52:00 73.755 kg [facility] [place] [facility] BMI 2022-06-30 19:52:00 30.23 kg/m2 [facility] [place] [facility] Oxygen saturation in 2022-06-30 19:52:00 98 /min [facility] of Arterial blood by [place] [facility] Pulse oximetry Branch Systolic blood 2022-03-27 14:14:00 131 mm[Hg] [facility] [place] [facility] Diastolic blood 2022-03-27 14:14:00 79 mm[Hg] [facility] [place] [facility] [place] Heart rate 2022-03-27 14:14:00 79 /min [facility] [place] [facility] [place] Body temperature 2022-03-27 14:14:00 36.72 Kathleen [facility] [place] [facility] Respiratory rate 2022-03-27 14:14:00 18 /min [facility] [place] [facility] [place] Body height 2022-03-27 14:14:00 154.9 cm [facility] [place] [facility] [place] Body weight 2022-03-27 14:14:00 73.982 kg [facility] [place] [facility] BMI 2022-03-27 14:14:00 30.82 kg/m2 Universi ty of [facility] Oxygen saturation in 2022-03-27 14:14:00 98 /min University of Arterial blood by [facility] Pulse oximetry Branch Systolic blood 2022-02-11 16:49:00 120 mm[Hg] Univer sity of [facility] Diastolic blood 2022-02-11 16:49:00 82 mm[Hg] Unive rsity of pressure [facility] Heart rate 2022-02-11 16:49:00 81 /min [facility] [place] [facility] [place] Body temperature 2022-02-11 16:49:00 37.22 Kathleen [facility] [place] [facility] [place] Body height 2022-02-11 16:49:00 156.2 cm [facility] [place] [facility] Body weight 2022-02-11 16:49:00 72.439 kg [facility] [place] [facility] [place] BMI 2022-02-11 16:49:00 29.69 kg/m2 [facility] [place] [facility] [place] Oxygen saturation in 2022-02-11 16:49:00 99 /min [facility] Arterial blood by [place] [facility] art[facility] Pulse oximetry Branch Procedures Procedure Date / Time Performed Performing Clinician Sour e POCT TEST 2023-03-06 23:50:00 Portia Gray [facility] POCT URINALYSIS 2023-03-06 23:30:00 Portia Gray [place] o f [facility] DISCLOSURE AND 2023-01-28 05:01:00 Doctor Unassigned, No [facility] [place] CONSENT, MEDICAL AND Name Medical [facility] SURGICAL PROCEDURES XR WRIST <3 VW LEFT 2022-10-07 15:12:46 Ángela Gordon [facility] XR HAND 3+ VW LEFT 2022-10-07 15:12:46 Evan Ángela [facility] XR HAND 3+ VW LEFT 2022-10-07 15:12:46 Evan [facility] ASSIGNMENT OF BENEFITS 2022-10-07 14:41:25 Doctor Unassigned, No [facility] Name [facility] POCT SARS-COV-2 2022-06-30 00:00:00 Ángela Gordon [facility] ANTIGEN (BINAX NOW) Medical [facility] POCT URINALYSIS 2022-03-27 00:00:00 Lillitnmaryann [facility] POCT TEST 2022-03-27 00:00:00 Portia Gray [facility] Encounters Start End Encounter Admission Attending Care Care Encounter Source Date/Time Date/Time Type Type Clinicians Facility Department ID 2023-03-06 2023-03-06 Outpatient R ISAAC [facility] [id number] Univers 18:00:00 19:09:44 PORTIA desai [facility] 2023-03-06 2023-03-06 Urgent Portia Gray [facility] 1.2.840.114 [id number] Univers 18:00:00 19:09:44 Care Unknown, Attending HEALTH 350.1.13.10 ity of [place] 4.2.7.2.686 Kike as SLICK?BLEA [phone] [address] MEDICAL OFFICE BUILDING 2023-02-18 2023-02-18 Telephone DIA Doe 1.2.840.114 [id number] Univers 00:00:00 00:00:00 Anatoliy Alvin Y HEALTH 350.1.13.10 ity [place] [id number] [place] [id number] Branch 2023-01-30 2023-01-30 Patient Doctor [facility] 1.2.808.803 [id number] Univers 00:00:00 00:00:00 Secure Msg Unassigned, ICAL 350.1.13.10 it[place] SCIENC[place] 4.2.7.2.686 Kike as BLDG [id number] [facility] 020 Branch 2023-01-28 2023-01-28 Route Delivery Driver [facility] UNIVERSIT 1.2.840.114 [id number] Univers 11:00:00 11:15:00 Visit Bret Luciano [facility] 350.1.13. 10 ity [place] [id number] [facility] 316 Branch 2023-01-28 2023-01-28 Office [place] Anatoliy Esquivel UNIVERSIT 1.2.84 0.114 [id number] Univers 08:30:00 09:00:00 Visit Bret Luciano [facility] 350.1.13. 10 ity [place] [id number] [facility] 071 Branch 2023-01-28 2023-01-28 Outpatient R LEONID [facility] [id number] Univers 08:30:00 08:30:00 BRET ity of [facility] 2023-01-28 2023-01-[address] [facility] 1.2.413.926 [id number] Univers 00:00:00 00:00:00 (Out) Anatoliy Esquivel Multistat 350.1.13.10 ity [place] [id number] [facility] 071 Branch 2023-01-28 2023-01-28 Orders Doctor JUWAN 1.2.840.114 [id number] Univers 00:00:00 00:00:00 Only Unassigned, YOVANA 350.1.13.10 [place] HOSP[facility] 4.2.7.2.686 [place] as [id number] [facility] 009 Branch 2022-12-06 2022-12-06 Telephone CastañedaKERRI 1.2.248.077 [id number] Univers 00:00:00 00:00:00 Cortney ESTES 350.1.13.10 i [place] [id number] [facility] 086 Branch 2022-10-16 2022-10-16 [facility] [id number] Univers 14:30:00 14:52:38 YAIMA desai [facility] 2022-10-16 2022-10-16 [facility] 1.2.801.462 [id number] Univers 14:30:00 14:52:38 Visit Yaima CUENCA 350.1.13.10 it [facility] 4.2.7.2.686 Kike as SLICK?BLEA [id number] [place] dical EMILY 198 [facility] OFFICE [facility] 2022-10-15 2022-10-15 Outpatient R NEIL [facility] [id number] Univers 11:30:00 12:00:30 CHARLIE desai [facility] 2022-10-15 2022-10-15 Office [facility] 1.2.840.114 [id number] Univers 11:30:00 12:00:30 Visit Charlie [facility] 350.1.13.10 it y of [place] 4.2.7.2.686 Kike as SLICK?BLEA [id number] [place] t[place] DIAZ 044 [facility] OFFICE [facility] 2022-10-14 2022-10-14 Outpatient SFA [facility] [id number] Antoni 11:16:28 11:16:28 0515 F [place] 2022-10-12 2022-10-12 Patient Doctor JUWAN 1.2.840.114 [id number] Univers 00:00:00 00:00:00 Secure Msg Unassigned, YOVANA 350.1.13.[address] ity [place] [facility] 4.2.7.2.686 [place] as [id number] [address] 2022-10-07 2022-10-07 Outpatient R EVAN [facility] [id number] Univers 09:54:04 23:59:00 ÁNGELA ity [facility] 2022-10-07 2022-10-07 [facility] 1.2.840.114 [id number] Univers 09:54:04 23:59:00 Encounter Ángela [facility] 350.1.13.10 it[facility] 4.2.7.2.686 Kike as SLICK?BLEA [id number] [place] [address] MEDICAL OFFICE [facility] 2022-10-07 2022-10-07 [facility] Evan [facility] 1.2.840.114 [id number] Univers 09:54:04 23:59:00 Encounter Ángela HEALTH 350.1.13.10 ity [facility] 4.2.7.2.686 Kike as SLICK?BLEA [phone] [address] 2022-10-07 2022-10-07 [facility] Evan [facility] 1.2.840.114 [id number] Univers 09:40:00 10:18:33 Care Unknown, Attending HEALTH 350.1.13.10 ity of [place] 4.2.7.2.686 Kike as SLICK?BLEA [id number] [address] 2022-10-07 2022-10-07 Orders Doctor JUWAN 1.2.840.114 [id number] Univers 00:00:00 00:00:00 Only Unassigned, YOVANA 350.1.13.[address] [place] [facility] 4.2.7.2.686 [place] as [id number] [address] 2022-10-07 2022-10-07 [facility] Evan [facility] 1.2.840.114 [id number] Univers 00:00:00 00:00:00 (Out) Ángela HEALTH 350.1.13.10 it y of [place] 4.2.7.2.686 Kike as SLICK?BLEA [id number] [address] 2022-09-16 2022-09-16 Outpatient SFA [facility] [id number] Antoni 14:28:09 14:28:09 0417 F Jesus 2022-06-30 2022-06-30 Outpatient R EVAN [facility] [id number] Univers 14:00:00 14:22:01 ÁNGELA ity of [facility] 2022-06-30 2022-06-30 [facility] Evan [facility] 1.2.840.114 [id number] Univers 14:00:00 14:20:00 Care Unknown, Attending HEALTH 350.1.13.10 ity of [place] 4.2.7.2.686 Kike as SLICK?BLEA [id number] [address] MEDICAL OFFICE [facility] 2022-06-30 2022-06-30 Letter Josefina, [facility] 1.2.330.837 [id number] Univers 00:00:00 00:00:00 (Out) Ang HEALTH 350.1.13.10 it y of Urgent Care [facility] 4.2.7.2.686 [place] SLICK?BLEA [id number] [address] OFFICE [facility] 2022-04-27 2022-04-27 Outpatient [facility] [id number] Antoni 09:05:52 09:05:52 1126 F [place] 2022-04-26 2022-04-26 Outpatient [facility] [id number] Antoni 12:05:12 12:05:12 1125 F [place] 2022-04-09 2022-04-09 Outpatient Kelsey IRVING [facility] [id number] Univers 16:20:00 16:20:00 LETI desai [facility] 2022-03-27 2022-03-27 Urgent Isaac, Portia [facility] 1.2.840.114 [id number] Univers 09:20:00 09:40:00 Care [facility] 350.1.13.10 ity of [place] 4.2.7.2.686 Kike as SLICK?BLEA [id number] [address] OFFICE [facility] 2022-03-27 2022-03-27 Outpatient R ISAAC [facility] [id number] Univers 09:20:00 09:20:00 PORTIA desai [facility] 2022-03-27 2022-03-27 Letter Isaac [facility] 1.2.840.114 [id number] Univers 00:00:00 00:00:00 (Out) Ranmn HEALTH 350.1.13.10 it y [facility] 4.2.7.2.686 Kike as SLICK?BLEA [id number] [address] OFFICE [facility] 2022-02-11 2022-02-11 Office [facility] 1.2.840.114 [id number] Univers 11:20:00 12:21:36 Visit [facility] 350.1.13.10 ity of [place] 4.2.7.2.686 Kiek as SLICK?BLEA [phone] [facility] [address] [place] MEDICAL OFFICE [facility] 2022-02-11 2022-02-11 Outpatient R ELOISA [facility] [id number] Univers 11:20:00 12:21:36 [facility] 2022-02-11 2022-02-11 [facility] [id number] Univers 11:20:00 11:20:00 [facility] 2022-02-11 2022-02-11 [facility] 1.2.840.114 [id number] Univers 00:00:00 00:00:00 (Out) [facility] 350.1.13.10 ity [facility] 4.2.7.2.686 Kike as SLICK?BLEA [id number] [facility] [address] [place] MEDICAL OFFICE [facility] 2022-02-08 2022-02-08 Outpatient R KEYSHAMARY [facility] [id number] Univers 16:20:00 16:50:36 RANIA [facility] 2022-02-08 2022-02-08 Urgent Portia Gray [facility] 1.2.840.114 [id number] Univers 16:20:00 16:40:00 Care [facility] 350.1.13.10 ity [facility] 4.2.7.2.686 Kike as SLICK?BLEA [id number] [facility] [address] [place] MEDICAL OFFICE [facility] 2021-09-20 2021-09-[address] 1.2.840.114 [id number] Univers 11:00:00 11:34:43 Care Beccamira, [facility] HEALTH 350.1.13.10 ity of [place] 4.2.7.2.686 Kike as SLICK?BLEA [phone] [facility] [address] MEDICAL OFFICE [facility] 2021-09-20 2021-09-20 [facility] [id number] Univers 11:00:00 11:34:43 QUNES ity of [facility] 2021-09-20 2021-09-20 Orders Doctor JUWAN 1.2.840.114 [id number] Univers 00:00:00 00:00:00 Only Unassigned, YOVANA 350.1.13.[address] [place] [facility] 4.2.7.2.686 Kike as [id number] [address] 2021-09-19 2021-09-19 Outpatient R ANDREW, [facility] [id number] Univers 19:20:00 19:20:00 ATTENDING ity of [facility] 2021-09-19 2021-09-19 [facility] 1.2.840.114 [id number] Univers 00:00:00 00:00:[address] [facility] 350.1.13.10 ity of [place] 4.2.7.2.686 Kike as SLICK?BLEA [id number] [address] MEDICAL OFFICE BUILDING 2021-06-10 2021-06-10 Outpatient R SUSANA [facility] [id number] Univers 17:00:00 18:43:38 REN ity [facility] 2021-06-10 2021-06-10 Urgent Unknown, Attending 1.2.840.1 [id number] Univers 17:00:00 18:43:38 Ren Mcdonnell 78234.1.1 ity of 3.104.2.7 [place] .3.487875 Medica l .[address] [place] 2021-06-10 2021-06-10 Travel 1.2.840.1 [id number] [id number] Univers 00:00:00 00:00:00 22753.1.1 350.1.13.10 ity of 3.104.2.7 4[place].3.698 [place] .3.084462 084.8 Medica l .[address] [place] 2020-09-04 2020-09-04 Outpatient [facility] [id number] Univers 14:40:00 14:40:00 ity of [facility] 2020-08-07 2020-08-07 Outpatient [facility] [id number] Univers 12:40:00 12:40:00 [facility] 2020-05-24 2020-05-24 Outpatient R CHERYL, [facility] [id number] Univers 08:45:00 08:45:00 ANTONI [facility] Results Test Description Test Time Test Comments Results Result Comments Source POCT TEST 2023-03-06 23:50:00 Test Item Value Reference Range Interpretation Comme nts POCT PREG (test code = 1605) Negative On board controls acceptable with C Line (test code = 3574) Yes POCT PREG LOT # (test code = 3575) POCT PREG TEST DATE (test code = 3576) [id number] 23:50:00 Test Item Value Reference Range Interpretation Comments POCT PREG (test code = 1605) Negative On board controls acceptable with C Yes Line (test code = 3574) POCT PREG LOT # (test code = 3575) POCT PREG TEST DATE (test code = 3576) [facility] URINALYSIS W SPECIFIC [id number] 23:31:00 Test Item Value Reference Range Interpretation Comments POCT U SP GRAV (test code = 1.010 mg/dl 1.005-1.025 5) POCT PH U (test code = 3254) 7 mg/dl 5-8 POCT U LEUK EST (test code = trace Negative - Negative 3263) POCT U NIT (test code = 3262) neg Negative - Negative POCT U PROT (test code = neg Negative - Negative 3259) POCT U GLU (test code = 3256) normal Negative - Negative POCT U KETONE (test code = neg Negative - Negative 3258) POCT U UROBILI (test code = normal 0.2-1 3260) POCT U BILI (test code = neg Negative - Negative 3261) POCT U BLD (test code = 3257) neg Negative - Negative POCT U COLOR (test code = dark yellow 3266) POCT U APPEAR (test code = clear 3267) [facility] URINALYSIS W SPECIFIC [id number] 23:31:00 Test Item Value Reference Range Interpretation Comments POCT U SP GRAV (test code = 1.010 mg/dl 1.005-1.025 3255) POCT PH U (test code = 3254) 7 mg/dl 5-8 POCT U LEUK EST (test code = trace Negative - Negative 3262) POCT U NIT (test code = 3262) neg Negative - Negative POCT U PROT (test code = neg Negative - Negative 9) POCT U GLU (test code = 3256) normal Negative - Negative POCT U KETONE (test code = neg Negative - Negative 8) POCT U UROBILI (test code = normal 0.2-1 0) POCT U BILI (test code = neg Negative - Negative 3260) POCT U BLD (test code = 3257) neg Negative - Negative POCT U COLOR (test code = dark yellow 6) POCT U APPEAR (test code = clear 7) [facility] SARS-COV-2 ANTIGEN (BINAX NOW)2022-06-30 20:18:00 Test Item Value Reference Range Interpretation Comments POCT SARS-COV-2 ANTIGEN (test Not Detected Not Detected code = 17947-8) On board controls acceptable Yes with C Line (test code = 3574) [facility] [id number] 14:26:00 Test Item Value Reference Range Interpretation Comments POCT PREG (test code = 1605) Negative On board controls acceptable with C Yes Line (test code = 3574) POCT PREG LOT # (test code = 3575) POCT PREG TEST DATE (test code = 3576) [facility] URINALYSIS W SPECIFIC [id number] 14:21:00 Test Item Value Reference Range Interpretation Comments POCT U SP GRAV (test code = 1.010 mg/dl 1.005-1.025 5) POCT PH U (test code = 3254) 7 mg/dl 5-8 POCT U LEUK EST (test code = ++ Negative - Negative 3262) POCT U NIT (test code = 3262) negative Negative - Negative POCT U PROT (test code = Negative - Negative 9) POCT U GLU (test code = 3256) normal Negative - Negative POCT U KETONE (test code = negative Negative - Negative 3257) POCT U UROBILI (test code = normal 0.2-1 3260) POCT U BILI (test code = negative Negative - Negative 3261) POCT U BLD (test code = 3257) negative Negative - Negative POCT U COLOR (test code = yellow 3266) POCT U APPEAR (test code = clear 3267) [facility], NAAT, [id number] 11:31:42 Test Item Value Reference Range Interpretation Comments GONORRHEA, NAAT NEGATIVE NEGATIVE IMPORTA NT NOTICE: SEE (test code = [place] [address]) [email or web address] Note: Assay methodology is nucleic acid amplification b y senior tax accountant m ediated amplification ( TMA) utilizing the A ptima Combo 2 Assay. IM PORTANT NOTICE: SEE JAMILAH OUNCEMENT AT [email or web address] Note: Assay methodology is nucleic acid amplification b y senior tax accountant m ediated amplification ( TMA) utilizing the A ptima Combo 2 Assay. CHLAMYDIA, NAAT NEGATIVE NEGATIVE IMPORTA NT NOTICE: SEE (test code = [place] [address]) [email or web address] Note: Assay methodology is nucleic acid amplification b y senior tax accountant m ediated amplification ( TMA) utilizing the A ptima Combo 2 Assay. IM PORTANT NOTICE: SEE JAMILAH OUNCEMENT AT [email or web address] Note: Assay methodology is nucleic acid amplification b y senior tax accountant m ediated amplification ( TMA) utilizing the A ptima Combo 2 Assay. PAP TEST, THINPREP, [id number] 10:40:24 Test Item Value Reference Range Interpretation Comments SOURCE: (test code = Cervical 8001) SLIDES: (test code = 1 8011) LMP: (test code = 10/13/2021 8021) SPECIMEN ADEQUACY: (NOTE) Satisfac tory for (test code = 51033) evaluati on. Endocervical cells/transform ation zone component present. INTERPRETATION: ASCUS/EPITH. A --------- (test code = 04060) ABNORMALITY; -------- SEE BELOW ------ ------- EPITHELIAL CELL ABNORMALITY Atypical squamo us cells of undete rmined significance (ASC-US)------- ------ ------ ------ RETAIL PARTS PROFESSIONAL: Jennifer Vazquez (test code = 8101) NIMO Lynne(ASCP)I PATHOLOGIST Annalise Swan INTERPRETATION BY: (test code = 8122) LOCATION: (test code (NOTE) Specime ns processed = 56194) at [facility] ALICE App [facility], [address] [place] [address], Phone: , CLIA: [id number] interpreted at [facility], [address], [place] [address], Phone: , CLIA: [id number] CPT: (test code = (NOTE) 69175, 881 41 UNLESS 8140) OTHERWISE INDIC ATED, [...] OTHERWISE INDIC ATED, ALL TESTING PER FORMED [facility] [place] [place] [address] [facility] DIRECTOR: RADHA ALEMAN M.D. CLIA NUMBER [id number] CAP ACCREDITATION N O. [id number] VAGINAL PATHOGENS DNA [id number] 14:48:29 Test Item Value Reference Range Interpretation Comments CHARLES SPECIES (test code = 70705) NEGATIVE NEGATIVE G. VAGINALIS (test code = 24887) POSITIVE NEGATIVE A T. VAGINALIS (test code = 54701) NEGATIVE NEGATIVE HEPATITIS PANEL, [id number] 04:04:35 Test Item Value Reference Range Interpretation Comments HEPATITIS A IgM (test NON-REACTIVE NON-REACTIVE code = 59411) HEPATITIS B CORE IgM NON-REACTIVE NON-REACTIVE (test code = 4644) HEPATITIS B SURF AG NON-REACTIVE NON-REACTIVE (test code = 2739) HEPATITIS C ANTIBODY NON-REACTIVE NON-REACTIVE (test code = 4675) INTERPRETATION (NOTE) Hepatitis A HEPATITIS A: (test serology shows no code = 2552) evidence of acu te hepatitis A. INTERPRETATION (NOTE) Hepatitis B HEPATITIS B: (test serology shows no code = 59041) evidence of ac [place] hepatitis B and no indication of exposure to hepatitis B vir us in the previous si xto eight months. INTERPRETATION (NOTE) Hepatitis C HEPATITIS C: (test serology shows no code = 76171) evidence of ex posure to hepatitisC v irus at this time. I t can take up to 12 m onths after exposure tothe hepatitis C vir us for antibodies to become detectab le in the blood in ce rtain patients. UNLES S OTHERWISE INDIC ATED, ALL TESTING PERFORMED [facility], [id number] [place] [address] DIRECTOR: RADHA ALEMAN M.D. CLIA NUMBER [id number] [place] [id number] HIV 1/2 4TH GEN, RFLX [id number] 04:04:35 Test Item Value Reference Range Interpretation Comments HIV 1/2 4TH GEN, RFLX CONF (test NON-REACTIVE NON-REACTIVE code = 3514) [id number] 02:50:30 Test Item Value Reference Range Interpretation Comments RPR RESULT (test code = NON-REACTIVE NON-REACTIVE 3501) RPR TITER (test code = 3500) NOT INDIC. TITER NOT INDIC.
--- NOTE | 2023-03-12 08:40 | ER ---
Nurse's Notes [facility] Name: Annabel Chamberlain Age: 27 yrs Sex: Female : 1995 Arrival Date: 03/12/2023 Time: 08:28 Bed 5 Private MD: Diagnosis: Aphthous Ulcer;Acute gingivitis;Chills (without fever) Presentation: 03/12 08:36 Chief complaint: Patient states: Sores to tongues mouth since Friday. Fever and ll1 nausea last night. + FERRARI and body aches. Coronavirus screen: Client denies travel out of the [place] in the last 14 days. fatigue, fever, headache, nausea, Client presents with at least one sign or symptom that may indicate coronavirus-19. Standard/surgical mask placed on the client. Ebola Screen: Patient denies travel to an Ebola-affected area in the 21 days before illness onset. Initial Sepsis Screen: Does the patient meet any 2 criteria? No. Patient's initial sepsis screen is negative. Does the patient have a suspected source of infection? No. Patient's initial sepsis screen is negative. Risk Assessment: Do you want to hurt yourself or someone else? Patient reports no desire to harm self or others. Onset of symptoms was March 08, 2023. 08:36 Method Of Arrival: Ambulatory ll1 08:36 Acuity: STEVEN 4 ll1 Historical: - Allergies: 08:37 No Known Drug Allergies; ll1 - PMHx: 08:37 Anxiety; Asthma; Depression; Pancreatitis; Seizures; ll1 - PSHx: 08:37 Cholecystectomy; ll1 - Immunization history:: Adult Immunizations up to date. - Social history:: Smoking status: Patient denies any tobacco usage or history of. Vital Signs: 08:36 BP 133 / 85; Pulse 66; Resp 17; Temp 98.7; Pulse Ox 99% ; Pain 8/10; ll1 08:36 Pain Scale: Adult ll1 ED Course: 08:29 Patient arrived in ED. rg4 08:31 Ritchie Hamilton DO is Attending Physician. ms3 08:37 Triage completed. ll1 08:37 Arm band placed on Patient placed in an exam room, on a stretcher. ll1 08:39 Shady Salter DO is Referral Physician. ms3 08:42 Andria Washington, RN is Primary Nurse. iw Administered Medications: No medications were administered Outcome: 08:40 Discharge ordered by . ms3 09:07 Patient left the ED. iw Signatures: Andria Washington, RN RN Jacquelyn Yap rg4 Nima Gómez RN RN ll1 Ritchie Hamilton DO DO ms3
[2023-03-12 09:22] VITALS: BP 133/85; TEMP 98.7; O2SAT 99
--- NOTE | 2023-03-13 09:08 | EDPHYS ---
Physician Documentation [facility] Name: Annabel Chamberlain Age: 27 yrs Sex: Female : 1995 Arrival Date: 03/12/2023 Time: 08:28 Bed 5 Private MD: ED Physician Ritchie Hamilton HPI: 03/12 08:40 This 27 yrs old Female presents to ER via Ambulatory with complaints of Fever, Sore ms3 Throat, Blisters In Mouth. 08:40 27-year-old female with past medical history of anxiety, asthma, depression, ms3 pancreatitis, seizures presents to the emergency department for blisters on her tongue and right inner cheek. Patient states she developed fevers last night. Patient denies vomiting, headache. Patient states the blisters are causing moderate pain.. Historical: - Allergies: 08:37 No Known Drug Allergies; ll1 - PMHx: 08:37 Anxiety; Asthma; Depression; Pancreatitis; Seizures; ll1 - PSHx: 08:37 Cholecystectomy; ll1 - Immunization history:: Adult Immunizations up to date. - Social history:: Smoking status: Patient denies any tobacco usage or history of. ROS: 08:40 Neck: Negative for injury, pain, and swelling, Cardiovascular: Negative for chest pain, ms3 and palpitations. Respiratory: Negative for shortness of breath, cough, wheezing, and pleuritic chest pain, Abdomen/GI: Negative for abdominal pain, nausea, vomiting, diarrhea, and constipation, MS/Extremity: Negative for injury and deformity, Skin: Negative for injury, rash, and discoloration, 08:40 Constitutional: Positive for chills, fever, 08:40 ENT: Positive for Ulcerations of mouth, 08:40 All other systems are negative, Exam: 08:40 Constitutional: This is a well developed, well nourished patient who is awake, alert, ms3 and in no acute distress. Head/Face: Normocephalic, atraumatic. Neck: Trachea midline, no cervical lymphadenopathy. Supple, full range of motion without nuchal rigidity, or vertebral point tenderness. No Meningismus. Chest/axilla: Normal chest wall appearance and motion. Nontender with no deformity. Cardiovascular: Regular rate and rhythm with a normal S1 and S2. No gallops, murmurs, or rubs. Normal PMI, no JVD. No pulse deficits. Respiratory: Lungs have equal breath sounds bilaterally, clear to auscultation and percussion. No rales, rhonchi or wheezes noted. No increased work of breathing, no retractions or nasal flaring. Abdomen/GI: Soft, non-tender, with normal bowel sounds. No distension or tympany. No guarding or rebound. No evidence of tenderness throughout. Skin: Warm, dry with normal turgor. Normal color with no rashes, no lesions, and no evidence of cellulitis. 08:40 ENT: Mouth: Oral mucosa: noted to have ulceration(s), on the tongue, right frontal inner cheek, Gums: reddened, Vital Signs: 08:36 BP 133 / 85; Pulse 66; Resp 17; Temp 98.7; Pulse Ox 99% ; Pain 8/10; ll1 08:36 Pain Scale: Adult ll1 MDM: 08:38 Patient medically screened. ms3 08:40 Differential diagnosis: viral Infection, Stomatitis versus aphthous ulcer. Data ms3 reviewed: vital signs, nurses notes, and as a result, I will discharge patient. Counseling: I had a detailed discussion with the patient and/or guardian regarding the historical points, exam findings, and any diagnostic results supporting the discharge/admit diagnosis, the need for outpatient follow up, to return to the emergency department if symptoms worsen or persist or if there are any questions or concerns that arise at home. Special discussion: I discussed with the patient/guardian in detail that at this point there is no indication for admission to the hospital. It is understood, however, that if the symptoms persist or worsen the patient needs to return immediately for re-evaluation. Administered Medications: No medications were administered Disposition: 09:47 Chart complete. ms3 Disposition Summary: 03/12/23 08:40 Discharge Ordered Notes: Location: Home ms3 Condition: Stable ms3 Diagnosis - Aphthous Ulcer ms3 - Acute gingivitis ms3 - Chills (without fever) ms3 Followup: ms3 - With: Shady Salter DO - When: 2 - 3 days - Reason: Recheck today's complaints Discharge Instructions: - Discharge Summary Sheet ms3 - Gingivitis, Ujff-ot-[id number] ms3 - Stomatitis, [id number]-ko-Hqcl ms3 Forms: - Work release form iw - Medication Reconciliation Form ms3 - Thank You Letter ms3 - Antibiotic Education ms3 - Prescription Opioid Use ms3 - Patient Portal Instructions ms3 - Leadership Thank You Letter ms3 Signatures: Nima Gómez, RN RN ll1 Ritchie Hamilton, DO ms3
== END 2023-03-12 09:07 | disposition home or self-care (01) ==
LOC: ER 08:28
DX: K12.0 Recurrent oral aphthae (principal); K05.00 Acute gingivitis, plaque induced

== ENCOUNTER → 2023-06-09 | Emergency (ER) | payer OTHER ==
[~2023-06-09] MED LIST: FAMOTIDINE 20 MG/2 ML VIAL IV ONE; NA CHLORIDE 0.9% 1,000 ML ONE; ONDANSETRON 4 MG/2 ML VIAL ONE
--- OUTSIDE RECORDS SUMMARY | 2023-06-09 07:02 | XMS REPORT | Continuity of Care Document ---
Author Name Unknown Address [address] [place] [address] [facility] thconnect Address 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 [id number] Antoni Lee 2022-09-16 14:28:09 2022-09-16 14:28:09 Outpatient [facility] [id number] Antoni Echevarria Jesus 2022-04-27 09:05:52 2022-04-27 09:05:52 Outpatient [facility] [id number] Antoni Lee 2022-04-26 12:05:12 2022-04-26 12:05:12 Outpatient [facility] [id number] Antoni Lee Results Test Description Test Time Test Comments Results Result Co mments Source PAP TEST, THINPREP, [id number] 10:40:24* Test Item Value Reference Range Interpretation Comme nts SOURCE: (test code = 8001) Cervical SLIDES: (test code = 8011) 1 LMP: (test code = 8021) 10/13/2021 SPECIMEN ADEQUACY: (test code = 79174) (NOTE) Satisfactory for evaluation. Endocervical cells/transformation zone component present. INTERPRETATION: (test code = 66697) ASCUS/EPITH. ABNORMALITY; SEE BELOW A - ------- EPITHELIAL CELL ABNORMALITY Atypical squamous cells of undetermined significance (ASC-US) RN PALLIATIVE: (test code = 8101) NIMO Mclean(ASCP)I AC PATHOLOGIST INTERPRETATION BY: (test code = 8122) Annalise Swan LOCATION: (test code = 56555) (NOTE) Specimens proces sed at [facility], [address] [place] [address], , CLIA: [id number] interpreted at [facility] Pathology Dept, [address] [place] [address] [place] [address], , CLIA: [id number] CPT: (test code = 8140) (NOTE) 306[address], 17473 UNL ESS OTHERWISE INDICATED, COMPUTER AIDED AND RN PALLIATIVE SCREENING PERFORMED. The Pap test is a screening test with an inherent, but low probability of error. Your patient should be reminded to consult you immediately if she experiences any suspicious signs or symptoms, regardless of her Pap test result. An alternate report format containing images or consolidated prior Pap history is available as applicable. UNLESS OTHERWISE INDICATED, ALL TESTING PERFORMED [facility] [employer], [facility]. [address] [place] [address] OUTSIDE ENERGY SALES REPRESENTATIVES: RADHA ALEMAN M.D. CLIA NUMBER [id number] [facility] [place]. [id number] [facility] DNA [id number] 14:48:29* Test Item Value Reference Range Interpretation Comme nts CHARLES SPECIES (test code = 01506) NEGATIVE NEGATIVE G. VAGINALIS (test code = ) POSITIVE NEGATIVE A T. VAGINALIS (test code = 27297) NEGATIVE NEGATIVE HEPATITIS PANEL, [id number] 04:04:35* Test Item Value Reference Range Interpretation Comme nts HEPATITIS A IgM (test code = 50384) NON-REACTIVE NON-REACTIVE HEPATITIS B CORE IgM (test code = 4644) NON-REACTIVE NON-REACTIVE HEPATITIS B SURF AG (test code = 2739) NON-REACTIVE NON-REACTIVE HEPATITIS C ANTIBODY (test code = 4675) NON-REACTIVE NON-REACTIVE INTERPRETATION HEPATITIS A: (test code = 2552) (NOTE) Hepatitis A sero logy shows no evidence of acute hepatitis A. INTERPRETATION HEPATITIS B: (test code = 99921) (NOTE) Hepatitis B sero logy shows no evidence of acute hepatitis B andno indication of exposure to hepatitis B virus in the previous chicho eight months. INTERPRETATION HEPATITIS C: (test code = 45390) (NOTE) Hepatitis C sero logy shows no evidence of exposure to hepatitisC virus at this time. It can take up to 12 months after exposure tothe hepatitis C virus for antibodies to become detectable in the blood in certain patients. UNLESS OTHERWISE INDICATED, ALL TESTING PERFORMED [facility] [employer] [address] [place] [address] OUTSIDE ENERGY SALES REPRESENTATIVES: RADHA ALEMAN M.D. CLIA NUMBER [id number] [facility] [place]. [id number] HIV 1/2 4TH GEN, RFLX [id number] 04:04:35* Test Item Value Reference Range Interpretation Comme nts HIV 1/2 4TH GEN, RFLX CONF ( test code = 3514) NON-REACTIVE NON-REACTIVE [id number] 02:50:30* Test Item Value Reference Range Interpretation Comme nts RPR RESULT (test code = 3501) NON-REACTIVE NON-REACTIVE RPR TITER (test code = 3500) NOT INDIC. TITER NOT INDIC.
[2023-06-09 08:48] LABS: Absolute Lymphocytes (CBC) 1.3 K/uL (0.7-4.9); Hematocrit 33.7 % (36.0-45.0); Lymphocytes % 37.4 % (15.3-44.8); MPV 8.8 fL (7.6-11.3); Platelets 348 thou/uL (152-406); RBC Red Blood Cell Count 4.21 M/uL (3.86-4.86)
[2023-06-09 09:06] LABS: Specific Gravity 1.019 (1.005-1.030)
[2023-06-09 09:07] LABS: Albumin 3.8 g/dL (3.4-5.0); Bilirubin Total 0.3 mg/dL (0.2-1.0); Potassium 3.6 mEq/L (3.5-5.1); Protein, Total 7.5 g/dL (6.4-8.2)
[2023-06-09 09:28] LABS: Specific Gravity 1.019 (1.005-1.030); Urine Bacteria <20 /HPF (<20); Urine Bilirubin NEGATIVE (Negative); Urine Blood 3+ (Negative); Urine Clarity Turbid (Clear); Urine Color Light-Yellow (Yellow); Urine Glucose NEGATIVE (Negative); Urine Mucus 2+ /HPF (None Seen); Urine Protein NEGATIVE (Negative); Urine RBC <5 /HPF (None Seen); Urine Urobilinogen Normal (Normal)
--- NOTE | 2023-06-09 09:31 | RAD REPORT ---
EXAM DESCRIPTION: CTAbdomen Pelvis W Contrast - 06/09/2023 9:18 am CLINICAL HISTORY: Abdominal pain. ABD PAIN COMPARISON: Abdomen Pelvis W Contrast dated 01/27/2023; Abdomen Pelvis W Contrast dated 06/27/2020 ; CT ABD PELVIS W CONTRAST dated 08/17/2015 TECHNIQUE: Biphasic CT imaging of the abdomen and pelvis was performed with 100 ml non-ionic IV cont rast. All CT scans are performed using dose optimization technique as appropriate and may include automated exposure control or mA/KV adjustment according to patient size. FINDINGS: The lung bases are clear.Cholecystectomy. The liver, spleen, pancreas, adrenal glands and left kidney are within normal limits. 5 mm calculus i nferior right kidney without hydronephrosis. No bowel obstruction, free air, free fluid or abscess. The appendix is not identified as a discrete structure, however, no secondary findings of appendicitis are identified. No evidence of significan t lymphadenopathy. No suspicious bony findings. IMPRESSION: No acute intra-abdominal or pelvic finding. 5 mm calculus inferior right kidney without hydronephrosis.
--- NOTE | 2023-06-09 12:36 | ER ---
Nurse's Notes [facility] Name: Annabel Chamberlain Age: 27 yrs Sex: Female : 1995 Arrival Date: 06/09/2023 Time: 06:59 Bed 14 Private MD: Diagnosis: Abdominal pain, Generalized Presentation: 06/09 07:23 Chief complaint: Patient states: diarrhea since June 05 , had it in May, was iw seen at [place] and followed up with GI and it's not better, also has upper abd pain. Coronavirus screen: At this time, the client does not indicate any symptoms associated with coronavirus-19. Ebola Screen: Patient negative for fever greater than or equal to 101.5 degrees Fahrenheit, and additional compatible Ebola Virus Disease symptoms Patient denies exposure to infectious person. Patient denies travel to an Ebola-affected area in the 21 days before illness onset. No symptoms or risks identified at this time. Risk Assessment: Do you want to hurt yourself or someone else? Patient reports no desire to harm self or others. 07:23 Method Of Arrival: EMS iw 07:23 Acuity: STEVEN 3 iw 13:04 Initial Sepsis Screen: Does the patient meet any 2 criteria? No. Patient's initial cp4 sepsis screen is negative. Does the patient have a suspected source of infection? No. Patient's initial sepsis screen is negative. Onset of symptoms was June 09, 2023. Triage Assessment: 13:04 General: Appears in no apparent distress. Behavior is calm, cooperative, appropriate cp4 for age. 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 - Social history:: Smoking status: Patient denies any tobacco usage or history of. Screenin:02 [facility] ED Fall Risk Assessment (Adult) History of falling in the last 3 months, cp4 including since admission No falls in past 3 months (0 pts). [facility] ED Fall Risk Assessment (Adult) Confusion or Disorientation No (0 pts) Intoxicated or Sedated No (0 pts) Impaired Gait No (0 pts) Mobility Assist Device Used No (0 pt) Altered Elimination No (0 pt) Score/Fall Risk Level 0 - 2 = Low Risk Oriented to surroundings, Maintained a safe environment, Educated pt \T\ family on fall prevention, incl call for assistance when getting out of bed, Assessed \T\ reinforced patient's understanding of fall precautions, Provided non-skid footwear, Hourly rounding (assess needs \T\ fall precautionary measures) done. Abuse screen: Denies injuries from another. Nutritional screening: No deficits noted. Tuberculosis screening: No symptoms or risk factors identified. Assessment: 13:02 Pain: Complains of pain in abdomen. GI: Bowel sounds present X 4 quads. Abd is soft and cp4 non tender X 4 quads. Vital Signs: 08:17 BP 107 / 57; Pulse 73; Resp 16; Temp 97.5; Pulse Ox 99% on R/A; Weight 79.38 kg; Height iw 5 ft. 1 in. ; Pain 8/10; 09:00 BP 101 / 67; Pulse 52; Resp 16; Pulse Ox 100% ; cp4 13:01 BP 106 / 64; Pulse 67; Resp 18; Pulse Ox 100% ; cp4 08:17 Body Mass Index 33.07 (79.38 kg, 154.94 cm) iw 08:17 Pain Scale: Adult iw ED Course: 07:02 Patient arrived in ED. rg4 07:03 Ritchie Hamilton DO is Attending Physician. ms3 07:24 Triage completed. iw 08:17 Andria Washington, RN is Primary Nurse. iw 08:18 Arm band placed on. iw 08:43 CBC with Diff Sent. bc6 08:43 CMP Sent. bc6 08:43 Lipase Sent. bc6 08:43 Inserted saline lock: 22 gauge in right antecubital area, using aseptic technique. bc6 Blood collected. 08:56 Test, Urine Sent. bc6 08:56 Urinalysis w/ reflexes Sent. bc6 09:20 CT Abd/Pelvis - IV Contrast Only In Process Unspecified. EDMS 12:35 Matt Rosario MD is Referral Physician. ms3 13:02 Bed in low position. Call light in reach. Side rails up X 1. Provided Education on: cp4 abdominal pain. 13:02 No provider procedures requiring assistance completed. intact, bleeding controlled, No cp4 redness/swelling at site. Pressure dressing applied. Administered Medications: 08:45 Drug: Famotidine IVP 20 mg IVP once; dilute with 10 mL 0.9% NaCl; give over 2 minutes iw Route: IVP; Site: right antecubital; 13:00 Follow up: Response: No adverse reaction cp4 08:45 Drug: Ondansetron IVP 4 mg IVP once; over 2 minutes Route: IVP; Site: right antecubital;iw 13:01 Follow up: Response: No adverse reaction cp4 09:35 Drug: NS 0.9% IV 1000 ml IV at 1 bolus Per protocol; 1000 mL bolus Route: IV; Rate: 1 cp4 bolus; Site: right antecubital; 10:00 Follow up: Response: No adverse reaction; IV Status: Completed infusion cp4 Medication: 13:02 VIS not applicable for this client. cp4 Outcome: 12:35 Discharge ordered by MD. ms3 13:02 Discharged to home ambulatory, cp4 13:02 Condition: stable 13:02 Discharge instructions given to patient, Instructed on discharge instructions, follow up and referral plans. Demonstrated understanding of instructions, follow-up care, 13:09 Patient left the ED. cp4 Signatures: Dispatcher [employer] EDAndria Okeefe RN RN iw Garcia, Rubi rg4 Ritchie Hamilton DO DO ms3 Madhia England bc6 Marylu Chnug cp4
--- NOTE | 2023-06-09 12:36 | EDPHYS ---
Physician Documentation [facility] Name: Annabel Chamberlain Age: 27 yrs Sex: Female : 1995 Arrival Date: 06/09/2023 Time: 06:59 Bed 14 Private MD: ED Physician Ritchie Hamilton HPI: 06/09 07:45 This 27 yrs old Female presents to ER via EMS with complaints of Abdominal Pain. ms3 07:45 27-year-old female presents to the emergency department for abdominal pain that became ms3 worse on June 05, 2023. Patient states her discomfort is an 8/10 located in the left upper quadrant and epigastric regions. Patient endorses nausea, vomiting, diarrhea that occurs when eating. Of note patient was seen at [facility] 1 month ago and was diagnosed with colitis. Patient subsequently followed up with Dr. Rosario and had an upper and lower endoscopy without significant findings on May 22, 2023.. 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 - Social history:: Smoking status: Patient denies any tobacco usage or history of. ROS: 07:45 Constitutional: Negative for fever, and chills. Neck: Negative for injury, pain, and ms3 swelling, Cardiovascular: Negative for chest pain, and palpitations. Respiratory: Negative for shortness of breath, cough, wheezing, and pleuritic chest pain, 07:45 Skin: Negative for injury, rash, and discoloration, 07:45 Abdomen/GI: Positive for abdominal pain, nausea, vomiting, and diarrhea, 07:45 All other systems are negative, Exam: 07:45 Constitutional: This is a well developed, well nourished patient who is awake, alert, ms3 and in no acute distress. Head/Face: Normocephalic, atraumatic. Neck: Trachea midline, no cervical lymphadenopathy. Supple, full range of motion without nuchal rigidity, or vertebral point tenderness. No Meningismus. Chest/axilla: Normal chest wall appearance and motion. Nontender with no deformity. Cardiovascular: Regular rate and rhythm with a normal S1 and S2. No gallops, murmurs, or rubs. Normal PMI, no JVD. No pulse deficits. Respiratory: Lungs have equal breath sounds bilaterally, clear to auscultation and percussion. No rales, rhonchi or wheezes noted. No increased work of breathing, no retractions or nasal flaring. 07:45 Abdomen/GI: Inspection: abdomen appears normal, Bowel sounds: normal, Palpation: moderate abdominal tenderness, in the epigastric area and right upper quadrant, Vital Signs: 08:17 BP 107 / 57; Pulse 73; Resp 16; Temp 97.5; Pulse Ox 99% on R/A; Weight 79.38 kg; Height iw 5 ft. 1 in. ; Pain 8/10; 09:00 BP 101 / 67; Pulse 52; Resp 16; Pulse Ox 100% ; cp4 13:01 BP 106 / 64; Pulse 67; Resp 18; Pulse Ox 100% ; cp4 08:17 Body Mass Index 33.07 (79.38 kg, 154.94 cm) iw 08:17 Pain Scale: Adult iw MDM: 07:16 Patient medically screened. ms3 07:45 Differential diagnosis: gastritis, non-specific abd pain, pancreatitis, Peptic Ulcer ms3 Disease. 12:35 Data reviewed: vital signs, nurses notes, and as a result, I will discharge patient. I ms3 considered the following discharge prescriptions or medication management in the emergency department Medications were administered in the Emergency Department. See MAR. Counseling: I had a detailed discussion with the patient and/or guardian regarding the historical points, exam findings, and any diagnostic results supporting the discharge/admit diagnosis, lab results, radiology results, the need for outpatient follow up, to return to the emergency department if symptoms worsen or persist or if there are any questions or concerns that arise at home. Special discussion: I discussed with the patient/guardian in detail that at this point there is no indication for admission to the hospital. It is understood, however, that if the symptoms persist or worsen the patient needs to return immediately for re-evaluation. ED course: Discussed labs, imaging with patient and her mother. Patient to follow-up with Dr. Rosario in 2 to 3 days. Patient understands and agrees with plan. All questions were answered. Return precautions discussed include worsening symptoms, or any other concerns. On reevaluation patient is improved, alert and orient x 4, no apparent distress, nontoxic-appearing, tolerating p.o.. 06/09 07:33 Order name: CBC with Diff; Complete Time: 10:08 ms3 06/09 07:33 Order name: CMP; Complete Time: 10:08 ms3 06/09 07:33 Order name: Lipase; Complete Time: 10:08 ms3 06/09 07:33 Order name: Test, Urine; Complete Time: 10:08 ms3 06/09 07:33 Order name: Urinalysis w/ reflexes; Complete Time: 10:08 ms3 06/09 07:33 Order name: CT Abd/Pelvis - IV Contrast Only; Complete Time: 10:08 ms3 06/09 07:33 Order name: IV Saline Lock; Complete Time: 08:43 ms3 06/09 07:33 Order name: Labs collected and sent; Complete Time: 08:43 ms3 Administered Medications: 08:45 Drug: Famotidine IVP 20 mg IVP once; dilute with 10 mL 0.9% NaCl; give over 2 minutes iw Route: IVP; Site: right antecubital; 13:00 Follow up: Response: No adverse reaction cp4 08:45 Drug: Ondansetron IVP 4 mg IVP once; over 2 minutes Route: IVP; Site: right antecubital;iw 13:01 Follow up: Response: No adverse reaction cp4 09:35 Drug: NS 0.9% IV 1000 ml IV at 1 bolus Per protocol; 1000 mL bolus Route: IV; Rate: 1 cp4 bolus; Site: right antecubital; 10:00 Follow up: Response: No adverse reaction; IV Status: Completed infusion cp4 Disposition Summary: 06/09/23 12:35 Discharge Ordered Notes: Location: Home ms3 Condition: Stable ms3 Diagnosis - Abdominal pain, Generalized ms3 Followup: ms3 - With: Matt Rosario MD - When: 2 - 3 days - Reason: Recheck today's complaints Discharge Instructions: - Discharge Summary Sheet ms3 - Abdominal Pain, Adult ms3 Forms: - Work release form rg4 - Medication Reconciliation Form ms3 - Thank You Letter ms3 - Antibiotic Education ms3 - Prescription Opioid Use ms3 - Patient Portal Instructions ms3 - Leadership Thank You Letter ms3 Signatures: Dispatcher [employer] TALITA Washington, Andria, RN RN iw Ritchie Hamilton DO DO ms3 Marylu Chung cp4
[2023-06-09 13:32] VITALS: TEMP 97.5
[2023-06-09 13:49] VITALS: BP 106/64; O2SAT 100
== END ==
LOC: ER 06:59
DX: R10.84 Generalized abdominal pain (principal); R11.2 Nausea with vomiting, unspecified
CPT/HCPCS: 85025; 81001; 36415; 81025; 83690; 80053; 74177; 96375; 96374; 99284; Q9967; J2405; J7030

== ENCOUNTER 2024-06-29 09:54 | Emergency (ER) | payer OTHER ==
[2024-06-29] MEDS ORDERED: KETOROLAC 30 MG/ML INJ ONE (11:10)
[2024-06-29] MEDS ORDERED: DIPHENHYDRAMINE 50 MG/ML VIAL ONE (11:10)
[2024-06-29] MEDS ORDERED: METOCLOPRAMIDE 10 MG/2mL INJ ONE (11:11)
[2024-06-29] MEDS ORDERED: NA CHLORIDE 0.9% 1,000 ML ONE (11:11)
--- NOTE | 2024-06-29 11:56 | EDPHYS ---
Physician Documentation [facility] Name: Annabel Chamberlain Age: 29 yrs Sex: Female : 1995 Arrival Date: 06/29/2024 Time: 09:54 Bed 20 Private MD: ED Physician Ritchie Hamilton HPI: 06/29 11:04 This 29 yrs old Female presents to ER via Ambulatory with complaints of Headache, Neck ms3 Pain, >24Hrs Old. 11:04 29 year old female presents to the Emergency Department with a headache that has ms3 persisted for a week and a half. The headache began in the front of her head, the pain is now localized on the left side, and extends through the back of the ears. She rates the pain as a 10 out of 10 on the severity scale. This is the first occurrence of such a headache for the patient. Associated symptoms include nausea and lightheadedness, but no vomiting. The patient reports not having any fevers or chills.. 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 - Infectious Disease History:: Denies. - Social history:: Smoking status: Reported history of juuling and/or vaping. ROS: 11:04 Constitutional: Negative for fever, and chills. Cardiovascular: Negative for chest ms3 pain, and palpitations. Respiratory: Negative for shortness of breath, cough, wheezing, and pleuritic chest pain, Abdomen/GI: Negative for abdominal pain, nausea, vomiting, diarrhea, and constipation, MS/Extremity: Negative for injury and deformity, 11:04 Neuro: Positive for headache, Exam: 11:04 Constitutional: This is a well developed, well nourished patient who is awake, alert, ms3 and in no acute distress. Cardiovascular: Regular rate and rhythm with a normal S1 and S2. No gallops, murmurs, or rubs. Normal PMI, no JVD. No pulse deficits. Respiratory: Lungs have equal breath sounds bilaterally, clear to auscultation and percussion. No rales, rhonchi or wheezes noted. No increased work of breathing, no retractions or nasal flaring. Abdomen/GI: Soft, non-tender, with normal bowel sounds. No distension or tympany. No guarding or rebound. No evidence of tenderness throughout. Skin: Warm, dry with normal turgor. Normal color with no rashes, no lesions, and no evidence of cellulitis. Vital Signs: 10:30 BP 122 / 83; Pulse 75; Resp 17; Temp 98.6(O); Pulse Ox 100% ; Weight 81.65 kg; Height 5 ap3 ft. 1 in. ; Pain 10/10; 12:00 BP 104 / 70; Pulse 70; Resp 17 S; Temp 98.1(T); Pulse Ox 99% on R/A; ha1 10:30 Body Mass Index 34.01 (81.65 kg, 154.94 cm) ap3 10:30 Pain Scale: Adult ap3 MDM: 10:09 Medical Screening Exam initiated ms3 11:04 Differential diagnosis: migraine, tension headache, Sinusitis. ms3 11:56 Data reviewed: vital signs, nurses notes, and as a result, I will discharge patient. I ms3 considered the following discharge prescriptions or medication management in the emergency department Medications were administered in the Emergency Department. See MAR. Counseling: I had a detailed discussion with the patient and/or guardian regarding the historical points, exam findings, and any diagnostic results supporting the discharge/admit diagnosis, the need for outpatient follow up, to return to the emergency department if symptoms worsen or persist or if there are any questions or concerns that arise at home. Response to treatment: the patient's symptoms have markedly improved after treatment, and as a result, I will discharge patient. Special discussion: I discussed with the patient/guardian in detail that at this point there is no indication for admission to the hospital. It is understood, however, that if the symptoms persist or worsen the patient needs to return immediately for re-evaluation. ED course: On reevaluation patient states her symptoms are improved, patient is alert and oriented x 4, no apparent distress, nontoxic-appearing, speaking full sentences. Patient to follow-up with Dr. Kramer in 2 to 3 days. Patient understands agrees plan. All questions were answered. Return precautions discussed include worsening symptoms, or any other concerns.. Administered Medications: 11:15 Drug: Ketorolac IVP 10 mg 10 mg IVP once Route: IVP; Site: left antecubital; ha1 11:35 Follow up: Response: No adverse reaction; Marked relief of symptoms; Pain is decreased ha1 11:15 Drug: NS 0.9% IV 1000 ml IV at 1000 ml once; to be given as a bolus over 60 minutes ha1 Route: IV; Rate: 1000 ml; Site: left antecubital; 12:23 Follow up: Response: No adverse reaction; IV Status: Completed infusion; IV Intake: ha1 1000ml 11:17 Drug: metoCLOPramide IVP 10 mg IVP once; over 1 to 2 minutes Route: IVP; Site: left ha1 antecubital; 11:35 Follow up: Response: No adverse reaction; Marked relief of symptoms ha1 11:17 Drug: diphenhydrAMINE IVP 25 mg IVP once Route: IVP; Site: left antecubital; ha1 11:35 Follow up: Response: No adverse reaction; Marked relief of symptoms ha1 Disposition Summary: 06/29/24 11:56 Discharge Ordered Notes: Location: Home ms3 Condition: Stable ms3 Diagnosis - Headache ms3 Followup: ms3 - With: Jorge Kramer MD - When: 2 - 3 days - Reason: Recheck today's complaints Discharge Instructions: - Discharge Summary Sheet ms3 - General Headache Without Cause ms3 Forms: - Medication Reconciliation Form ms3 - Antibiotic Education ms3 - Prescription Opioid Use ms3 - Patient Portal Instructions ms3 - Leadership Thank You Letter ms3 Signatures: Nancy Frank RN RN ap3 Ritchie Hamilton DO DO ms3 Amy Willoughby RN RN ha1
--- NOTE | 2024-06-29 11:56 | ER ---
Nurse's Notes [facility] Name: Annabel Chamberlain Age: 29 yrs Sex: Female : 1995 Arrival Date: 06/29/2024 Time: 09:54 Bed 20 Private MD: Diagnosis: Headache Presentation: 06/29 10:30 Chief complaint: Patient states: she has had a left sided headache for approx 1.5 ap3 weeks. patient states she woke up this morning and it was worse. patient currently rates her pain as a 10/10 on the pain scale and describes the pain as "crushing". Coronavirus screen: At this time, the client does not indicate any symptoms associated with coronavirus-19. Ebola Screen: No symptoms or risks identified at this time. Initial Sepsis Screen: Does the patient meet any 2 criteria? No. Patient's initial sepsis screen is negative. Does the patient have a suspected source of infection? No. Patient's initial sepsis screen is negative. Risk Assessment: Do you want to hurt yourself or someone else? Patient reports no desire to harm self or others. Onset of symptoms is unknown. 10:30 Method Of Arrival: Ambulatory ap3 10:30 Acuity: STEVEN 3 ap3 Triage Assessment: 10:33 Headache History: Other headache for 1.5 weeks. General: Appears uncomfortable, ap3 Behavior is calm, cooperative, appropriate for age. Pain: Complains of pain in head Pain currently is 10 out of 10 on a pain scale. Pain began 1.5 weeks ago Also complains of nausea, photophobia. Neuro: Reports headache photophobia. Cardiovascular: Patient's skin is warm and dry. Respiratory: Airway is patent Respiratory effort is even, unlabored, Respiratory pattern is regular, symmetrical. GI: Reports nausea. 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 - Infectious Disease History:: Denies. - Social history:: Smoking status: Reported history of juuling and/or vaping. Screenin:34 [facility] ED Fall Risk Assessment (Adult) History of falling in the last 3 months, ap3 including since admission No falls in past 3 months (0 pts) Confusion or Disorientation No (0 pts) Intoxicated or Sedated No (0 pts) Impaired Gait No (0 pts) Mobility Assist Device Used No (0 pt) Altered Elimination No (0 pt) Score/Fall Risk Level 0 - 2 = Low Risk Oriented to surroundings, Maintained a safe environment, Educated pt \\T\\ family on fall prevention, incl call for assistance when getting out of bed, Assessed \\T\\ reinforced patient's understanding of fall precautions, Provided non-skid footwear, Used ambulatory aids as needed (educated on \\T\\ assisted with), Used gait belt as appropriate. Abuse screen: Denies threats or abuse. Nutritional screening: No deficits noted. Tuberculosis screening: No symptoms or risk factors identified. Assessment: 11:00 General: Appears uncomfortable, Behavior is calm, cooperative. Pain: Complains of pain ha1 in left side of head Pain does not radiate. Pain currently is 10 out of 10 on a pain scale. Quality of pain is described as aching, throbbing, Pain began 2-3 days ago. Neuro: Level of Consciousness is awake, alert, obeys commands, Oriented to person, place, time, situation. Cardiovascular: Capillary refill < 3 seconds Patient's skin is warm and dry. Respiratory: Airway is patent Respiratory effort is even, unlabored, Respiratory pattern is regular, symmetrical. GI: No signs and/or symptoms were reported involving the gastrointestinal system. Abdomen is round non-distended. : No signs and/or symptoms were reported regarding the genitourinary system. Derm: Skin is pink, warm \\T\\ dry. 12:00 Reassessment: Patient and/or family updated on plan of care and expected duration. Pain ha1 level reassessed. Patient is alert, oriented x 3, equal unlabored respirations, skin warm/dry/pink. pain 2/10 Patient states feeling better. Patient states symptoms have improved. Vital Signs: 10:30 BP 122 / 83; Pulse 75; Resp 17; Temp 98.6(O); Pulse Ox 100% ; Weight 81.65 kg; Height 5 ap3 ft. 1 in. ; Pain 10/10; 12:00 BP 104 / 70; Pulse 70; Resp 17 S; Temp 98.1(T); Pulse Ox 99% on R/A; ha1 10:30 Body Mass Index 34.01 (81.65 kg, 154.94 cm) ap3 10:30 Pain Scale: Adult ap3 ED Course: 09:59 Patient arrived in ED. sj2 10:04 Ritchie Hamilton DO is Attending Physician. ms3 10:19 Inserted saline lock: 20 gauge in left antecubital area, using aseptic technique. bc6 Flushed with 10 mL NS. 10:32 Triage completed. ap3 10:34 Arm band placed on right wrist. ap3 11:00 Patient has correct armband on for positive identification. Placed in gown. Bed in low ha1 position. Call light in reach. Side rails up X 1. 11:00 Provided Education on: medication administration . ha1 11:06 Amy Willoughby, SUJATA is Primary Nurse. ha1 11:55 Jorge Kramer MD is Referral Physician. ms3 12:22 No provider procedures requiring assistance completed. IV discontinued, intact, ha1 bleeding controlled, No redness/swelling at site. Pressure dressing applied. Administered Medications: 11:15 Drug: Ketorolac IVP 10 mg 10 mg IVP once Route: IVP; Site: left antecubital; ha1 11:35 Follow up: Response: No adverse reaction; Marked relief of symptoms; Pain is decreased ha1 11:15 Drug: NS 0.9% IV 1000 ml IV at 1000 ml once; to be given as a bolus over 60 minutes ha1 Route: IV; Rate: 1000 ml; Site: left antecubital; 12:23 Follow up: Response: No adverse reaction; IV Status: Completed infusion; IV Intake: ha1 1000ml 11:17 Drug: metoCLOPramide IVP 10 mg IVP once; over 1 to 2 minutes Route: IVP; Site: left ha1 antecubital; 11:35 Follow up: Response: No adverse reaction; Marked relief of symptoms ha1 11:17 Drug: diphenhydrAMINE IVP 25 mg IVP once Route: IVP; Site: left antecubital; ha1 11:35 Follow up: Response: No adverse reaction; Marked relief of symptoms ha1 Medication: 11:25 VIS not applicable for this client. ha1 Intake: 12:23 IV: 1000ml; Total: 1000ml. ha1 Outcome: 11:56 Discharge ordered by . ms3 12:22 Discharged to home ambulatory, ha1 12:22 Condition: stable 12:22 Discharge instructions given to Instructed on discharge instructions, follow up and referral plans. Demonstrated understanding of instructions, follow-up care, 12:22 Patient left the ED. ha1 Signatures: Nancy Frank RN RN ap3 Ritchie Hamilton DO DO ms3 Amy Willoughby RN RN ha1 Madiha England bc6 Regina Soriano2
[2024-06-29 15:22] VITALS: BP 104/70; TEMP 98.1; O2SAT 99
--- OUTSIDE RECORDS SUMMARY | 2024-06-30 02:20 | XMS REPORT | Continuity of Care Document ---
Author Name Unknown Address [address] [facility] [place] [address] [facility] Address [address] [facility] [address] [place] [address] Care Team Providers Care Shredding Specialist Name Role Phone Helen Lima Primary Care Physician BINA JONES Attending Clinician Unavailable SABINO HOLDER Attending Clinician Unavailable Anatoliy Doe DO Attending Clinician [phone] Doctor Unassigned, Aguada Attending Clinician U CARLOS Pérez Attending Clinician Unavailable Carlos Ernandez Attending Clinician [phone] EbPortia Anderson Attending Clinician [phone] Unknown, Attending Attending Clinician Unavailab le UNKNOWN, ATTENDING Attending Clinician Unavailab le [facility] Attending Clinician Unavailable Bret Luciano MD Attending Clinician [phone] BRET LUCIANO Attending Clinician UnavailCortney Stiles MA Attending Clinician Unavaila YAIMA Casarez Attending Clinician UnavailYaima Mar MD Attending Clinician [phone] CHARLIE YOUNGBLOOD Attending Clinician Unavailable Charlie Hernández Attending Clinician [phone] ÁNGELA GORDON Attending Clinician Unavailable Ángela Grodon MD Attending Clinician [phone] Provider, [facility] Attending Clinician Unavailable MEAGAN AMIN Attending Clinician Unavailable PORTIA GRAY Attending Clinician Unavailable Brissa Alves Attending Clinician [phone] Lissett Julio Attending Clinician [phone] LISSETT TORRES Attending Clinician UnavailREN Rosenthal Attending Clinician Unavailable Ren Marcus Attending Clinician ANTONI LUNA Attending Clinician Unavail BINA French Admitting Clinician Unavailable Payers Payer Name Policy Type Policy Number Effective Date Expirati on Date Source [facility] [id number] 2021 00:00:00 Problems Condition Name Condition Details Condition Category Status Onset Date Resolution Date Last Treatment Date Treating Clinician Comments Source Abdominal pain, epigastric Abdominal pain, epigastric Disease Active 01-28 00:00: 00 [facility] Nausea and vomiting, unspecifie d vomiting type Nausea and vomiting, unspecifie d vomiting type Disease Active 01-28 00:00: 00 [facility] Hand injury, left, subsequent encounter Hand injury, left, subsequent encounter Disease Active -16 00:00: 00 [facility] Anxiety and depression Anxiety and depression Disease Active 02-11 00:00: 00 [facility] Anemia, unspecifie d anemia type Anemia, unspecifie d anemia type Disease Active 07-10 00:00: 00 [facility] Surveillan ce of previously prescribed contracept timo method Surveillan ce of previously prescribed contracept timo method Disease Active 07-10 00:00: 00 [facility] Well woman exam with routine gynecologi arturo exam Well woman exam with routine gynecologi arturo exam Disease Active 07-10 00:00: 00 [facility] Rubella non-immune status, antepartum Rubella non-immune status, antepartum Disease Active 09-27 00:00: 00 [facility] Susceptibl e to varicella (non-immun e), currently Susceptibl e to varicella (non-immun e), currently Disease Active 09-27 00:00: 00 [facility] Generalize d anxiety disorder Generalize d anxiety disorder Disease Active 09-26 00:00: 00 [facility] History of depression History of depression Disease Active 09-26 00:00: 00 [facility] Asthma Asthma Disease Active 09-26 00:00: 00 Overview: Formattin g of this note might be different from the original. ICD10 Diagnosis Term [employer] [facility] Allergies, Adverse Reactions, Alerts Allergy Name Allergy Type Status Severity Reaction(s) Onset Date Inactive Date Treating Clinician Comments Source [place] - Intraven ous Propensi ty to adverse reaction to drug Active 11-20 00:00: 00 Antoni F Jesus NO KNOWN ALLERGIE S Drug Class Active [facility] Social History Social Habit Start Date Stop Date Quantity Comments Source History of tobacco use Cigarette Smoker [facility] History SDOH Alcohol Frequency [facility] History SDOH Alcohol Std Drinks [facility] History SDOH Alcohol Binge [facility] Gender identity [facility] Sexual orientation [facility] Alcohol intake 2023-05-07 00:00:00 2023-05-07 00:00:00 Current drinker of alcohol (finding) [facility] Alcoholic beverage intake 2023-05-07 00:00:00 2023-05-07 00:00:00 Current drinker of alcohol (finding) [facility] History of Social function 2023-01-28 00:00:00 2023-01-28 00:00:00 [facility] Exposure to SARS-CoV-2 (event) 2022-10-05 00:00:00 2022-10-15 11:37:00 Not sure [facility] Tobacco use and exposure 2022-02-11 00:00:00 2022-02-11 00:00:00 Smokeless tobacco non-user [facility] Tobacco Comment 2022-02-11 00:00:00 2022-02-11 00:00:00 Smoked occasionally for 1.5 years, a pack would last 2 months [facility] Alcohol Comment 2017-03-10 00:00:00 2017-03-10 00:00:00 on special occassions [facility] Sex assigned at 1995 00:00:00 1995 00:00:00 [facility] Smoking Status Start Date Stop Date Source Ex-smoker 2022-02-11 00:00:00 2022-02-11 [facility]ations Ordered Medication Name Filled Medication Name Start Date Stop Date Current Medication? Ordering Clinician Indication Dosage Frequency Signature (SIG) Comments Components Source triamcinolo ne acetonide 0.1 % topical cream 2023-06 00:00: 00 Yes 1% Antoni Lee mupirocin 2 % topical ointment 2023-06 00:00: 00 Yes 1% Antoni Lee metronidazo le 500 mg tablet 2023-06 00:00: 00 Yes 1mg Antoni Lee Cipro 500 mg tablet 2023-06 00:00: 00 Yes 1mg Antoni Lee naproxen 375 mg tablet 2023-06 00:00: 00 Yes mg Antoni Lee ondansetron 4 mg disintegrat ing tablet 2023-06 00:00: 00 Yes mg Antoni Lee AMOXICILLIN /CLAVULANAT E POTASSIUM 500-125 MG TABS 06-27 00:00: 00 Yes Antoni Lee LIDOCAINE HYDROCHLORI DE VISCOUS 2 % SOLN 06-27 00:00: 00 Yes Antoni Lee CHOLESTYRAM INE 4 GM PACK 06-10 00:00: 00 Yes Antoni Lee METHSCOPOLA MINE BROMIDE 5 MG TABS 06-10 00:00: 00 Yes Antoni Lee SULFAMETHOX AZOLE/TRIME THOPRIM DS 800-160 MG TABS 06-09 00:00: 00 Yes Antoni Lee BROMPHEN/PS EUDOEPHEDRI NE HCL/DEXTRO METHORPHAN HBR 30-2-10 MG/5ML SYRP 2022-06- 00:00: 00 Yes Antoni Lee FLUTICASONE PROPIONATE 50 MCG/ACT SUSP 2022-06 00:00: 00 Yes Antoni Lee OMEPRAZOLE 20 MG CPDR 2022-06 00:00: 00 Yes Antoni Lee FAMOTIDINE 20 MG TABS 2022-06 00:00: 00 Yes Antoni Lee METOCLOPRAM CAYDEN HYDROCHLORI DE 10 MG TABS 2022-06 00:00: 00 Yes Antoni Lee SODIUM SULFATE/POT ASSIUM SULFATE/MA GNESIUM SULFATE 17.5-3.13-1 .6 GM/177ML SOLN 2022-06 00:00: 00 Yes Antoni Lee TAKE 1 TABLET TWICE DAILY. 2022-06 00:00: 00 09-18 00:00 :00 No 10 Antoni Lee LESSINA 0.1-20 MG-MCG TABS 2022-06 00:00: 00 Yes Antoni Lee dicyclomine (BENTYL) injection 20 mg 2022-06 16:30: 00 05-07 17:32 :00 No 20mg 20 mg, Intramuscu lar, ONCE NOW, 1 dose, On Fri05/07/23 at 1030, [facility] ondansetron (ZOFRAN (PF)) injection 4 mg 2022-06 15:45: 00 05-07 15:45 :00 No 4mg 4 mg, Slow IV Push, ONCE, 1 dose, On Fri05/07/23 at 0945, [facility] ketorolac (TORADOL) injection 30 mg 2022-06 15:45: 00 05-07 15:45 :00 No 30mg 30 mg, Slow IV Push, ONCE, 1 dose, On Fri05/07/23 at 0945, [facility] TAKE 1 TABLET BY MOUTH FOUR TIMES DAILY NEEDED FOR ABDOMINAL PAIN 2022-06 00:00: 00 Yes Antoni Lee CEFDINIR 300 MG 2022-06 00:00: 00 Yes Antoni Lee ONDANSETRON ODT 4 MG TBDP 2022-06 00:00: 00 Yes Antoni Lee ondansetron 4 mg disintegrat ing tablet 2022-06 00:00: 00 Yes [id number] 4mg Take 1 tablet by mouth every 8 (eight) hours as needed for Nausea and Vomiting (N/V). [facility] dicyclomine 20 mg tablet 2022-06 2- 00:00: 00 Yes [id number] 20mg Take 1 tablet by mouth 4 (four) times daily as needed for Abdominal pain. [facility] cefdinir 300 mg capsule 2022-06 2 00:00: 00 05-15 05:59 :00 No [id number] 300mg Take 1 capsule by mouth every 12 (twelve) hours for 7 days. [facility] ONDANSETRON ODT 8 MG TBDP 2022-06 2- 00:00: 00 Yes Antoni Lee pantoprazol e (PROTONIX) 40 mg EC tablet 2022-06 00:00: 00 Yes [id number] 40mg Take 1 tablet by mouth in the morning and 1 tablet in the evening. [facility] VALACYCLOVI R 1GM 2022-06 0-13 00:00: 00 Yes Antoni Lee ondansetron (ZOFRAN-ODT ) disintegrat ing tablet 4 mg 2022-06 0-06 00:30: 00 03-06 23:44 :00 No [id number] 4mg [facility] cefdinir 300 mg capsule 2022-06 0-05 00:00: 00 03-17 04:59 :00 No [id number] 600mg Take 2 capsules by mouth in the morning for 10 days. [facility] ondansetron 4 mg disintegrat ing tablet 2022-06 0-05 00:00: 00 03-12 04:59 :00 No [id number] 4mg Take 1 tablet by mouth every 8 (eight) hours as needed for Nausea and Vomiting (N/V) for up to 5 days. [facility] MUPIROCIN 2 % OINT 02-24 00:00: 00 Yes Antoni Lee PANTOPRAZOL E SODIUM 40 MG TBEC - 00:00: 00 Yes Antoni Lee pantoprazol e (PROTONIX) 40 mg EC tablet 02-19 00:00: 00 05-05 00:00 :00 No [id number] 40mg Take 1 tablet by mouth in the morning and 1 tablet in the evening. [facility] PROPRANOLOL HYDROCHLORI DE 10 MG TABS 02-15 00:00: 00 Yes Antoni Lee TAKE 1 TABLET TWICE DAILY. 16 00:00: 00 09-18 00:00 :00 No 10 Antoin Lee TAKE 1 OR 2 TABLETS AT BEDTIME NEEDED FOR SLEEP. 02-15 00:00: 00 09-18 00:00 :00 No 100 Antoni Lee pantoprazol e (PROTONIX) 40 mg EC tablet 01-28 00:00: 00 02-19 00:00 :00 No [id number] 40mg Take 1 tablet by mouth in the morning and 1 tablet in the evening. Do all this for 30 days. [facility] PANTOPRAZOL E SODIUM 40 MG TBEC 01-27 00:00: 00 Yes Antoni Lee TRIAMCINOLO NE ACETONIDE 0.5 % CREA 12-29 00:00: 00 Yes Antoni Lee TAKE 1 TABLET BY MOUTH TWICE A DAY 12-17 00:00: 00 09-18 00:00 :00 No 75 Antoni Lee TAKE 1 TABLET NEEDED. 12-17 00:00: 00 09-18 00:00 :00 No 10 Antoni Lee 1/2 TO 1 TAB AT BEDTIME PRN SLEEP 12-17 00:00: 00 09-18 00:00 :00 No 50 Antoni Lee NITROFURANT OIN MONOHYDRATE 100 MG 11-30 00:00: 00 Yes Antoni Lee TAKE 1 TABLET NEEDED. 11-12 00:00: 00 09-18 00:00 :00 No 10 Antoni Lee TAKE 1 TABLET BY MOUTH TWICE A DAY 11-12 00:00: 00 09-18 00:00 :00 No 75 Antoni Lee TAKE 1 TABLET BY MOUTH TWICE A DAY 5-15 00:00: 09-18 00:00 :00 No 75 Antoni Lee TAKE 1 TABLET NEEDED. 5-15 00:00: 00 09-18 00:00 :00 No 10 Antoni Lee IPRATROPIUM BROMIDE 0.06 % SOLN 09-26 00:00: 00 Yes Antoni Lee TAKE 1 CAPSULE WEEKLY. 09-26 00:00: 00 09-18 00:00 :00 No [id number] Antoni Lee busPIRone 5 mg tablet 09-17 00:00: 00 Yes 5mg Take 1 tablet by mouth in the morning and 1 tablet in the evening. [facility] TAKE 1 TWICE A DAY NEEDED 09-17 00:00: 00 09-18 00:00 :00 No 10 Antoni Lee TAKE 1 TABLET TWICE DAILY. 09-17 00:00: 00 09-18 00:00 :00 No 5 Antoni Lee TAKE 1 TABLET TWICE DAILY. 09-16 00:00: 00 09-18 00:00 :00 No 20 Antoni Lee TAKE 1/2 TABLET BY MOUTH DAILY FOR 7 DAYS. INCREASE TO 1 TABLET DAILY 09-06 00:00: 00 Yes Antoni Lee TAKE 1 TWICE A DAY NEEDED 09-06 00:00: 00 09-18 00:00 :00 No 10 Antoni Lee TAKE HALF A TAB DAILY X 7 DAYS THEN INCREASED TO 1 TAB DAILY 09-06 00:00: 00 09-18 00:00 :00 No 50 Antoni Lee ONDANSETRON ODT 4 MG TBDP 08-20 00:00: 00 Yes Antoni Lee FLUTICASONE PROPIONATE 50 MCG/ACT SUSP 08-20 00:00: 00 Yes Antoni Lee SERTRALINE HCL 50 MG TABS 08-07 00:00: 00 Yes Antoni Lee TAKE HALF A TAB DAILY X 7 DAYS THEN INCREASED TO 1 TAB DAILY 08-07 00:00: 00 09-18 00:00 :00 No 50 Antoni Lee TAKE 1 TWICE A DAY NEEDED 308 00:00: 00 09-18 00:00 :00 No 10 Antoni Lee TAKE 1 TABLET BY MOUTH DAILY DIRECTED 07-25 00:00: 00 Yes Antoni Lee TAKE 1-2 TABS BID NEEDED FOR ANXIETY 07-25 00:00: 00 09-18 00:00 :00 No 50 Antoni Lee TAKE 1 TABLET DAILY DIRECTED. 07-25 00:00: 00 09-18 00:00 :00 No 25 Antoin Lee AZELASTINE HYDROCHLORI DE 0.1 % SOLN 06-30 00:00: 00 Yes Antoni Lee FLUTICASONE PROPIONATE 50 MCG/ACT SUSP 06-30 00:00: 00 Yes Antoni Lee BENZONATATE 100 MG 06-30 00:00: 00 Yes Antoni Lee azelastine 137 mcg (0.1 %) nasal spray 06-30 00:00: 00 Yes [id number] 1{spray } Use 1 [place] in each nostril in the morning and 1 [place] in the evening. Use in each nostril as directed [facility] fluticasone propionate 50 mcg/actuati on nasal spray 06-30 00:00: 00 Yes [id number] 1{spray } Use 1 [place] in each nostril in the morning. [facility] benzonatate 100 mg capsule 06-30 00:00: 00 Yes [id number] 200mg Take 2 capsules by mouth every 8 (eight) hours as needed for Cough. [facility] amoxicillin -clavulanat e (AUGMENTIN) 875-125 mg per tablet 06-30 00:00: 00 07-08 05:59 :00 No [id number] 1{tbl} Take 1 tablet by mouth in the morning and 1 tablet in the evening. Do all this for 7 days. [facility] SERTRALINE HCL 25 MG TABS 06-27 00:00: 00 Yes Antoni Lee TAKE 1 TABLET TWICE DAILY NEEDED. 06-27 00:00: 00 09-18 00:00 :00 No 50 Antoni Lee TAKE 1 TABLET DAILY DIRECTED. 06-27 00:00: 00 09-18 00:00 :00 No 25 Antoni Lee SERTRALINE 50MG TABLETS 2021-06 00:00: 00 Yes Antoni Lee TAKE HALF A TAB DAILY X 7 DAYS THEN INCREASED TO 1 TAB DAILY 2021-06 00:00: 00 09-18 00:00 :00 No 50 Antoni Lee TAKE 1 CAPSULE BY MOUTH AT BEDTIME 2021-06 00:00: 00 Yes Antoni Lee HYDROXYZINE HYDROCHLORI DE 25 MG TABS 2021-06 00:00: 00 09-18 00:00 :00 No Antoni Lee CEFDINIR 300 MG 2021-06 00:00: 00 Yes Antoni Lee cefdinir 300 mg capsule 2021-06 00:00: 00 04-07 04:59 :00 No [id number] 600mg Take 2 capsules by mouth in the morning for 10 days. [facility] TAKE 1 TABLET BY MOUTH EVERY 8 HOURS UNTIL FINISH 2021-06 00:00: 00 Yes Antoni Lee TAKE 1 TABLET BY MOUTH EVERY 8 HOURS NEEDED FOR PAIN 2021-06 00:00: 00 Yes Antoni Lee BROMPHEN/PS EUDOEPHEDRI NE HCL/DEXTRO METHORPHAN HBR 30-2-10 MG/5ML SYRP 02-11 00:00: 00 Yes Antoni Lee bromphenira mine-pseudo ephedrine-D M (BROMFED DM) 2-30-10 mg/5 mL syrup 02-11 00:00: 00 Yes [id number] 10mL Take 10 mL by mouth 4 (four) times daily as needed for Congestion /Allergies . [facility] TAKE 1 TABLET BY MOUTH TWICE DAILY 11-23 00:00: 00 Yes Antoni Lee metronidazo le 500 mg tablet 11-22 00:00: 00 Yes 1mg Antoni Lee Dose Unknown 11-20 00:00: 00 Yes Antoni Lee Dose Unknown 6-21 00:00: 00 Yes Antoni Lee Dose Unknown -21 00:00: 00 Yes Antoni Lee Dose Unknown 11-20 00:00: 00 Yes Antoni Lee Dose Unknown 11-20 00:00: 00 Yes Antoni Lee CHLORHEXIDI NE GLUCONATE 0.12 % SOLN 6-16 00:00: 00 Yes Antnoi Lee DISSOLVE 1 TABLET ON THE TONGUE EVERY 8 HOURS NEEDED FOR NAUSEA OR VOMITING 09-20 00:00: 00 Yes Antoni Lee ondansetron 4 mg disintegrat ing tablet 09-20 00:00: 00 02-11 00:00 :00 No [id number] 4mg Take 1 tablet by mouth every 8 (eight) hours as needed for Nausea and Vomiting (N/V). [facility] NITROFURANT OIN MONOHYDRATE 100 MG 4- 00:00: 00 Yes Antoni Lee PHENAZOPYRI DINE HCL 200 MG TABS - 00:00: 00 Yes Antoni Lee AMOXICILLIN 500 MG 3- 00:00: 00 Yes Antoni Lee IBUPROFEN 800MG TABLETS - 00:00: 00 Yes Antoni Lee CHLORHEXIDI NE 0.12% ORAL RINSE 3-11 00:00: 00 Yes Antoni Lee TAKE 1 CAPSULE BY MOUTH EVERY 8 HOURS UNTIL FINISHED - 00:00: 00 Yes Antoni Lee doxycycline monohydrate 100 mg capsule 1- 00:00: 00 Yes 1mg Antoni Lee Dose Unknown - 00:00: 00 Yes Antoni Lee Claritin 10 mg tablet 02-07 00:00: 00 Yes 1mg Antoni Lee Flonase Allergy Relief 50 mcg/actuati on nasal spray,suspe nsion - 00:00: 00 Yes 1mcg/ac tuation Antoni Lee azithromyci n 500 mg tablet 2017-06 00:00: 00 Yes 2mg Antoni Lee metronidazo le 500 mg tablet 2017-06 00:00: 00 Yes 1mg Antoni Lee hydroxyzine HCl 25 mg tablet 11-22 00:00: 00 Yes 1mg Antnoi Lee Ciprodex 0.3 %-0.1 % ear drops,suspe nsion 08-15 00:00: 00 Yes 4% Antoni Lee Lexapro 10 mg tablet 06-20 00:00: 00 Yes 1mg Antoni Lee trazodone 50 mg tablet 06-20 00:00: 00 Yes 12mg Antoni Lee Dose Unknown 2015-06 00:00: 00 Yes Antoni Lee Seroquel 25 mg tablet 2015-06 00:00: 00 Yes 1mg Antoni Lee cyclobenzap rine 10 mg tablet 2015-06 00:00: 00 Yes 1mg Antoni Lee amoxicillin 500 mg tablet 2015-06 00:00: 00 Yes 1mg Antoni Lee citalopram 20 mg tablet 02-21 00:00: 00 Yes 1mg Antoni Lee meclizine 25 mg chewable tablet 07-28 00:00: 00 Yes 1mg Antoni Lee Immunizations Ordered Immunization Name Filled Immunization Name Date Status Comments Source Moderna COVID-19 Vaccine Moderna COVID-19 Vaccine 2020-10-05 00:00:00 Completed Antoni Lee SARS-COV-2 COVID-19 MODERNA 12+ YRS VACCINE 2020-10-05 00:00:00 Completed [facility] SARS-COV-2 COVID-19 MODERNA 12+ YRS VACCINE 2020-10-05 00:00:00 Completed [facility] SARS-COV-2 COVID-19 MODERNA 12+ YRS VACCINE 2020-10-05 00:00:00 Completed [facility] SARS-COV-2 COVID-19 MODERNA 12+ YRS VACCINE 2020-10-05 00:00:00 Completed [facility] SARS-COV-2 COVID-19 MODERNA 12+ YRS VACCINE 2020-10-05 00:00:00 Completed [facility] Moderna COVID-19 Vaccine Moderna COVID-19 Vaccine 2020-09-04 00:00:00 Completed Antoni Lee SARS-COV-2 COVID-19 MODERNA 12+ YRS VACCINE 2020-09-04 00:00:00 Completed [facility] SARS-COV-2 COVID-19 MODERNA 12+ YRS VACCINE 2020-09-04 00:00:00 Completed [facility] SARS-COV-2 COVID-19 MODERNA 12+ YRS VACCINE 2020-09-04 00:00:00 Completed [facility] SARS-COV-2 COVID-19 MODERNA 12+ YRS VACCINE 2020-09-04 00:00:00 Completed [facility] TDAP 2015-02-27 00:00:00 Completed [facility] TDAP 2015-02-27 00:00:00 Completed [facility] TDAP 2015-02-27 00:00:00 Completed [facility] TDAP 2015-02-27 00:00:00 Completed [facility] TDAP 2015-02-27 00:00:00 Completed [facility] TDAP 2015-02-27 00:00:00 Completed [facility] TDAP 2015-02-27 00:00:00 Completed [facility] TDAP 2015-02-27 00:00:00 Completed [facility] TDAP 2015-02-27 00:00:00 Completed [facility] TDAP 2015-02-27 00:00:00 Completed [facility] TDAP 2015-02-27 00:00:00 Completed [facility] TDAP 2015-02-27 00:00:00 Completed [facility] TDAP 2015-02-27 00:00:00 Completed [facility] TDAP 2015-02-27 00:00:00 Completed [facility] TDAP 2015-02-27 00:00:00 Completed [facility] TDAP 2015-02-27 00:00:00 Completed [facility] TDAP 2015-02-27 00:00:00 Completed [facility] Td 2006-06-02 00:00:00 Completed [facility] Td 2006-06-02 00:00:00 Completed [facility] Td 2006-06-02 00:00:00 Completed [facility] Td 2006-06-02 00:00:00 Completed [facility] TD, NOS 2006-06-02 00:00:00 Completed [facility] TD, NOS 2006-06-02 00:00:00 Completed [facility] TD, NOS 2006-06-02 00:00:00 Completed [facility] TD, NOS 2006-06-02 00:00:00 Completed [facility] TD, NOS 2006-06-02 00:00:00 Completed [facility] TD, NOS 2006-06-02 00:00:00 Completed [facility] TD, NOS 2006-06-02 00:00:00 Completed [facility] TD, NOS 2006-06-02 00:00:00 Completed [facility] TD, NOS 2006-06-02 00:00:00 Completed [facility] TD, NOS 2006-06-02 00:00:00 Completed [facility] TD, NOS 2006-06-02 00:00:00 Completed [facility] TD, NOS 2006-06-02 00:00:00 Completed [facility] TD, NOS 2006-06-02 00:00:00 Completed [facility] TD, NOS Unknown Completed [facility] TDAP Unknown Completed [facility] SARS-COV-2 COVID-19 MODERNA 12+ YRS VACCINE Unknown Completed [facility] TD, NOS Unknown Completed [facility] TDAP Unknown Completed [facility] SARS-COV-2 COVID-19 MODERNA 12+ YRS VACCINE Unknown Completed [facility] TD, NOS Unknown Completed [facility] TDAP Unknown Completed [facility] SARS-COV-2 COVID-19 MODERNA 12+ YRS VACCINE Unknown Completed [facility] TD, NOS Unknown Completed [facility] TDAP Unknown Completed [facility] SARS-COV-2 COVID-19 MODERNA 12+ YRS VACCINE Unknown Completed [facility] TD, NOS Unknown Completed [facility] TDAP Unknown Completed [facility] SARS-COV-2 COVID-19 MODERNA 12+ YRS VACCINE Unknown Completed [facility] TD, NOS Unknown Completed [facility] TDAP Unknown Completed [facility] SARS-COV-2 COVID-19 MODERNA 12+ YRS VACCINE Unknown Completed [facility] TD, NOS Unknown Completed [facility] TDAP Unknown Completed [facility] SARS-COV-2 COVID-19 MODERNA 12+ YRS VACCINE Unknown Completed [facility] TD, NOS Unknown Completed [facility] TDAP Unknown Completed [facility] SARS-COV-2 COVID-19 MODERNA 12+ YRS VACCINE Unknown Completed [facility] TD, NOS Unknown Completed [facility] TDAP Unknown Completed [facility] SARS-COV-2 COVID-19 MODERNA 12+ YRS VACCINE Unknown Completed [facility] TD, NOS Unknown Completed [facility] TDAP Unknown Completed [facility] [place] TD, NOS Unknown Completed [facility] TDAP Unknown Completed [facility] [place] SARS-COV-2 COVID-19 MODERNA 12+ YRS VACCINE Unknown Completed [facility] [place] TD, NOS Unknown Completed [facility] [place] TDAP Unknown Completed [facility] [place] SARS-COV-2 COVID-19 MODERNA 12+ YRS VACCINE Unknown Completed [facility] [place] TD, NOS Unknown Completed [facility] [place] TDAP Unknown Completed [facility] [place] SARS-COV-2 COVID-19 MODERNA 12+ YRS VACCINE Unknown Completed [facility] [place] TD, NOS Unknown Completed [facility] [place] TDAP Unknown Completed [facility] [place] SARS-COV-2 COVID-19 MODERNA 12+ YRS VACCINE Unknown Completed [facility] [place] Vital Signs Vital Name Observation Time Observation Value Comments S ource Systolic blood pressure 2023-05-07 19:28:00 115 mm[Hg] [facility] Diastolic blood pressure 2023-05-07 19:28:00 63 mm[Hg] [facility] Heart rate 2023-05-07 19:28:00 64 /min [facility] Respiratory rate 2023-05-07 19:28:00 18 /min [facility] [place] Oxygen saturation in Arterial blood by Pulse oximetry 2023-05-07 19:28:00 99 /min [facility] Body temperature 2023-05-07 15:34:11 37.22 Kathleen [facility] [place] Body height 2023-05-07 15:33:00 154.9 cm [facility] Body weight 2023-05-07 15:33:00 79.833 kg [facility] BMI 2023-05-07 15:33:00 33.25 kg/m2 [facility] Systolic blood pressure 2023-03-06 23:28:00 127 mm[Hg] [facility] Diastolic blood pressure 2023-03-06 23:28:00 82 mm[Hg] [facility] Heart rate 2023-03-06 23:28:00 76 /min [facility] Body temperature 2023-03-06 23:28:00 37.17 Kathleen [facility] [place] Respiratory rate 2023-03-06 23:28:00 18 /min [facility] [place] Body height 2023-03-06 23:28:00 154.9 cm [facility] Body weight 2023-03-06 23:28:00 80.06 kg [facility] BMI 2023-03-06 23:28:00 33.35 kg/m2 [facility] Oxygen saturation in Arterial blood by Pulse oximetry 2023-03-06 23:28:00 99 /min [facility] Systolic blood pressure 2023-01-28 13:56:00 115 mm[Hg] [facility] Diastolic blood pressure 2023-01-28 13:56:00 63 mm[Hg] [facility] Heart rate 2023-01-28 13:56:00 70 /min [facility] Body temperature 2023-01-28 13:56:00 36.83 Kathleen [facility] [place] Respiratory rate 2023-01-28 13:56:00 16 /min [facility] [place] Body height 2023-01-28 13:56:00 154.9 cm [facility] Body weight 2023-01-28 13:56:00 79.652 kg [facility] BMI 2023-01-28 13:56:00 33.18 kg/m2 [facility] Oxygen saturation in Arterial blood by Pulse oximetry 2023-01-28 13:56:00 99 /min [facility] Systolic blood pressure 2022-10-16 19:28:00 116 mm[Hg] [facility] Diastolic blood pressure 2022-10-16 19:28:00 71 mm[Hg] [facility] Heart rate 2022-10-16 19:28:00 64 /min [facility] Body height 2022-10-16 19:28:00 156.2 cm [facility] Body weight 2022-10-16 19:28:00 75.025 kg [facility] BMI 2022-10-16 19:28:00 30.75 kg/m2 [facility] Oxygen saturation in Arterial blood by Pulse oximetry 2022-10-16 19:28:00 100 /min [facility] Systolic blood pressure 2022-10-15 16:28:00 101 mm[Hg] [facility] Diastolic blood pressure 2022-10-15 16:28:00 67 mm[Hg] [facility] Heart rate 2022-10-15 16:28:00 70 /min [facility] Body temperature 2022-10-15 16:28:00 37.06 Kathleen [facility] [place] Body height 2022-10-15 16:28:00 156.2 cm [facility] Body weight 2022-10-15 16:28:00 75.615 kg [facility] BMI 2022-10-15 16:28:00 30.99 kg/m2 [facility] Oxygen saturation in Arterial blood by Pulse oximetry 2022-10-15 16:28:00 99 /min [facility] Systolic blood pressure 2022-10-07 14:47:00 114 mm[Hg] [facility] Diastolic blood pressure 2022-10-07 14:47:00 74 mm[Hg] [facility] Heart rate 2022-10-07 14:47:00 67 /min [facility] Body temperature 2022-10-07 14:47:00 37 Kathleen [facility] [place] Respiratory rate 2022-10-07 14:47:00 16 /min [facility] [place] Body weight 2022-10-07 14:47:00 75.297 kg [facility] BMI 2022-10-07 14:47:00 30.86 kg/m2 [facility] Oxygen saturation in Arterial blood by Pulse oximetry 2022-10-07 14:47:00 97 /min [facility] Systolic blood pressure 2022-06-30 19:52:00 125 mm[Hg] [facility] Diastolic blood pressure 2022-06-30 19:52:00 87 mm[Hg] [facility] Heart rate 2022-06-30 19:52:00 101 /min [facility] Body temperature 2022-06-30 19:52:00 37.06 Kathleen [facility] [place] Respiratory rate 2022-06-30 19:52:00 16 /min [facility] [place] Body height 2022-06-30 19:52:00 156.2 cm [facility] Body weight 2022-06-30 19:52:00 73.755 kg [facility] BMI 2022-06-30 19:52:00 30.23 kg/m2 [facility] Oxygen saturation in Arterial blood by Pulse oximetry 2022-06-30 19:52:00 98 /min [facility] Systolic blood pressure 2022-03-27 14:14:00 131 mm[Hg] [facility] Diastolic blood pressure 2022-03-27 14:14:00 79 mm[Hg] [facility] Heart rate 2022-03-27 14:14:00 79 /min [facility] Body temperature 2022-03-27 14:14:00 36.72 Kathleen [facility] [place] Respiratory rate 2022-03-27 14:14:00 18 /min [facility] [place] Body height 2022-03-27 14:14:00 154.9 cm [facility] Body weight 2022-03-27 14:14:00 73.982 kg [facility] BMI 2022-03-27 14:14:00 30.82 kg/m2 [facility] Oxygen saturation in Arterial blood by Pulse oximetry 2022-03-27 14:14:00 98 /min [facility] Systolic blood pressure 2022-02-11 16:49:00 120 mm[Hg] Curran o [facility] Diastolic blood pressure 2022-02-11 16:49:00 82 mm[Hg] [facility] Heart rate 2022-02-11 16:49:00 81 /min [facility] Body temperature 2022-02-11 16:49:00 37.22 Kathleen [facility] [place] Body height 2022-02-11 16:49:00 156.2 cm [facility] Body weight 2022-02-11 16:49:00 72.439 kg [facility] BMI 2022-02-11 16:49:00 29.69 kg/m2 [facility] Oxygen saturation in Arterial blood by Pulse oximetry 2022-02-11 16:49:00 99 /min Curran o [facility] BP Systolic 2024-05-11 13:27:00 121 mm[Hg] Step hen F Jesus BP Diastolic 2024-05-11 13:27:00 80 mm[Hg] Bradley phen F Jesus Weight Measured 2024-05-11 13:27:00 184.60 pounds Antoni F Jesus Height Measured 2024-05-11 13:27:00 61.00 inches Antoni F Jesus Body Temperature 2024-05-11 13:27:00 97.80 degrees Antoni F Jesus Heart Rate 2024-05-11 13:27:00 61.00 /min Ashley en F Jesus Respiratory Rate 2024-05-11 13:27:00 18.00 /min Antoni F Jesus BP Systolic 2024-03-22 15:18:00 110 mm[Hg] Step hen F Jesus BP Diastolic 2024-03-22 15:18:00 72 mm[Hg] Bradley phen F Jesus Weight Measured 2024-03-22 15:18:00 184.00 pounds Antoni F Jesus Height Measured 2024-03-22 15:18:00 61.00 inches Antoni F Jesus Body Temperature 2024-03-22 15:18:00 98.10 degrees Antoni F Jesus Heart Rate 2024-03-22 15:18:00 76.00 /min Ashley en F Jesus Respiratory Rate 2024-03-22 15:18:00 18.00 /min Antoni F Jesus Weight Measured 2023-10-24 20:11:00 Antoni F Jesus Height Measured 2023-10-24 20:11:00 Antoni F Jesus Body Temperature 2023-10-24 20:11:00 Antoni F Jesus Heart Rate 2023-10-24 20:11:00 Ashley en F Jesus Respiratory Rate 2023-10-24 20:11:00 Antoni F Jesus BP Systolic 2023-10-24 20:11:00 Step hen F Jesus BP Diastolic 2023-10-24 20:11:00 Bradley phen F Jesus BP Systolic 2022-10-14 11:24:00 115 mm[Hg] Step hen F Jesus BP Diastolic 2022-10-14 11:24:00 74 mm[Hg] Bradley phen F Jesus Weight Measured 2022-10-14 11:24:00 165.80 pounds Antoni F Jesus Height Measured 2022-10-14 11:24:00 61.90 inches Antoni F Jesus Body Temperature 2022-10-14 11:24:00 98.20 degrees Antoni F Jesus Heart Rate 2022-10-14 11:24:00 65.00 /min Ashley en F Jesus Respiratory Rate 2022-10-14 11:24:00 19.00 /min Antoni F Jesus BP Systolic 2022-09-16 14:36:00 137 mm[Hg] Step hen F Jesus BP Diastolic 2022-09-16 14:36:00 98 mm[Hg] Bradley phen F Jesus Weight Measured 2022-09-16 14:36:00 168.00 pounds Antoni F Jesus Height Measured 2022-09-16 14:36:00 61.90 inches Antoni F Jesus Body Temperature 2022-09-16 14:36:00 98.40 degrees Antoni F Jesus Heart Rate 2022-09-16 14:36:00 67.00 /min Ashley en F Jesus Respiratory Rate 2022-09-16 14:36:00 16.00 /min Antoni F Jesus BP Systolic 2021-11-20 09:21:00 115 mm[Hg] Step hen F Jesus BP Diastolic 2021-11-20 09:21:00 77 mm[Hg] Bradley phen F Jesus Weight Measured 2021-11-20 09:21:00 157.60 pounds Antoni F Jesus Height Measured 2021-11-20 09:21:00 61.90 inches Antoni F Jesus Body Temperature 2021-11-20 09:21:00 97.50 degrees Antoni F Jesus Heart Rate 2021-11-20 09:21:00 77.00 /min Ashley en F Jesus Respiratory Rate 2021-11-20 09:21:00 16.00 /min Antoni F Jesus BP Systolic 2021-02-08 09:09:00 Step hen F Jesus BP Diastolic 2021-02-08 09:09:00 Bradley phen F Jesus Weight Measured 2021-02-08 09:09:00 163.00 pounds Antoni F Jesus Height Measured 2021-02-08 09:09:00 61.90 inches Antoni F Jesus Body Temperature 2021-02-08 09:09:00 Antoni F Jesus Heart Rate 2021-02-08 09:09:00 Ashley en F Jesus Respiratory Rate 2021-02-08 09:09:00 Antoni F Jesus BP Systolic 2021-02-06 15:01:00 102 mm[Hg] Step hen F Jesus BP Diastolic 2021-02-06 15:01:00 70 mm[Hg] Bradley phen F Jesus Weight Measured 2021-02-06 15:01:00 163.00 pounds Antoni F Jesus Height Measured 2021-02-06 15:01:00 61.90 inches Antoni F Jesus Body Temperature 2021-02-06 15:01:00 98.20 degrees Antoni F Jesus Heart Rate 2021-02-06 15:01:00 113.00 /min Step hen F Jesus Respiratory Rate 2021-02-06 15:01:00 Antoni F Jesus BP Systolic 2018-04-17 15:04:00 117 mm[Hg] Step hen F Jesus BP Diastolic 2018-04-17 15:04:00 76 mm[Hg] Bradley phen F Jesus Weight Measured 2018-04-17 15:04:00 154.40 pounds Antoni F Jesus Height Measured 2018-04-17 15:04:00 61.80 inches Antoni F Jesus Body Temperature 2018-04-17 15:04:00 97.80 degrees Antoni F Jesus Heart Rate 2018-04-17 15:04:00 86.00 /min Ashley en F Jesus Respiratory Rate 2018-04-17 15:04:00 17.00 /min Antoni F Jesus BP Systolic 2016-11-22 12:10:00 132 mm[Hg] Step hen F Jesus BP Diastolic 2016-11-22 12:10:00 80 mm[Hg] Bradley phen F Jesus Weight Measured 2016-11-22 12:10:00 146.40 pounds Antoni F Jesus Height Measured 2016-11-22 12:10:00 61.80 inches Antoni F Jesus Body Temperature 2016-11-22 12:10:00 98.60 degrees Antoni F Jesus Heart Rate 2016-11-22 12:10:00 80.00 /min Ashley en F Jesus Respiratory Rate 2016-11-22 12:10:00 16.00 /min Antoni F Jesus BP Systolic 2016-08-15 08:49:00 107 mm[Hg] Step hen F Jesus BP Diastolic 2016-08-15 08:49:00 71 mm[Hg] Bradley phen F Jesus Weight Measured 2016-08-15 08:49:00 141.40 pounds Antoni F Jesus Height Measured 2016-08-15 08:49:00 61.80 inches Antoni F Jesus Body Temperature 2016-08-15 08:49:00 98.10 degrees Antoni F Jesus Heart Rate 2016-08-15 08:49:00 60.00 /min Ashley en F Jesus Respiratory Rate 2016-08-15 08:49:00 18.00 /min Antoni F Jesus BP Systolic 2016 10:18:00 113 mm[Hg] Step hen F Jesus BP Diastolic 2016 10:18:00 73 mm[Hg] Bradley phen F Jesus Weight Measured 2016 10:18:00 141.00 pounds Antoni F Jesus Height Measured 2016 10:18:00 61.80 inches Antoni F Jesus Body Temperature 2016 10:18:00 98.20 degrees Antoni F Jesus Heart Rate 2016 10:18:00 72.00 /min Ashley en F Jesus Respiratory Rate 2016 10:18:00 Antoni F Jesus Procedures Procedure Date / Time Performed Performing Clinicia n Source LIPASE 2023-05-07 17:28:00 [facility] COMP. METABOLIC PANEL ([id number]) 2023-05-07 17:28:00 Carlos Wall [facility] [place] CBC WITH DIFF 2023-05-07 17:28:00 Carlos Wall [facility] URINALYSIS 2023-05-07 17:28:00 [facility] POCT TEST 2023-05-07 17:28:00 Radha Wall [facility] ASSIGNMENT OF BENEFITS 2023-05-07 15:42:39 Docto r Unassigned, Aguada [facility] [place] CONSENT/REFUSAL FOR DIAGNOSIS AND TREATMENT 2023-05-07 15:14:30 Doctor Unassigned, Aguada [facility] [place] POCT TEST 2023-03-06 23:50:00 Portia Gray [facility] [place] POCT URINALYSIS 2023-03-06 23:30:00 Portia Gray [facility] DISCLOSURE AND CONSENT, MEDICAL AND SURGICAL PROCEDURES 2023-01-28 05:01:00 Doctor Unassigned, Aguada [facility] [place] XR WRIST <3 VW LEFT 2022-10-07 15:12:46 [facility] VW LEFT 2022-10-07 15:12:46 Ángela Gordon Un [facility] XR HAND 3+ VW LEFT 2022-10-07 15:12:46 Ángela Gordon [facility] ASSIGNMENT OF BENEFITS 2022-10-07 14:41:25 Docto r Unassigned, Aguada [facility] [place] POCT SARS-COV-2 ANTIGEN (BINAX NOW) 2022-06-30 00:00:00 Ángela Gordon [facility] [place] POCT URINALYSIS 2022-03-27 00:00:00 Portia Gray [facility] POCT TEST 2022-03-27 00:00:00 Portia Gray [facility] [place] [id number] Ecg Routine Ecg W/least 12 Lds W/i r 2016-04-05 00:00:00 Antoni Lee Encounters Start Date/Time End Date/Time Encounter Type Admission Type Attending [facility] Care Department Encounter ID Source 2023-05-09 15:07:35 Outpatient R BINA JONES [facility] [id number] [facility] 2024-05-11 13:22:03 2024-05-11 13:22:03 Outpatient [facility] [id number] Antoni Lee 2024-05-11 00:00:00 2024-05-11 00:00:00 Outpatient Visit [facility] [id number] Antoni Lee 2024-03-22 15:04:37 2024-03-22 15:04:37 Outpatient SFA [facility] [id number] Antoni Lee 2024-03-22 00:00:00 2024-03-22 00:00:00 Outpatient Visit [facility] [id number] Antoni Lee 2024-03-18 08:15:00 2024-03-18 08:15:00 Outpatient R SABINO HOLDER [facility] [id number] [facility] 2023-10-24 00:00:00 2023-10-28 07:41:31 Telephone Anatoliy Doe [facility] [id number] 350.1.13.10 4.2.7.2.686 [id number] [facility] 2023-10-25 12:59:36 2023-10-25 12:59:36 Outpatient [facility] [id number] Antoni Lee 2023-10-24 00:00:00 2023-10-24 00:00:00 Outpatient Visit [facility] [id number] Antoni Lee 2023-05-20 10:30:00 2023-05-20 10:30:00 Outpatient R [facility] [id number] [facility] 2023-05-13 00:00:00 2023-05-13 00:00:00 Patient Secure Msg Doctor Unassigned, Aguada [facility] 1.2840.114 350.1.13.10 4.2.7.2.686 [id number] [facility] 2023-05-09 00:00:00 2023-05-09 00:00:[address] [facility] Anatoliy [facility] 1.2840.114 350.1.13.10 4.2.7.2.686 [id number] [facility] 2023-05-09 00:00:00 2023-05-09 00:00:[address] [facility] 1.2840.114 350.1.13.10 4.2.7.2.686 [id number] [facility] 2023-05-07 09:37:00 2023-05-07 13:29:00 Emergency X CARLOS WALL [facility] ERT [id number] [facility] 2023-05-07 09:37:00 2023-05-07 13:29:00 Emergency Carlos Wall [facility] 1.2840.114 350.1.13.10 4.2.7.2.686 [id number] [facility] 2023-05-07 00:00:00 2023-05-07 00:00:[address] [facility] Anatoliy [facility] 1.2840.114 350.1.13.10 4.2.7.2.686 [id number] [facility] 2023-05-07 00:00:00 2023-05-07 00:00:[address] [facility] Anatoliy [facility] 1.2.840.114 350.1.13.10 4.2.7.2.686 [id number] [facility] 2023-05-06 00:00:00 2023-05-06 00:00:00 Telephone Anatoliy Doe [facility] 1.114 350.1.13.10 4.2.7.2.686 [id number] [facility] 2023-05-05 00:00:00 2023-05-05 00:00:00 Refill Anatoliy Doe [facility] 1..114 350.1.13.10 4.2.7.2.686 [id number] [facility] 2023-03-06 18:00:00 2023-03-06 19:09:44 Urgent Care Portia Gray Unknown, Attending [facility] 1.114 350.1.13.10 4.2.7.2.686 [id number] [facility] 2023-03-06 13:40:00 2023-03-06 13:40:00 Outpatient R UNKNOWN, ATTENDING [facility] [id number] [facility] 2023-02-18 00:00:00 2023-02-18 00:00:00 Telephone Anatoliy Doe [facility] 1.114 350.1.13.10 4.2.7.2.686 [id number] [facility] 2023-01-30 00:00:00 2023-01-30 00:00:00 Patient Secure Msg Doctor Unassigned, Aguada [facility] 1.114 350.1.13.10 4.2.7.2.686 [id number] [facility] 2023-01-28 11:00:00 2023-01-28 11:15:00 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 Refinish Technician Visit [facility] 1.2.840.114 350.1.13.10 4.2.7.2.686 [id number] [facility] 2023-01-28 08:30:00 2023-01-28 09:00:00 Office Visit Anatoliy Doe Bret Betancourt [facility] 1.114 350.1.13.10 4.2.7.2.686 [id number] [facility] 2023-01-28 08:30:00 2023-01-28 08:30:00 Outpatient BRET MEDRANO [facility] [id number] [facility] 2023-01-28 00:00:00 2023-01-28 00:00:00 Letter (Out) Brook Anatoliy Alvin [facility] 1.114 350.1.13.10 4.2.7.2.686 [id number] [facility] 2023-01-28 00:00:00 2023-01-28 00:00:00 Orders Only Doctor Unassigned, Aguada [facility] 1.114 350.1.13.10 4.2.7.2.686 [id number] [facility] 2022-12-06 00:00:00 2022-12-06 00:00:00 Telephone Castañeda, Cortney MEYER 1.114 350.1.13.10 4.2.7.2.686 [id number] [facility] 2022-10-16 14:30:00 2022-10-16 14:52:38 Outpatient R YAIMA HATCH [facility] [id number] [facility] 2022-10-16 14:30:00 2022-10-16 14:52:38 Office Visit Yaima Hatch [facility] 1.114 350.1.13.10 4.2.7.2.686 [id number] [facility] 2022-10-15 11:30:00 2022-10-15 12:00:30 Outpatient R CHARLIE YOUNGBLOOD [facility] [id number] [facility] 2022-10-15 11:30:00 2022-10-15 12:00:30 Office Visit Charlie Youngblood [facility] 1.84114 350.1.13.10 4.2.7.2.686 [id number] [facility] 2022-10-14 11:16:28 2022-10-14 11:16:28 Outpatient SFA [facility] [id number] Antoni Lee 2022-10-12 00:00:00 2022-10-12 00:00:00 Patient Secure Msg Doctor Unassigned, Aguada [facility] 1.114 350.1.13.10 4.2.7.2.686 [id number] [facility] 2022-10-07 09:54:04 2022-10-07 23:59:00 Outpatient R ÁNGELA GORDON [facility] [id number] [facility] 2022-10-07 09:54:04 2022-10-07 23:59:00 Hospital Encounter Evan [facility] 1.84.114 350.1.13.10 4.2.7.2.686 [id number] [facility] 2022-10-07 09:54:04 2022-10-07 23:59:00 [facility] 1.84.114 350.1.13.10 4.2.7.2.686 [id number] [facility] 2022-10-07 09:40:00 2022-10-07 10:18:33 Urgent Care Ángela Gordon Unknown, Attending [facility] 1.84.114 350.1.13.10 4.2.7.2.686 [id number] [facility] 2022-10-07 00:00:00 2022-10-07 00:00:00 Orders Only Doctor Unassigned, Aguada [facility] 1.84114 350.1.13.10 4.2.7.2.686 [id number] [facility] 2022-10-07 00:00:00 2022-10-07 00:00:00 Letter (Out) [facility] 1.84.114 350.1.13.10 4.2.7.2.686 [id number] [facility] 2022-09-16 14:28:09 2022-09-16 14:28:09 Outpatient SFA [facility] [id number] Antoni F Jesus 2022-06-30 14:00:00 2022-06-30 14:22:01 Outpatient R ÁNGELA GORDON [facility] [id number] [facility] 2022-06-30 14:00:00 2022-06-30 14:20:00 Urgent Care Ángela Gordon Unknown, Attending [facility] 1.84.114 350.1.13.10 4.2.7.2.686 [id number] [facility] 2022-06-30 00:00:00 2022-06-30 00:00:00 Letter (Out) Felipe R[facility] 1.2840.114 350.1.13.10 4.2.7.2.686 [id number] [facility] 2022-04-27 09:05:52 2022-04-27 09:05:52 Outpatient [facility] [id number] Antoni Lee 2022-04-26 12:05:12 2022-04-26 12:05:12 Outpatient [facility] [id number] Antoni Lee 2022-04-09 16:20:00 2022-04-09 16:20:00 Outpatient R MEAGAN AMIN [facility] [id number] [facility] 2022-03-27 09:20:00 2022-03-27 09:40:00 Urgent Care Portia Gray Johnny, Attending [facility] [id number] [facility] 2022-03-27 09:20:00 2022-03-27 09:20:00 Outpatient PORTIA STERLING [facility] [id number] [facility] [facility]) 2022-03-27 00:00:00 2022-03-27 00:00:00 Letter (Out) Pandamary Portia [facility] [id number] 350.1.13.10 [id number] [id number] [facility] 2022-02-11 11:20:00 2022-02-11 12:21:36 Office Visit Eloisa [facility] 1.2.840.114 350.1.13.10 4.2.7.2.686 [id number] [facility] 2022-02-11 11:20:00 2022-02-11 12:21:36 Outpatient MEAGAN LOOMIS [facility] [id number] [facility] 2022-02-11 11:20:00 2022-02-11 11:20:00 Outpatient MEAGAN LOOMIS [facility] [id number] [facility] 2022-02-11 00:00:00 2022-02-11 00:00:00 Letter (Out) Meagan Amin [facility] 1.2.840.114 350.1.13.10 4.2.7.2.686 [id number] [facility] 2022-02-08 16:20:00 2022-02-08 16:50:36 Outpatient R PORTIA GRAY [facility] [id number] [facility] 2022-02-08 16:20:00 2022-02-08 16:40:00 [facility] 1..840.114 350.1.13.10 4.2.7.2.686 [id number] [facility] 2021-09-20 11:00:00 2021-09-20 11:34:43 [facility] 1..840.114 350.1.13.10 4.2.7.2.686 [id number] [facility] 2021-09-20 11:00:00 2021-09-20 11:34:43 [facility] [id number] [facility] 2021-09-20 00:00:00 2021-09-20 00:00:00 Orders Only Doctor Unassigned, [place] [facility] 1.840.114 350.1.13.10 4.2.7.2.686 [id number] [facility] 2021-09-19 19:20:00 2021-09-19 19:20:00 Outpatient R UNKNOWN, ROSLYN [facility] [id number] [facility] 2021-09-19 00:00:00 2021-09-19 00:00:00 Clinic Assessment Portia Gray [facility] 1.2.840.114 350.1.13.10 4.2.7.2.686 [id number] [facility] 2021-06-10 17:00:00 2021-06-10 18:43:38 Outpatient REN THOMAS [facility] [id number] [facility] 2021-06-10 17:00:00 2021-06-10 18:43:38 Urgent Care Unknown, Attending Ren Garcia 1.2.840.1 [id number] 3.104.2.7 [id number] [facility] 2021-06-10 00:00:00 2021-06-10 00:00:00 Travel 1.2.840.1 [id number] 3.104.2.7 [id number] 1.2.840.114 350.1.13.10 4.2.7.3.698 [id number] [facility] 2020-09-04 14:40:00 2020-09-04 14:40:00 Outpatient [facility] [id number] [facility] 2020-08-07 12:40:00 2020-08-07 12:40:00 Outpatient [facility] [id number] [facility] 2020-05-24 08:45:00 2020-05-24 08:45:00 Outpatient ANTONI TOLBERT [facility] [id number] [facility] Results Test Description Test Time Test Comments Results Result Co mments Source [facility] [id number] 23:50:00* Test Item Value Reference Range Interpretation Comme nts POCT PREG (test code = 1605) Negative On board controls acceptable with C Line (test code = 3574) Yes POCT PREG LOT # (test code = 3575) POCT PREG TEST DATE ( test code = 3576) [facility] [id number] 23:50:00* Test Item Value Reference Range Interpretation Comme nts POCT PREG (test code = 1605) Negative On board controls acceptable with C Line (test code = 3574) Yes POCT PREG LOT # (test code = 3575) POCT PREG TEST DATE ( test code = 357) [facility] URINALYSIS W SPECIFIC [id number] 23:31:00* Test Item Value Reference Range Interpretation Comme nts POCT U SP GRAV (test code = 3255) 1.010 mg/dl 1.005-1.025 POCT PH U (test code = 3254) 7 mg/dl 5-8 POCT U LEUK EST (test code = 3263) trace Negative - Negative POCT U NIT (test code = 3262) neg Negative - Negati ve POCT U PROT (test code = 3259) neg Negative - Negative POCT U GLU (test code = 3256) normal Negative - Negati ve POCT U KETONE (test code = 3258) neg Negative - Negative POCT U UROBILI (test code = 3260) normal 0.2-1 POCT U BILI (test code = 3261) neg Negative - Negative POCT U BLD (test code = 3257) neg Negative - Negati ve POCT U COLOR (test code = 3266) dark yellow POCT U APPEAR (test code = 3267) clear [facility] URINALYSIS W SPECIFIC [id number] 23:31:00* Test Item Value Reference Range Interpretation Comme nts POCT U SP GRAV (test code = 3255) 1.010 mg/dl 1.005-1.025 POCT PH U (test code = 3254) 7 mg/dl 5-8 POCT U LEUK EST (test code = 3263) trace Negative - Negative POCT U NIT (test code = 3262) neg Negative - Negati ve POCT U PROT (test code = 3259) neg Negative - Negative POCT U GLU (test code = 3256) normal Negative - Negati ve POCT U KETONE (test code = 3258) neg Negative - Negative POCT U UROBILI (test code = 3260) normal 0.2-1 POCT U BILI (test code = 3261) neg Negative - Negative POCT U BLD (test code = 3257) neg Negative - Negati ve POCT U COLOR (test code = 3266) dark yellow POCT U APPEAR (test code = 3267) clear [facility], [id number] 00:00:00* Test Item Value Reference Range Interpretation Comme nts IRON, SERUM (test code = 2222) 27 UG/DL Antoni LeeVITAMIN D, 25 [id number] 00:00:00* Test Item Value Reference Range Interpretation Comme nts VITAMIN D, 25 OH (test code = 4958) 14 NG/ML Antoni LeeTSH, THIRD [id number] 00:00:00* Test Item Value Reference Range Interpretation Comme nts TSH, THIRD GENERATION (test code = 2821) 2.600 UIU/ML Antoni LeeCBC W/AUTO [id number] 00:00:00* Test Item Value Reference Range Interpretation Comme nts WBC (test code = 1001) 5.0 K/UL RBC (test code = 1002) 4.13 M/UL HEMOGLOBIN (test code = 1003) 11.6 G/DL HEMATOCRIT (test code = 1004) 34.5 % MCV (test code = 1005) 83.5 fL MCH (test code = 1006) 28.1 PG MCHC (test code = 1007) 33.6 G/DL RDW (test code = 1038) 14.2 % NEUTROPHILS (test code = 1008) 58.4 % LYMPHOCYTES (test code = 1010) 32.1 % MONOCYTES (test code = 1011) 6.3 % EOSINOPHILS (test code = 1012) 2.6 % BASOPHILS (test code = 1013) 0.4 % IMMATURE GRANULOCYTES (test code = 1036) 0.2 % NUCLEATED RBCS (test code = 1065) 0.0 /100WBC'S PLATELET COUNT (test code = 1015) 320 K/UL ABSOLUTE NEUTROPHILS (test c ode = 1066) 2.89 K/UL ABSOLUTE LYMPHOCYTES (test c ode = 1067) 1.59 K/UL ABSOLUTE MONOCYTES (test cod e = 1068) 0.31 K/UL ABSOLUTE EOSINOPHILS (test c ode = 1040) 0.13 K/UL ABSOLUTE BASOPHILS (test cod e = 1069) 0.02 K/UL ABS IMMATURE GRANULOCYTES (t est code = 1020) 0.01 K/UL ABS NUCLEATED RBCS (test cod e = 16435) 0.00 K/UL Antoni LeeCOMPREHENSIVE METABOLIC [id number] 00:00:00* Test Item Value Reference Range Interpretation Comme nts GLUCOSE (test code = 2217) 119 MG/DL BUN (test code = 2208) 13 MG/DL CREATININE (test code = 2214) 0.74 MG/DL eGFR (2020 CKD-EPI) (test code = 69909) 112 ML/MIN/1.73 CALC BUN/CREAT (test code = 2235) 18 RATIO SODIUM (test code = 2231) 140 MEQ/L POTASSIUM (test code = 2228) 4.1 MEQ/L CHLORIDE (test code = 2215) 104 MEQ/L CARBON DIOXIDE (test code = 2206) 25 MEQ/L CALCIUM (test code = 2209) 9.8 MG/DL PROTEIN, TOTAL (test code = 2229) 6.9 G/DL ALBUMIN (test code = 2201) 4.5 G/DL CALC GLOBULIN (test code = 2240) 2.4 G/DL CALC A/G RATIO (test code = 2234) 1.9 RATIO BILIRUBIN, TOTAL (test code = 2207) 0.2 MG/DL ALKALINE PHOSPHATASE (test code = 2204) 99 U/L AST (test code = 2218) 24 U/L ALT (test code = 2219) 28 U/L Antoni LeeVITAMIN [id number] 00:00:00* Test Item Value Reference Range Interpretation Comme richard VITAMIN B-12 (test code = 2840) 500 PG/ML Antoni LeeIRON, [id number] 00:00:00* Test Item Value Reference Range Interpretation Comme [facility] IRON, SERUM (test code = 2222) 27 UG/DL Antoni LeeVITAMIN D, 25 [id number] 00:00:00* Test Item Value Reference Range Interpretation Comme richard VITAMIN D, 25 OH (test code = 4958) 14 NG/ML Antoni LeeTSH, THIRD [id number] 00:00:00* Test Item Value Reference Range Interpretation Comme nts TSH, THIRD GENERATION (test code = 2821) 2.600 UIU/ML Antoni LeeCBC W/AUTO [id number] 00:00:00* Test Item Value Reference Range Interpretation Comme nts WBC (test code = 1001) 5.0 K/UL RBC (test code = 1002) 4.13 M/UL HEMOGLOBIN (test code = 1003) 11.6 G/DL HEMATOCRIT (test code = 1004) 34.5 % MCV (test code = 1005) 83.5 fL MCH (test code = 1006) 28.1 PG MCHC (test code = 1007) 33.6 G/DL RDW (test code = 1038) 14.2 % NEUTROPHILS (test code = 1008) 58.4 % LYMPHOCYTES (test code = 1010) 32.1 % MONOCYTES (test code = 1011) 6.3 % EOSINOPHILS (test code = 1012) 2.6 % BASOPHILS (test code = 1013) 0.4 % IMMATURE GRANULOCYTES (test code = 1036) 0.2 % NUCLEATED RBCS (test code = 1065) 0.0 /100WBC'S PLATELET COUNT (test code = 1015) 320 K/UL ABSOLUTE NEUTROPHILS (test c ode = 1066) 2.89 K/UL ABSOLUTE LYMPHOCYTES (test c ode = 1067) 1.59 K/UL ABSOLUTE MONOCYTES (test cod e = 1068) 0.31 K/UL ABSOLUTE EOSINOPHILS (test c ode = 1040) 0.13 K/UL ABSOLUTE BASOPHILS (test cod e = 1069) 0.02 K/UL ABS IMMATURE GRANULOCYTES (t est code = 1020) 0.01 K/UL ABS NUCLEATED RBCS (test cod e = 36333) 0.00 K/UL Antoni LeeCOMPREHENSIVE METABOLIC [id number] 00:00:00* Test Item Value Reference Range Interpretation Comme nts GLUCOSE (test code = 2217) 119 MG/DL BUN (test code = 2208) 13 MG/DL CREATININE (test code = 2214) 0.74 MG/DL eGFR (2020 CKD-EPI) (test code = 72782) 112 ML/MIN/1.73 CALC BUN/CREAT (test code = 2235) 18 RATIO SODIUM (test code = 2231) 140 MEQ/L POTASSIUM (test code = 2228) 4.1 MEQ/L CHLORIDE (test code = 2215) 104 MEQ/L CARBON DIOXIDE (test code = 2206) 25 MEQ/L CALCIUM (test code = 2209) 9.8 MG/DL PROTEIN, TOTAL (test code = 2229) 6.9 G/DL ALBUMIN (test code = 2201) 4.5 G/DL CALC GLOBULIN (test code = 2240) 2.4 G/DL CALC A/G RATIO (test code = 2234) 1.9 RATIO BILIRUBIN, TOTAL (test code = 7) 0.2 MG/DL ALKALINE PHOSPHATASE (test code = 2203) 99 U/L AST (test code = 2217) 24 U/L ALT (test code = 2218) 28 U/L Antoni LeeVITAMIN [id number] 00:00:00* Test Item Value Reference Range Interpretation Comme [facility] VITAMIN B-12 (test code = 2840) 500 PG/ML Antoni LeeIRON, [id number] 00:00:00* Test Item Value Reference Range Interpretation Comme [facility] IRON, SERUM (test code = 222) 27 UG/DL Antoni LeeVITAMIN D, 25 [id number] 00:00:00* Test Item Value Reference Range Interpretation Comme [facility] VITAMIN D, 25 OH (test code = 4958) 14 NG/ML Antoni LeeTSH, THIRD [id number] 00:00:00* Test Item Value Reference Range Interpretation Comme [facility] TSH, THIRD GENERATION (test code = 2821) 2.600 UIU/ML Antoni LeeCBC W/AUTO [id number] 00:00:00* Test Item Value Reference Range Interpretation Comme nts WBC (test code = 1001) 5.0 K/UL RBC (test code = 1002) 4.13 M/UL HEMOGLOBIN (test code = 1003) 11.6 G/DL HEMATOCRIT (test code = 1004) 34.5 % MCV (test code = 1005) 83.5 fL MCH (test code = 1006) 28.1 PG MCHC (test code = 1007) 33.6 G/DL RDW (test code = 1038) 14.2 % NEUTROPHILS (test code = 1008) 58.4 % LYMPHOCYTES (test code = 1010) 32.1 % MONOCYTES (test code = 1011) 6.3 % EOSINOPHILS (test code = 1012) 2.6 % BASOPHILS (test code = 1013) 0.4 % IMMATURE GRANULOCYTES (test code = 1036) 0.2 % NUCLEATED RBCS (test code = 1065) 0.0 /100WBC'S PLATELET COUNT (test code = 1015) 320 K/UL ABSOLUTE NEUTROPHILS (test c ode = 1066) 2.89 K/UL ABSOLUTE LYMPHOCYTES (test c ode = 1067) 1.59 K/UL ABSOLUTE MONOCYTES (test cod e = 1068) 0.31 K/UL ABSOLUTE EOSINOPHILS (test c ode = 1040) 0.13 K/UL ABSOLUTE BASOPHILS (test cod e = 1069) 0.02 K/UL ABS IMMATURE GRANULOCYTES (t est code = 1020) 0.01 K/UL ABS NUCLEATED RBCS (test cod e = 51027) 0.00 K/UL Antoni LeeCOMPREHENSIVE METABOLIC [id number] 00:00:00* Test Item Value Reference Range Interpretation Comme nts GLUCOSE (test code = 2217) 119 MG/DL BUN (test code = 2208) 13 MG/DL CREATININE (test code = 2214) 0.74 MG/DL eGFR (2020 CKD-EPI) (test code = 54465) 112 ML/MIN/1.73 CALC BUN/CREAT (test code = 2235) 18 RATIO SODIUM (test code = 2231) 140 MEQ/L POTASSIUM (test code = 2228) 4.1 MEQ/L CHLORIDE (test code = 2215) 104 MEQ/L CARBON DIOXIDE (test code = 2206) 25 MEQ/L CALCIUM (test code = 2209) 9.8 MG/DL PROTEIN, TOTAL (test code = 2229) 6.9 G/DL ALBUMIN (test code = 2201) 4.5 G/DL CALC GLOBULIN (test code = 2240) 2.4 G/DL CALC A/G RATIO (test code = 2234) 1.9 RATIO BILIRUBIN, TOTAL (test code = 2207) 0.2 MG/DL ALKALINE PHOSPHATASE (test code = 2204) 99 U/L AST (test code = 2218) 24 U/L ALT (test code = 2219) 28 U/L [id number] 00:00:00* Test Item Value Reference Range Interpretation Comme nts VITAMIN B-12 (test code = 2840) 500 PG/ML Antoni LeePOCT SARS-COV-2 ANTIGEN (BINAX NOW)2022-06-30 20:18:00* Test Item Value Reference Range Interpretation Comme nts POCT SARS-COV-2 ANTIGEN (eda t code = 33990-8) Not Detected Not Detected On board controls acceptable with C Line (test code = 3574) Yes [facility] [id number] 00:00:00* Test Item Value Reference Range Interpretation Comme nts GLUCOSE (test code = 2217) 92 MG/DL BUN (test code = 2208) 14 MG/DL CREATININE (test code = 2214) 0.72 MG/DL eGFR (2020 CKD-EPI) (test code = 04884) 117 ML/MIN/1.73 CALC BUN/CREAT (test code = 2235) 19 RATIO SODIUM (test code = 2231) 141 MEQ/L POTASSIUM (test code = 2228) 5.0 MEQ/L CHLORIDE (test code = 2215) 106 MEQ/L CARBON DIOXIDE (test code = 2206) 23 MEQ/L CALCIUM (test code = 2209) 10.2 MG/DL PROTEIN, TOTAL (test code = 2229) 7.1 G/DL ALBUMIN (test code = 2201) 4.6 G/DL CALC GLOBULIN (test code = 2240) 2.5 G/DL CALC A/G RATIO (test code = 2234) 1.8 RATIO BILIRUBIN, TOTAL (test code = 2207) 0.3 MG/DL ALKALINE PHOSPHATASE (test code = 2204) 94 U/L AST (test code = 2218) 20 U/L ALT (test code = 2219) 15 U/L Antoni LeeLIPID [id number] 00:00:00* Test Item Value Reference Range Interpretation Comme nts CHOLESTEROL (test code = 2210) 219 MG/DL TRIGLYCERIDES (test code = 2232) 71 MG/DL HDL CHOLESTEROL (test code = 2220) 70 MG/DL CALC LDL CHOL (test code = 2237) 132 MG/DL RISK RATIO LDL/HDL (test cod e = 2238) 1.89 RATIO Antoni LeeZULEYMA, THIRD [id number] 00:00:00* Test Item Value Reference Range Interpretation Comme nts TSH, THIRD GENERATION (test code = 2821) 3.630 UIU/ML Antoni LeeCOMPREHENSIVE METABOLIC [id number] 00:00:00* Test Item Value Reference Range Interpretation Comme nts GLUCOSE (test code = 2217) 92 MG/DL BUN (test code = 2208) 14 MG/DL CREATININE (test code = 2214) 0.72 MG/DL eGFR (2020 CKD-EPI) (test code = 52074) 117 ML/MIN/1.73 CALC BUN/CREAT (test code = 2235) 19 RATIO SODIUM (test code = 2231) 141 MEQ/L POTASSIUM (test code = 2228) 5.0 MEQ/L CHLORIDE (test code = 2215) 106 MEQ/L CARBON DIOXIDE (test code = 2206) 23 MEQ/L CALCIUM (test code = 2209) 10.2 MG/DL PROTEIN, TOTAL (test code = 2229) 7.1 G/DL ALBUMIN (test code = 2201) 4.6 G/DL CALC GLOBULIN (test code = 2240) 2.5 G/DL CALC A/G RATIO (test code = 2234) 1.8 RATIO BILIRUBIN, TOTAL (test code = 2207) 0.3 MG/DL ALKALINE PHOSPHATASE (test code = 2204) 94 U/L AST (test code = 2218) 20 U/L ALT (test code = 2219) 15 U/L Antoni LeeLIPID [id number] 00:00:00* Test Item Value Reference Range Interpretation Comme nts CHOLESTEROL (test code = 2210) 219 MG/DL TRIGLYCERIDES (test code = 2232) 71 MG/DL HDL CHOLESTEROL (test code = 2220) 70 MG/DL CALC LDL CHOL (test code = 2237) 132 MG/DL RISK RATIO LDL/HDL (test cod e = 2238) 1.89 RATIO Antoni JohnsonH, THIRD [id number] 00:00:00* Test Item Value Reference Range Interpretation Comme nts TSH, THIRD GENERATION (test code = 2821) 3.630 UIU/ML Antoni LeeCOMPREHENSIVE METABOLIC [id number] 00:00:00* Test Item Value Reference Range Interpretation Comme nts GLUCOSE (test code = 2217) 92 MG/DL BUN (test code = 2208) 14 MG/DL CREATININE (test code = 2214) 0.72 MG/DL eGFR (2020 CKD-EPI) (test code = 48487) 117 ML/MIN/1.73 CALC BUN/CREAT (test code = 2235) 19 RATIO SODIUM (test code = 2231) 141 MEQ/L POTASSIUM (test code = 2228) 5.0 MEQ/L CHLORIDE (test code = 2215) 106 MEQ/L CARBON DIOXIDE (test code = 2206) 23 MEQ/L CALCIUM (test code = 2209) 10.2 MG/DL PROTEIN, TOTAL (test code = 2229) 7.1 G/DL ALBUMIN (test code = 2201) 4.6 G/DL CALC GLOBULIN (test code = 2240) 2.5 G/DL CALC A/G RATIO (test code = 2234) 1.8 RATIO BILIRUBIN, TOTAL (test code = 2207) 0.3 MG/DL ALKALINE PHOSPHATASE (test code = 2204) 94 U/L AST (test code = 2218) 20 U/L ALT (test code = 2219) 15 U/L Antoni LeeLIPID [id number] 00:00:00* Test Item Value Reference Range Interpretation Comme nts CHOLESTEROL (test code = 2210) 219 MG/DL TRIGLYCERIDES (test code = 2232) 71 MG/DL HDL CHOLESTEROL (test code = 2220) 70 MG/DL CALC LDL CHOL (test code = 2237) 132 MG/DL RISK RATIO LDL/HDL (test cod e = 2238) 1.89 RATIO Antoni LeeTSH, THIRD [id number] 00:00:00* Test Item Value Reference Range Interpretation Comme nts TSH, THIRD GENERATION (test code = 2821) 3.630 UIU/ML Antoni LeeHEMOGLOBIN [id number] 00:00:00* Test Item Value Reference Range Interpretation Comme nts HEMOGLOBIN A1c (test code = 00433) 5.1 % Antoni LeeCBC W/AUTO [id number] 00:00:00* Test Item Value Reference Range Interpretation Comme nts WBC (test code = 1001) 3.7 K/UL RBC (test code = 1002) 4.46 M/UL HEMOGLOBIN (test code = 1003) 12.5 G/DL HEMATOCRIT (test code = 1004) 37.8 % MCV (test code = 1005) 84.8 fL MCH (test code = 1006) 28.0 PG MCHC (test code = 1007) 33.1 G/DL RDW (test code = 1038) 13.5 % NEUTROPHILS (test code = 1008) 50.0 % LYMPHOCYTES (test code = 1010) 39.0 % MONOCYTES (test code = 1011) 7.1 % EOSINOPHILS (test code = 1012) 3.3 % BASOPHILS (test code = 1013) 0.3 % IMMATURE GRANULOCYTES (test code = 1036) 0.3 % NUCLEATED RBCS (test code = 1065) 0.0 /100WBC'S PLATELET COUNT (test code = 1015) 347 K/UL ABSOLUTE NEUTROPHILS (test c ode = 1066) 1.84 K/UL ABSOLUTE LYMPHOCYTES (test c ode = 1067) 1.43 K/UL ABSOLUTE MONOCYTES (test cod e = 1068) 0.26 K/UL ABSOLUTE EOSINOPHILS (test c ode = 1040) 0.12 K/UL ABSOLUTE BASOPHILS (test cod e = 1069) 0.01 K/UL ABS IMMATURE GRANULOCYTES (t est code = 1020) 0.01 K/UL ABS NUCLEATED RBCS (test cod e = 31191) 0.00 K/UL Antoni LeeHEMOGLOBIN [id number] 00:00:00* Test Item Value Reference Range Interpretation Comme nts HEMOGLOBIN A1c (test code = 02940) 5.1 % Antoni LeeCBC W/AUTO [id number] 00:00:00* Test Item Value Reference Range Interpretation Comme nts WBC (test code = 1001) 3.7 K/UL RBC (test code = 1002) 4.46 M/UL HEMOGLOBIN (test code = 1003) 12.5 G/DL HEMATOCRIT (test code = 1004) 37.8 % MCV (test code = 1005) 84.8 fL MCH (test code = 1006) 28.0 PG MCHC (test code = 1007) 33.1 G/DL RDW (test code = 1038) 13.5 % NEUTROPHILS (test code = 1008) 50.0 % LYMPHOCYTES (test code = 1010) 39.0 % MONOCYTES (test code = 1011) 7.1 % EOSINOPHILS (test code = 1012) 3.3 % BASOPHILS (test code = 1013) 0.3 % IMMATURE GRANULOCYTES (test code = 1036) 0.3 % NUCLEATED RBCS (test code = 1065) 0.0 /100WBC'S PLATELET COUNT (test code = 1015) 347 K/UL ABSOLUTE NEUTROPHILS (test c ode = 1066) 1.84 K/UL ABSOLUTE LYMPHOCYTES (test c ode = 1067) 1.43 K/UL ABSOLUTE MONOCYTES (test cod e = 1068) 0.26 K/UL ABSOLUTE EOSINOPHILS (test c ode = 1040) 0.12 K/UL ABSOLUTE BASOPHILS (test cod e = 1069) 0.01 K/UL ABS IMMATURE GRANULOCYTES (t est code = 1020) 0.01 K/UL ABS NUCLEATED RBCS (test cod e = 90040) 0.00 K/UL Antoni LeeHEMOGLOBIN [id number] 00:00:00* Test Item Value Reference Range Interpretation Comme nts HEMOGLOBIN A1c (test code = 06562) 5.1 % Antoni LeeCBC W/AUTO [id number] 00:00:00* Test Item Value Reference Range Interpretation Comme nts WBC (test code = 1001) 3.7 K/UL RBC (test code = 1002) 4.46 M/UL HEMOGLOBIN (test code = 1003) 12.5 G/DL HEMATOCRIT (test code = 1004) 37.8 % MCV (test code = 1005) 84.8 fL MCH (test code = 1006) 28.0 PG MCHC (test code = 1007) 33.1 G/DL RDW (test code = 1038) 13.5 % NEUTROPHILS (test code = 1008) 50.0 % LYMPHOCYTES (test code = 1010) 39.0 % MONOCYTES (test code = 1011) 7.1 % EOSINOPHILS (test code = 1012) 3.3 % BASOPHILS (test code = 1013) 0.3 % IMMATURE GRANULOCYTES (test code = 1036) 0.3 % NUCLEATED RBCS (test code = 1065) 0.0 /100WBC'S PLATELET COUNT (test code = 1015) 347 K/UL ABSOLUTE NEUTROPHILS (test c ode = 1066) 1.84 K/UL ABSOLUTE LYMPHOCYTES (test c ode = 1067) 1.43 K/UL ABSOLUTE MONOCYTES (test cod e = 1068) 0.26 K/UL ABSOLUTE EOSINOPHILS (test c ode = 1040) 0.12 K/UL ABSOLUTE BASOPHILS (test cod e = 1069) 0.01 K/UL ABS IMMATURE GRANULOCYTES (t est code = 1020) 0.01 K/UL ABS NUCLEATED RBCS (test cod e = 09671) 0.00 K/UL Antoni Echevarria AustinPOCT [id number] 14:26:00* Test Item Value Reference Range Interpretation Comme nts POCT PREG (test code = 1605) Negative On board controls acceptable with C Line (test code = 3574) Yes POCT PREG LOT # (test code = 3575) POCT PREG TEST DATE ( test code = 3576) [facility] URINALYSIS W SPECIFIC [id number] 14:21:00* Test Item Value Reference Range Interpretation Comme nts POCT U SP GRAV (test code = 3255) 1.010 mg/dl 1.005-1.025 POCT PH U (test code = 3254) 7 mg/dl 5-8 POCT U LEUK EST (test code = 3263) ++ Negative - Negative POCT U NIT (test code = 3262) negative Negative - Negati ve POCT U PROT (test code = 3259) Negative - Negative POCT U GLU (test code = 3256) normal Negative - Negati ve POCT U KETONE (test code = 3258) negative Negative - Negative POCT U UROBILI (test code = 3260) normal 0.2-1 POCT U BILI (test code = 3261) negative Negative - Negative POCT U BLD (test code = 3257) negative Negative - Negati ve POCT U COLOR (test code = 3266) yellow POCT U APPEAR (test code = 3267) clear [facility], NAAT, [id number] 11:31:42* Test Item Value Reference Range Interpretation Comme nts GONORRHEA, NAAT (test code = 18648) NEGATIVE NEGATIVE IMPORTANT NO DIGNA: SEE ANNOUNCEMENT AT [email or web address] Note: Assay methodology is nucleic acid amplification by meter mechanic mediated amplification (TMA) utilizing the Aptima Combo 2 Assay. IMPORTANT NOTICE: SEE ANNOUNCEMENT AT [email or web address] Note: Assay methodology is nucleic acid amplification by meter mechanic mediated amplification (TMA) utilizing the Aptima Combo 2 Assay. CHLAMYDIA, NAAT (test code = 57155) NEGATIVE NEGATIVE IMPORTANT NO DIGNA: SEE ANNOUNCEMENT AT [email or web address] Note: Assay methodology is nucleic acid amplification by meter mechanic mediated amplification (TMA) utilizing the Aptima Combo 2 Assay. IMPORTANT NOTICE: SEE ANNOUNCEMENT AT [email or web address] Note: Assay methodology is nucleic acid amplification by meter mechanic mediated amplification (TMA) utilizing the Aptima Combo 2 Assay. PAP TEST, THINPREP, [id number] 10:40:24* Test Item Value Reference Range Interpretation Comme nts SOURCE: (test code = 8001) Cervical SLIDES: (test code = 8011) 1 LMP: (test code = 8021) 10/13/2021 SPECIMEN ADEQUACY: (test code = 62075) (NOTE) Satisfactory for evaluation. Endocervical cells/transformation zone component present. INTERPRETATION: (test code = 38802) ASCUS/EPITH. ABNORMALITY; SEE BELOW A - ------- EPITHELIAL CELL ABNORMALITY Atypical squamous cells of undetermined significance (ASC-US) LAY OUT MACHINE OPERATOR: (test code = 8101) NIMO Mclean(ASCP)I AC PATHOLOGIST INTERPRETATION BY: (test code = 8122) Annalise Swan LOCATION: (test code = 10476) (NOTE) Specimens proces sed at [facility], [address] [place] [id number], , CLIA: [id number] interpreted at [facility] Pathology Dept, [address], [place] [address], , CLIA: [id number] CPT: (test code = 8140) (NOTE) 17865, 41093 UNL ESS OTHERWISE INDICATED, COMPUTER AIDED AND LAY OUT MACHINE OPERATOR SCREENING PERFORMED. The Pap test is a screening test with an inherent, but low probability of error. Your patient should be reminded to consult you immediately if she experiences any suspicious signs or symptoms, regardless of her Pap test result. An alternate report format containing images or consolidated prior Pap history is available as applicable. UNLESS OTHERWISE INDICATED, ALL TESTING PERFORMED [facility] [address] [place] [address] [employer] LEADER: RADHA ALEMAN M.D. CLIA NUMBER [id number] [facility] [place]. [id number] PAP TEST, THINPREP, [id number] 00:00:00* Test Item Value Reference Range Interpretation Comme nts SOURCE: (test code = 8001) Cervical SLIDES: (test code = 8011) 1 LMP: (test code = 8021) 10/13/2021 SPECIMEN ADEQUACY: (test code = 78369) (NOTE) INTERPRETATION: (test code = 50230) ASCUS/EPITH. ABNORMALITY; SEE BELOW LAY OUT MACHINE OPERATOR: (test code = 8101) NIMO Mclean(ASCP[facility] INTERPRETATION BY: (test code = 8122) Annalise Swan LOCATION: (test code = 29889) (NOTE) CPT: (test code = 8140) (NOTE) Antoni Swathi LeeGC AND CHLAMYDIA, AMPLIFIED, [id number] 00:00:00* Test Item Value Reference Range Interpretation Comme nts GONORRHEA, NAAT (test code = 65480) NEGATIVE CHLAMYDIA, NAAT (test code = 20027) NEGATIVE Antoni LeePAP TEST, THINPREP, [id number] 00:00:00* Test Item Value Reference Range Interpretation Comme nts SOURCE: (test code = 8001) Cervical SLIDES: (test code = 8011) 1 LMP: (test code = 8021) 10/13/2021 SPECIMEN ADEQUACY: (test code = 63705) (NOTE) INTERPRETATION: (test code = 55978) ASCUS/EPITH. ABNORMALITY; SEE BELOW LAY OUT MACHINE OPERATOR: (test code = 8101) NIMO Mclean(ASCP)[facility] PATH[facility] INTERPRETATION BY: (test code = 8122) Annalise [facility] LOCATION: (test code = 12626) (NOTE) CPT: (test code = 8140) (NOTE) Antoni Echevarria AustinGC AND CHLAMYDIA, AMPLIFIED, [id number] 00:00:00* Test Item Value Reference Range Interpretation Comme nts GONORRHEA, NAAT (test code = 04744) NEGATIVE CHLAMYDIA, NAAT (test code = 80206) NEGATIVE Antoni LeePAP TEST, THINPREP, [id number] 00:00:00* Test Item Value Reference Range Interpretation Comme nts SOURCE: (test code = 8001) Cervical SLIDES: (test code = 8011) 1 LMP: (test code = 8021) 10/13/2021 SPECIMEN ADEQUACY: (test code = 30073) (NOTE) INTERPRETATION: (test code = 04755) ASCUS/EPITH. ABNORMALITY; SEE BELOW LAY OUT MACHINE OPERATOR: (test code = 8101) NIMO Mclean(ASCP[facility] PATH[facility] INTERPRETATION BY: (test code = 8122) Annalise Swan LOCATION: (test code = 24373) (NOTE) CPT: (test code = 8140) (NOTE) Antoni LeeGC AND CHLAMYDIA, AMPLIFIED, [id number] 00:00:00* Test Item Value Reference Range Interpretation Comme nts GONORRHEA, NAAT (test code = 52197) NEGATIVE CHLAMYDIA, NAAT (test code = 54682) NEGATIVE Antoni Echevarria JesusVAGINAL PATHOGENS DNA [id number] 14:48:29* Test Item Value Reference Range Interpretation Comme nts CHARLES SPECIES (test code = 99279) NEGATIVE NEGATIVE G. VAGINALIS (test code = 21831) POSITIVE NEGATIVE A T. VAGINALIS (test code = 46244) NEGATIVE NEGATIVE HIV 1/2 4TH GEN, RFLX [id number] 04:04:35* Test Item Value Reference Range Interpretation Comme nts HIV 1/2 4TH GEN, RFLX CONF ( test code = 3514) NON-REACTIVE NON-REACTIVE HEPATITIS PANEL, [id number] 04:04:35* Test Item Value Reference Range Interpretation Comme nts HEPATITIS A IgM (test code = 03476) NON-REACTIVE NON-REACTIVE HEPATITIS B CORE IgM (test code = 4644) NON-REACTIVE NON-REACTIVE HEPATITIS B SURF AG (test code = 2739) NON-REACTIVE NON-REACTIVE HEPATITIS C ANTIBODY (test code = 4675) NON-REACTIVE NON-REACTIVE INTERPRETATION HEPATITIS A: (test code = 2552) (NOTE) Hepatitis A sero logy shows no evidence of acute hepatitis A. INTERPRETATION HEPATITIS B: (test code = 33916) (NOTE) Hepatitis B sero logy shows no evidence of acute hepatitis B andno indication of exposure to hepatitis B virus in the previous chicho eight months. INTERPRETATION HEPATITIS C: (test code = 90066) (NOTE) Hepatitis C sero logy shows no evidence of exposure to hepatitisC virus at this time. It can take up to 12 months after exposure tothe hepatitis C virus for antibodies to become detectable in the blood in certain patients. UNLESS OTHERWISE INDICATED, ALL TESTING PERFORMED [facility] [address] [place] [address] [employer] LEADER: RADHA ALEMAN M.D. CLIA NUMBER [id number] [facility] [place]. [id number] 02:50:30* Test Item Value Reference Range Interpretation Comme nts RPR RESULT (test code = 3501) NON-REACTIVE NON-REACTIVE RPR TITER (test code = 3500) NOT INDIC. TITER NOT INDIC. ACUTE HEPATITIS [id number] 00:00:00* Test Item Value Reference Range Interpretation Comme nts HEPATITIS A IgM (test code = 76331) NON-REACTIVE HEPATITIS B CORE IgM (test c ode = 4644) NON-REACTIVE HEPATITIS B SURF AG (test co de = 2739) NON-REACTIVE HEPATITIS C ANTIBODY (test c ode = 4675) NON-REACTIVE INTERPRETATION HEPATITIS A: (test code = 2552) (NOTE) INTERPRETATION HEPATITIS B: (test code = 59518) (NOTE) INTERPRETATION HEPATITIS C: (test code = 16547) (NOTE) Antoni F AustinVAGINAL PATHOGENS DNA [id number] 00:00:00* Test Item Value Reference Range Interpretation Comme nts CHARLES SPECIES (test code = ) NEGATIVE G. VAGINALIS (test code = ) POSITIVE T. VAGINALIS (test code = 67417) NEGATIVE Antoni Echevarria AustinHIV AB/AG COMBO RFLX [id number] 00:00:00* Test Item Value Reference Range Interpretation Comme nts HIV 1/2 4TH GEN, RFLX CONF ( test code = 3514) NON-REACTIVE Antoni Echevarria [id number] 00:00:00* Test Item Value Reference Range Interpretation Comme nts RPR RESULT (test code = 3501) NON-REACTIVE RPR TITER (test code = 3500) NOT INDIC. TITER Antoni LeeACUTE HEPATITIS [id number] 00:00:00* Test Item Value Reference Range Interpretation Comme nts HEPATITIS A IgM (test code = 74559) NON-REACTIVE HEPATITIS B CORE IgM (test c ode = 4644) NON-REACTIVE HEPATITIS B SURF AG (test co de = 2739) NON-REACTIVE HEPATITIS C ANTIBODY (test c ode = 4675) NON-REACTIVE INTERPRETATION HEPATITIS A: (test code = 2552) (NOTE) INTERPRETATION HEPATITIS B: (test code = 60259) (NOTE) INTERPRETATION HEPATITIS C: (test code = 20079) (NOTE) Antoni Echevarria AustinVAGINAL PATHOGENS DNA [id number] 00:00:00* Test Item Value Reference Range Interpretation Comme nts CHARLES SPECIES (test code = ) NEGATIVE G. VAGINALIS (test code = 29908) POSITIVE T. VAGINALIS (test code = 76570) NEGATIVE Antoni LeeHIV AB/AG COMBO RFLX [id number] 00:00:00* Test Item Value Reference Range Interpretation Comme nts HIV 1/2 4TH GEN, RFLX CONF ( test code = 3514) NON-REACTIVE Antoni Echevarria [id number] 00:00:00* Test Item Value Reference Range Interpretation Comme nts RPR RESULT (test code = 3501) NON-REACTIVE RPR TITER (test code = 3500) NOT INDIC. TITER Antoni Echevarria AustinACUTE HEPATITIS [id number] 00:00:00* Test Item Value Reference Range Interpretation Comme nts HEPATITIS A IgM (test code = 06086) NON-REACTIVE HEPATITIS B CORE IgM (test c ode = 4679) NON-REACTIVE HEPATITIS B SURF AG (test co de = 9069) NON-REACTIVE HEPATITIS C ANTIBODY (test c ode = 4643) NON-REACTIVE INTERPRETATION HEPATITIS A: (test code = 2552) (NOTE) INTERPRETATION HEPATITIS B: (test code = 78363) (NOTE) INTERPRETATION HEPATITIS C: (test code = 15094) (NOTE) Antoni Echevarria AustinVAGINAL PATHOGENS DNA [id number] 00:00:00* Test Item Value Reference Range Interpretation Comme nts CHARLES SPECIES (test code = ) NEGATIVE G. VAGINALIS (test code = 23024) POSITIVE T. VAGINALIS (test code = 21855) NEGATIVE Antoni LeeHIV AB/AG COMBO RFLX [id number] 00:00:00* Test Item Value Reference Range Interpretation Comme nts HIV 1/2 4TH GEN, RFLX CONF ( test code = 3514) NON-REACTIVE Antoni [id number] 00:00:00* Test Item Value Reference Range Interpretation Comme nts RPR RESULT (test code = 3501) NON-REACTIVE RPR TITER (test code = 3500) NOT INDIC. TITER Antoni Echevarria AustinVAGINAL PATHOGENS DNA [id number] 00:00:00* Test Item Value Reference Range Interpretation Comme nts CHARLES SPECIES (test code = ) NEGATIVE G. VAGINALIS (test code = 39375) POSITIVE T. VAGINALIS (test code = 05221) NEGATIVE Antoni Echevarria AustinGC AND CHLAMYDIA, AMPLIFIED, [id number] 00:00:00* Test Item Value Reference Range Interpretation Comme nts GONORRHEA, TMA (test code = 30258) NEGATIVE CHLAMYDIA, TMA (test code = 89365) POSITIVE Antoni Echevarria AustinVAGINAL PATHOGENS DNA [id number] 00:00:00* Test Item Value Reference Range Interpretation Comme nts CHARLES SPECIES (test code = 65865) NEGATIVE G. VAGINALIS (test code = 92139) POSITIVE T. VAGINALIS (test code = 13306) NEGATIVE Antoni Echevarria AustinGC AND CHLAMYDIA, AMPLIFIED, [id number] 00:00:00* Test Item Value Reference Range Interpretation Comme nts GONORRHEA, TMA (test code = 80114) NEGATIVE CHLAMYDIA, TMA (test code = 54852) POSITIVE Antoni LeeVAGINAL PATHOGENS DNA [id number] 00:00:00* Test Item Value Reference Range Interpretation Comme nts CHARLES SPECIES (test code = 20952) NEGATIVE G. VAGINALIS (test code = 94327) POSITIVE T. VAGINALIS (test code = 32393) NEGATIVE Antoni LeeGC AND CHLAMYDIA, AMPLIFIED, [id number] 00:00:00* Test Item Value Reference Range Interpretation Comme nts GONORRHEA, TMA (test code = 85126) NEGATIVE CHLAMYDIA, TMA (test code = 38984) POSITIVE Antoni [id number] 00:00:00* Test Item Value Reference Range Interpretation Comme nts TSH (test code = 2821) 2.6 UIU/ML Antoni LeeCOMPREHENSIVE METABOLIC [id number] 00:00:00* Test Item Value Reference Range Interpretation Comme nts GLUCOSE (test code = 2217) 93 MG/DL BUN (test code = 2208) 10 MG/DL CREATININE (test code = 2214) 0.87 MG/DL eGFR AMER. (test cod e = 17927) 110 ML/MIN/1.73 eGFR NON- AMER. (test code = 50061) 95 ML/MIN/1.73 CALC BUN/CREAT (test code = 2235) 11 RATIO SODIUM (test code = 2231) 141 MEQ/L POTASSIUM (test code = 2228) 4.3 MEQ/L CHLORIDE (test code = 2215) 102 MEQ/L CARBON DIOXIDE (test code = 2206) 24 MEQ/L CALCIUM (test code = 2209) 9.8 MG/DL PROTEIN, TOTAL (test code = 2229) 7.3 G/DL ALBUMIN (test code = 2201) 4.6 G/DL CALC GLOBULIN (test code = 2240) 2.7 G/DL CALC A/G RATIO (test code = 2234) 1.7 RATIO BILIRUBIN, TOTAL (test code = 2207) 0.3 MG/DL ALKALINE PHOSPHATASE (test code = 2204) 115 U/L AST (test code = 2218) 16 U/L ALT (test code = 2219) 10 U/L Antoni LeeLIPID [id number] 00:00:00* Test Item Value Reference Range Interpretation Comme nts CHOLESTEROL (test code = 2210) 211 MG/DL TRIGLYCERIDES (test code = 2232) 77 MG/DL HDL CHOLESTEROL (test code = 2220) 75 MG/DL CALC LDL CHOL (test code = 2237) 121 MG/DL RISK RATIO LDL/HDL (test cod e = 2238) 1.61 RATIO Antoni LeeCBC W/AUTO [id number] 00:00:00* Test Item Value Reference Range Interpretation Comme nts WBC (test code = 1001) 4.4 K/UL RBC (test code = 1002) 4.27 M/UL HEMOGLOBIN (test code = 1003) 11.1 G/DL HEMATOCRIT (test code = 1004) 34.0 % MCV (test code = 1005) 79.6 fL MCH (test code = 1006) 26.0 PG MCHC (test code = 1007) 32.6 G/DL RDW (test code = 1038) 14.7 % NEUTROPHILS (test code = 1008) 57.4 % LYMPHOCYTES (test code = 1010) 34.2 % MONOCYTES (test code = 1011) 5.5 % EOSINOPHILS (test code = 1012) 2.7 % BASOPHILS (test code = 1013) 0.2 % PLATELET COUNT (test code = 1015) 319 K/UL Antoni LeeHEMOGLOBIN [id number] 00:00:00* Test Item Value Reference Range Interpretation Comme richard HEMOGLOBIN A1c (test code = 10460) 5.0 % Antoni [id number] 00:00:00* Test Item Value Reference Range Interpretation Comme richard TSH (test code = 2821) 2.6 UIU/ML Antoni LeeCOMPREHENSIVE METABOLIC [id number] 00:00:00* Test Item Value Reference Range Interpretation Comme nts GLUCOSE (test code = 2217) 93 MG/DL BUN (test code = 2208) 10 MG/DL CREATININE (test code = 2214) 0.87 MG/DL eGFR AMER. (test cod e = 04224) 110 ML/MIN/1.73 eGFR NON- AMER. (test code = 97387) 95 ML/MIN/1.73 CALC BUN/CREAT (test code = 2235) 11 RATIO SODIUM (test code = 2231) 141 MEQ/L POTASSIUM (test code = 2228) 4.3 MEQ/L CHLORIDE (test code = 2215) 102 MEQ/L CARBON DIOXIDE (test code = 2206) 24 MEQ/L CALCIUM (test code = 2209) 9.8 MG/DL PROTEIN, TOTAL (test code = 2229) 7.3 G/DL ALBUMIN (test code = 2201) 4.6 G/DL CALC GLOBULIN (test code = 2240) 2.7 G/DL CALC A/G RATIO (test code = 2234) 1.7 RATIO BILIRUBIN, TOTAL (test code = 2207) 0.3 MG/DL ALKALINE PHOSPHATASE (test code = 2204) 115 U/L AST (test code = 2218) 16 U/L ALT (test code = 2219) 10 U/L Antoni LeeLIPID [id number] 00:00:00* Test Item Value Reference Range Interpretation Comme nts CHOLESTEROL (test code = 2210) 211 MG/DL TRIGLYCERIDES (test code = 2232) 77 MG/DL HDL CHOLESTEROL (test code = 2220) 75 MG/DL CALC LDL CHOL (test code = 2237) 121 MG/DL RISK RATIO LDL/HDL (test cod e = 2238) 1.61 RATIO Antoni LeeCBC W/AUTO [id number] 00:00:00* Test Item Value Reference Range Interpretation Comme nts WBC (test code = 1001) 4.4 K/UL RBC (test code = 1002) 4.27 M/UL HEMOGLOBIN (test code = 1003) 11.1 G/DL HEMATOCRIT (test code = 1004) 34.0 % MCV (test code = 1005) 79.6 fL MCH (test code = 1006) 26.0 PG MCHC (test code = 1007) 32.6 G/DL RDW (test code = 1038) 14.7 % NEUTROPHILS (test code = 1008) 57.4 % LYMPHOCYTES (test code = 1010) 34.2 % MONOCYTES (test code = 1011) 5.5 % EOSINOPHILS (test code = 1012) 2.7 % BASOPHILS (test code = 1013) 0.2 % PLATELET COUNT (test code = 1015) 319 K/UL Antoni LeeHEMOGLOBIN [id number] 00:00:00* Test Item Value Reference Range Interpretation Comme nts HEMOGLOBIN A1c (test code = 14952) 5.0 % Antoni [id number] 00:00:00* Test Item Value Reference Range Interpretation Comme nts TSH (test code = 2821) 2.6 UIU/ML Antoni LeeCOMPREHENSIVE METABOLIC [id number] 00:00:00* Test Item Value Reference Range Interpretation Comme nts GLUCOSE (test code = 2217) 93 MG/DL BUN (test code = 2208) 10 MG/DL CREATININE (test code = 2214) 0.87 MG/DL eGFR AMER. (test cod e = 94136) 110 ML/MIN/1.73 eGFR NON- AMER. (test code = 48328) 95 ML/MIN/1.73 CALC BUN/CREAT (test code = 2235) 11 RATIO SODIUM (test code = 2231) 141 MEQ/L POTASSIUM (test code = 2228) 4.3 MEQ/L CHLORIDE (test code = 2215) 102 MEQ/L CARBON DIOXIDE (test code = 2206) 24 MEQ/L CALCIUM (test code = 2209) 9.8 MG/DL PROTEIN, TOTAL (test code = 2229) 7.3 G/DL ALBUMIN (test code = 2201) 4.6 G/DL CALC GLOBULIN (test code = 2240) 2.7 G/DL CALC A/G RATIO (test code = 2234) 1.7 RATIO BILIRUBIN, TOTAL (test code = 2207) 0.3 MG/DL ALKALINE PHOSPHATASE (test code = 2204) 115 U/L AST (test code = 2218) 16 U/L ALT (test code = 2219) 10 U/L Antoin LeeLIPID [id number] 00:00:00* Test Item Value Reference Range Interpretation Comme nts CHOLESTEROL (test code = 2210) 211 MG/DL TRIGLYCERIDES (test code = 2232) 77 MG/DL HDL CHOLESTEROL (test code = 2220) 75 MG/DL CALC LDL CHOL (test code = 2237) 121 MG/DL RISK RATIO LDL/HDL (test cod e = 2238) 1.61 RATIO Antoni LeeCBC W/AUTO [id number] 00:00:00* Test Item Value Reference Range Interpretation Comme nts WBC (test code = 1001) 4.4 K/UL RBC (test code = 1002) 4.27 M/UL HEMOGLOBIN (test code = 1003) 11.1 G/DL HEMATOCRIT (test code = 1004) 34.0 % MCV (test code = 1005) 79.6 fL MCH (test code = 1006) 26.0 PG MCHC (test code = 1007) 32.6 G/DL RDW (test code = 1038) 14.7 % NEUTROPHILS (test code = 1008) 57.4 % LYMPHOCYTES (test code = 1010) 34.2 % MONOCYTES (test code = 1011) 5.5 % EOSINOPHILS (test code = 1012) 2.7 % BASOPHILS (test code = 1013) 0.2 % PLATELET COUNT (test code = 1015) 319 K/UL Antoni LeeHEMOGLOBIN [id number] 00:00:00* Test Item Value Reference Range Interpretation Comme nts HEMOGLOBIN A1c (test code = 09117) 5.0 % Antoni Echevarria AustinTHYROID II PROFILE (T3U, T4, T7, TSH)[id number] 00:00:00* Test Item Value Reference Range Interpretation Comme nts T3 UPTAKE (test code = 2817) 29.4 % T4 (THYROXINE) (test code = 2819) 6.1 UG/DL CALCULATED T7 (FTI) (test co de = 2820) 1.79 TSH (test code = 2821) 1.2 UIU/ML Antoni LeeTHYROID II PROFILE (T3U, T4, T7, TSH)2016-02-23 00:00:00* Test Item Value Reference Range Interpretation Comme nts T3 UPTAKE (test code = 2817) 29.4 % T4 (THYROXINE) (test code = 2819) 6.1 UG/DL CALCULATED T7 (FTI) (test co de = 2820) 1.79 TSH (test code = 2821) 1.2 UIU/ML Antoni Echevarria AustinTHYROID II PROFILE (T3U, T4, T7, TSH)2016-02-23 00:00:00* Test Item Value Reference Range Interpretation Comme nts T3 UPTAKE (test code = 2817) 29.4 % T4 (THYROXINE) (test code = 2819) 6.1 UG/DL CALCULATED T7 (FTI) (test co de = 2820) 1.79 TSH (test code = 2821) 1.2 UIU/ML Antoni Lee
== END 2024-06-29 12:22 | disposition home or self-care (01) ==
LOC: ER 09:54
DX: R51.9 Headache, unspecified (principal); M54.2 Cervicalgia
CPT/HCPCS: 96361; 96375; 96374; 99284; J2765; J1200; J7030

== ENCOUNTER 2024-07-18 18:48 | Emergency (ER) | payer OTHER ==
--- OUTSIDE RECORDS SUMMARY | 2024-07-18 18:52 | XMS REPORT | Continuity of Care Document ---
Author Name Unknown Address [address] [facility] [place] [address] [facility] Address [address] [facility] [place] [address] [place] [address] Care Team Providers Care Electromechanical Inspector Name Role Phone Guillermina Barragan Primary Care Physician BINA JONES Attending Clinician Unavailable Daisha Meraz MD Attending Clinician + [phone] SABINO HOLDER Attending Clinician Unavailable Anatoliy Doe DO Attending Clinician [phone] Doctor Unassigned, [place] Attending Clinician U CARLOS Pérez Attending Clinician Unavailable Carlos Ernandez Attending Clinician [phone] Tracey Valle Attending Clinician [phone] Unknown, Attending Attending Clinician Unavailab le UNKNOWN, ATTENDING Attending Clinician Unavailab ronni [facility] Attending Clinician Unavailable Bret Luciano MD Attending Clinician [phone] BRET LUCIANO Attending Clinician UnavailCortney Stiles MA Attending Clinician UnavailKARLO Hernández Attending Clinician UnavailKarlo Mar MD Attending Clinician [phone] CHARLIE YOUNGBLOOD Attending Clinician Unavailable Charlie Hernández Attending Clinician [phone] NANCY GORDON Attending Clinician Unavailable Nancy Gordon MD Attending Clinician Provider, [facility] Attending Clinician Unavailable LETI IRVING Attending Clinician Unavailable TRACEY GRAY Attending Clinician Unavailable Lefty CHOUP, Brissa Attending Clinician Dov TOOL SMITHLissett Smith Attending Clinician LISSETT TORRES Attending Clinician UnavailTERESA Rosenthal Attending Clinician Unavailable Jose DONALD, Teresa Attending Clinician ANTONI LUNA Attending Clinician Unavail able BINA JONES Admitting Clinician Unavailable Payers Payer Name Policy Type Policy Number Effective Date Expirati on Date Source [facility] [id number] 2021 00:00:00 Problems Condition Name Condition Details Condition Category Status Onset Date Resolution Date Last Treatment Date Treating Clinician Comments Source Abdominal pain, epigastric Abdominal pain, epigastric Disease Active 01-28 00:00: 00 [facility] Nausea and vomiting, unspecifie d vomiting type Nausea and vomiting, unspecifie d vomiting type Disease Active 01-28 00:00: 00 [facility] Hand injury, left, subsequent encounter Hand injury, left, subsequent encounter Disease Active 5-16 00:00: 00 [facility] Anxiety and depression Anxiety and depression Disease Active 9-12 00:00: 00 [facility] Anemia, unspecifie d anemia type Anemia, unspecifie d anemia type Disease Active 07-10 00:00: 00 [facility] Surveillan ce of previously prescribed contracept timo method Surveillan ce of previously prescribed contracept timo method Disease Active 07-10 00:00: 00 [facility] Well woman exam with routine gynecologi arturo exam Well woman exam with routine gynecologi arturo exam Disease Active 07-10 00:00: 00 [facility] Rubella non-immune status, antepartum Rubella non-immune status, antepartum Disease Active 09-27 00:00: 00 [facility] Susceptibl e to varicella (non-immun e), currently Susceptibl e to varicella (non-immun e), currently Disease Active 09-27 00:00: 00 [facility] Generalize d anxiety disorder Generalize d anxiety disorder Disease Active 09-26 00:00: 00 [facility] History of depression History of depression Disease Active 09-26 00:00: 00 [facility] Asthma Asthma Disease Active 09-26 00:00: 00 Overview: Formattin g of this note might be different from the original. ICD10 Diagnosis Term [employer] Nurse Utility [facility] Anemia of in third trimester Anemia of in third trimester Disease Resolve d 2014-06 2-17 00:00: 00 2015-07-10 00:00:00 2015-07-10 13:00:16 [facility] 39 weeks gestation of 39 weeks gestation of Disease Resolve d 2014-06 2- 00:00: 00 2015-07-10 00:00:00 2015-07-10 13:00:16 [facility] Severe preeclamps ia Severe preeclamps ia Disease Resolve d 2014-06 2-15 00:00: 00 2015-07-10 00:00:00 2015-07-10 13:11:43 [facility] Chronic cholecysti tis with calculus Chronic cholecysti tis with calculus Disease Resolve d 2014-06 2- 00:00: 00 2015-07-10 00:00:00 2015-07-10 13:00:16 [facility] Nausea/vom iting in Nausea/vom iting in Disease Resolve d 2014-06 2- 00:00: 00 2015-07-10 00:00:00 2015-07-10 13:00:16 [facility] Pancreatit is Pancreatit is Disease Resolve d 2014-06 007 00:00: 00 2015-07-10 00:00:00 2015-07-10 13:11:53 [facility] Gastroesop hageal reflux during , antepartum Gastroesop hageal reflux during , antepartum Disease Resolve d 723 00:00: 00 2015-07-10 00:00:00 2015-07-10 13:11:34 [facility] Nausea and vomiting during prior to 22 weeks gestation Nausea and vomiting during prior to 22 weeks gestation Disease Resolve d 5- 00:00: 00 2015-07-10 00:00:00 2015-07-10 13:11:39 [facility] Supervisio n of other high-risk Supervisio n of other high-risk Disease Resolve d 09-26 00:00: 00 2015-07-10 00:00:00 2021-12-16 00:35:46 [facility] Obesity complicati ng , childbirth , or puerperium , antepartum Obesity complicati ng , childbirth , or puerperium , antepartum Disease Resolve d 09-26 00:00: 00 2015-07-10 00:00:00 2021-12-16 00:35:46 [facility] Vaginal yeast infection Vaginal yeast infection Disease Resolve d 12-22 00:00: 00 2015-01-17 00:00:00 2015-01-17 16:20:45 [facility] Chlamydia trachomati s infection of lower genitourin carlo sites Chlamydia trachomati s infection of lower genitourin carlo sites Disease Resolve d 09-22 00:00: 00 2014-09-26 00:00:00 2014-09-26 16:50:24 [facility] Not immune to rubella Not immune to rubella Disease Resolve d 09-22 00:00: 00 2014-09-26 00:00:00 2021-12-16 00:29:57 [facility] Abdominal pain, right upper quadrant Abdominal pain, right upper quadrant Disease Resolve d 2011-06 00:00: 00 2014-09-26 00:00:00 2014-09-26 16:50:22 [facility] Allergies, Adverse Reactions, Alerts Allergy Name Allergy Type Status Severity Reaction(s) Onset Date Inactive Date Treating Clinician Comments Source [place] - Intraven ous Propensi ty to adverse reaction to drug Active 11-20 00:00: 00 Antoni Lee NO KNOWN ALLERGIE S Drug Class Active [facility] Social History Social Habit Start Date Stop Date Quantity Comments Source History of tobacco use Cigarette Smoker [facility] History SDOH Alcohol Frequency [facility] History SDOH Alcohol Std Drinks [facility] History SDOH Alcohol Binge [facility] Gender identity [facility] Sexual orientation [facility] Alcohol intake 2023-05-07 00:00:00 2023-05-07 00:00:00 Current drinker of alcohol (finding) [facility] History of Social function 2023-01-28 00:00:00 2023-01-28 00:00:00 [facility] Exposure to SARS-CoV-2 (event) 2022-10-05 00:00:00 2022-10-15 11:37:00 Not sure [facility] Tobacco Comment 2022-02-11 00:00:00 2022-02-11 00:00:00 Smoked occasionally for 1.5 years, a pack would last 2 months [facility] Alcohol Comment 2017-03-10 00:00:00 2017-03-10 00:00:00 on special occassions [facility] Tobacco use and exposure 2012-05-04 00:00:00 2012-05-04 00:00:00 Smokeless tobacco non-user [facility] Alcoholic beverage intake 2012-05-04 00:00:00 2012-05-04 00:00:00 Current non-drinker of alcohol (finding) [facility] Sex assigned at 1995 00:00:00 1995 00:00:00 [facility] Smoking Status Start Date Stop Date Source Ex-smoker 2022-02-11 00:00:00 2022-02-11 00:00:00 [facility] Never smoked tobacco [facility] Medications Ordered Medication Name Filled Medication Name Start Date Stop Date Current Medication? Ordering Clinician Indication Dosage Frequency Signature (SIG) Comments Components Source meclizine 25 mg tablet 07-05 00:00: 00 Yes 1mg Antoni Lee amoxicillin 875 mg-potassiu maryann clavulanate 125 mg tablet - 00:00: 00 Yes 1mg Antoni Lee Fioricet 50 mg-300 mg-40 mg capsule 2- 00:00: 00 Yes 1mg Antoni Lee prednisone 20 mg tablet - 00:00: 00 Yes mg Antoni Lee montelukast 10 mg tablet 06-30 00:00: 00 Yes mg Antoni Lee azithromyci n 500 mg tablet 06-30 00:00: 00 Yes mg Antoni Lee metronidazo le 500 mg tablet 2023-06 2- 00:00: 00 Yes 1mg Antoni Lee fluconazole 150 mg tablet 2023-06 00:00: 00 Yes mg Antoni Lee triamcinolo ne acetonide 0.1 % topical cream 2023-06 00:00: 00 Yes 1% Antoni Lee mupirocin 2 % topical ointment 2023-06 0- 00:00: 00 Yes 1% Antoni Lee metronidazo le 500 mg tablet 2023-06 0- 00:00: 00 Yes 1mg Antoni Lee Cipro 500 mg tablet 2023-06- 00:00: 00 Yes 1mg Antoni Lee naproxen 375 mg tablet 2023-06 0- 00:00: 00 Yes mg Antoni Lee ondansetron 4 mg disintegrat ing tablet 2023-06 00:00: 00 Yes mg Antoni Lee AMOXICILLIN /CLAVULANAT E POTASSIUM 500-125 MG TABS - 00:00: 00 Yes Antoni Lee LIDOCAINE HYDROCHLORI DE VISCOUS 2 % SOLN - 00:00: 00 Yes Antoni Lee CHOLESTYRAM INE 4 GM PACK - 00:00: 00 Yes Antoni Lee METHSCOPOLA MINE BROMIDE 5 MG TABS - 00:00: 00 Yes Antoni Lee SULFAMETHOX AZOLE/TRIME THOPRIM DS 800-160 MG TABS - 00:00: 00 Yes Antoni Lee BROMPHEN/PS EUDOEPHEDRI NE HCL/DEXTRO METHORPHAN HBR 30-2-10 MG/5ML SYRP 2022-06 00:00: 00 Yes Antoni Lee FLUTICASONE PROPIONATE [...] NOW, 1 dose, On Fri05/07/23 at 1030, [facility] ondansetron (ZOFRAN (PF)) injection 4 mg 2022-06 15:45: 00 05-07 15:45 :00 No 4mg 4 mg, Slow IV Push, ONCE, 1 dose, On Fri05/07/23 at 0945, [facility] ketorolac (TORADOL) injection 30 mg 2022-06 15:45: 00 05-07 15:45 :00 No 30mg 30 mg, Slow IV Push, ONCE, 1 dose, On Fri05/07/23 at 0945, [facility] TAKE 1 TABLET BY MOUTH FOUR TIMES DAILY NEEDED FOR ABDOMINAL PAIN 2022-06 00:00: 00 Yes Antoni Lee CEFDINIR 300 MG 2022-06 00:00: 00 Yes Antoni Lee ONDANSETRON ODT 4 MG TBDP 2022-06 00:00: 00 Yes Antoni Lee ondansetron 4 mg disintegrat ing tablet 2022-06 2- 00:00: 00 Yes [id number] 4mg Take 1 tablet by mouth every 8 (eight) hours as needed for Nausea and Vomiting (N/V). [facility] dicyclomine 20 mg tablet 2022-06 2 00:00: 00 Yes [id number] 20mg Take 1 tablet by mouth 4 (four) times daily as needed for Abdominal pain. [facility] cefdinir 300 mg capsule 2022-06 2 00:00: 00 05-15 05:59 :00 No [id number] 300mg Take 1 capsule by mouth every 12 (twelve) hours for 7 days. [facility] ONDANSETRON ODT 8 MG TBDP 2022-06 2 00:00: 00 Yes Antoni Lee pantoprazol e (PROTONIX) 40 mg EC tablet 2022-06 2 00:00: 00 Yes [id number] 40mg Take 1 tablet by mouth in the morning and 1 tablet in the evening. [facility] VALACYCLOVI R 1GM 2022-06 0-13 00:00: 00 Yes Antoni eLe ondansetron (ZOFRAN-ODT ) disintegrat ing tablet 4 mg 2022-06 0-06 00:30: 00 03-06 23:44 :00 No [id number] 4mg [facility] cefdinir 300 mg capsule 2022-06 0-05 00:00: 00 03-17 04:59 :00 No [id number] 600mg Take 2 capsules by mouth in the morning for 10 days. [facility] ondansetron 4 mg disintegrat ing tablet 2022-06 0-05 00:00: 00 03-12 04:59 :00 No [id number] 4mg Take 1 tablet by mouth every 8 (eight) hours as needed for Nausea and Vomiting (N/V) for up to 5 days. [facility] MUPIROCIN 2 % OINT 9- 00:00: 00 Yes Antoni Lee PANTOPRAZOL E SODIUM 40 MG TBEC 9-20 00:00: 00 Yes Antoni Lee pantoprazol e (PROTONIX) 40 mg EC tablet -20 00:00: 00 05-05 00:00 :00 No [id number] 40mg Take 1 tablet by mouth in the morning and 1 tablet in the evening. [facility] PROPRANOLOL HYDROCHLORI DE 10 MG TABS 16 00:00: 00 Yes Antoni Lee TAKE 1 TABLET TWICE DAILY. 16 00:00: 00 09-18 00:00 :00 No 10 Antoni Lee TAKE 1 OR 2 TABLETS AT BEDTIME NEEDED FOR SLEEP. 02-15 00:00: 00 09-18 00:00 :00 No 100 Antoni Lee pantoprazol e (PROTONIX) 40 mg EC tablet 8-29 00:00: 00 02-19 00:00 :00 No [id number] 40mg Take 1 tablet by mouth in the morning and 1 tablet in the evening. Do all this for 30 days. [facility] PANTOPRAZOL E SODIUM 40 MG TBEC 8-28 00:00: 00 Yes Antoni Lee TRIAMCINOLO NE ACETONIDE 0.5 % CREA 730 00:00: 00 Yes Antoni Lee TAKE 1 TABLET BY MOUTH TWICE A DAY 12-17 00:00: 00 09-18 00:00 :00 No 75 Antoni Lee TAKE 1 TABLET NEEDED. 12-17 00:00: 00 09-18 00:00 :00 No 10 Antoni Lee 1/2 TO 1 TAB AT BEDTIME PRN SLEEP 12-17 00:00: 00 09-18 00:00 :00 No 50 Antoni Lee NITROFURANT OIN MONOHYDRATE 100 MG 7 00:00: 00 Yes Antoni Lee TAKE 1 TABLET NEEDED. 11-12 00:00: 00 09-18 00:00 :00 No 10 Antoni Lee TAKE 1 TABLET BY MOUTH TWICE A DAY 11-12 00:00: 09-18 00:00 :00 No 75 Antoni Lee TAKE 1 TABLET BY MOUTH TWICE A DAY 10-14 00:00: 00 09-18 00:00 :00 No 75 Antoni Lee TAKE 1 TABLET NEEDED. 10-14 00:00: 00 09-18 00:00 :00 No 10 Antoni Lee IPRATROPIUM BROMIDE 0.06 % SOLN 09-26 00:00: 00 Yes Antoni Lee TAKE 1 CAPSULE WEEKLY. 09-26 00:00: 00 09-18 00:00 :00 No [id number] Antoni Lee busPIRone 5 mg tablet 09-17 00:00: 00 Yes 5mg Take 1 tablet by mouth in the morning and 1 tablet in the evening. [facility] TAKE 1 TWICE A DAY NEEDED 09-17 [...] DAYS THEN INCREASED TO 1 TAB DAILY 3 00:00: 00 09-18 00:00 :00 No 50 Antoni Lee TAKE 1 TWICE A DAY NEEDED 3 00:00: 00 09-18 00:00 :00 No 10 Antoni Lee TAKE 1 TABLET BY MOUTH DAILY DIRECTED 07-25 00:00: 00 Yes Antoni Lee TAKE 1-2 TABS BID NEEDED FOR ANXIETY 07-25 00:00: 00 09-18 00:00 :00 No 50 Antoni Lee TAKE 1 TABLET DAILY DIRECTED. 07-25 00:00: 00 09-18 00:00 :00 No 25 Antoni Lee AZELASTINE HYDROCHLORI DE 0.1 % SOLN 06-30 00:00: 00 Yes Antoni Lee FLUTICASONE PROPIONATE 50 MCG/ACT SUSP 06-30 00:00: 00 Yes Antoni Lee BENZONATATE 100 MG 06-30 00:00: 00 Yes Antoni Lee azelastine 137 mcg (0.1 %) nasal spray 06-30 00:00: 00 Yes [id number] 1{spray } Use 1 Stewardson in each nostril in the morning and 1 [place]son in the evening. Use in each nostril as directed [facility] fluticasone propionate 50 mcg/actuati on nasal spray 06-30 00:00: 00 Yes [id number] 1{spray } Use 1 Stewardson in each nostril in the morning. [facility] benzonatate 100 mg capsule 06-30 00:00: 00 Yes [id number] 200mg Take 2 capsules by mouth every 8 (eight) hours as needed for Cough. [facility] amoxicillin -clavulanat e (AUGMENTIN) 875-125 mg per tablet 06-30 00:00: 00 07-08 05:59 :00 No [id number] 1{tbl} Take 1 tablet by mouth in the morning and 1 tablet in the evening. Do all this for 7 days. [facility] SERTRALINE HCL 25 MG TABS 06-27 00:00: [...] 2021-06 00:00: 00 04-07 04:59 :00 No [id number] 600mg Take 2 capsules by mouth in the morning for 10 days. [facility] TAKE 1 TABLET BY MOUTH EVERY 8 HOURS UNTIL FINISH 2021-06 0 00:00: 00 Yes Antoni Lee TAKE 1 TABLET BY MOUTH EVERY 8 HOURS NEEDED FOR PAIN 2021-06 00:00: 00 Yes Antoni Lee BROMPHEN/PS EUDOEPHEDRI NE HCL/DEXTRO METHORPHAN HBR 30-2-10 MG/5ML SYRP 12 00:00: 00 Yes Antoni Lee bromphenira mine-pseudo ephedrine-D M (BROMFED DM) 2-30-10 mg/5 mL syrup 02-11 00:00: 00 Yes [id number] 10mL Take 10 mL by mouth 4 (four) times daily as needed for Congestion /Allergies . [facility] TAKE 1 TABLET BY MOUTH TWICE DAILY [...] Lee CHLORHEXIDI NE GLUCONATE 0.12 % SOLN 11-15 00:00: 00 Yes Antoni Lee DISSOLVE 1 TABLET ON THE TONGUE EVERY 8 HOURS NEEDED FOR NAUSEA OR VOMITING 09-20 00:00: 00 Yes Antoni Lee ondansetron 4 mg disintegrat ing tablet 09-20 00:00: 00 02-11 00:00 :00 No [id number] 4mg Take 1 tablet by mouth every 8 (eight) hours as needed for Nausea and Vomiting (N/V). [facility] NITROFURANT OIN MONOHYDRATE 100 MG 08-31 00:00: 00 Yes Antoni Lee PHENAZOPYRI DINE HCL 200 MG TABS - 00:00: 00 Yes Antoni Lee AMOXICILLIN 500 MG - 00:00: 00 Yes Antoni Lee IBUPROFEN 800MG TABLETS - 00:00: 00 Yes Antoni Lee CHLORHEXIDI NE 0.12% ORAL RINSE - 00:00: 00 Yes Antoni Lee TAKE 1 CAPSULE BY MOUTH EVERY 8 HOURS UNTIL FINISHED 07-31 00:00: 00 Yes Antoni Lee doxycycline monohydrate 100 mg capsule 06-29 00:00: 00 Yes 1mg Antoni Lee Dose Unknown 06-29 00:00: 00 Yes Antoni Lee Claritin 10 mg tablet 02-07 00:00: 00 Yes 1mg Antoni Lee Flonase Allergy Relief 50 mcg/actuati on nasal spray,suspe nsion 02-07 00:00: 00 Yes 1mcg/ac tuation Antoni Lee azithromyci n 500 mg tablet 2017-06 00:00: 00 Yes 2mg Antoni Lee metronidazo le 500 mg tablet 2017-06 00:00: 00 Yes 1mg Antoni Lee hydroxyzine HCl 25 mg tablet 11-22 00:00: 00 Yes 1mg Antoni Lee Ciprodex 0.3 %-0.1 % ear drops,suspe [...] Filled Immunization Name Date Status Comments Source TD, NOS 2023-10-24 00:00:00 Completed [facility] TDAP 2023-10-24 00:00:00 Completed [facility] SARS-COV-2 COVID-19 MODERNA 12+ YRS VACCINE 2023-10-24 00:00:00 Completed [facility] TD, NOS 2023-05-13 00:00:00 Completed [facility] TDAP 2023-05-13 00:00:00 Completed [facility] SARS-COV-2 COVID-19 MODERNA 12+ YRS VACCINE 2023-05-13 00:00:00 Completed [facility] TD, NOS 2023-05-09 00:00:00 Completed [facility] TDAP 2023-05-09 00:00:00 Completed [facility] SARS-COV-2 COVID-19 MODERNA 12+ YRS VACCINE 2023-05-09 00:00:00 Completed [facility] TD, NOS 2023-05-09 00:00:00 Completed [facility] TDAP 2023-05-09 00:00:00 Completed [facility] SARS-COV-2 COVID-19 MODERNA 12+ YRS VACCINE 2023-05-09 00:00:00 Completed [facility] TD, NOS 2023-05-07 09:37:00 Completed [facility] TDAP 2023-05-07 09:37:00 Completed [facility] SARS-COV-2 COVID-19 MODERNA 12+ YRS VACCINE 2023-05-07 09:37:00 Completed [facility] TD, NOS 2023-05-07 00:00:00 Completed [facility] TDAP 2023-05-07 00:00:00 Completed [facility] SARS-COV-2 COVID-19 MODERNA 12+ YRS VACCINE 2023-05-07 00:00:00 Completed [facility] TD, NOS 2023-05-07 00:00:00 Completed [facility] TDAP 2023-05-07 00:00:00 Completed [facility] SARS-COV-2 COVID-19 MODERNA 12+ YRS VACCINE 2023-05-07 00:00:00 Completed [facility] TD, NOS 2023-05-06 00:00:00 Completed [facility] TDAP 2023-05-06 00:00:00 Completed [facility] SARS-COV-2 COVID-19 MODERNA 12+ YRS VACCINE 2023-05-06 00:00:00 Completed [facility] TD, NOS 2023-05-05 00:00:00 Completed [facility] TDAP 2023-05-05 00:00:00 Completed [facility] SARS-COV-2 COVID-19 MODERNA 12+ YRS VACCINE 2023-05-05 00:00:00 Completed [facility] TD, NOS 2023-03-06 18:00:00 Completed [facility] TDAP 2023-03-06 18:00:00 Completed [facility] SARS-COV-2 COVID-19 MODERNA 12+ YRS VACCINE 2023-03-06 18:00:00 Completed [facility] TD, NOS 2023-02-18 00:00:00 Completed [facility] TDAP 2023-02-18 00:00:00 Completed [facility] SARS-COV-2 COVID-19 MODERNA 12+ YRS VACCINE 2023-02-18 00:00:00 Completed [facility] TD, NOS 2023-01-30 00:00:00 Completed [facility] TDAP 2023-01-30 00:00:00 Completed [facility] SARS-COV-2 COVID-19 MODERNA 12+ YRS VACCINE 2023-01-30 00:00:00 Completed [facility] TD, NOS 2023-01-28 08:30:00 Completed [facility] TDAP 2023-01-28 08:30:00 Completed [facility] TD, NOS 2022-10-12 00:00:00 Completed [facility] TDAP 2022-10-12 00:00:00 Completed [facility] SARS-COV-2 COVID-19 MODERNA 12+ YRS VACCINE 2022-10-12 00:00:00 Completed [facility] Moderna COVID-19 Vaccine Moderna COVID-19 Vaccine 2020-10-05 00:00:00 Completed Antoni Lee SARS-COV-2 COVID-19 MODERNA 12+ YRS VACCINE 2020-10-05 00:00:00 Completed [facility] SARS-COV-2 COVID-19 MODERNA 12+ YRS VACCINE 2020-10-05 00:00:00 Completed [facility] SARS-COV-2 COVID-19 MODERNA 12+ YRS VACCINE 2020-10-05 00:00:00 Completed [facility] SARS-COV-2 COVID-19 MODERNA 12+ YRS VACCINE 2020-10-05 00:00:00 Completed [facility] SARS-COV-2 COVID-19 MODERNA 12+ YRS VACCINE 2020-10-05 00:00:00 Completed [facility] Moderna COVID-19 Vaccine Moderna COVID-19 Vaccine 2020-09-04 00:00:00 Completed Antoni Lee SARS-COV-2 COVID-19 MODERNA 12+ YRS VACCINE 2020-09-04 00:00:00 Completed [facility] SARS-COV-2 COVID-19 MODERNA 12+ YRS VACCINE 2020-09-04 00:00:00 Completed [facility] SARS-COV-2 COVID-19 MODERNA 12+ YRS VACCINE 2020-09-04 00:00:00 Completed [facility] SARS-COV-2 COVID-19 MODERNA 12+ YRS VACCINE 2020-09-04 00:00:00 Completed [facility] TDAP 2015-02-27 00:00:00 Completed [facility] TDAP 2015-02-27 00:00:00 Completed [facility] TDAP 2015-02-27 00:00:00 Completed [facility] TDAP 2015-02-27 00:00:00 Completed [facility] TDAP 2015-02-27 00:00:00 Completed [facility] TDAP 2015-02-27 00:00:00 Completed [facility] TDAP 2015-02-27 00:00:00 Completed [facility] TDAP 2015-02-27 00:00:00 Completed [facility] TDAP 2015-02-27 00:00:00 Completed [facility] TDAP 2015-02-27 00:00:00 Completed [facility] TDAP 2015-02-27 00:00:00 Completed [facility] TDAP 2015-02-27 00:00:00 Completed [facility] TDAP 2015-02-27 00:00:00 Completed [facility] TDAP 2015-02-27 00:00:00 Completed [facility] TDAP 2015-02-27 00:00:00 Completed [facility] TDAP 2015-02-27 00:00:00 Completed [facility] TDAP 2015-02-27 00:00:00 Completed [facility] Td 2006-06-02 00:00:00 Completed [facility] Td 2006-06-02 00:00:00 Completed [facility] Td 2006-06-02 00:00:00 Completed [facility] Td 2006-06-02 00:00:00 Completed [facility] TD, NOS 2006-06-02 00:00:00 Completed [facility] TD, NOS 2006-06-02 00:00:00 Completed [facility] TD, NOS 2006-06-02 00:00:00 Completed [facility] TD, NOS 2006-06-02 00:00:00 Completed [facility] TD, NOS 2006-06-02 00:00:00 Completed [facility] TD, NOS 2006-06-02 00:00:00 Completed [facility] TD, NOS 2006-06-02 00:00:00 Completed [facility] TD, NOS 2006-06-02 00:00:00 Completed [facility] TD, NOS 2006-06-02 00:00:00 Completed [facility] TD, NOS 2006-06-02 00:00:00 Completed [facility] TD, NOS 2006-06-02 00:00:00 Completed [facility] TD, NOS 2006-06-02 00:00:00 Completed [facility] TD, NOS 2006-06-02 00:00:00 Completed [facility] TD, NOS 2006-06-02 00:00:00 Completed [facility] Vital Signs Vital Name Observation Time Observation Value Comments S ource Systolic blood pressure 2023-05-07 19:28:00 115 mm[Hg] [facility] Diastolic blood pressure 2023-05-07 19:28:00 63 mm[Hg] [facility] Heart rate 2023-05-07 19:28:00 64 /min [facility] Respiratory rate 2023-05-07 19:28:00 18 /min [facility] Oxygen saturation in Arterial blood by Pulse oximetry 2023-05-07 19:28:00 99 /min [facility] Body temperature 2023-05-07 15:34:11 37.22 Kathleen [facility] Body height 2023-05-07 15:33:00 154.9 cm [facility] Body weight 2023-05-07 15:33:00 79.833 kg [facility] BMI 2023-05-07 15:33:00 33.25 kg/m2 [facility] Systolic blood pressure 2023-03-06 23:28:00 127 mm[Hg] [facility] Diastolic blood pressure 2023-03-06 23:28:00 82 mm[Hg] [facility] Heart rate 2023-03-06 23:28:00 76 /min [facility] Body temperature 2023-03-06 23:28:00 37.17 Kathleen [facility] Respiratory rate 2023-03-06 23:28:00 18 /min [facility] Body height 2023-03-06 23:28:00 154.9 cm [facility] Body weight 2023-03-06 23:28:00 80.06 kg [facility] BMI 2023-03-06 23:28:00 33.35 kg/m2 [facility] Oxygen saturation in Arterial blood by Pulse oximetry 2023-03-06 23:28:00 99 /min [facility] Systolic blood pressure 2023-01-28 13:56:00 115 mm[Hg] [facility] Diastolic blood pressure 2023-01-28 13:56:00 63 mm[Hg] [facility] Heart rate 2023-01-28 13:56:00 70 /min [facility] Body temperature 2023-01-28 13:56:00 36.83 Kathleen [facility] Respiratory rate 2023-01-28 13:56:00 16 /min [facility] Body height 2023-01-28 13:56:00 154.9 cm [facility] Body weight 2023-01-28 13:56:00 79.652 kg [facility] BMI 2023-01-28 13:56:00 33.18 kg/m2 [facility] Oxygen saturation in Arterial blood by Pulse oximetry 2023-01-28 13:56:00 99 /min [facility] Systolic blood pressure 2022-10-16 19:28:00 116 mm[Hg] [facility] Diastolic blood pressure 2022-10-16 19:28:00 71 mm[Hg] [facility] Heart rate 2022-10-16 19:28:00 64 /min [facility] Body height 2022-10-16 19:28:00 156.2 cm [facility] Body weight 2022-10-16 19:28:00 75.025 kg [facility] BMI 2022-10-16 19:28:00 30.75 kg/m2 [facility] Oxygen saturation in Arterial blood by Pulse oximetry 2022-10-16 19:28:00 100 /min [facility] Systolic blood pressure 2022-10-15 16:28:00 101 mm[Hg] [facility] Diastolic blood pressure 2022-10-15 16:28:00 67 mm[Hg] [facility] Heart rate 2022-10-15 16:28:00 70 /min [facility] Body temperature 2022-10-15 16:28:00 37.06 Kathleen [facility] Body height 2022-10-15 16:28:00 156.2 cm [facility] Body weight 2022-10-15 16:28:00 75.615 kg [facility] BMI 2022-10-15 16:28:00 30.99 kg/m2 [facility] Oxygen saturation in Arterial blood by Pulse oximetry 2022-10-15 16:28:00 99 /min [facility] Systolic blood pressure 2022-10-07 14:47:00 114 mm[Hg] [facility] Diastolic blood pressure 2022-10-07 14:47:00 74 mm[Hg] [facility] Heart rate 2022-10-07 14:47:00 67 /min [facility] Body temperature 2022-10-07 14:47:00 37 Kathleen [facility] Respiratory rate 2022-10-07 14:47:00 16 /min [facility] Body weight 2022-10-07 14:47:00 75.297 kg [facility] BMI 2022-10-07 14:47:00 30.86 kg/m2 [facility] Oxygen saturation in Arterial blood by Pulse oximetry 2022-10-07 14:47:00 97 /min [facility] Systolic blood pressure 2022-06-30 19:52:00 125 mm[Hg] [facility] Diastolic blood pressure 2022-06-30 19:52:00 87 mm[Hg] [facility] Heart rate 2022-06-30 19:52:00 101 /min [facility] Body temperature 2022-06-30 19:52:00 37.06 Kathleen [facility] Respiratory rate 2022-06-30 19:52:00 16 /min [facility] Body height 2022-06-30 19:52:00 156.2 cm [facility] Body weight 2022-06-30 19:52:00 73.755 kg [facility] BMI 2022-06-30 19:52:00 30.23 kg/m2 [facility] Oxygen saturation in Arterial blood by Pulse oximetry 2022-06-30 19:52:00 98 /min [facility] Systolic blood pressure 2022-03-27 14:14:00 131 mm[Hg] [facility] Diastolic blood pressure 2022-03-27 14:14:00 79 mm[Hg] [facility] Heart rate 2022-03-27 14:14:00 79 /min [facility] Body temperature 2022-03-27 14:14:00 36.72 Kathleen [facility] Respiratory rate 2022-03-27 14:14:00 18 /min [facility] Body height 2022-03-27 14:14:00 154.9 cm [facility] Body weight 2022-03-27 14:14:00 73.982 kg [facility] BMI 2022-03-27 14:14:00 30.82 kg/m2 [facility] Oxygen saturation in Arterial blood by Pulse oximetry 2022-03-27 14:14:00 98 /min [facility] Systolic blood pressure 2022-02-11 16:49:00 120 mm[Hg] [facility] Diastolic blood pressure 2022-02-11 16:49:00 82 mm[Hg] [facility] Heart rate 2022-02-11 16:49:00 81 /min [facility] 2022-02-11 16:49:00 37.22 Kathleen [facility] Body height 2022-02-11 16:49:00 156.2 cm [facility] Body weight 2022-02-11 16:49:00 72.439 kg [facility] BMI 2022-02-11 16:49:00 29.69 kg/m2 [facility] Oxygen saturation in Arterial blood by Pulse oximetry 2022-02-11 16:49:00 99 /min [place] [facility] BP Systolic 2024-07-05 09:28:00 117 mm[Hg] Step hen F Jesus BP Diastolic 2024-07-05 09:28:00 76 mm[Hg] Bradley phen F Jesus Weight Measured 2024-07-05 09:28:00 180.00 pounds Antoni F Jesus Height Measured 2024-07-05 09:28:00 61.00 inches Antoni F Jesus Body Temperature 2024-07-05 09:28:00 98.90 degrees Antoni F Jesus Heart Rate 2024-07-05 09:28:00 82.00 /min Ashley en F Jesus Respiratory Rate 2024-07-05 09:28:00 18.00 /min Antoni F Jesus BP Systolic 2024-05-11 13:27:00 121 mm[Hg] Step [...] Height Measured 2016 10:18:00 61.80 inches Antoni Lee Body Temperature 2016 10:18:00 98.20 degrees Antoni Lee Heart Rate 2016 10:18:00 72.00 /min Ashley Lee Respiratory Rate 2016 10:18:00 Antoni Lee Procedures Procedure Date / Time Performed Performing Clinician Source LIPASE 2023-05-07 17:28:00 Carlos Wall [facility] COMP. METABOLIC PANEL (09640) 2023-05-07 17:28:00 Carlos Wall [facility] CBC WITH DIFF 2023-05-07 17:28:00 Carlos Wall [facility] URINALYSIS 2023-05-07 17:28:00 Carlos Wall [facility] POCT TEST 2023-05-07 17:28:[address] [facility] ASSIGNMENT OF BENEFITS 2023-05-07 15:42:39 Docto r Unassigned, [place] [facility] CONSENT/REFUSAL FOR DIAGNOSIS AND TREATMENT 2023-05-07 15:14:30 Doctor Unassigned, [place] [facility] POCT TEST 2023-03-06 23:50:00 Tracey Gray [facility] POCT URINALYSIS 2023-03-06 23:30:00 Tracey Gray [facility] DISCLOSURE AND CONSENT, MEDICAL AND SURGICAL PROCEDURES 2023-01-28 05:01:00 Doctor Unassigned, [place] [facility] XR WRIST <3 VW LEFT 2022-10-07 15:12:46 [facility] HAND 3+ VW LEFT 2022-10-07 15:12:46 Nancy [facility] HAND 3+ VW LEFT 2022-10-07 15:12:46 Nancy Gordon [facility] ASSIGNMENT OF BENEFITS 2022-10-07 14:41:25 Docto r Unassigned, [place] [facility] POCT SARS-COV-2 ANTIGEN (BINAX NOW) 2022-06-30 00:00:00 Nancy Gordon [facility] POCT URINALYSIS 2022-03-27 00:00:00 Tracey Gray [facility] POCT TEST 2022-03-27 00:00:00 Tracey Gray [facility] [address] Ecg Routine Ecg W/least 12 Lds W/i r 2016-04-05 00:00:00 Antoni Lee [facility] HEPATOBILIARY 2012-05-11 17:45:00 Daisha Meraz [facility] PHYSICIAN ORDERS 2012-05-11 06:01:00 Doctor Unas signed, [place] [facility] Encounters Start Date/Time End Date/Time Encounter Type Admission Type Attending Clinicians Care Facility Care Department Encounter ID Source 2023-05-09 15:07:35 Outpatient BINA ARAUJO [facility] [id number] [facility] 2012-05-11 00:00:00 2024-07-17 05:00:41 Orders Only Daisha Meraz [facility] 1.2.840.114 350.1.13.10 4.2.7.2.686 [id number] [facility] 2024-07-05 09:46:38 2024-07-05 09:46:38 Outpatient [facility] [id number] Antoni Lee 2024-07-05 00:00:00 2024-07-05 00:00:00 Outpatient Visit [facility] [id number] Antoni Lee 2024-05-11 13:22:03 2024-05-11 13:22:03 Outpatient SFA [facility] [id number] Antoni Lee 2024-05-11 00:00:00 2024-05-11 00:00:00 Outpatient Visit [facility] [id number] Antoni Lee 2024-03-22 15:04:37 2024-03-22 15:04:37 Outpatient SFA [facility] [id number] Antoni Lee 2024-03-22 00:00:00 2024-03-22 00:00:00 Outpatient Visit [facility] [id number] Antoni Lee 2024-03-18 08:15:00 2024-03-18 08:15:00 Outpatient R SABINO HOLDER [facility] [id number] [facility] 2023-10-24 00:00:00 2023-10-28 07:41:31 Telephone Anatoliy Doe [facility] ..114 350.1.13.10 4.2.7.2.686 [id number] [facility] 2023-10-25 12:59:36 2023-10-25 12:59:36 Outpatient [facility] [id number] Antoni Lee 2023-10-24 00:00:00 2023-10-24 00:00:00 Outpatient Visit [facility]FA [id number] Antoni Lee 2023-05-20 10:30:00 2023-05-20 10:30:00 Outpatient R [facility] [id number] [facility] 2023-05-13 00:00:00 2023-05-13 00:00:00 Patient Secure Msg Doctor Unassigned, [place] [facility] 1..114 350.1.13.10 4.2.7.2.686 [id number] [facility] 2023-05-09 00:00:00 2023-05-09 00:00:00 Telephone Anatoliy Doe [facility] 1..114 350.1.13.10 4.2.7.2.686 [id number] [facility] 2023-05-09 00:00:00 2023-05-09 00:00:00 Telephone Gely Doea [facility] 1.2.840.114 350.1.13.10 4.2.7.2.686 [id number] [facility] 2023-05-07 09:37:00 2023-05-07 13:29:00 Emergency X CARLOS WALL [facility] ERT [id number] [facility] 2023-05-07 09:37:00 2023-05-07 13:29:00 Emergency Carlos Wall [facility] 1.2.840.114 350.1.13.10 4.2.7.2.686 [id number] [facility] 2023-05-07 00:00:00 2023-05-07 00:00:00 Telephone [facility] 1.2.840.114 350.1.13.10 4.2.7.2.686 [id number] [facility] 2023-05-07 00:00:00 2023-05-07 00:00:00 Telephone [facility] 1.2.840.114 350.1.13.10 4.2.7.2.686 [id number] [facility] 2023-05-06 00:00:00 2023-05-06 00:00:00 [facility] 1.2.840.114 350.1.13.10 4.2.7.2.686 [id number] [facility] 2023-05-05 00:00:00 2023-05-05 00:00:00 Refill [facility] 1.2.840.114 350.1.13.10 4.2.7.2.686 [id number] [facility] 2023-03-06 18:00:00 2023-03-06 19:09:44 Urgent Care Tracey Gray Johnny, Attending [facility] 1.114 350.1.13.10 4.2.7.2.686 [id number] [facility] 2023-03-06 13:40:00 2023-03-06 13:40:00 Outpatient R UNKNOWN, ATTENDING [facility] [id number] [facility] 2023-02-18 00:00:00 2023-02-18 00:00:00 Telephone Anatoliy Doe [facility] 1.114 350.1.13.10 4.2.7.2.686 [id number] [facility] 2023-01-30 00:00:00 2023-01-30 00:00:00 Patient Secure Msg Doctor Unassigned, [place] [facility] [employer] [facility] 1.114 350.1.13.10 4.2.7.2.686 [id number] [facility] 2023-01-28 11:00:00 2023-01-28 11:15:00 Bulb Tester Visit [facility] 1.114 350.1.13.10 4.2.7.2.686 [id number] [facility] 2023-01-28 08:30:00 2023-01-28 09:00:00 Office Visit Anatoliy Doe Joseph Marc [facility] 1.114 350.1.13.10 4.2.7.2.686 [id number] [facility] 2023-01-28 08:30:00 2023-01-28 08:30:00 Outpatient R BRET LUCIANO [facility] [id number] [facility] 2023-01-28 00:00:00 2023-01-28 00:00:00 [facility] (Out[facility] 1.114 350.1.13.10 4.2.7.2.686 [id number] [facility] 2023-01-28 00:00:00 2023-01-28 00:00:00 Orders Only Doctor Unassigned, [place] [facility] 1.114 350.1.13.10 4.2.7.2.686 [id number] [facility] 2022-12-06 00:00:00 2022-12-06 00:00:00 Telephone Castañeda, Cortney [facility] 1.114 350.1.13.10 4.2.7.2.686 [id number] [facility] 2022-10-16 14:30:00 2022-10-16 14:52:38 Outpatient R KARLO HATCH [facility] [id number] [facility] 2022-10-16 14:30:00 2022-10-16 14:52:38 Office Visit Karlo Hatch [facility] 1.114 350.1.13.10 4.2.7.2.686 [id number] [facility] 2022-10-15 11:30:00 2022-10-15 12:00:30 Outpatient R CHARLIE YOUNGBLOOD [facility] [id number] [facility] 2022-10-15 11:30:00 2022-10-15 12:00:30 Office Visit Charlie Youngblood [facility] 1.114 350.1.13.10 4.2.7.2.686 [id number] [facility] 2022-10-14 11:16:28 2022-10-14 11:16:28 Outpatient [facility] [id number] Antoni Lee 2022-10-12 00:00:00 2022-10-12 00:00:00 Patient Secure Msg Doctor Unassigned, [place] [facility] 1.2840.114 350.1.13.10 4.2.7.2.686 [id number] [facility] 2022-10-07 09:54:04 2022-10-07 23:59:00 Outpatient R VEAN NANCY [facility] [id number] [facility] 2022-10-07 09:54:04 2022-10-07 23:59:00 Hospital Encounter [facility] 1.20.114 350.1.13.10 4.2.7.2.686 [id number] [facility] 2022-10-07 09:54:04 2022-10-07 23:59:00 Hospital Encounter Evan [facility] 1.2840.114 350.1.13.10 4.2.7.2.686 [id number] [facility] 2022-10-07 09:40:00 2022-10-07 10:18:33 Urgent Care EvanNancy Unknown, Attending [facility] 1.2840.114 350.1.13.10 4.2.7.2.686 [id number] [facility] 2022-10-07 00:00:00 2022-10-07 00:00:00 Orders Only Doctor Unassigned, [place] [facility] 1.2840.114 350.1.13.10 4.2.7.2.686 [id number] [facility] 2022-10-07 00:00:00 2022-10-07 00:00:00 Letter (Out) Nancy Gordon [facility] 1.2.840.114 350.1.13.10 4.2.7.2.686 [id number] [facility] 2022-09-16 14:28:09 2022-09-16 14:28:09 Outpatient [facility] [id number] Antoni Echevarria Jesus 2022-06-30 14:00:00 2022-06-30 14:22:01 Outpatient R NANCY GORDON [facility] [id number] [facility] 2022-06-30 14:00:00 2022-06-30 14:20:00 Urgent Care Nancy Gordon, Attending [facility] 1.2.840.114 350.1.13.10 4.2.7.2.686 [id number] [facility] 2022-06-30 00:00:00 2022-06-30 00:00:00 Letter (Out) Provider, Felipe Almeida Urgent Care [facility] 1.2.840.114 350.1.13.10 4.2.7.2.686 [id number] [facility] 2022-04-27 09:05:52 2022-04-27 09:05:52 Outpatient [facility] [id number] Antoni Echevarria Jesus 2022-04-26 12:05:12 2022-04-26 12:05:12 Outpatient [facility] [id number] Antoni Lee 2022-04-09 16:20:00 2022-04-09 16:20:00 Outpatient LETI LOOMIS [facility] [id number] [facility] 2022-03-27 09:20:00 2022-03-27 09:40:00 Urgent Care Tracey Gray Unknown, Attending [facility] 1.2.840.114 350.1.13.10 4.2.7.2.686 [id number] [facility] 2022-03-27 09:20:00 2022-03-27 09:20:00 Outpatient R TRACEY GRAY [facility] [id number] [facility] 2022-03-27 00:00:00 2022-03-27 00:00:00 Letter (Out) Isaac [facility] 1.2.840.114 350.1.13.10 4.2.7.2.686 [id number] [facility] 2022-02-11 11:20:00 2022-02-11 12:21:36 Office Visit Aristides [facility] [place] 1.2.840.114 350.1.13.10 4.2.7.2.686 [id number] [facility] 2022-02-11 11:20:00 2022-02-11 12:21:36 [facility] [id number] [facility] 2022-02-11 11:20:00 2022-02-11 11:20:00 Outpatient R ARISTIDES [facility] [id number] [facility] 2022-02-11 00:00:00 2022-02-11 00:00:00 Letter (Out) Aristides [facility] [place] 1.2.840.114 350.1.13.10 4.2.7.2.686 [id number] [facility] 2022-02-08 16:20:00 2022-02-08 16:50:36 Outpatient R TRACEY GRAY [facility] [id number] [facility] 2022-02-08 16:20:00 2022-02-08 16:40:00 Urgent Care Tracey Gray Brissa [facility] [place] 1..840.114 350.1.13.10 4.2.7.2.686 [id number] [facility] 2021-09-20 11:00:00 2021-09-20 11:34:43 Urgent Care Brissa [facility] [place] 1..840.114 350.1.13.10 4.2.7.2.686 [id number] [facility] 2021-09-20 11:00:00 2021-09-20 11:34:43 [facility] [id number] [facility] 2021-09-20 00:00:00 2021-09-20 00:00:00 Orders Only Doctor Unassigned, [place] [facility] 1..840.114 350.1.13.10 4.2.7.2.686 [id number] [facility] 2021-09-19 19:20:00 2021-09-19 19:20:00 Outpatient R UNKNOWN, ATTENDING [facility] [id number] [facility] 2021-09-19 00:00:00 2021-09-19 00:00:00 Clinic Assessment Tracey Gray [facility] 1..840.114 350.1.13.10 4.2.7.2.686 [id number] [facility] 2021-06-10 17:00:00 2021-06-10 18:43:38 Outpatient R TERESA MEZA [facility] [id number] [facility] 2021-06-10 17:00:00 2021-06-10 18:43:38 Urgent Care Unknown, Attending Teresa Meza 1.2.840.1 [id number] 3.104.2.7 [id number] [facility] 2021-06-10 00:00:00 2021-06-10 00:00:00 Travel 1.2.840.1 [id number] 3.104.2.7 [id number] 1.2.840.114 350.1.13.10 4.2.7.3.698 [id number] [facility] 2020-09-04 14:40:00 2020-09-04 14:40:00 Outpatient [facility] [id number] [facility] 2020-08-07 12:40:00 2020-08-07 12:40:00 Outpatient [facility] [id number] [facility] 2020-05-24 08:45:00 2020-05-24 08:45:00 Outpatient ANTONI TOLBERT [facility] [id number] [facility] Results Test Description Test Time Test Comments Results Result Co mments Source VITAMIN D, 25 [id number] 08:06:56* Test Item Value Reference Range Interpretation Comme [facility] VITAMIN D, 25 OH (test code = 4958) 13 NG/ML SEE BELOW L NOTE: 25-HYDR OXYVITAMIN D ASSAY INCLUDES 25-HYDROXYVITAMIN D2 AND D3. INTERPRETIVE RANGES PEDIATRIC (<17 YEARS) . . . . . . . . . . . NG/ML 20-100ADULT: INSUFFICIENT . . . . . . . . . . . . . . NG/ML <20 SUBOPTIMAL . . . . . . . . . . . . . . . NG/ML 20-29 OPTIMAL . . . . . . . . . . . . . . . . . NG/ML 30-100 VITAMIN [id number] 08:06:56* Test Item Value Reference Range Interpretation Comme [facility] VITAMIN B-12 (test code = 2840) 464 PG/ML 200-950 IRON BINDING CAPACITY AND IRON AND % [id number] 07:56:08* Test Item Value Reference Range Interpretation Comme [facility] IRON, SERUM (test code = 2222) 52 UG/DL 37-145 UNSATURATED IBC (test code = 31619) 370 UG/DL 112-347 H CALC TOTAL IBC (test code = 2076) 422 UG/DL 250-450 CALC % IRON SAT (test code = 2079) 12 % 20-50 L [id number] 07:53:45* Test Item Value Reference Range Interpretation Comme nts FERRITIN (test code = 2074) 11 NG/ML 13-200 L CBC W/AUTO DIFF WITH [id number] 02:01:19* Test Item Value Reference Range Interpretation Comme nts WBC (test code = 1001) 4.0 K/UL 3.5-11.0 RBC (test code = 1002) 4.50 M/UL 3.80-5.40 HEMOGLOBIN (test code = 1003) 12.4 G/DL 11.5-15.5 HEMATOCRIT (test code = 1004) 37.9 % 34.0-45.0 MCV (test code = 1005) 84.2 fL 80.0-99.0 MCH (test code = 1006) 27.6 PG 25.0-33.0 MCHC (test code = 1007) 32.7 G/DL 31.0-36.0 RDW (test code = 1038) 14.2 % 11.5-15.0 NEUTROPHILS (test code = 1008) 51.6 % LYMPHOCYTES (test code = 1010) 39.0 % MONOCYTES (test code = 1011) 5.8 % EOSINOPHILS (test code = 1012) 2.5 % BASOPHILS (test code = 1013) 0.8 % IMMATURE GRANULOCYTES (test code = 1036) 0.3 % NUCLEATED RBCS (test code = 1065) 0.0 /100 WBC'S See_Comment [Automated message] The system which generated this result transmitted reference range: 0.0. The reference range was not used to interpret this result as normal/abnormal. PLATELET COUNT (test code = 1015) 381 K/UL 130-400 ABSOLUTE NEUTROPHILS (test code = 1066) 2.04 K/UL 1.50-7.50 ABSOLUTE LYMPHOCYTES (test code = 1067) 1.54 K/UL 1.00-4.00 ABSOLUTE MONOCYTES (test code = 1068) 0.23 K/UL 0.20-1.00 ABSOLUTE EOSINOPHILS (test code = 1040) 0.10 K/UL 0.00-0.50 ABSOLUTE BASOPHILS (test code = 1069) 0.03 K/UL 0.00-0.20 ABS IMMATURE GRANULOCYTES (test code = 1020) 0.01 K/UL 0.00-0.10 ABS NUCLEATED RBCS (test code = 64220) 0.00 K/UL 0.00-0.11 UNLESS OTHER [place] INDICATED, ALL TESTING PERFORMED AT [facility] [employer] [address] [place] [address] CABINET MAKER: LETI ALEXANDER M.D. CLIA NUMBER [id number] [facility] [place]. [id number] 00:00:00* Test Item Value Reference Range Interpretation Comme [facility] FERRITIN (test code = 2075) 11 NG/ML Antoni [id number] 00:00:00* Test Item Value Reference Range Interpretation Comme [facility] TRANSFERRIN (test code = 4936) 341 MG/DL Antoni LeeVITAMIN D, 25 [id number] 00:00:00* Test Item Value Reference Range Interpretation Comme [facility] VITAMIN D, 25 OH (test code = 4958) 13 NG/ML Antoni LeeVITAMIN [id number] 00:00:00* Test Item Value Reference Range Interpretation Comme [facility] VITAMIN B-12 (test code = 2840) 464 PG/ML Antoni LeeCBC W/AUTO [id number] 00:00:00* Test Item Value Reference Range Interpretation Comme nts WBC (test code = 1001) 4.0 K/UL RBC (test code = 1002) 4.50 M/UL HEMOGLOBIN (test code = 1003) 12.4 G/DL HEMATOCRIT (test code = 1004) 37.9 % MCV (test code = 1005) 84.2 fL MCH (test code = 1006) 27.6 PG MCHC (test code = 1007) 32.7 G/DL RDW (test code = 1038) 14.2 % NEUTROPHILS (test code = 1008) 51.6 % LYMPHOCYTES (test code = 1010) 39.0 % MONOCYTES (test code = 1011) 5.8 % EOSINOPHILS (test code = 1012) 2.5 % BASOPHILS (test code = 1013) 0.8 % IMMATURE GRANULOCYTES (test code = 1036) 0.3 % NUCLEATED RBCS (test code = 1065) 0.0 /100WBC'S PLATELET COUNT (test code = 1015) 381 K/UL ABSOLUTE NEUTROPHILS (test c ode = 1066) 2.04 K/UL ABSOLUTE LYMPHOCYTES (test c ode = 1067) 1.54 K/UL ABSOLUTE MONOCYTES (test cod e = 1068) 0.23 K/UL ABSOLUTE EOSINOPHILS (test c ode = 1040) 0.10 K/UL ABSOLUTE BASOPHILS (test cod e = 1069) 0.03 K/UL ABS IMMATURE GRANULOCYTES (t est code = 1020) 0.01 K/UL ABS NUCLEATED RBCS (test cod e = 04713) 0.00 K/UL Antoni LeeIRON BINDING CAPACITY AND IRON AND % [id number] 00:00:00* Test Item Value Reference Range Interpretation Comme nts IRON, SERUM (test code = 2222) 52 UG/DL UNSATURATED IBC (test code = 96059) 370 UG/DL CALC TOTAL IBC (test code = 7) 422 UG/DL CALC % IRON SAT (test code = 2079) 12 % Antoni LeeVAGINAL PATHOGENS DNA [id number] 00:00:00* Test Item Value Reference Range Interpretation Comme nts CHARLES SPECIES (test code = 78395) POSITIVE G. VAGINALIS (test code = ) POSITIVE T. VAGINALIS (test code = 61042) NEGATIVE Antoni LeeTRICHOMONAS, URINE, [id number] 00:00:00* Test Item Value Reference Range Interpretation Comme nts TRICHOMONAS, NAAT, URINE (te st code = 29978) NEGATIVE Antoni Echevarria AustinCT/NG, NAAT, [id number] 00:00:00* Test Item Value Reference Range Interpretation Comme nts CHLAMYDIA, NAAT, URINE (test code = 84996) NEGATIVE GONORRHEA, NAAT, URINE (test code = 32367) NEGATIVE Antoni LeePOCT [id number] 17:28:00* Test Item Value Reference Range Interpretation Comme nts POCT PREG (test code = 1605) Negative On board controls acceptable with C Line (test code = 3574) Yes POCT PREG LOT # (test code = 3575) [id number] POCT PREG TEST DATE ( test code = 3576) 08/10/2024 Lab Interpretation (test cod e = 43375-1) Normal [facility] [id number] 23:50:00* Test Item Value Reference Range Interpretation Comme nts POCT PREG (test code = 1605) Negative On board controls acceptable with C Line (test code = 3574) Yes POCT PREG LOT # (test code = 3575) POCT PREG TEST DATE ( test code = 3576) [facility] [id number] 23:50:00* Test Item Value Reference Range Interpretation Comme nts POCT PREG (test code = 1605) Negative On board controls acceptable with C Line (test code = 3574) Yes POCT PREG LOT # (test code = 3575) POCT PREG TEST DATE ( test code = 3576) [facility] URINALYSIS W SPECIFIC [id number] 23:31:00* Test Item Value Reference Range Interpretation [...] U APPEAR (test code = 3267) clear [facility] URINALYSIS W SPECIFIC [id number] 23:31:00* Test Item Value Reference Range Interpretation [...] U APPEAR (test code = 3267) clear [facility] [id number] 00:00:00* Test Item Value Reference Range Interpretation Comme nts GLUCOSE (test code = 2217) 119 MG/DL BUN (test code = 2208) 13 MG/DL CREATININE (test code = 2214) 0.74 MG/DL eGFR (2020 CKD-EPI) (test code = 28079) 112 ML/MIN/1.73 CALC BUN/CREAT (test code = [...] code = 2219) 28 U/L Antoni LeeVITAMIN [id number] 00:00:00* Test Item Value Reference Range Interpretation Comme nts VITAMIN B-12 (test code = 2840) 500 PG/ML Antoni ReedN, [id number] 00:00:00* Test Item Value Reference Range Interpretation Comme nts IRON, SERUM (test code = 2222) 27 UG/DL Antoni LeeVITAMIN D, 25 [id number] 00:00:00* Test Item Value Reference Range Interpretation Comme nts VITAMIN D, 25 OH (test code = 4958) 14 NG/ML Antoni LeeTSH, THIRD [id number] 00:00:00* Test Item Value Reference Range Interpretation Comme nts TSH, THIRD GENERATION (test code = 2821) 2.600 UIU/ML Antoni LeeCBC W/AUTO [id number] 00:00:00* Test Item Value Reference Range Interpretation [...] ABS NUCLEATED RBCS (test cod e = 67337) 0.00 K/UL Antoni LeeCOMPREHENSIVE METABOLIC [id number] 00:00:00* Test Item Value Reference Range Interpretation Comme nts GLUCOSE (test code = 7) 119 MG/DL BUN (test code = 2207) 13 MG/DL CREATININE (test code = 2214) 0.74 MG/DL eGFR (2020 CKD-EPI) (test code = 04193) 112 ML/MIN/1.73 CALC BUN/CREAT (test code = 2234) 18 RATIO SODIUM (test code = 223) 140 MEQ/L POTASSIUM (test code = 2228) 4.1 MEQ/L CHLORIDE (test code = 2215) 104 MEQ/L CARBON DIOXIDE (test code = 2206) 25 MEQ/L CALCIUM (test code = 220) 9.8 MG/DL PROTEIN, TOTAL (test code = 2228) 6.9 G/DL ALBUMIN (test code = 220) 4.5 G/DL CALC GLOBULIN (test code = 2240) 2.4 G/DL CALC A/G RATIO (test code = 223) 1.9 RATIO BILIRUBIN, TOTAL (test code = 2206) 0.2 MG/DL ALKALINE PHOSPHATASE (test code = 2203) 99 U/L AST (test code = 8) 24 U/L ALT (test code = 9) 28 U/L Antoni LeeVITAMIN [id number] 00:00:00* Test Item Value Reference Range Interpretation Comme [facility] VITAMIN B-12 (test code = 2840) 500 PG/ML Antoni LeeIRON, [id number] 00:00:00* Test Item Value Reference Range Interpretation Comme [facility] IRON, SERUM (test code = 2222) 27 UG/DL Antoni LeeVITAMIN D, 25 [id number] 00:00:00* Test Item Value Reference Range Interpretation Comme [facility] VITAMIN D, 25 OH (test code = 4958) 14 NG/ML Antoni LeeTSH, THIRD [id number] 00:00:00* Test Item Value Reference Range Interpretation Comme [facility] TSH, THIRD GENERATION (test code = 2821) 2.600 UIU/ML Antoni LeeCBC W/AUTO [id number] 00:00:00* Test Item Value Reference Range Interpretation [...] ABS NUCLEATED RBCS (test cod e = 31449) 0.00 K/UL Antoni Swathi JesusCOMPREHENSIVE METABOLIC [id number] 00:00:00* Test Item Value Reference Range Interpretation Comme nts GLUCOSE (test code = 2217) 119 MG/DL BUN (test code = 2208) 13 MG/DL CREATININE (test code = 2214) 0.74 MG/DL eGFR (2020 CKD-EPI) (test code = 56132) 112 ML/MIN/1.73 CALC BUN/CREAT (test code = [...] code = 2219) 28 U/L Antoni LeeVITAMIN [id number] 00:00:00* Test Item Value Reference Range Interpretation Comme [facility] VITAMIN B-12 (test code = 2840) 500 PG/ML Antoni LeeIRON, [id number] 00:00:00* Test Item Value Reference Range Interpretation Comme [facility] IRON, SERUM (test code = 2222) 27 UG/DL Antoni LeeVITAMIN D, 25 [id number] 00:00:00* Test Item Value Reference Range Interpretation Comme [facility] VITAMIN D, 25 OH (test code = 4958) 14 NG/ML Antoni LeeTSH, THIRD [id number] 00:00:00* Test Item Value Reference Range Interpretation Comme [facility] TSH, THIRD GENERATION (test code = 2821) 2.600 UIU/ML Antoni LeeCBC W/AUTO [id number] 00:00:00* Test Item Value Reference Range Interpretation [...] ABS NUCLEATED RBCS (test cod e = 08015) 0.00 K/UL Antoni LeeCOMPREHENSIVE METABOLIC [id number] 00:00:00* Test Item Value Reference Range Interpretation Comme nts GLUCOSE (test code = 2217) 119 MG/DL BUN (test code = 2208) 13 MG/DL CREATININE (test code = 2214) 0.74 MG/DL eGFR (2020 CKD-EPI) (test code = 91535) 112 ML/MIN/1.73 CALC BUN/CREAT (test code = [...] code = 2219) 28 U/L Antoni LeeVITAMIN [id number] 00:00:00* Test Item Value Reference Range Interpretation Comme nts VITAMIN B-12 (test code = 2840) 500 PG/ML Antoni LeeIRON, [id number] 00:00:00* Test Item Value Reference Range Interpretation Comme nts IRON, SERUM (test code = 2222) 27 UG/DL Antoni LeeVITAMIN D, 25 [id number] 00:00:00* Test Item Value Reference Range Interpretation Comme [facility] VITAMIN D, 25 OH (test code = 4958) 14 NG/ML Antoni LeeTSH, THIRD [id number] 00:00:00* Test Item Value Reference Range Interpretation Comme [facility] TSH, THIRD GENERATION (test code = 2821) 2.600 UIU/ML Antoni LeeCBC W/AUTO [id number] 00:00:00* Test Item Value Reference Range Interpretation [...] ABS NUCLEATED RBCS (test cod e = 99152) 0.00 K/UL Antoni LeePOCT SARS-COV-2 ANTIGEN (BINAX NOW)2022-06-30 20:18:00* Test Item Value Reference Range Interpretation Comme nts POCT SARS-COV-2 ANTIGEN (eda t code = 43676-6) Not Detected Not Detected On board controls acceptable with C Line (test code = 3574) Yes [facility] [id number] 00:00:00* Test Item Value Reference Range Interpretation Comme nts GLUCOSE (test code = 2217) 92 MG/DL BUN (test code = 2208) 14 MG/DL CREATININE (test code = 2214) 0.72 MG/DL eGFR (2020 CKD-EPI) (test code = 52736) 117 ML/MIN/1.73 CALC BUN/CREAT (test code = [...] code = 2219) 15 U/L Antoni LeeLIPID [id number] 00:00:00* Test Item Value Reference Range Interpretation Comme nts CHOLESTEROL (test code = 2210) 219 MG/DL TRIGLYCERIDES (test code = 2232) 71 MG/DL HDL CHOLESTEROL (test code = 2220) 70 MG/DL CALC LDL CHOL (test code = 2237) 132 MG/DL RISK RATIO LDL/HDL (test cod e = 2238) 1.89 RATIO Antoni Echevarria JesusTSH, THIRD [id number] 00:00:00* Test Item Value Reference Range Interpretation Comme nts TSH, THIRD GENERATION (test code = 2821) 3.630 UIU/ML Antoni LeeCOMPREHENSIVE METABOLIC [id number] 00:00:00* Test Item Value Reference Range Interpretation Comme nts GLUCOSE (test code = 2217) 92 MG/DL BUN (test code = 2208) 14 MG/DL CREATININE (test code = 2214) 0.72 MG/DL eGFR (2020 CKD-EPI) (test code = 79184) 117 ML/MIN/1.73 CALC BUN/CREAT (test code = [...] code = 2219) 15 U/L Antoni LeeLIPID [id number] 00:00:00* Test Item Value Reference Range Interpretation Comme nts CHOLESTEROL (test code = 2210) 219 MG/DL TRIGLYCERIDES (test code = 2232) 71 MG/DL HDL CHOLESTEROL (test code = 2220) 70 MG/DL CALC LDL CHOL (test code = 2237) 132 MG/DL RISK RATIO LDL/HDL (test cod e = 2238) 1.89 RATIO Antoni Echevarria JesusTSH, THIRD [id number] 00:00:00* Test Item Value Reference Range Interpretation Comme nts TSH, THIRD GENERATION (test code = 2821) 3.630 UIU/ML Antoni Echevarria JesusCOMPREHENSIVE METABOLIC [id number] 00:00:00* Test Item Value Reference Range Interpretation Comme nts GLUCOSE (test code = 2217) 92 MG/DL BUN (test code = 2208) 14 MG/DL CREATININE (test code = 2214) 0.72 MG/DL eGFR (2020 CKD-EPI) (test code = 68899) 117 ML/MIN/1.73 CALC BUN/CREAT (test code = [...] code = 2219) 15 U/L Antoni LeeLIPID [id number] 00:00:00* Test Item Value Reference Range Interpretation Comme nts CHOLESTEROL (test code = 2210) 219 MG/DL TRIGLYCERIDES (test code = 2232) 71 MG/DL HDL CHOLESTEROL (test code = 2220) 70 MG/DL CALC LDL CHOL (test code = 2237) 132 MG/DL RISK RATIO LDL/HDL (test cod e = 2238) 1.89 RATIO Antoni LeeTSH, THIRD [id number] 00:00:00* Test Item Value Reference Range Interpretation Comme nts TSH, THIRD GENERATION (test code = 2821) 3.630 UIU/ML Antoni LeeCOMPREHENSIVE METABOLIC [id number] 00:00:00* Test Item Value Reference Range Interpretation Comme nts GLUCOSE (test code = 2217) 92 MG/DL BUN (test code = 2208) 14 MG/DL CREATININE (test code = 2214) 0.72 MG/DL eGFR (2020 CKD-EPI) (test code = 99989) 117 ML/MIN/1.73 CALC BUN/CREAT (test code = [...] code = 2219) 15 U/L Antoni LeeLIPID [id number] 00:00:00* Test Item Value Reference Range Interpretation Comme nts CHOLESTEROL (test code = 2210) 219 MG/DL TRIGLYCERIDES (test code = 2232) 71 MG/DL HDL CHOLESTEROL (test code = 2220) 70 MG/DL CALC LDL CHOL (test code = 2237) 132 MG/DL RISK RATIO LDL/HDL (test cod e = 2238) 1.89 RATIO Antoni LeeTSH, THIRD [id number] 00:00:00* Test Item Value Reference Range Interpretation Comme richard TSH, THIRD GENERATION (test code = 2821) 3.630 UIU/ML Antoni LeeHEMOGLOBIN [id number] 00:00:00* Test Item Value Reference Range Interpretation Comme nts HEMOGLOBIN A1c (test code = 38934) 5.1 % Antoni LeeCBC W/AUTO [id number] 00:00:00* Test Item Value Reference Range Interpretation [...] ABS NUCLEATED RBCS (test cod e = 05153) 0.00 K/UL Antoni LeeHEMOGLOBIN [id number] 00:00:00* Test Item Value Reference Range Interpretation Comme nts HEMOGLOBIN A1c (test code = 43590) 5.1 % Antoni LeeCBC W/AUTO [id number] 00:00:00* Test Item Value Reference Range Interpretation [...] ABS NUCLEATED RBCS (test cod e = 24949) 0.00 K/UL Antoni Echevarria AustinHEMOGLOBIN [id number] 00:00:00* Test Item Value Reference Range Interpretation Comme nts HEMOGLOBIN A1c (test code = 27878) 5.1 % Antoni Echevarria AustinCBC W/AUTO [id number] 00:00:00* Test Item Value Reference Range Interpretation [...] ABS NUCLEATED RBCS (test cod e = 17337) 0.00 K/UL Antoni Echevarria AustinHEMOGLOBIN [id number] 00:00:00* Test Item Value Reference Range Interpretation Comme nts HEMOGLOBIN A1c (test code = 27732) 5.1 % Antoni Echevarria AustinCBC W/AUTO [id number] 00:00:00* Test Item Value Reference Range Interpretation [...] ABS NUCLEATED RBCS (test cod e = 94725) 0.00 K/UL Antoni F AustinPOCT [id number] 14:26:00* Test Item Value Reference Range Interpretation Comme nts POCT PREG (test code = 1605) Negative On board controls acceptable with C Line (test code = 3574) Yes POCT PREG LOT # (test code = 3575) POCT PREG TEST DATE ( test code = 3576) [facility]CIFIC [id number] 14:21:00* Test Item Value Reference Range Interpretation [...] U APPEAR (test code = 3267) clear [facility], NAAT, [id number] 11:31:42* Test Item Value Reference Range Interpretation Comme nts GONORRHEA, NAAT (test code = 67933) NEGATIVE NEGATIVE IMPORTANT NO DIGNA: SEE ANNOUNCEMENT AT [email or web address] Note: Assay methodology is nucleic acid amplification by fiberglass model maker mediated amplification (TMA) utilizing the Aptima Combo 2 Assay. IMPORTANT NOTICE: SEE ANNOUNCEMENT AT [email or web address] Note: Assay methodology is nucleic acid amplification by fiberglass model maker mediated amplification (TMA) utilizing the Aptima Combo 2 Assay. CHLAMYDIA, NAAT (test code = 06221) NEGATIVE NEGATIVE IMPORTANT NO DIGNA: SEE ANNOUNCEMENT AT [email or web address] Note: Assay methodology is nucleic acid amplification by fiberglass model maker mediated amplification (TMA) utilizing the Aptima Combo 2 Assay. IMPORTANT NOTICE: SEE ANNOUNCEMENT AT [email or web address] Note: Assay methodology is nucleic acid amplification by fiberglass model maker mediated amplification (TMA) utilizing the Aptima Combo 2 Assay. PAP TEST, THINPREP, [id number] 10:40:24* Test Item Value Reference Range Interpretation Comme nts SOURCE: (test code = 8001) Cervical SLIDES: (test code = 8011) 1 LMP: (test code = 8021) 10/13/2021 SPECIMEN ADEQUACY: (test code = 59773) (NOTE) Satisfactory for evaluation. Endocervical cells/transformation zone component present. INTERPRETATION: (test code = 68303) ASCUS/EPITH. ABNORMALITY; SEE BELOW A - ------- EPITHELIAL CELL ABNORMALITY Atypical squamous cells of undetermined significance (ASC-US) COMMERCIAL REAL ESTATE BROKER: (test code = 8101) NIMO Mclean(ASCP)I PATHOLOGIST INTERPRETATION BY: (test code = 8122) Annalise Swan LOCATION: (test code = 46918) (NOTE) Specimens proces sed at [facility] Pathology [facility], [address] [place] [address], , CLIA: [id number] interpreted at [facility], [address] [place] [address] [place] [address], , CLIA: [id number] CPT: (test code = 8140) (NOTE) 45261, 91152 UNL ESS OTHERWISE INDICATED, COMPUTER AIDED AND COMMERCIAL REAL ESTATE BROKER SCREENING PERFORMED. The Pap test is a screening test with an inherent, but low probability of error. Your patient should be reminded to consult you immediately if she experiences any suspicious signs or symptoms, regardless of her Pap test result. An alternate report format containing images or consolidated prior Pap history is available as applicable. UNLESS OTHERWISE INDICATED, ALL TESTING PERFORMED [facility] PATHOLOGY [employer], [facility]. [address] [place] [address] CABINET MAKER: RADHA ALEMAN M.D. CLIA NUMBER [id number] [facility] [place]. [id number] GC AND CHLAMYDIA, AMPLIFIED, [id number] 00:00:00* Test Item Value Reference Range Interpretation Comme nts GONORRHEA, NAAT (test code = 91174) NEGATIVE CHLAMYDIA, NAAT (test code = 27800) NEGATIVE Antoni LeePAP TEST, THINPREP, [id number] 00:00:00* Test Item Value Reference Range Interpretation Comme nts SOURCE: (test code = 8001) Cervical SLIDES: (test code = 8011) 1 LMP: (test code = 8021) 10/13/2021 SPECIMEN ADEQUACY: (test code = 96261) (NOTE) INTERPRETATION: (test code = 26894) ASCUS/EPITH. ABNORMALITY; SEE BELOW COMMERCIAL REAL ESTATE BROKER: (test code = 8101) NIMO Mclean(ASCP)[facility] PATHOLOGIST INTERPRETATION BY: (test code = 8122) [facility] LOCATION: (test code = 25319) (NOTE) CPT: (test code = 8140) (NOTE) Antoni F AustinGC AND CHLAMYDIA, AMPLIFIED, [id number] 00:00:00* Test Item Value Reference Range Interpretation Comme nts GONORRHEA, NAAT (test code = 09584) NEGATIVE CHLAMYDIA, NAAT (test code = 65142) NEGATIVE Antoni LeePAP TEST, THINPREP, [id number] 00:00:00* Test Item Value Reference Range Interpretation Comme nts SOURCE: (test code = 8001) Cervical SLIDES: (test code = 8011) 1 LMP: (test code = 8021) 10/13/2021 SPECIMEN ADEQUACY: (test code = 73042) (NOTE) INTERPRETATION: (test code = 39040) ASCUS/EPITH. ABNORMALITY; SEE BELOW COMMERCIAL REAL ESTATE BROKER: (test code = 8101) Jennifer LynneCT(ASCP)[facility] PATHOLOGIST INTERPRETATION BY: (test code = 8122) [facility] LOCATION: (test code = 51673) (NOTE) CPT: (test code = 8140) (NOTE) Antoni F AustinGC AND CHLAMYDIA, AMPLIFIED, [id number] 00:00:00* Test Item Value Reference Range Interpretation Comme nts GONORRHEA, NAAT (test code = 76389) NEGATIVE CHLAMYDIA, NAAT (test code = 53005) NEGATIVE Antoni LeePAP TEST, THINPREP, [id number] 00:00:00* Test Item Value Reference Range Interpretation Comme nts SOURCE: (test code = 8001) Cervical SLIDES: (test code = 8011) 1 LMP: (test code = 8021) 10/13/2021 SPECIMEN ADEQUACY: (test code = 12175) (NOTE) INTERPRETATION: (test code = 24827) ASCUS/EPITH. ABNORMALITY; SEE BELOW COMMERCIAL REAL ESTATE BROKER: (test code = 8101) NIMO Mclean(ASCP)[facility] PATHOLOGIST INTERPRETATION BY: (test code = 8122) [facility] LOCATION: (test code = 44337) (NOTE) CPT: (test code = 8140) (NOTE) Antoni LeeGC AND CHLAMYDIA, AMPLIFIED, [id number] 00:00:00* Test Item Value Reference Range Interpretation Comme nts GONORRHEA, NAAT (test code = 19369) NEGATIVE CHLAMYDIA, NAAT (test code = 11416) NEGATIVE Antoni LeePAP TEST, THINPREP, [id number] 00:00:00* Test Item Value Reference Range Interpretation Comme nts SOURCE: (test code = 8001) Cervical SLIDES: (test code = 8011) 1 LMP: (test code = 8021) 10/13/2021 SPECIMEN ADEQUACY: (test code = 97227) (NOTE) INTERPRETATION: (test code = 88118) ASCUS/EPITH. ABNORMALITY; SEE BELOW COMMERCIAL REAL ESTATE BROKER: (test code = 8101) NIMO Mclean(ASCP)[facility] PATHOLOGIST INTERPRETATION BY: (test code = 8122) [facility] LOCATION: (test code = 11218) (NOTE) CPT: (test code = 8140) (NOTE) Antoni Echevarria AustinVAGINAL PATHOGENS DNA [id number] 14:48:29* Test Item Value Reference Range Interpretation Comme nts CHARLES SPECIES (test code = 77815) NEGATIVE NEGATIVE G. VAGINALIS (test code = 65937) POSITIVE NEGATIVE A T. VAGINALIS (test code = 70655) NEGATIVE NEGATIVE HEPATITIS PANEL, [id number] 04:04:35* Test Item Value Reference Range Interpretation Comme nts HEPATITIS A IgM (test code = 03041) NON-REACTIVE NON-REACTIVE HEPATITIS B CORE IgM (test code = 4644) NON-REACTIVE NON-REACTIVE HEPATITIS B SURF AG (test code = 2739) NON-REACTIVE NON-REACTIVE HEPATITIS C ANTIBODY (test code = 4675) NON-REACTIVE NON-REACTIVE INTERPRETATION HEPATITIS A: (test code = 2552) (NOTE) Hepatitis A sero logy shows no evidence of acute hepatitis A. INTERPRETATION HEPATITIS B: (test code = 34434) (NOTE) Hepatitis B sero logy shows no evidence of acute hepatitis B andno indication of exposure to hepatitis B virus in the previous chicho eight months. INTERPRETATION HEPATITIS C: (test code = 26504) (NOTE) Hepatitis C sero logy shows no evidence of exposure to hepatitisC virus at this time. It can take up to 12 months after exposure tothe hepatitis C virus for antibodies to become detectable in the blood in certain patients. UNLESS OTHERWISE INDICATED, ALL TESTING PERFORMED [facility] [employer] [address] [place] [address] CABINET MAKER: RADHA ALEMAN M.D. [place] NUMBER [id number] [facility] [place] [id number] HIV 1/2 4TH GEN, RFLX [id number] 04:04:35* Test Item Value Reference Range Interpretation Comme nts HIV 1/2 4TH GEN, RFLX CONF ( test code = 3514) NON-REACTIVE NON-REACTIVE [id number] 02:50:30* Test Item Value Reference Range Interpretation Comme nts RPR RESULT (test code = 3501) NON-REACTIVE NON-REACTIVE RPR TITER (test code = 3500) NOT INDIC. TITER NOT INDIC. HIV AB/AG COMBO RFLX [id number] 00:00:00* Test Item Value Reference Range Interpretation Comme nts HIV 1/2 4TH GEN, RFLX CONF ( test code = 3514) NON-REACTIVE Antoni F [id number] 00:00:00* Test Item Value Reference Range Interpretation Comme nts RPR RESULT (test code = 3501) NON-REACTIVE RPR TITER (test code = 3500) NOT INDIC. TITER Antoni LeeACUTE HEPATITIS [id number] 00:00:00* Test Item Value Reference Range Interpretation Comme nts HEPATITIS A IgM (test code = 97027) NON-REACTIVE HEPATITIS B CORE IgM (test c ode = 4644) NON-REACTIVE HEPATITIS B SURF AG (test co de = 2739) NON-REACTIVE HEPATITIS C ANTIBODY (test c ode = 4675) NON-REACTIVE INTERPRETATION HEPATITIS A: (test code = 2552) (NOTE) INTERPRETATION HEPATITIS B: (test code = 91892) (NOTE) INTERPRETATION HEPATITIS C: (test code = 38363) (NOTE) Antoni Echevarria AustinVAGINAL PATHOGENS DNA [id number] 00:00:00* Test Item Value Reference Range Interpretation Comme nts CHARLES SPECIES (test code = ) NEGATIVE G. VAGINALIS (test code = ) POSITIVE T. VAGINALIS (test code = ) NEGATIVE Antoni Echevarria AustinHIV AB/AG COMBO RFLX [id number] 00:00:00* Test Item Value Reference Range Interpretation Comme nts HIV 1/2 4TH GEN, RFLX CONF ( test code = 3514) NON-REACTIVE Antoni Echevarria [id number] 00:00:00* Test Item Value Reference Range Interpretation Comme nts RPR RESULT (test code = 3501) NON-REACTIVE RPR TITER (test code = 3500) NOT INDIC. TITER Antoni LeeACUTE HEPATITIS [id number] 00:00:00* Test Item Value Reference Range Interpretation Comme nts HEPATITIS A IgM (test code = 87264) NON-REACTIVE HEPATITIS B CORE IgM (test c ode = 4644) NON-REACTIVE HEPATITIS B SURF AG (test co de = 2739) NON-REACTIVE HEPATITIS C ANTIBODY (test c ode = 4675) NON-REACTIVE INTERPRETATION HEPATITIS A: (test code = 2552) (NOTE) INTERPRETATION HEPATITIS B: (test code = 79406) (NOTE) INTERPRETATION HEPATITIS C: (test code = 77662) (NOTE) Antoni Echevarria AustinVAGINAL PATHOGENS DNA [id number] 00:00:00* Test Item Value Reference Range Interpretation Comme nts CHARLES SPECIES (test code = ) NEGATIVE G. VAGINALIS (test code = ) POSITIVE T. VAGINALIS (test code = 17772) NEGATIVE Antoni Echevarria AustinHIV AB/AG COMBO RFLX [id number] 00:00:00* Test Item Value Reference Range Interpretation Comme nts HIV 1/2 4TH GEN, RFLX CONF ( test code = 3514) NON-REACTIVE Antoni Echevarria [id number] 00:00:00* Test Item Value Reference Range Interpretation Comme nts RPR RESULT (test code = 3501) NON-REACTIVE RPR TITER (test code = 3500) NOT INDIC. TITER Antoni LeeACUTE HEPATITIS [id number] 00:00:00* Test Item Value Reference Range Interpretation Comme nts HEPATITIS A IgM (test code = 25820) NON-REACTIVE HEPATITIS B CORE IgM (test c ode = 4644) NON-REACTIVE HEPATITIS B SURF AG (test co de = 2739) NON-REACTIVE HEPATITIS C ANTIBODY (test c ode = 4675) NON-REACTIVE INTERPRETATION HEPATITIS A: (test code = 2552) (NOTE) INTERPRETATION HEPATITIS B: (test code = 03984) (NOTE) INTERPRETATION HEPATITIS C: (test code = 48092) (NOTE) Antoni Echevarria AustinVAGINAL PATHOGENS DNA [id number] 00:00:00* Test Item Value Reference Range Interpretation Comme nts CHARLES SPECIES (test code = 04624) NEGATIVE G. VAGINALIS (test code = 35023) POSITIVE T. VAGINALIS (test code = 23396) NEGATIVE Antoni LeeHIV AB/AG COMBO RFLX [id number] 00:00:00* Test Item Value Reference Range Interpretation Comme nts HIV 1/2 4TH GEN, RFLX CONF ( test code = 3514) NON-REACTIVE Antoni Echevarria [id number] 00:00:00* Test Item Value Reference Range Interpretation Comme nts RPR RESULT (test code = 3501) NON-REACTIVE RPR TITER (test code = 3500) NOT INDIC. TITER Antoni LeeACUTE HEPATITIS [id number] 00:00:00* Test Item Value Reference Range Interpretation Comme nts HEPATITIS A IgM (test code = 84864) NON-REACTIVE HEPATITIS B CORE IgM (test c ode = 4644) NON-REACTIVE HEPATITIS B SURF AG (test co de = 2739) NON-REACTIVE HEPATITIS C ANTIBODY (test c ode = 4675) NON-REACTIVE INTERPRETATION HEPATITIS A: (test code = 2552) (NOTE) INTERPRETATION HEPATITIS B: (test code = 51990) (NOTE) INTERPRETATION HEPATITIS C: (test code = 35495) (NOTE) Antoni Echevarria AustinVAGINAL PATHOGENS DNA [id number] 00:00:00* Test Item Value Reference Range Interpretation Comme nts CHARLES SPECIES (test code = ) NEGATIVE G. VAGINALIS (test code = 92090) POSITIVE T. VAGINALIS (test code = ) NEGATIVE Antoni F AustinGC AND CHLAMYDIA, AMPLIFIED, [id number] 00:00:00* Test Item Value Reference Range Interpretation Comme nts GONORRHEA, TMA (test code = 48675) NEGATIVE CHLAMYDIA, TMA (test code = 81481) POSITIVE Antoni F AustinVAGINAL PATHOGENS DNA [id number] 00:00:00* Test Item Value Reference Range Interpretation Comme nts CHARLES SPECIES (test code = ) NEGATIVE G. VAGINALIS (test code = 91741) POSITIVE T. VAGINALIS (test code = ) NEGATIVE Antoni Swathi AustinGC AND CHLAMYDIA, AMPLIFIED, [id number] 00:00:00* Test Item Value Reference Range Interpretation Comme nts GONORRHEA, TMA (test code = 20184) NEGATIVE CHLAMYDIA, TMA (test code = 17383) POSITIVE Antoni F AustinVAGINAL PATHOGENS DNA [id number] 00:00:00* Test Item Value Reference Range Interpretation Comme nts CHARLES SPECIES (test code = ) NEGATIVE G. VAGINALIS (test code = 44869) POSITIVE T. VAGINALIS (test code = ) NEGATIVE Antoni Swathi AustinGC AND CHLAMYDIA, AMPLIFIED, [id number] 00:00:00* Test Item Value Reference Range Interpretation Comme nts GONORRHEA, TMA (test code = 01313) NEGATIVE CHLAMYDIA, TMA (test code = 75580) POSITIVE Antoni F AustinVAGINAL PATHOGENS DNA [id number] 00:00:00* Test Item Value Reference Range Interpretation Comme nts CHARLES SPECIES (test code = ) NEGATIVE G. VAGINALIS (test code = 88173) POSITIVE T. VAGINALIS (test code = 24905) NEGATIVE Antoni F AustinGC AND CHLAMYDIA, AMPLIFIED, [id number] 00:00:00* Test Item Value Reference Range Interpretation Comme nts GONORRHEA, TMA (test code = 26465) NEGATIVE CHLAMYDIA, TMA (test code = 81760) POSITIVE Antoni F AustinVAGINAL PATHOGENS DNA [id number] 00:00:00* Test Item Value Reference Range Interpretation Comme nts CHARLES SPECIES (test code = 96979) NEGATIVE G. VAGINALIS (test code = ) POSITIVE T. VAGINALIS (test code = ) NEGATIVE Antoni LeeLIPID [id number] 00:00:00* Test Item Value Reference Range Interpretation Comme nts CHOLESTEROL (test code = 2210) 211 MG/DL TRIGLYCERIDES (test code = 2232) 77 MG/DL HDL CHOLESTEROL (test code = 2220) 75 MG/DL CALC LDL CHOL (test code = 2237) 121 MG/DL RISK RATIO LDL/HDL (test cod e = 2238) 1.61 RATIO Antoni LeeCBC W/AUTO [id number] 00:00:00* Test Item Value Reference Range Interpretation [...] code = 1015) 319 K/UL Antoni LeeHEMOGLOBIN [id number] 00:00:00* Test Item Value Reference Range Interpretation Comme richard HEMOGLOBIN A1c (test code = 02305) 5.0 % Antoni [id number] 00:00:00* Test Item Value Reference Range Interpretation Comme nts TSH (test code = 2821) 2.6 UIU/ML Antoni LeeCOMPREHENSIVE METABOLIC [id number] 00:00:00* Test Item Value Reference Range Interpretation Comme nts GLUCOSE (test code = 2217) 93 MG/DL BUN (test code = 2208) 10 MG/DL CREATININE (test code = 2214) 0.87 MG/DL eGFR AMER. (test cod e = 20175) 110 ML/MIN/1.73 eGFR NON- AMER. (test code = 59612) 95 ML/MIN/1.73 CALC BUN/CREAT (test code = [...] code = 2219) 10 U/L Antoni LeeLIPID [id number] 00:00:00* Test Item Value Reference Range Interpretation Comme nts CHOLESTEROL (test code = 2210) 211 MG/DL TRIGLYCERIDES (test code = 2232) 77 MG/DL HDL CHOLESTEROL (test code = 2220) 75 MG/DL CALC LDL CHOL (test code = 2237) 121 MG/DL RISK RATIO LDL/HDL (test cod e = 2238) 1.61 RATIO Antoni LeeCBC W/AUTO [id number] 00:00:00* Test Item Value Reference Range Interpretation [...] code = 1015) 319 K/UL Antoni LeeHEMOGLOBIN [id number] 00:00:00* Test Item Value Reference Range Interpretation Comme richard HEMOGLOBIN A1c (test code = 61763) 5.0 % Antoni [id number] 00:00:00* Test Item Value Reference Range Interpretation Comme nts TSH (test code = 2821) 2.6 UIU/ML Antoni LeeCOMPREHENSIVE METABOLIC [id number] 00:00:00* Test Item Value Reference Range Interpretation Comme nts GLUCOSE (test code = 2217) 93 MG/DL BUN (test code = 2208) 10 MG/DL CREATININE (test code = 2214) 0.87 MG/DL eGFR AMER. (test cod e = 42664) 110 ML/MIN/1.73 eGFR NON- AMER. (test code = 89910) 95 ML/MIN/1.73 CALC BUN/CREAT (test code = [...] code = 2219) 10 U/L Antoni LeeLIPID [id number] 00:00:00* Test Item Value Reference Range Interpretation Comme nts CHOLESTEROL (test code = 2210) 211 MG/DL TRIGLYCERIDES (test code = 2232) 77 MG/DL HDL CHOLESTEROL (test code = 2220) 75 MG/DL CALC LDL CHOL (test code = 2237) 121 MG/DL RISK RATIO LDL/HDL (test cod e = 2238) 1.61 RATIO Antoni LeeCBC W/AUTO [id number] 00:00:00* Test Item Value Reference Range Interpretation [...] code = 1015) 319 K/UL Antoni LeeHEMOGLOBIN [id number] 00:00:00* Test Item Value Reference Range Interpretation Comme richard HEMOGLOBIN A1c (test code = 70809) 5.0 % Antoni [id number] 00:00:00* Test Item Value Reference Range Interpretation Comme nts TSH (test code = 2821) 2.6 UIU/ML Antoni LeeCOMPREHENSIVE METABOLIC [id number] 00:00:00* Test Item Value Reference Range Interpretation Comme nts GLUCOSE (test code = 2217) 93 MG/DL BUN (test code = 2208) 10 MG/DL CREATININE (test code = 2214) 0.87 MG/DL eGFR AMER. (test cod e = 78427) 110 ML/MIN/1.73 eGFR NON- AMER. (test code = 74468) 95 ML/MIN/1.73 CALC BUN/CREAT (test code = [...] code = 2219) 10 U/L Antoni LeeLIPID [id number] 00:00:00* Test Item Value Reference Range Interpretation Comme nts CHOLESTEROL (test code = 2210) 211 MG/DL TRIGLYCERIDES (test code = 2232) 77 MG/DL HDL CHOLESTEROL (test code = 2220) 75 MG/DL CALC LDL CHOL (test code = 2237) 121 MG/DL RISK RATIO LDL/HDL (test cod e = 2238) 1.61 RATIO Antoni LeeCBC W/AUTO [id number] 00:00:00* Test Item Value Reference Range Interpretation [...] code = 1015) 319 K/UL Antoni LeeHEMOGLOBIN [id number] 00:00:00* Test Item Value Reference Range Interpretation Comme [facility] HEMOGLOBIN A1c (test code = 69405) 5.0 % Antoni [id number] 00:00:00* Test Item Value Reference Range Interpretation Comme nts TSH (test code = 2821) 2.6 UIU/ML Antoni LeeCOMPREHENSIVE METABOLIC [id number] 00:00:00* Test Item Value Reference Range Interpretation Comme nts GLUCOSE (test code = 2217) 93 MG/DL BUN (test code = 2208) 10 MG/DL CREATININE (test code = 2214) 0.87 MG/DL eGFR AMER. (test cod e = 61544) 110 ML/MIN/1.73 eGFR NON- AMER. (test code = 00468) 95 ML/MIN/1.73 CALC BUN/CREAT (test code = [...] (test code = 2219) 10 U/L Antoni LeeTHYROID II PROFILE (T3U, T4, T7, [...] (test code = 2821) 1.2 UIU/ML Antoni LeeHEPATIC DUCT [id number] 19:16:00 *.*.*.*.*.*.*.*.*.*.*.*.*.*FINAL*.*.*.*.*.*.*.*.*.*.*.*.*.*.*History: 16-year-old female with persistent right upper quadrant painsuspicious for biliary colic.EXAM: DISIDA Hepatobiliary Scan.TECHNIQUE and FINDINGS:Sequential scintiphotos of the abdomen were obtained after intravenousadministration of 15 mCi of Technetium 99m DISIDA.The liver demonstrates normal radiotracer uptake and biliary excretion. Biliaryto bowel transit time is approximately 20 minutes. Radiotracer is evident inthe gallbladder at approximately 16 minutes.After radiotracer was demonstrated in the gallbladder, 1.4 mcg Kinevac (CCK)was administered intravenously over two minutes and a gallbladder ejectionfraction of 77% is calculated.Evidence of duodenal gastric reflux is identified during the examination. Renalsecretion of the radiotracer is also visualized which may indicate some hepaticinsufficiency. ?Personally interpreted by: ANNETTE SAWYER MD /Signed/ ANNETTE SAWYER MDUnUnited Regional Healthcare System Notes Date/Time Note Provider Source Antoni Cervantes [facility]2024-12-10 00:00:00 Antoni Cervantes [facility]2024-10-21 00:00:00 Antoni Cervantes [facility]2024-05-30 15:35:24 I called patient. She states she is doing better but still having problems with eating and drinking. She is talking small portions, which helps. CT scan, found free fluid in small intestine and patient was given Rx for Zofran only. Patient is waiting for new insurance to kick in and will let us know when/if she wants to follow up in the clinic. Kristopher Bush [id number] 07:40:49 Called patient and left vm to call my office. Nancy Kat [id number] 15:06:40 Yohannes Chamberlain is a 28 year old female Pt is calling requesting to speak with the nurse in reference to the GI issues she has been having states she has been in and out of the ER and its becoming too expensive for her states they are not helping her regardless. Pt state she has not been able to eat since Friday and everytime she does she either vomits or gets a bad abdominal pain that doesn't get any better. Pt states all the hospital did was give her medication for nausea and advised her to follow up with GI provider. Pt also states they did a CT scan and seen free fluid in intestines. Please call the pt to discuss. Please advise. Yoana [facility]ocoMer[facility] [id number] 00:00:00 Antoni Cervantes [facility]2023-08-29 11:00:00 Images from the original note were not included. Venipuncture collection performed by clean technique on the left anticubitus. Total of 1 attempts were made. Slight pressure and a bandage/dressing were applied to the site(s). The patient experienced no complications. The following specimens were processed according to instructions and sent to [facility] laboratories LT BLUE Lt Green SST 1 RED LAV 1 PPT DK GREEN (L) DK GREEN (S)/// Fibrosure set BLUE,SST & LAV BUCIO DK BLUE (K2) DK BLUE (S) ACD RST BLOOD CULTURE NIPT or ALLOSURE VERIFYNOW URINE URINE CULTURE APTIMA URINE STOOL Monogram Z plasma preservative tube (call lab for tube)[facility] Vasoactive Intestinal Peptide (call lab for tube)[facility] - [id number] 10:20:30 12/06/22 Community Wellness and Outreach team contacted patient to assist in completing Health Maintenance topics that are overdue. Yohannes Chamberlain [id number] Attempt Number: First Health Maintenance topics attempted to address: Health Maintenance Due Topic Date Due VARICELLA VACCINES (1 of 2 - 2-dose childhood series) Never done PNEUMOCOCCAL 0-64 YEARS COMBINED SERIES (1 - PCV) Never done HEPATITIS C (HCV) SCREEN Never done PAP SMEAR 09/26/2017 SARS-CoV-2 (COVID-19) Vaccine (3 - Booster for Moderna series) 11/30/2020 Call outcome: Attempted to call patient to review overdue health maintenance: Pap Smear. [facility] with call back number. Researched Care everywhere and [facility] with no new medical records obtained. [place] [facility] Community and Population Health 01/09/23 Community Wellness and Outreach team contacted patient to assist in completing Health Maintenance topics that are overdue. Yohannes Chamberlain [id number] Attempt Number: 2nd/Final Health Maintenance topics addressed: Health Maintenance Due Topic Date Due VARICELLA VACCINES (1 of 2 - 2-dose childhood series) Never done PNEUMOCOCCAL 0-64 YEARS COMBINED SERIES (1 - PCV) Never done HEPATITIS C (HCV) SCREEN Never done PAP SMEAR 09/26/2017 SARS-CoV-2 (COVID-19) Vaccine (3 - Moderna series) 11/30/2020 Call outcome: Called patient to review overdue health maintenance: Pap Smear. Per patient she uses outside source. [place] [facility] II Community and Population Health [facility]
[2024-07-18] MEDS ORDERED: ONDANSETRON 4 MG/2 ML VIAL ONE (19:55)
[2024-07-18] MEDS ORDERED: NA CHLORIDE 0.9% 1,000 ML ONE (19:56)
[2024-07-18 20:04] LABS: Absolute Eosinophils 0.1 K/uL (0-0.5); Absolute Lymphocytes (CBC) 1.9 K/uL (0.7-4.9); Absolute Monocytes 0.4 K/uL (0.1-1.3); Absolute Neutrophil 5.5 K/uL (1.8-8.0); Basophils % 0.3 % (0-1.3); Eosinophils % 1.4 % (0-4.4); Hematocrit 36.1 % (36.0-45.0); Hemoglobin 12.6 g/dL (12.0-15.0); Lymphocytes % 23.4 % (15.3-44.8); MCH 28.2 pg (27.0-35.0); MCHC 34.8 g/dL (32.0-36.0); MCV 81.1 fL (80-100); MPV 9.2 fL (7.6-11.3); Monocytes % 5.3 % (3.3-12.3); Neutrophils % 69.6 % (41.7-73.7); Nucleated Red Blood Cells % 0.1 % (0-0); Platelets 333 thou/uL (152-406); RBC Red Blood Cell Count 4.45 M/uL (3.86-4.86); Red Cell Distribution Width 15.2 % (12.1-15.2)
[2024-07-18 20:07] LABS: Specific Gravity 1.019 (1.005-1.030); Sqamous Epithelial <5 /HPF (None Seen); Urine Bacteria <20 /HPF (<20); Urine Bilirubin NEGATIVE (Negative); Urine Blood Negative (Negative); Urine Clarity Extremely Turbid (Clear); Urine Color Light-Yellow (Yellow); Urine Crystals Unidentified Few /HPF (None Seen); Urine Culture Reflex Order REFLEXED; Urine Glucose NEGATIVE (Negative); Urine Ketones NEGATIVE (Negative); Urine Microscopic Reflex YN ORDER UMIC; Urine Mucus Slight /HPF (None Seen); Urine Nitrite NEGATIVE (Negative); Urine Protein NEGATIVE (Negative); Urine RBC <5 /HPF (None Seen); Urine Urobilinogen Normal (Normal); Urine Yeast (Budding) Trace /HPF (None Seen)
[2024-07-18 20:15] LABS: PT Prothrombin Time 10.7 SECONDS (9.4-12.5); PTT, Activated Partial Thromb 22.9 SECONDS (24.3-36.9); Protime INR 1.02
[2024-07-18 20:17] LABS: Barbiturates NEGATIVE (NEGATIVE); Benzodiazepines NEGATIVE (NEGATIVE); Cocaine NEGATIVE (NEGATIVE); METHAMPHETAM NEGATIVE (NEGATIVE); Methadone NEGATIVE (NEGATIVE); Opiates NEGATIVE (NEGATIVE); Phencyclidine NEGATIVE (NEGATIVE); THC Cannibis NEGATIVE (NEGATIVE)
[2024-07-18 20:23] LABS: ALT/SGPT 22 U/L (13-56); AST/SGOT 16 U/L (15-37); Albumin 3.6 g/dL (3.4-5.0); Albumin/Globulin Ratio 0.9 (1.1-1.8); Alkaline Phosphatase 112 U/L (45-117); Anion Gap 10.4 mEq/L (5.0-15.0); BUN Blood Urea Nitrogen 20 mg/dL (7-18); Bicarbonate 23 mEq/L (21-32); Bilirubin Total 0.2 mg/dL (0.2-1.0); Globulin 3.8 g/dL (2.3-3.5); Glomerular Filtration Rate 89 ml/min (=/>90); Glucose Level 126 mg/dL (74-106); Lipase 31 U/L (13-75); Potassium 3.4 mEq/L (3.5-5.1); Protein, Total 7.4 g/dL (6.4-8.2); Sodium Level 139 mEq/L (136-145)
[2024-07-18 20:24] LABS: Bilirubin Direct < 0.2 mg/dL (0-0.2)
--- NOTE | 2024-07-18 20:29 | ER ---
Nurse's Notes [facility] Name: Annabel Chamberlain Age: 29 yrs Sex: Female : 1995 Arrival Date: 07/18/2024 Time: 18:48 Bed 6 Private MD: Diagnosis: Abuse of other non-psychoactive substances;Adverse effect of unspecified drugs, medicaments and biological substances;Altered mental status, unspecified;UTI/ Urinary tract infection, site not specified;Hypokalemia Presentation: 07/18 18:49 Chief complaint: EMS states: Took TCH gummies for the first time and got "too stoned". hb Coronavirus screen: At this time, the client does not indicate any symptoms associated with coronavirus-19. Ebola Screen: No symptoms or risks identified at this time. Initial Sepsis Screen: Does the patient meet any 2 criteria? No. Patient's initial sepsis screen is negative. Does the patient have a suspected source of infection? No. Patient's initial sepsis screen is negative. Risk Assessment: Do you want to hurt yourself or someone else? Patient reports no desire to harm self or others. Onset of symptoms was July 18, 2024. 18:49 Method Of Arrival: EMS: [facility] 18:49 Acuity: STEVEN 5 bp Triage Assessment: 18:52 General: Appears in no apparent distress. obese, Behavior is drowsy. Pain: Denies pain. bp EENT: No deficits noted. Neuro: Level of Consciousness is lethargic. Cardiovascular: No deficits noted. Respiratory: No deficits noted. GI: No signs and/or symptoms were reported involving the gastrointestinal system. : No signs and/or symptoms were reported regarding the genitourinary system. Derm: No deficits noted. Musculoskeletal: No deficits noted. CHANGE DIRECTOR: 21:33 LMP 0, unknown bm8 Historical: - PMHx: 18:51 Anxiety; Asthma; Colitis (Cholecystectomy); Depression; ibs (Cholecystectomy); hb Pancreatitis; Seizures; - PSHx: 18:51 Cholecystectomy; hb - Immunization history:: Adult Immunizations up to date. - Infectious Disease History:: Denies. - Social history:: Smoking status: Patient denies any tobacco usage or history of. - Family history:: not pertinent. Screenin:53 [facility] ED Fall Risk Assessment (Adult) History of falling in the last 3 months, bp including since admission No falls in past 3 months (0 pts) Confusion or Disorientation No (0 pts) Intoxicated or Sedated Yes (3 pts) Impaired Gait No (0 pts) Mobility Assist Device Used No (0 pt) Altered Elimination No (0 pt) Score/Fall Risk Level 3 or more points = High Risk Oriented to surroundings. Abuse screen: Denies threats or abuse. Denies injuries from another. Nutritional screening: No deficits noted. Tuberculosis screening: No symptoms or risk factors identified. Assessment: 18:53 General: Appears in no apparent distress. comfortable, obese, Behavior is drowsy. bp 19:19 General: Appears in no apparent distress. comfortable, obese, Behavior is anxious, aa5 crying, drowsy. Pain: Denies pain. Neuro: No deficits noted. Level of Consciousness is awake, alert, obeys commands, Oriented to person, place, situation. Cardiovascular: Denies chest pain, Heart tones S1 S2 present Capillary refill < 3 seconds in bilateral fingers Patient's skin is warm and dry. Respiratory: Airway is patent Respiratory effort is even, unlabored, Respiratory pattern is regular, symmetrical, Breath sounds are clear bilaterally. GI: No signs and/or symptoms were reported involving the gastrointestinal system. : No signs and/or symptoms were reported regarding the genitourinary system. EENT: No signs and/or symptoms were reported regarding the EENT system. Derm: No signs and/or symptoms reported regarding the dermatologic system. Musculoskeletal: No signs and/or symptoms reported regarding the musculoskeletal system. 21:29 Reassessment: Patient appears in no apparent distress at this time. Patient and/or bm8 family updated on plan of care and expected duration. Pain level reassessed. Patient is alert, oriented x 3, equal unlabored respirations, skin warm/dry/pink. Patient denies pain at this time. Patient states feeling better. Patient states symptoms have improved. General: Appears in no apparent distress. comfortable, Behavior is calm, cooperative, appropriate for age. Pain: Denies pain. Neuro: No deficits noted. Level of Consciousness is awake, alert, obeys commands, Oriented to person, place, time, situation. Cardiovascular: No deficits noted. Heart tones S1 S2 present Capillary refill < 3 seconds in bilateral fingers Patient's skin is warm and dry. Respiratory: Airway is patent Respiratory effort is even, unlabored, Respiratory pattern is regular, symmetrical, Breath sounds are clear bilaterally. GI: No signs and/or symptoms were reported involving the gastrointestinal system. : No signs and/or symptoms were reported regarding the genitourinary system. EENT: No signs and/or symptoms were reported regarding the EENT system. Derm: No signs and/or symptoms reported regarding the dermatologic system. Musculoskeletal: No signs and/or symptoms reported regarding the musculoskeletal system. Overdose: 21:32 [place] Suicide Severity Screening: "In the past month, have you wished you were bm8 or wished you could go to sleep and not wake up?" Patient responds "no." "In the past month, have you actually had any thoughts of killing yourself?" Patient responds "no." "In your lifetime, have you ever done anything, started to do anything, or prepared to do anything to end your life?" Patient responds "no.". 21:33 [place] Suicide Severity Screening: "In the past month, have you wished you were bm8 or wished you could go to sleep and not wake up?" Patient responds "yes." Based off client's responses, additional C-SSRS screening questions required. 21:33 [place] Suicide Severity Screening: "In the past month, have you actually had any bm8 thoughts of killing yourself?" Patient responds "yes." Based off client's responses, additional C-SSRS screening questions required. pt denies SI HI. Vital Signs: 18:49 BP 129 / 56; Pulse 77; Resp 16; Temp 97.8; Pulse Ox 100% on R/A; Pain 0/10; hb 19:19 BP 122 / 71; Pulse 100; Resp 18; Temp 97.8; Pulse Ox 100% ; Weight 77.11 kg; Height 5 aa5 ft. 1 in. ; Pain 0/10; 21:29 BP 113 / 63; Pulse 99; Resp 18; Temp 97.8; Pulse Ox 100% ; Pain 0/10; bm8 19:19 Body Mass Index 32.12 (77.11 kg, 154.94 cm) aa5 18:49 Pain Scale: Adult hb 19:19 Pain Scale: Adult aa5 21:29 Pain Scale: Adult bm8 [place] Coma Score: 19:19 Eye Response: spontaneous(4). Motor Response: obeys commands(6). Verbal Response: aa5 oriented(5). Total: 15. 21:29 Eye Response: spontaneous(4). Motor Response: obeys commands(6). Verbal Response: bm8 oriented(5). Total: 15. ED Course: 18:49 Patient arrived in ED. hb 18:51 Triage completed. hb 18:52 Piter Kam, RN is Primary Nurse. bp 18:52 Arm band placed on. hb 18:53 Patient has correct armband on for positive identification. bp 19:08 Kj Phillips MD is Attending Physician. [facility] 19:19 Client placed on continuous cardiac and pulse oximetry monitoring. NIBP monitoring aa5 applied. child monitor on. Pulse ox on. NIBP on. Door closed. Noise minimized. Warm blanket given. Pillow given. Verbal reassurance given. Head of bed elevated. 19:19 No provider procedures requiring assistance completed. Patient maintains SpO2 aa5 saturation greater than 95% on room air. 19:58 EKG done, by master motorcycle technician. reviewed by Kj Phillips MD. oh1 20:04 Initial lab(s) drawn, by nm, sent to lab. Urine collected: clean catch specimen, dd2 cloudy. Inserted saline lock: 20 gauge in right antecubital area, using aseptic technique. Blood collected. Flushed with 10 mL NS. 20:27 Jah Roberts MD is Referral Physician. [facility] 21:29 Provided Education on: post er care to mother. bm8 21:29 IV discontinued, intact, bleeding controlled, No redness/swelling at site. Pressure bm8 dressing applied. Administered Medications: 20:04 Drug: NS 0.9% IV 1000 ml IV at 1 bolus Per protocol; to be given as a bolus over 60 dd2 minutes Route: IV; Rate: 1 bolus; Site: right antecubital; 21:29 Follow up: Response: No adverse reaction; IV Status: Completed infusion; IV Intake: bm8 1000ml 20:04 Drug: Ondansetron IVP 4 mg IVP once; over 2 minutes Route: IVP; Site: right antecubital;dd2 21:29 Follow up: Response: No adverse reaction bm8 21:00 Drug: Rocephin IV 1 grams IV at per protocol once; Given slow IV push per pharmacy bm8 instructions Route: IV; Rate: per protocol; Site: right antecubital; 21:28 Follow up: Response: No adverse reaction; IV Status: Completed infusion bm8 21:00 Drug: Potassium PO Effervescent Tablet 25 mEq PO once; dissolve in 4 ounces of water or bm8 juice Route: PO; 21:28 Follow up: Response: No adverse reaction bm8 Medication: 18:53 VIS not applicable for this client. bp Intake: 21:29 IV: 1000ml; Total: 1000ml. bm8 Outcome: 20:28 Discharge ordered by . brice 21:29 Discharged to home ambulatory, bm8 21:29 Condition: good :29 Discharge instructions given to patient, family, Instructed on discharge instructions, follow up and referral plans. Demonstrated understanding of instructions, follow-up care, Prescriptions given X 1, 21:33 Patient left the ED. bm8 Signatures: Kj Phillips MD MD cha Calderon, Audri, RN RN aa5 Noelle De La Torre RN RN Piter Kam RN RN bp McDonald, Brad, RN RN bm8 YUNIOR ULLOA RN RN dd2 Shanon Bryant oh1 Corrections: (The following items were deleted from the chart) 19:02 18:49 Acuity: STEVEN 3 hb bp
--- NOTE | 2024-07-18 20:29 | EDPHYS ---
Physician Documentation [facility] Name: Annabel Chamberlain Age: 29 yrs Sex: Female : 1995 Arrival Date: 07/18/2024 Time: 18:48 Bed 6 Private MD: ED Physician Kj Phillips HPI: 07/18 19:31 This 29 yrs old Female presents to ER via EMS with complaints of Drug Abuse. brice 19:31 drug abuse, THC GUMMIES. The patient presents with confusion, decreased mental status, brice trouble concentrating. Onset: The symptoms/episode began/occurred this morning. Possible causes: drug use, alcohol, low blood sugar. Associated signs and symptoms: Pertinent positives: nausea. Onset: The symptoms/episode began/occurred 1 day(s) ago. Current symptoms: In the emergency department the patient's symptoms are unchanged from the initial presentation, despite home interventions. Patient's baseline: Neuro: alert and fully oriented, Motor: no deficits. Severity of symptoms: At their worst the symptoms were moderate in the emergency department the symptoms are unchanged. It is unknown whether or not the patient has had similar symptoms in the past. 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 - Infectious Disease History:: Denies. - Social history:: Smoking status: Patient denies any tobacco usage or history of. - Family history:: not pertinent. ROS: 19:31 Constitutional: Negative for fever, chills, and weight loss, Eyes: Negative for injury, brice pain, redness, and discharge, ENT: Negative for injury, pain, and discharge, Neck: Negative for injury, pain, and swelling, Cardiovascular: Negative for chest pain, palpitations, and edema, Respiratory: Negative for shortness of breath, cough, wheezing, and pleuritic chest pain, Abdomen/GI: Negative for abdominal pain, nausea, vomiting, diarrhea, and constipation, Back: Negative for injury and pain, : Negative for injury, bleeding, discharge, and swelling, MS/Extremity: Negative for injury and deformity, Skin: Negative for injury, rash, and discoloration, Neuro: Negative for headache, weakness, numbness, tingling, and seizure, Psych: Negative for depression, anxiety, suicide ideation, homicidal ideation, and hallucinations, Allergy/Immunology: Negative for hives, rash, and allergies, Endocrine: Negative for neck swelling, polydipsia, polyuria, polyphagia, and marked weight changes, Hematologic/Lymphatic: Negative for swollen nodes, abnormal bleeding, and unusual bruising, Exam: 19:31 Constitutional: This is a well developed, well nourished patient who is awake, alert, brice and in no acute distress. Head/Face: Normocephalic, atraumatic. Eyes: Pupils equal round and reactive to light, extra-ocular motions intact. Lids and lashes normal. Conjunctiva and sclera are non-icteric and not injected. Cornea within normal limits. Periorbital areas with no swelling, redness, or edema. ENT: Nares patent. No nasal discharge, no septal abnormalities noted. Tympanic membranes are normal and external auditory canals are clear. Oropharynx with no redness, swelling, or masses, exudates, or evidence of obstruction, uvula midline. Mucous membranes moist. Neck: Trachea midline, no thyromegaly or masses palpated, and no cervical lymphadenopathy. Supple, full range of motion without nuchal rigidity, or vertebral point tenderness. No Meningismus. Chest/axilla: Normal chest wall appearance and motion. Nontender with no deformity. No lesions are appreciated. Cardiovascular: Regular rate and rhythm with a normal S1 and S2. No gallops, murmurs, or rubs. Normal PMI, no JVD. No pulse deficits. Respiratory: Lungs have equal breath sounds bilaterally, clear to auscultation and percussion. No rales, rhonchi or wheezes noted. No increased work of breathing, no retractions or nasal flaring. Abdomen/GI: Soft, non-tender, with normal bowel sounds. No distension or tympany. No guarding or rebound. No evidence of tenderness throughout. Back: No spinal tenderness. No costovertebral tenderness. Full range of motion. Skin: Warm, dry with normal turgor. Normal color with no rashes, no lesions, and no evidence of cellulitis. MS/ Extremity: Pulses equal, no cyanosis. Neurovascular intact. Full, normal range of motion., bilateral aka Psych: Awake, alert, with orientation to person, place and time. Behavior, mood, and affect are within normal limits. 19:31 Neuro: Orientation: is normal, appropriate for stated age, no acute changes, Mentation: slow to respond, Memory: is normal, appropriate for stated age, no acute changes, Cranial nerves: grossly normal, is grossly normal based on the patient's age, no acute changes, Cerebellar function: is grossly normal, no acute changes, Motor: is normal, is grossly normal based on the patient's age, no acute changes, moves all fours, strength is normal, Gait: not tested. seizure activity, is not displayed by the patient, 20:11 ECG was reviewed by the Attending Physician. brice Vital Signs: 18:49 BP 129 / 56; Pulse 77; Resp 16; Temp 97.8; Pulse Ox 100% on R/A; Pain 0/10; hb 19:19 BP 122 / 71; Pulse 100; Resp 18; Temp 97.8; Pulse Ox 100% ; Weight 77.11 kg; Height 5 aa5 ft. 1 in. ; Pain 0/10; 21:29 BP 113 / 63; Pulse 99; Resp 18; Temp 97.8; Pulse Ox 100% ; Pain 0/10; bm8 19:19 Body Mass Index 32.12 (77.11 kg, 154.94 cm) aa5 18:49 Pain Scale: Adult hb 19:19 Pain Scale: Adult aa5 21:29 Pain Scale: Adult bm8 [place] Com[place] Score: 19:19 Eye Response: spontaneous(4). Motor Response: obeys commands(6). Verbal Response: aa5 oriented(5). Total: 15. 21:29 Eye Response: spontaneous(4). Motor Response: obeys commands(6). Verbal Response: bm8 oriented(5). Total: 15. MDM: 19:08 Medical Screening Exam initiated brice 19:36 Differential Diagnosis altered mental status. Differential Diagnosis: electrolyte brice abnormality, alcohol intoxication, hypoglycemia, seizure, TIA, volume depletion. Data reviewed: vital signs, nurses notes, lab test result(s), EKG. Consideration of Admission/Observation Escalation of care including admission/observation considered. I considered the following discharge prescriptions or medication management in the emergency department Medications were administered in the Emergency Department. See MAR. Independent interpretation of the following test(s) in the Emergency Department EKG: See my EKG interpretation above. Care significantly affected by the following chronic conditions: ANXIETY, ASTHMA, DEPRESSION, PANCREATITIS. 07/18 19:25 Order name: Acetaminophen; Complete Time: 20:26 [facility] 07/18 19:25 Order name: Basic Metabolic Panel; Complete Time: 20:26 [facility] 07/18 19:25 Order name: CBC with Diff; Complete Time: 20:26 [facility] 07/18 19:25 Order name: ETOH Level; Complete Time: 20: [facility] 07/18 19:25 Order name: Hepatic Function; Complete Time: 20: [facility] 07/18 19:25 Order name: PT-INR; Complete Time: 20: [facility] 07/18 19:25 Order name: Test, Urine; Complete Time: 20: [facility] 07/18 19:25 Order name: Ptt, Activated; Complete Time: 20:26 [facility] 07/18 19:25 Order name: Salicylate [facility] 07/18 19:25 Order name: Urinalysis w/ reflexes; Complete Time: 20:26 [facility] 07/18 19:25 Order name: Urine Drug Screen; Complete Time: 20: [facility] 07/18 20:02 Order name: Lipase; Complete Time: 20:26 [facility] 07/18 20:11 Order name: Urine Culture [facility] 07/18 19:25 Order name: EKG; Complete Time: 19:25 [facility] 07/18 19:25 Order name: EKG - Nurse/Tech; Complete Time: 19:59 [facility] 07/18 19:25 Order name: IV Saline Lock; Complete Time: 20:05 [facility] 07/18 19:25 Order name: Labs collected and sent; Complete Time: 20:05 [facility] 07/18 19:25 Order name: Suicide Screening ([place]); Complete Time: 21:29 [facility] 07/18 20:27 Order name: PO challenge: JUICE; Complete Time: 21:27 [facility] EC:11 Rate is 80 beats/min. Rhythm is regular. QRS [place] is Normal. OR interval is normal. QRS brice interval is normal. QT interval is normal. No Q waves. T waves are Normal. No ST changes noted. Clinical impression: NSR w/ Non-specific ST/T Changes and No evidence of ischemia. Interpreted by me. Reviewed by me. Administered Medications: 20:04 Drug: NS 0.9% IV 1000 ml IV at 1 bolus Per protocol; to be given as a bolus over 60 dd2 minutes Route: IV; Rate: 1 bolus; Site: right antecubital; 21:29 Follow up: Response: No adverse reaction; IV Status: Completed infusion; IV Intake: bm8 1000ml 20:04 Drug: Ondansetron IVP 4 mg IVP once; over 2 minutes Route: IVP; Site: right antecubital;dd2 21:29 Follow up: Response: No adverse reaction bm8 21:00 Drug: Rocephin IV 1 grams IV at per protocol once; Given slow IV push per pharmacy bm8 instructions Route: IV; Rate: per protocol; Site: right antecubital; 21:28 Follow up: Response: No adverse reaction; IV Status: Completed infusion bm8 21:00 Drug: Potassium PO Effervescent Tablet 25 mEq PO once; dissolve in 4 ounces of water or bm8 juice Route: PO; 21:28 Follow up: Response: No adverse reaction bm8 Disposition Summary: 07/18/24 20:28 Discharge Ordered Notes: Location: Home brice Problem: new brice Symptoms: have improved brice Condition: Fair brice Diagnosis - Abuse of other non-psychoactive substances brice - Adverse effect of unspecified drugs, medicaments and biological substances brice - Altered mental status, unspecified brice - UTI/ Urinary tract infection, site not specified brice - Hypokalemia brice Followup: brice - With: Private Physician - When: 2 - 3 days - Reason: Recheck today's complaints, Continuance of care, Re-evaluation by your physician Followup: brice - With: Jah Roberts MD - When: 2 - 3 days - Reason: Recheck today's complaints, Re-evaluation by your physician Discharge Instructions: - Discharge Summary Sheet brice - Finding Treatment for Addiction brice - Potassium Content of Foods brice - Substance Use Disorder brice - Urinary Tract Infection, Adult brice - Supporting Someone With an Addiction brice - Urinary Tract Infection, Adult, Stob-ar-[id number] brice - Hypokalemia brice - Substance Use Disorder and Mental Illness brice - Illegal Drug Use Information, Adult [facility] Forms: - Medication Reconciliation Form brice - Antibiotic Education brice - Prescription Opioid Use brice - Patient Portal Instructions brice - Leadership Thank You Letter [facility] Prescriptions: - cefdinir 300 mg Oral capsule - take 1 capsule ORAL route 2 times per day for 5 days; 10 capsule; Refills: 0, brice Product Selection Permitted Signatures: Dispatcher [employer] EDMS Kj Phillips MD MD cha Baxter, Heather, RN RN Duane Smart, RN RN bm8 YUNIOR ULLOA RN RN dd2 Corrections: (The following items were deleted from the chart) 19:25 19:25 ACETAMINOPHEN+C.LAB.BRZ ordered. EDMS EDMS 19:25 19:25 BASIC METABOLIC PANEL+C.LAB.BRZ ordered. EDMS EDMS 19:25 19:25 CBC+H.LAB.BRZ ordered. EDMS EDMS 19:25 19:25 ETHANOL+C.LAB.BRZ ordered. EDMS EDMS 19:25 19:25 HEPATIC FUNCTION+C.LAB.BRZ ordered. EDMS EDMS 19:25 19:25 PROTIME (+INR)+COAG.LAB.BRZ ordered. EDMS EDMS 19:25 19:25 Test, Urine+UC.LAB.BRZ ordered. EDMS EDMS 19:25 19:25 PTT, ACTIVATED+COAG.LAB.BRZ ordered. EDMS EDMS 19:25 19:25 SALICYLATE+C.LAB.BRZ ordered. EDMS EDMS 19:25 19:25 Urinalysis+U.LAB.BRZ ordered. EDMS EDMS 19:25 19:25 URINE DRUG SCREEN+UC.LAB.BRZ ordered. EDMS EDMS 20:02 19:31 LIPASE+C.LAB.BRZ ordered. EDMS EDMS
[2024-07-18] MEDS ORDERED: POTASSIUM 25 MEQ EFFERV TAB ONE (21:09)
[2024-07-18] MEDS ORDERED: CEFTRIAXONE 1000 MG/VIAL ONE (21:09)
[2024-07-18 21:38] VITALS: TEMP 97.8; O2SAT 100
[2024-07-18 21:41] VITALS: BP 113/63
== END 2024-07-18 21:33 | disposition home or self-care (01) ==
LOC: ER 18:48
DX: F55.8 Abuse of other non-psychoactive substances (principal); T40.715A Adverse effect of cannabis, initial encounter; N39.0 Urinary tract infection, site not specified; E87.6 Hypokalemia
CPT/HCPCS: 96365; 96361; 93005; 87088; 85025; 81001; 87086; 80048; 36415; 81025; 85610; 80076; 85730; 83690; 80307; 96375; 99285; 80143; 80179; 82077; J2405; J7030; J0696

== ENCOUNTER 2024-09-04 11:56 | Emergency (ER) | payer OTHER ==
--- OUTSIDE RECORDS SUMMARY | 2024-09-04 12:05 | XMS REPORT | Continuity of Care Document ---
Author Name Unknown Address [address] [facility] [address] [place] [address] [facility] [place] Address [address] [facility] [address] [place] [address] Care Team Providers Care [employer] Supervisor Name Role Phone Helen Lima Primary Care Physician BINA JONES Attending Clinician Unavailable Daisha Meraz MD Attending Clinician + [phone] SABINO HOLDER Attending Clinician Unavailable Anatoliy Doe DO Attending Clinician [phone] Doctor Unassigned, [place] Attending Clinician U manailCARLOS Crouch Attending Clinician Unavailable Carlos Ernandez Attending Clinician [phone] Portia Valle Attending Clinician [phone] Unknown, Attending Attending Clinician Unavailab le UNKNOWN, ATTENDING Attending Clinician Unavailab ronni [facility] Attending Clinician Unavailable Bret Luciano MD Attending Clinician [phone] BRET LUCIANO Attending Clinician UnavailCortney Stiles MA Attending Clinician Unavaila YAIMA Casarez Attending Clinician UnavailYaima Mar MD Attending Clinician [phone] CHARLIE YOUNGBLOOD Attending Clinician Unavailable Charlie Hernández Attending Clinician [phone] ÁNGELA GORDON Attending Clinician Unavailable Ángela Gorodn MD Attending Clinician Provider, [facility] Attending Clinician Unavailable LETI IRVING Attending Clinician Unavailable PORTIA GRAY Attending Clinician Unavailable Brissa Alves Attending Clinician [phone] Lissett Julio Attending Clinician [phone] LISSETT TORRES Attending Clinician UnavailREN Rosenthal Attending Clinician Unavailable Ren Marcus Attending Clinician ANTONI LUNA Attending Clinician Unavail able BINA JONES Admitting Clinician Unavailable Payers Payer Name Policy Type Policy Number Effective Date Expirati on Date Source [facility] [id number] 2021 00:00:00 Problems Condition Name Condition Details Condition Category Status Onset Date Resolution Date Last Treatment Date Treating Clinician Comments Source Abdominal pain, epigastric Abdominal pain, epigastric Disease Active 01-28 00:00: 00 [facility] Nausea and vomiting, unspecifie d vomiting type Nausea and vomiting, unspecifie d vomiting type Disease Active 01-28 00:00: 00 [facility] Hand injury, left, subsequent encounter Hand injury, left, subsequent encounter Disease Active -16 00:00: 00 [facility] Anxiety and depression Anxiety and depression Disease Active 02-11 00:00: 00 [facility] Anemia, unspecifie d anemia type Anemia, unspecifie d anemia type Disease Active 07-10 00:00: 00 [facility] Surveillan ce of previously prescribed contracept timo method Surveillan ce of previously prescribed contracept timo method Disease Active 07-10 00:00: 00 [facility] Well woman exam with routine gynecologi arturo exam Well woman exam with routine gynecologi arturo exam Disease Active 07-10 00:00: 00 [facility] Rubella non-immune status, antepartum Rubella non-immune status, antepartum Disease Active 09-27 00:00: 00 [facility] Susceptibl e to varicella (non-immun e), currently Susceptibl e to varicella (non-immun e), currently Disease Active 09-27 00:00: 00 [facility] Generalize d anxiety disorder Generalize d anxiety disorder Disease Active 09-26 00:00: 00 [facility] History of depression History of depression Disease Active 09-26 00:00: 00 [facility] Asthma Asthma Disease Active 09-26 00:00: 00 Overview: Formattin g of this note might be different from the original. ICD10 Diagnosis Term Archives Technician Utility [facility] Anemia of in third trimester Anemia of in third trimester Disease Resolve d 2014-06 2-17 00:00: 00 2015-07-10 00:00:00 2015-07-10 13:00:16 [facility] 39 weeks gestation of 39 weeks gestation of Disease Resolve d 2014-06 2- 00:00: 00 2015-07-10 00:00:00 2015-07-10 13:00:16 [facility] Severe preeclamps ia Severe preeclamps ia Disease Resolve d 2014-06 2-15 00:00: 00 2015-07-10 00:00:00 2015-07-10 13:11:43 [facility] Chronic cholecysti tis with calculus Chronic cholecysti tis with calculus Disease Resolve d 2014-06 2-03 00:00: 00 2015-07-10 00:00:00 2015-07-10 13:00:16 [facility] Nausea/vom iting in Nausea/vom iting in Disease Resolve d 2014-06 2-03 00:00: 00 2015-07-10 00:00:00 2015-07-10 13:00:16 [facility] Pancreatit is Pancreatit is Disease Resolve d 2014-06 007 00:00: 00 2015-07-10 00:00:00 2015-07-10 13:11:53 [facility] Gastroesop hageal reflux during , antepartum Gastroesop hageal reflux during , antepartum Disease Resolve d 7-23 00:00: 00 2015-07-10 00:00:00 2015-07-10 13:11:34 [facility] Nausea and vomiting during prior to 22 weeks gestation Nausea and vomiting during prior to 22 weeks gestation Disease Resolve d 5-26 00:00: 00 2015-07-10 00:00:00 2015-07-10 13:11:39 [facility] Supervisio n of other high-risk Supervisio n of other high-risk Disease Resolve d 09-26 00:00: 00 2015-07-10 00:00:00 2021-12-16 00:35:46 [facility] Obesity complicati ng , childbirth , or puerperium , antepartum Obesity complicati ng , childbirth , or puerperium , antepartum Disease Resolve d 09-26 00:00: 00 2015-07-10 00:00:00 2021-12-16 00:35:46 [facility] Vaginal yeast infection Vaginal yeast infection Disease Resolve d 12-22 00:00: 00 2015-01-17 00:00:00 2015-01-17 16:20:45 [facility] Chlamydia trachomati s infection of lower genitourin carlo sites Chlamydia trachomati s infection of lower genitourin carlo sites Disease Resolve d 09-22 00:00: 00 2014-09-26 00:00:00 2014-09-26 16:50:24 [facility] Not immune to rubella Not immune to rubella Disease Resolve d 09-22 00:00: 00 2014-09-26 00:00:00 2021-12-16 00:29:57 [facility] Abdominal pain, right upper quadrant Abdominal pain, right upper quadrant Disease Resolve d 2011-06 00:00: 00 2014-09-26 00:00:00 2014-09-26 16:50:22 [facility] Allergies, Adverse Reactions, Alerts Allergy Name Allergy Type Status Severity Reaction(s) Onset Date Inactive Date Treating Clinician Comments Source [place] - Intraven ous Propensi ty to adverse reaction to drug Active 11-20 00:00: 00 Antoni Lee NO KNOWN ALLERGIE S Drug Class Active [facility] Social History Social Habit Start Date Stop Date Quantity Comments Source History of tobacco use Cigarette Smoker [facility] History SDOH Alcohol Frequency [facility] History SDOH [facility] History SDOH Alcohol Binge [facility] Gender identity [facility] Sexual orientation [facility] Alcohol intake 2023-05-07 00:00:00 2023-05-07 00:00:00 Current drinker of alcohol (finding) [facility] History of Social function 2023-01-28 00:00:00 2023-01-28 00:00:00 [facility] Exposure to SARS-CoV-2 (event) 2022-10-05 00:00:00 2022-10-15 11:37:00 Not sure [facility] Tobacco Comment 2022-02-11 00:00:00 2022-02-11 00:00:00 Smoked occasionally for 1.5 years, a pack would last 2 months [facility] Alcohol Comment 2017-03-10 00:00:00 2017-03-10 00:00:00 on special occassions [facility] Tobacco use and exposure 2012-05-04 00:00:00 2012-05-04 00:00:00 Smokeless tobacco non-user [facility] Alcoholic beverage intake 2012-05-04 00:00:00 2012-05-04 00:00:00 Current non-drinker of alcohol (finding) [facility] Sex assigned at 1995 00:00:00 1995 00:00:00 [facility] Smoking Status Start Date Stop Date Source Ex-smoker 2022-02-11 00:00:00 2022-02-11 00:00:00 [facility] Never smoked tobacco [facility] Medications Ordered Medication Name Filled Medication Name Start Date Stop Date Current Medication? Ordering Clinician Indication Dosage Frequency Signature (SIG) Comments Components Source triamcinolo ne acetonide 0.1 % topical cream 3-13 00:00: 00 Yes 1% Antoni Lee Vitamin D2 1,250 mcg (50,000 unit) capsule 2-04 00:00: 00 Yes 1(50,00 0 unit) Antoni Lee meclizine 25 mg tablet 2- 00:00: 00 Yes 1mg Antoni Lee amoxicillin 875 mg-potassiu m clavulanate 125 mg tablet - 00:00: 00 [...] 2023-06 00:00: 00 Yes 1mg Antoni Lee fluconazole [...] Antoni Lee naproxen 375 mg tablet 2023-06 0-14 00:00: 00 Yes mg Antoni Lee ondansetron 4 mg disintegrat ing tablet 2023-06-14 00:00: 00 Yes mg Antoni Lee AMOXICILLIN /CLAVULANAT E POTASSIUM 500-125 MG TABS - 00:00: 00 Yes Antoni Lee LIDOCAINE HYDROCHLORI DE VISCOUS 2 % SOLN - 00:00: 00 Yes Antoni Lee CHOLESTYRAM INE 4 GM PACK - 00:00: 00 Yes Antoni Lee METHSCOPOLA MINE BROMIDE 5 MG TABS - 00:00: 00 Yes Antoni Lee SULFAMETHOX AZOLE/TRIME THOPRIM DS 800-160 MG TABS -08 00:00: 00 Yes Antoni Lee BROMPHEN/PS EUDOEPHEDRI NE HCL/DEXTRO METHORPHAN HBR 30-2-10 MG/5ML SYRP 2022-06 2 00:00: 00 Yes Antoni Lee FLUTICASONE PROPIONATE [...] NOW, 1 dose, On Fri05/07/23 at 1030, [facility] ondansetron (ZOFRAN (PF)) injection 4 mg 2022-06 15:45: 00 05-07 15:45 :00 No 4mg 4 mg, Slow IV Push, ONCE, 1 dose, On Fri05/07/23 at 0945, [facility] ketorolac (TORADOL) injection 30 mg 2022-06 15:45: 00 05-07 15:45 :00 No 30mg 30 mg, Slow IV Push, ONCE, 1 dose, On Fri05/07/23 at 0945, [facility] TAKE 1 TABLET BY MOUTH FOUR TIMES DAILY NEEDED FOR ABDOMINAL PAIN 2022-06 2 00:00: 00 Yes Antoni Lee CEFDINIR 300 MG 2022-06 2- 00:00: 00 Yes Antoni Lee ONDANSETRON ODT 4 MG TBDP 2022-06 2- 00:00: 00 Yes Antoni Lee ondansetron 4 mg disintegrat ing tablet 2022-06 2 00:00: 00 Yes [id number] 4mg Take 1 tablet by mouth every 8 (eight) hours as needed for Nausea and Vomiting (N/V). [facility] dicyclomine 20 mg tablet 2022-06 00:00: 00 Yes [id number] 20mg Take 1 tablet by mouth 4 (four) times daily as needed for Abdominal pain. [facility] cefdinir 300 mg capsule 2022-06 00:00: 00 05-15 05:59 :00 No [id number] 300mg Take 1 capsule by mouth every 12 (twelve) hours for 7 days. [facility] ONDANSETRON ODT 8 MG TBDP 2022-06 2 00:00: 00 Yes Antoni Lee pantoprazol e (PROTONIX) 40 mg EC tablet 2022-06 2 00:00: 00 Yes [id number] 40mg Take 1 tablet by mouth in the morning and 1 tablet in the evening. [facility] VALACYCLOVI R 1GM 2022-06 0-13 00:00: 00 Yes Antoni Lee ondansetron (ZOFRAN-ODT ) disintegrat ing tablet 4 mg 2022-06 0-06 00:30: 00 03-06 23:44 :00 No [id number] 4mg [facility] cefdinir 300 mg capsule 2022-06 0-05 00:00: 00 03-17 04:59 :00 No [id number] 600mg Take 2 capsules by mouth in the morning for 10 days. [facility] ondansetron 4 mg disintegrat ing tablet 2022-06 0-05 00:00: 00 03-12 04:59 :00 No [id number] 4mg Take 1 tablet by mouth every 8 (eight) hours as needed for Nausea and Vomiting (N/V) for up to 5 days. [facility] MUPIROCIN 2 % OINT 9 00:00: 00 Yes Antoni Lee PANTOPRAZOL E SODIUM 40 MG TBEC 02-19 00:00: 00 Yes Antoni Lee pantoprazol e (PROTONIX) 40 mg EC tablet 02-19 00:00: 00 05-05 00:00 :00 No [id number] 40mg Take 1 tablet by mouth in the morning and 1 tablet in the evening. [facility] PROPRANOLOL HYDROCHLORI DE 10 MG TABS 02-15 00:00: 00 Yes Antoni Lee TAKE 1 TABLET TWICE DAILY. 02-15 00:00: 00 09-18 00:00 :00 No 10 Antoni Lee TAKE 1 OR 2 TABLETS AT BEDTIME NEEDED FOR SLEEP. 02-15 00:00: 00 09-18 00:00 :00 No 100 Antoni Lee pantoprazol e (PROTONIX) 40 mg EC tablet 8-29 00:00: 00 02-19 00:00 :00 No [id number] 40mg Take 1 tablet by mouth in the morning and 1 tablet in the evening. Do all this for 30 days. [facility] PANTOPRAZOL E SODIUM 40 MG TBEC 8-28 [...] 09-26 00:00: 00 09-18 00:00 :00 No [id number] Antoni Lee busPIRone 5 mg tablet 09-17 00:00: 00 Yes 5mg Take 1 tablet by mouth in the morning and 1 tablet in the evening. [facility] TAKE 1 TWICE A DAY NEEDED 09-17 [...] Lee TAKE 1 TWICE A DAY NEEDED 08-07 00:00: 00 09-18 00:00 :00 No 10 [...] %) nasal spray 06-30 00:00: 00 Yes [id number] 1{spray } Use 1 [place] in each nostril in the morning and 1 [place] in the evening. Use in each nostril as directed [facility] fluticasone propionate 50 mcg/actuati on nasal spray 06-30 00:00: 00 Yes [id number] 1{spray } Use 1 [place] in each nostril in the morning. [facility] benzonatate 100 mg capsule 06-30 00:00: 00 Yes [id number] 200mg Take 2 capsules by mouth every 8 (eight) hours as needed for Cough. [facility] amoxicillin -clavulanat e (AUGMENTIN) 875-125 mg per tablet 06-30 00:00: 00 07-08 05:59 :00 No [id number] 1{tbl} Take 1 tablet by mouth in the morning and 1 tablet in the evening. Do all this for 7 days. [facility] SERTRALINE HCL 25 MG TABS 06-27 00:00: [...] 2021-06 00:00: 00 04-07 04:59 :00 No [id number] 600mg Take 2 capsules by mouth in the morning for 10 days. [facility] TAKE 1 TABLET BY MOUTH EVERY 8 HOURS UNTIL FINISH 2021-06 00:00: 00 Yes Antoni Lee TAKE 1 TABLET BY MOUTH EVERY 8 HOURS NEEDED FOR PAIN 2021-06 00:00: 00 Yes Antoni Lee BROMPHEN/PS EUDOEPHEDRI NE HCL/DEXTRO METHORPHAN HBR 30-2-10 MG/5ML SYRP 12 00:00: 00 Yes Antoni Lee bromphenira mine-pseudo ephedrine-D M (BROMFED DM) 2-30-10 mg/5 mL syrup 2022-0 9-12 00:00: 00 Yes [id number] 10mL Take 10 mL by mouth 4 (four) times daily as needed for Congestion /Allergies . [facility] TAKE 1 TABLET BY MOUTH TWICE DAILY 11-23 00:00: 00 Yes Antoni Lee metronidazo le 500 mg tablet 11-22 00:00: 00 Yes 1mg Antoni Lee Dose Unknown 11-20 00:00: 00 Yes Antoni Lee Dose Unknown 11-20 00:00: 00 Yes Atnoni Lee Dose Unknown 11-20 00:00: 00 Yes [...] 09-20 00:00: 00 02-11 00:00 :00 No [id number] 4mg Take 1 tablet by mouth every 8 (eight) hours as needed for Nausea and Vomiting (N/V). [facility] NITROFURANT OIN MONOHYDRATE 100 MG 08-31 00:00: 00 Yes Antoni Lee PHENAZOPYRI DINE HCL 200 MG TABS 08-31 00:00: 00 Yes Antoni Lee AMOXICILLIN 500 MG 08-10 00:00: 00 Yes Antoni Lee IBUPROFEN 800MG TABLETS - 00:00: 00 Yes Antoni Lee CHLORHEXIDI NE 0.12% ORAL RINSE 08-10 00:00: 00 Yes Antoni Lee TAKE 1 CAPSULE BY MOUTH EVERY 8 HOURS UNTIL FINISHED 07-31 00:00: 00 Yes Antoni Lee doxycycline monohydrate 100 mg capsule - 00:00: 00 Yes 1mg Antoni Lee Dose [...] Comments Source TD, NOS 2023-10-24 00:00:00 Completed [facility] TDAP 2023-10-24 00:00:00 Completed [facility] SARS-COV-2 COVID-19 MODERNA 12+ YRS VACCINE 2023-10-24 00:00:00 Completed [facility] TD, NOS 2023-05-13 00:00:00 Completed [facility] TDAP 2023-05-13 00:00:00 Completed [facility] SARS-COV-2 COVID-19 MODERNA 12+ YRS VACCINE 2023-05-13 00:00:00 Completed [facility] TD, NOS 2023-05-09 00:00:00 Completed [facility] TDAP 2023-05-09 00:00:00 Completed [facility] SARS-COV-2 COVID-19 MODERNA 12+ YRS VACCINE 2023-05-09 00:00:00 Completed [facility] TD, NOS 2023-05-09 00:00:00 Completed [facility] TDAP 2023-05-09 00:00:00 Completed [facility] SARS-COV-2 COVID-19 MODERNA 12+ YRS VACCINE 2023-05-09 00:00:00 Completed [facility] TD, NOS 2023-05-07 09:37:00 Completed [facility] TDAP 2023-05-07 09:37:00 Completed [facility] SARS-COV-2 COVID-19 MODERNA 12+ YRS VACCINE 2023-05-07 09:37:00 Completed [facility] TD, NOS 2023-05-07 00:00:00 Completed [facility] TDAP 2023-05-07 00:00:00 Completed [facility] SARS-COV-2 COVID-19 MODERNA 12+ YRS VACCINE 2023-05-07 00:00:00 Completed [facility] TD, NOS 2023-05-07 00:00:00 Completed [facility] TDAP 2023-05-07 00:00:00 Completed [facility] SARS-COV-2 COVID-19 MODERNA 12+ YRS VACCINE 2023-05-07 00:00:00 Completed [facility] TD, NOS 2023-05-06 00:00:00 Completed [facility] TDAP 2023-05-06 00:00:00 Completed [facility] SARS-COV-2 COVID-19 MODERNA 12+ YRS VACCINE 2023-05-06 00:00:00 Completed [facility] TD, NOS 2023-05-05 00:00:00 Completed [facility] TDAP 2023-05-05 00:00:00 Completed [facility] SARS-COV-2 COVID-19 MODERNA 12+ YRS VACCINE 2023-05-05 00:00:00 Completed [facility] TD, NOS 2023-03-06 18:00:00 Completed [facility] TDAP 2023-03-06 18:00:00 Completed [facility] SARS-COV-2 COVID-19 MODERNA 12+ YRS VACCINE 2023-03-06 18:00:00 Completed [facility] TD, NOS 2023-02-18 00:00:00 Completed [facility] TDAP 2023-02-18 00:00:00 Completed [facility] SARS-COV-2 COVID-19 MODERNA 12+ YRS VACCINE 2023-02-18 00:00:00 Completed [facility] TD, NOS 2023-01-30 00:00:00 Completed [facility] TDAP 2023-01-30 00:00:00 Completed [facility] SARS-COV-2 COVID-19 MODERNA 12+ YRS VACCINE 2023-01-30 00:00:00 Completed [facility] TD, NOS 2023-01-28 08:30:00 Completed [facility] TDAP 2023-01-28 08:30:00 Completed [facility] TD, NOS 2022-10-12 00:00:00 Completed [facility] TDAP 2022-10-12 00:00:00 Completed [facility] SARS-COV-2 COVID-19 MODERNA 12+ YRS VACCINE 2022-10-12 00:00:00 Completed [facility] Moderna COVID-19 Vaccine Moderna COVID-19 Vaccine 2020-10-05 00:00:00 Completed Antoni Lee SARS-COV-2 COVID-19 MODERNA 12+ YRS VACCINE 2020-10-05 00:00:00 Completed [facility] SARS-COV-2 COVID-19 MODERNA 12+ YRS VACCINE 2020-10-05 00:00:00 Completed [facility] SARS-COV-2 COVID-19 MODERNA 12+ YRS VACCINE 2020-10-05 00:00:00 Completed [facility] SARS-COV-2 COVID-19 MODERNA 12+ YRS VACCINE 2020-10-05 00:00:00 Completed [facility] SARS-COV-2 COVID-19 MODERNA 12+ YRS VACCINE 2020-10-05 00:00:00 Completed [facility] Moderna COVID-19 Vaccine Moderna COVID-19 Vaccine 2020-09-04 00:00:00 Completed Antoni Lee SARS-COV-2 COVID-19 MODERNA 12+ YRS VACCINE 2020-09-04 00:00:00 Completed [facility] SARS-COV-2 COVID-19 MODERNA 12+ YRS VACCINE 2020-09-04 00:00:00 Completed [facility] SARS-COV-2 COVID-19 MODERNA 12+ YRS VACCINE 2020-09-04 00:00:00 Completed [facility] SARS-COV-2 COVID-19 MODERNA 12+ YRS VACCINE 2020-09-04 00:00:00 Completed [facility] TDAP 2015-02-27 00:00:00 Completed [facility] TDAP 2015-02-27 00:00:00 Completed [facility] TDAP 2015-02-27 00:00:00 Completed [facility] TDAP 2015-02-27 00:00:00 Completed [facility] TDAP 2015-02-27 00:00:00 Completed [facility] TDAP 2015-02-27 00:00:00 Completed [facility] TDAP 2015-02-27 00:00:00 Completed [facility] TDAP 2015-02-27 00:00:00 Completed [facility] TDAP 2015-02-27 00:00:00 Completed [facility] TDAP 2015-02-27 00:00:00 Completed [facility] TDAP 2015-02-27 00:00:00 Completed [facility] TDAP 2015-02-27 00:00:00 Completed [facility] TDAP 2015-02-27 00:00:00 Completed [facility] TDAP 2015-02-27 00:00:00 Completed [facility] TDAP 2015-02-27 00:00:00 Completed [facility] TDAP 2015-02-27 00:00:00 Completed [facility] TDAP 2015-02-27 00:00:00 Completed [facility] Td 2006-06-02 00:00:00 Completed [facility] Td 2006-06-02 00:00:00 Completed [facility] Td 2006-06-02 00:00:00 Completed [facility] Td 2006-06-02 00:00:00 Completed [facility] TD, NOS 2006-06-02 00:00:00 Completed [facility] TD, NOS 2006-06-02 00:00:00 Completed [facility] TD, NOS 2006-06-02 00:00:00 Completed [facility] TD, NOS 2006-06-02 00:00:00 Completed [facility] TD, NOS 2006-06-02 00:00:00 Completed [facility] TD, NOS 2006-06-02 00:00:00 Completed [facility] TD, NOS 2006-06-02 00:00:00 Completed [facility] TD, NOS 2006-06-02 00:00:00 Completed [facility] TD, NOS 2006-06-02 00:00:00 Completed [facility] TD, NOS 2006-06-02 00:00:00 Completed [facility] TD, NOS 2006-06-02 00:00:00 Completed [facility] TD, NOS 2006-06-02 00:00:00 Completed [facility] TD, NOS 2006-06-02 00:00:00 Completed [facility] TD, NOS 2006-06-02 00:00:00 Completed [facility] Vital Signs Vital Name Observation Time Observation Value Comments S ource Systolic blood pressure 2023-05-07 19:28:00 115 mm[Hg] [facility] Diastolic blood pressure 2023-05-07 19:28:00 63 mm[Hg] [facility] Heart rate 2023-05-07 19:28:00 64 /min [facility] Respiratory rate 2023-05-07 19:28:00 18 /min [facility] Oxygen saturation in Arterial blood by Pulse oximetry 2023-05-07 19:28:00 99 /min [facility] Body temperature 2023-05-07 15:34:11 37.22 Kathleen [facility] Body height 2023-05-07 15:33:00 154[facility]9 [facility] 2023-05-07 15:33:00 79.833 kg [facility] BMI 2023-05-07 15:33:00 33.25 kg/m2 [facility] Systolic blood pressure 2023-03-06 23:28:00 127 mm[Hg] [facility] Diastolic blood pressure 2023-03-06 23:28:00 82 mm[Hg] [facility] Heart rate 2023-03-06 23:28:00 76 /min [facility] Body temperature 2023-03-06 23:28:00 37.17 Kathleen [facility] Respiratory rate 2023-03-06 23:28:00 18 /min [facility] Body height 2023-03-06 23:28:00 154.9 cm [facility] Body weight 2023-03-06 23:28:00 80.06 kg [facility] BMI 2023-03-06 23:28:00 33.35 kg/m2 [facility] Oxygen saturation in Arterial blood by Pulse oximetry 2023-03-06 23:28:00 99 /min [facility] Systolic blood pressure 2023-01-28 13:56:00 115 mm[Hg] [facility] Diastolic blood pressure 2023-01-28 13:56:00 63 mm[Hg] [facility] Heart rate 2023-01-28 13:56:00 70 /min [facility] Body temperature 2023-01-28 13:56:00 36.83 Kathleen [facility] Respiratory rate 2023-01-28 13:56:00 16 /min [facility] Body height 2023-01-28 13:56:00 154.9 cm [facility] Body weight 2023-01-28 13:56:00 79.652 kg [facility] BMI 2023-01-28 13:56:00 33.18 kg/m2 [facility] Oxygen saturation in Arterial blood by Pulse oximetry 2023-01-28 13:56:00 99 /min [facility] Systolic blood pressure 2022-10-16 19:28:00 116 mm[Hg] [facility] Diastolic blood pressure 2022-10-16 19:28:00 71 mm[Hg] [facility] Heart rate 2022-10-16 19:28:00 64 /min [facility] Body height 2022-10-16 19:28:00 156.2 cm [facility] Body weight 2022-10-16 19:28:00 75.025 kg [facility] BMI 2022-10-16 19:28:00 30.75 kg/m2 [facility] Oxygen saturation in Arterial blood by Pulse oximetry 2022-10-16 19:28:00 100 /min [facility] Systolic blood pressure 2022-10-15 16:28:00 101 mm[Hg] [facility] Diastolic blood pressure 2022-10-15 16:28:00 67 mm[Hg] [facility] Heart rate 2022-10-15 16:28:00 70 /min Un[facility] Body temperature 2022-10-15 16:28:00 37.06 Kathleen [facility] Body height 2022-10-15 16:28:00 156.2 cm [facility] Body weight 2022-10-15 16:28:00 75.615 kg [facility] BMI 2022-10-15 16:28:00 30.99 kg/m2 [facility] Oxygen saturation in Arterial blood by Pulse oximetry 2022-10-15 16:28:00 99 /min [facility] Systolic blood pressure 2022-10-07 14:47:00 114 mm[Hg] [facility] Diastolic blood pressure 2022-10-07 14:47:00 74 mm[Hg] [facility] Heart rate 2022-10-07 14:47:00 67 /min Unive [facility] Body temperature 2022-10-07 14:47:00 37 Kathleen [facility] Respiratory rate 2022-10-07 14:47:00 16 /min [facility] Body weight 2022-10-07 14:47:00 75.297 kg [facility] BMI 2022-10-07 14:47:00 30.86 kg/m2 [facility] Oxygen saturation in Arterial blood by Pulse oximetry 2022-10-07 14:47:00 97 /min [facility] Systolic blood pressure 2022-06-30 19:52:00 125 mm[Hg] [facility] Diastolic blood pressure 2022-06-30 19:52:00 87 mm[Hg] [facility] Heart rate 2022-06-30 19:52:00 101 /min [facility] Body temperature 2022-06-30 19:52:00 37.06 Kathleen [facility] Respiratory rate 2022-06-30 19:52:00 16 /min [facility] Body height 2022-06-30 19:52:00 156.2 cm [facility] Body weight 2022-06-30 19:52:00 73.755 kg [facility] BMI 2022-06-30 19:52:00 30.23 kg/m2 [facility] Oxygen saturation in Arterial blood by Pulse oximetry 2022-06-30 19:52:00 98 /min [facility] Systolic blood pressure 2022-03-27 14:14:00 131 mm[Hg] [facility] Diastolic blood pressure 2022-03-27 14:14:00 79 mm[Hg] [facility] Heart rate 2022-03-27 14:14:00 79 /min [facility] Body temperature 2022-03-27 14:14:00 36.72 Kathleen [facility] Respiratory rate 2022-03-27 14:14:00 18 /min [facility] Body height 2022-03-27 14:14:00 154.9 cm [facility] Body weight 2022-03-27 14:14:00 73.982 kg [facility] BMI 2022-03-27 14:14:00 30.82 kg/m2 [facility] Oxygen saturation in Arterial blood by Pulse oximetry 2022-03-27 14:14:00 98 /min [facility] Systolic blood pressure 2022-02-11 16:49:00 120 mm[Hg] [facility] Diastolic blood pressure 2022-02-11 16:49:00 82 mm[Hg] [facility] Heart rate 2022-02-11 16:49:00 81 /min [facility] 2022-02-11 16:49:00 37.22 Kathleen [facility] Body height 2022-02-11 16:49:00 156.2 cm [facility] Body weight 2022-02-11 16:49:00 72.439 kg [facility] BMI 2022-02-11 16:49:00 29.69 kg/m2 [facility] Oxygen saturation in Arterial blood by Pulse oximetry 2022-02-11 16:49:00 99 /min [facility] BP Systolic 2024-08-12 10:22:00 123 mm[Hg] Step hen F Jesus BP Diastolic 2024-08-12 10:22:00 73 mm[Hg] Bradley phen F Jesus Weight Measured 2024-08-12 10:22:00 182.20 pounds Antoni Lee Height Measured 2024-08-12 10:22:00 61.00 inches Antoni Echevarria Jesus Body Temperature 2024-08-12 10:22:00 98.80 degrees Antoni F Jesus Heart Rate 2024-08-12 10:22:00 65.00 /min Ashley en F Jesus Respiratory Rate 2024-08-12 10:22:00 18.00 /min Antoni F Jesus BP Systolic 2024-08-03 15:56:00 107 mm[Hg] Step hen F Jesus BP Diastolic 2024-08-03 15:56:00 74 mm[Hg] Bradley phen F Jesus Weight Measured 2024-08-03 15:56:00 179.80 pounds Antoni Swathi Lee Height Measured 2024-08-03 15:56:00 61.00 inches Antoni Lee Body Temperature 2024-08-03 15:56:00 96.60 degrees Antoni F Jesus Heart Rate 2024-08-03 15:56:00 70.00 /min Ashley en F Jesus Respiratory Rate 2024-08-03 15:56:00 18.00 /min Antoni F Jesus BP Systolic 2024-07-05 09:28:00 117 mm[Hg] Step [...] Clinician Source LIPASE 2023-05-07 17:28:00 Carlos Wall [facility] COMP. METABOLIC PANEL (90324) 2023-05-07 17:28:00 Carlos Wall [facility] CBC WITH DIFF 2023-05-07 17:28:00 Carlos Wall [facility] URINALYSIS 2023-05-07 17:28:00 Carlos Wall [facility] POCT TEST 2023-05-07 17:28:00 Radha Wall [facility] ASSIGNMENT OF BENEFITS 2023-05-07 15:42:39 Docto r Unassigned, [place] [facility] CONSENT/REFUSAL FOR DIAGNOSIS AND TREATMENT 2023-05-07 15:14:30 Doctor Unassigned, [place] [facility] POCT TEST 2023-03-06 23:50:00 Portia Gray [facility] POCT URINALYSIS 2023-03-06 23:30:00 Portia Gray [facility] DISCLOSURE AND CONSENT, MEDICAL AND SURGICAL PROCEDURES 2023-01-28 05:01:00 Doctor Unassigned, [place] [facility] XR WRIST <3 VW LEFT 2022-10-07 15:12:46 [facility] 3+ VW LEFT 2022-10-07 15:12:46 Ángela Gordon Un [facility] XR HAND 3+ VW LEFT 2022-10-07 15:12:46 Ángela Gordon [facility] ASSIGNMENT OF BENEFITS 2022-10-07 14:41:25 Docto r Unassigned, [place] [facility] POCT SARS-COV-2 ANTIGEN (BINAX NOW) 2022-06-30 00:00:00 Ángela Gordon [facility] POCT URINALYSIS 2022-03-27 00:00:00 Portia Gray [facility] POCT TEST 2022-03-27 00:00:00 Portia Gray [facility] [address] Ecg Routine Ecg W/least 12 Lds W/i r 2016-04-05 00:00:00 Antoni MCKENNA HEPATOBILIARY 2012-05-11 17:45:00 Daisha Meraz [facility] PHYSICIAN ORDERS 2012-05-11 06:01:00 Doctor Jerry signed, [place] [facility] Encounters Start Date/Time End Date/Time Encounter Type Admission Type Attending Clinicians Care Facility Care Department Encounter ID Source 2023-05-09 15:07:35 Outpatient Kelsey JONES [facility] [id number] [facility] 2024-08-12 10:13:43 2024-08-12 10:13:43 Outpatient [facility] [id number] Antoni Lee 2024-08-12 00:00:00 2024-08-12 00:00:[address] [facility] [id number] Antoni Lee 2024-08-03 15:42:21 2024-08-03 15:42:[address] [facility] [id number] Antoni Echevarria Jesus 2024-08-03 00:00:00 2024-08-03 00:00:[address] [facility] [id number] Antoni Echevarria Jesus 2012-05-11 00:00:00 2024-07-17 05:00:41 Orders Only Daisha Meraz [facility] 1.2.840.114 350.1.13.10 4.2.7.2.686 [id number] [facility] 2024-07-05 09:46:38 2024-07-05 09:46:38 Outpatient [facility] [id number] Antoni Echevarria Jesus 2024-07-05 00:00:00 2024-07-05 00:00:00 Outpatient Visit S[facility] [id number] Antoni Lee 2024-05-11 13:22:03 2024-05-11 13:22:[address] [facility] [id number] Antoni Lee 2024-05-11 00:00:00 2024-05-11 00:00:00 Outpatient Visit [facility] [id number] Antoni Lee 2024-03-22 15:04:37 2024-03-22 15:04:[address] [facility] [id number] Antoni Lee 2024-03-22 00:00:00 2024-03-22 00:00:[address] [facility] [id number] Antoni Lee 2024-03-18 08:15:00 2024-03-18 08:15:00 Outpatient R SABINO HOLDER [facility] [id number] [facility] 2023-10-24 00:00:00 2023-10-28 07:41:31 Telephone Anatoliy Doe [facility] .840.114 350.1.13.10 4.2.7.2.686 [id number] [facility] 2023-10-25 12:59:36 2023-10-25 12:59:[address] [facility] [id number] Antoni Lee 2023-10-24 00:00:00 2023-10-24 00:00:[address] [facility] [id number] Antoni Lee 2023-05-20 10:30:00 2023-05-20 10:30:00 Outpatient R [facility] [id number] [facility] 2023-05-13 00:00:00 2023-05-13 00:00:00 Patient Secure Msg Doctor Unassigned, [place] [facility] .0.114 350.1.13.10 4.2.7.2.686 [id number] [facility] 2023-05-09 00:00:00 2023-05-09 00:00:00 Telephone Anatoliy Doe [facility] 1.2.840.114 350.1.13.10 4.2.7.2.686 [id number] [facility] 2023-05-09 00:00:00 2023-05-09 00:00:00 Telephone Doe Anatoliy [facility] 1.2.840.114 350.1.13.10 4.2.7.2.686 [id number] [facility] 2023-05-07 09:37:00 2023-05-07 13:29:00 Emergency X CARLOS WALL [facility] ERT [id number] [facility] 2023-05-07 09:37:00 2023-05-07 13:29:00 Emergency Carlos Wall [facility] 1.2.840.114 350.1.13.10 4.2.7.2.686 [id number] [facility] 2023-05-07 00:00:00 2023-05-07 00:00:00 Telephone [facility] 1.2.840.114 350.1.13.10 4.2.7.2.686 [id number] [facility] 2023-05-07 00:00:00 2023-05-07 00:00:00 Telephone Doe Anatoliy [facility] 1.2.840.114 350.1.13.10 4.2.7.2.686 [id number] [facility] 2023-05-06 00:00:00 2023-05-06 00:00:00 Telephone [facility] 1.2.840.114 350.1.13.10 4.2.7.2.686 [id number] [facility] 2023-05-05 00:00:00 2023-05-05 00:00:00 Refill Anatoliy Doe [facility] 1..114 350.1.13.10 4.2.7.2.686 [id number] [facility] 2023-03-06 18:00:00 2023-03-06 19:09:44 Urgent Care Atilio Graybaldev Unknown, Attending [facility] 1..114 350.1.13.10 4.2.7.2.686 [id number] [facility] 2023-03-06 13:40:00 2023-03-06 13:40:00 Outpatient R UNKNOWN, ATTENDING [facility] [id number] [facility] 2023-02-18 00:00:00 2023-02-18 00:00:00 Telephone Anatoliy Doe [facility] 1.114 350.1.13.10 4.2.7.2.686 [id number] [facility] 2023-01-30 00:00:00 2023-01-30 00:00:00 Patient Secure Msg Doctor Unassigned, [place] [facility] [employer] 1..114 350.1.13.10 4.2.7.2.686 [id number] [facility] 2023-01-28 11:00:00 2023-01-28 11:15:00 Malt Specifications Control Assistant Visit [facility] Bret Luciano [facility] 1..114 350.1.13.10 4.2.7.2.686 [id number] [facility] 2023-01-28 08:30:00 2023-01-28 09:00:00 Office Visit Anatoliy Doe [facility] 1..114 350.1.13.10 4.2.7.2.686 [id number] [facility] 2023-01-28 08:30:00 2023-01-28 08:30:00 Outpatient BRET MEDRANO [facility] [id number] [facility] 2023-01-28 00:00:00 2023-01-28 00:00:00 Letter (Out) Anatoliy Doe [facility] 1..114 350.1.13.10 4.2.7.2.686 [id number] [facility] 2023-01-28 00:00:00 2023-01-28 00:00:00 Orders Only Doctor Unassigned, [place] [facility] 1.114 350.1.13.10 4.2.7.2.686 [id number] [facility] 2022-12-06 00:00:00 2022-12-06 00:00:00 Telephone Castañeda, Cortney [facility] 1..114 350.1.13.10 4.2.7.2.686 [id number] [facility] 2022-10-16 14:30:00 2022-10-16 14:52:38 Outpatient YAIMA JANG [facility] [id number] [facility] 2022-10-16 14:30:00 2022-10-16 14:52:38 Office Visit Yaima Smart [facility] 1..114 350.1.13.10 4.2.7.2.686 [id number] [facility] 2022-10-15 11:30:00 2022-10-15 12:00:30 Outpatient CHARLIE MCBRIDE [facility] [id number] [facility] 2022-10-15 11:30:00 2022-10-15 12:00:30 Office Visit Charlie Youngblood [facility] 1.2840.114 350.1.13.10 4.2.7.2.686 [id number] [facility] 2022-10-14 11:16:28 2022-10-14 11:16:28 Outpatient SFA MEENA [id number] Antoni Lee 2022-10-12 00:00:00 2022-10-12 00:00:00 Patient Secure Msg Doctor Unassigned, [place] [facility] 1.284.114 350.1.13.10 4.2.7.2.686 [id number] [facility] 2022-10-07 09:54:04 2022-10-07 23:59:00 Outpatient R ÁNGELA GORDON [facility] [id number] [facility] 2022-10-07 09:54:04 2022-10-07 23:59:00 Hospital Encounter Evan Ángela [facility] 1.284.114 350.1.13.10 4.2.7.2.686 [id number] [facility] 2022-10-07 09:54:04 2022-10-07 23:59:00 Hospital Encounter Evan Ángela [facility] 1.284.114 350.1.13.10 4.2.7.2.686 [id number] [facility] 2022-10-07 09:40:00 2022-10-07 10:18:33 Urgent Care Ángela Gordon, Attending [facility] 1.2840.114 350.1.13.10 4.2.7.2.686 [id number] [facility] 2022-10-07 00:00:00 2022-10-07 00:00:00 Orders Only Doctor Unassigned, [place] [facility] 1.2.840.114 350.1.13.10 4.2.7.2.686 [id number] [facility] 2022-10-07 00:00:00 2022-10-07 00:00:00 Letter (Out) Ángela Gordon [facility] 1.2.840.114 350.1.13.10 4.2.7.2.686 [id number] [facility] 2022-09-16 14:28:09 2022-09-16 14:28:[address] [facility] [id number] Antoni F Jesus 2022-06-30 14:00:00 2022-06-30 14:22:01 Outpatient ÁNGELA GOLDBERG [facility] [id number] [facility] 2022-06-30 14:00:00 2022-06-30 14:20:00 Urgent Care Ángela Gordon Unknown, Attending [facility] 1.2.840.114 350.1.13.10 4.2.7.2.686 [id number] [facility] 2022-06-30 00:00:00 2022-06-30 00:00:00 Letter (Out) Provider, Felipe Almeida Urgent Care [facility] 1.2.840.114 350.1.13.10 4.2.7.2.686 [id number] [facility] 2022-04-27 09:05:52 2022-04-27 09:05:[address] [facility] [id number] Antoni Swathi Jesus 2022-04-26 12:05:12 2022-04-26 12:05:[address] [facility] [id number] Antoni Swathi Jesus 2022-04-09 16:20:00 2022-04-09 16:20:00 Outpatient LETI LOOMIS [facility] [id number] [facility] 2022-03-27 09:20:00 2022-03-27 09:40:00 Urgent Care Portia Gray Johnny, [facility] 1.2.840.114 350.1.13.10 4.2.7.2.686 [id number] [facility] 2022-03-27 09:20:00 2022-03-27 09:20:00 Outpatient R PORTIA GRAY [facility] [id number] [facility] 2022-03-27 00:00:00 2022-03-27 00:00:00 Letter (Out) Atilio Graybaldev [facility] 1.2.840.114 350.1.13.10 4.2.7.2.686 [id number] [facility] 2022-02-11 11:20:00 2022-02-11 12:21:36 Office Visit [facility] 1..840.114 350.1.13.10 4.2.7.2.686 [id number] [facility] 2022-02-11 11:20:00 2022-02-11 12:21:36 Outpatient R LETI IRVING [facility] [id number] [facility] 2022-02-11 11:20:00 2022-02-11 11:20:00 Outpatient R ELOISA [facility] [id number] [facility] 2022-02-11 00:00:00 2022-02-11 00:00:00 Letter (Out) Eloisa [facility] 1.2.840.114 350.1.13.10 4.2.7.2.686 [id number] [facility] 2022-02-08 16:20:00 2022-02-08 16:50:36 Outpatient R PORTIA GRAY [facility] [id number] [facility] 2022-02-08 16:20:00 2022-02-08 16:40:00 [facility]gent Care [facility] Gray [facility] 1.840.114 350.1.13.10 4.2.7.2.686 [id number] [facility] 2021-09-20 11:00:00 2021-09-20 11:34:43 Urgent Care Brissa [facility] 1..840.114 350.1.13.10 4.2.7.2.686 [id number] [facility] 2021-09-20 11:00:00 2021-09-20 11:34:43 Outpatient R LISSETT TORRES [facility] [id number] [facility] 2021-09-20 00:00:00 2021-09-20 00:00:00 Orders Only Doctor Unassigned, [place] [facility] 1..840.114 350.1.13.10 4.2.7.2.686 [id number] [facility] 2021-09-19 19:20:00 2021-09-19 19:20:00 Outpatient R UNKNOWN, ATTENDING [facility] [id number] [facility] 2021-09-19 00:00:00 2021-09-19 00:00:00 Clinic Assessment Portia Gray [facility] 1.840.114 350.1.13.10 4.2.7.2.686 [id number] [facility] 2021-06-10 17:00:00 2021-06-10 18:43:38 Outpatient REN THOMAS [facility] [id number] [facility] 2021-06-10 17:00:00 2021-06-10 18:43:38 Urgent Care Unknown, Attending Jose Ren 1.2.840.1 [id number] 3.104.2.7 [id number] [facility] 2021-06-10 00:00:00 2021-06-10 00:00:00 Travel 1.2.840.1 [id number] 3.104.2.7 [id number] 1.2.840.114 350.1.13.10 4.2.7.3.698 [id number] [facility] 2020-09-04 14:40:00 2020-09-04 14:40:00 Outpatient [facility] [id number] [facility] 2020-08-07 12:40:00 2020-08-07 12:40:00 Outpatient [facility] [id number] [facility] 2020-05-24 08:45:00 2020-05-24 08:45:00 Outpatient ANTONI TOLBERT [facility] [id number] [facility] Results Test Description Test Time Test Comments Results Result Co mments Source Antoni Echevarria [id number] 00:00:00* Test Item Value Reference Range Interpretation Comme nts POTASSIUM (test code = 2823-3) 4.7 mmol/L Antoni Echevarria [id number] 00:00:00* Test Item Value Reference Range Interpretation Comme nts MAGNESIUM (test code = 60967-9) 2.2 mg/dL Antoni Echevarria [id number] 00:00:00* Test Item Value Reference Range Interpretation Comme nts POTASSIUM (test code = 2823-3) 4.7 mmol/L Antoni Echevarria [id number] 08:58:08* Test Item Value Reference Range Interpretation Comme nts TRANSFERRIN (test code = 4936) 341 MG/DL 200-360 VITAMIN D, 25 [id number] 08:06:56* Test Item Value Reference Range Interpretation Comme [facility] VITAMIN D, 25 [place] (test code [...] . . . . NG/ML 30-100 VITAMIN [id number] 08:06:56* Test Item Value Reference Range Interpretation Comme [facility] VITAMIN B-12 (test code = 2840) 464 PG/ML 200-950 IRON BINDING CAPACITY AND IRON AND % [id number] 07:56:08* Test Item Value Reference Range Interpretation Comme [facility] IRON, SERUM (test code = 2222) 52 UG/DL 37-145 UNSATURATED IBC (test code = 19631) 370 UG/DL 112-347 H CALC TOTAL IBC (test code = 2077) 422 UG/DL 250-450 CALC % IRON SAT (test code = 2079) 12 % 20-50 L [id number] 07:53:45* Test Item Value Reference Range Interpretation Comme [facility] FERRITIN (test code = 2075) 11 NG/ML 13-200 L CBC W/AUTO DIFF WITH [id number] 02:01:19* Test Item Value Reference Range Interpretation [...] 0.00-0.10 ABS NUCLEATED RBCS (test code = 01949) 0.00 K/UL 0.00-0.11 UNLESS OTHER [place] INDICATED, ALL TESTING PERFORMED AT [facility] [address] [place] [address] AUTO DISMANTLER: LETI ALEXANDER M.D. CLIA NUMBER [id number] [facility] [place] [id number] IRON BINDING CAPACITY AND IRON AND % [id number] 00:00:00* Test Item Value Reference Range Interpretation Comme nts IRON, SERUM (test code = 2222) 52 UG/DL UNSATURATED IBC (test code = ) 370 UG/DL CALC TOTAL IBC (test code = 2076) 422 UG/DL CALC % IRON SAT (test code = 2078) 12 % Antoni F [id number] 00:00:00* Test Item Value Reference Range Interpretation Comme nts FERRITIN (test code = 2074) 11 NG/ML Antoni [id number] 00:00:00* Test Item Value Reference Range Interpretation Comme richard TRANSFERRIN (test code = 4936) 341 MG/DL Antoni LeeVITAMIN D, 25 [id number] 00:00:00* Test Item Value Reference Range Interpretation Comme richard VITAMIN D, 25 OH (test code = 4958) 13 NG/ML Antoni LeeVITAMIN [id number] 00:00:00* Test Item Value Reference Range Interpretation Comme richard VITAMIN B-12 (test code = 2840) 464 PG/ML Antoni LeeCBC W/AUTO [id number] 00:00:00* Test Item Value Reference Range Interpretation [...] ABS NUCLEATED RBCS (test cod e = 80520) 0.00 K/UL Antoni LeeIRON BINDING CAPACITY AND IRON AND % [id number] 00:00:00* Test Item Value Reference Range Interpretation Comme nts IRON, SERUM (test code = 2222) 52 UG/DL UNSATURATED IBC (test code = 12076) 370 UG/DL CALC TOTAL IBC (test code = 2077) 422 UG/DL CALC % IRON SAT (test code = 2079) 12 % Antoni [id number] 00:00:00* Test Item Value Reference Range Interpretation Comme nts FERRITIN (test code = 2075) 11 NG/ML Antoni Echevarria [id number] 00:00:00* Test Item Value Reference Range Interpretation Comme nts TRANSFERRIN (test code = 4936) 341 MG/DL Antoni LeeVITAMIN D, 25 [id number] 00:00:00* Test Item Value Reference Range Interpretation Comme richard VITAMIN D, 25 OH (test code = 4958) 13 NG/ML Antoni LeeVITAMIN [id number] 00:00:00* Test Item Value Reference Range Interpretation Comme richard VITAMIN B-12 (test code = 2840) 464 PG/ML Antoni LeeCBC W/AUTO [id number] 00:00:00* Test Item Value Reference Range Interpretation [...] ABS NUCLEATED RBCS (test cod e = 28134) 0.00 K/UL Antoni LeeIRON BINDING CAPACITY AND IRON AND % [id number] 00:00:00* Test Item Value Reference Range Interpretation Comme nts IRON, SERUM (test code = 2222) 52 UG/DL UNSATURATED IBC (test code = 57898) 370 UG/DL CALC TOTAL IBC (test code = 2077) 422 UG/DL CALC % IRON SAT (test code = 2079) 12 % Antoni [id number] 00:00:00* Test Item Value Reference Range Interpretation Comme nts FERRITIN (test code = 2075) 11 NG/ML Antoni [id number] 00:00:00* Test Item Value Reference Range Interpretation Comme nts TRANSFERRIN (test code = 4936) 341 MG/DL Antoni LeeVITAMIN D, 25 [id number] 00:00:00* Test Item Value Reference Range Interpretation Comme nts VITAMIN D, 25 OH (test code = 4958) 13 NG/ML Antoni LeeVITAMIN [id number] 00:00:00* Test Item Value Reference Range Interpretation Comme [facility] VITAMIN B-12 (test code = 2840) 464 PG/ML Antoni LeeCBC W/AUTO [id number] 00:00:00* Test Item Value Reference Range Interpretation [...] ABS NUCLEATED RBCS (test cod e = 77983) 0.00 K/UL Antoni Echevarria AustinCT/NG, NAAT, [id number] 00:00:00* Test Item Value Reference Range Interpretation Comme nts CHLAMYDIA, NAAT, URINE (test code = 10471) NEGATIVE GONORRHEA, NAAT, URINE (test code = 57510) NEGATIVE Antoni Echevarria AustinVAGINAL PATHOGENS DNA [id number] 00:00:00* Test Item Value Reference Range Interpretation Comme nts CHARLES SPECIES (test code = 23785) POSITIVE G. VAGINALIS (test code = 79294) POSITIVE T. VAGINALIS (test code = 00457) NEGATIVE Antoni Echevarria AustinTRICHOMONAS, URINE, [id number] 00:00:00* Test Item Value Reference Range Interpretation Comme nts TRICHOMONAS, NAAT, URINE (te st code = 92544) NEGATIVE Antoni F AustinCT/NG, NAAT, [id number] 00:00:00* Test Item Value Reference Range Interpretation Comme nts CHLAMYDIA, NAAT, URINE (test code = 11788) NEGATIVE GONORRHEA, NAAT, URINE (test code = 05696) NEGATIVE Antoni F AustinVAGINAL PATHOGENS DNA [id number] 00:00:00* Test Item Value Reference Range Interpretation Comme nts CHARLES SPECIES (test code = ) POSITIVE G. VAGINALIS (test code = 43939) POSITIVE T. VAGINALIS (test code = 43195) NEGATIVE Antoni Echevarria AustinTRICHOMONAS, URINE, [id number] 00:00:00* Test Item Value Reference Range Interpretation Comme nts TRICHOMONAS, NAAT, URINE (te st code = 95028) NEGATIVE Antoni Echevarria AustinCT/NG, NAAT, [id number] 00:00:00* Test Item Value Reference Range Interpretation Comme nts CHLAMYDIA, NAAT, URINE (test code = 92846) NEGATIVE GONORRHEA, NAAT, URINE (test code = 80559) NEGATIVE Antoni Echevarria AustinVAGINAL PATHOGENS DNA [id number] 00:00:00* Test Item Value Reference Range Interpretation Comme nts CHARLES SPECIES (test code = ) POSITIVE G. VAGINALIS (test code = 70522) POSITIVE T. VAGINALIS (test code = 29044) NEGATIVE Antoni Echevarria AustinTRICHOMONAS, URINE, [id number] 00:00:00* Test Item Value Reference Range Interpretation Comme nts TRICHOMONAS, NAAT, URINE (te st code = 05023) NEGATIVE Antoni Echevarria AustinPOCT [id number] 17:28:00* Test Item Value Reference Range Interpretation Comme nts POCT PREG (test code = 1605) Negative On board controls acceptable with C Line (test code = 3574) Yes POCT PREG LOT # (test code = 3575) [id number] POCT PREG TEST DATE ( test code = 3576) 08/10/2024 Lab Interpretation (test cod e = 30495-6) [facility] [id number] 23:50:00* Test Item Value Reference Range Interpretation Comme nts POCT PREG (test code = 1605) Negative On board controls acceptable with C Line (test code = 3574) Yes POCT PREG LOT # (test code = 3575) POCT PREG TEST DATE ( test code = 3576) [facility] [id number] 23:50:00* Test Item Value Reference Range Interpretation Comme nts POCT PREG (test code = 1605) Negative On board controls acceptable with C Line (test code = 3574) Yes POCT PREG LOT # (test code = 3575) POCT PREG TEST DATE ( test code = 3576) [facility] URINALYSIS W SPECIFIC [id number] 23:31:00* Test Item Value Reference Range Interpretation [...] U APPEAR (test code = 3267) clear [facility] URINALYSIS W SPECIFIC [id number] 23:31:00* Test Item Value Reference Range Interpretation [...] U APPEAR (test code = 3267) clear [facility]ABOL[facility] [id number] 00:00:00* Test Item Value Reference Range Interpretation Comme nts GLUCOSE (test code = 7) 119 MG/DL BUN (test code = 2207) 13 MG/DL CREATININE (test code = 2214) 0.74 MG/DL eGFR (2020 CKD-EPI) (test code = 61741) 112 ML/MIN/1.73 CALC BUN/CREAT (test code = 5) 18 RATIO SODIUM (test code = 223) 140 MEQ/L POTASSIUM (test code = 2228) 4.1 MEQ/L CHLORIDE (test code = 2215) 104 MEQ/L CARBON DIOXIDE (test code = 2206) 25 MEQ/L CALCIUM (test code = 220) 9.8 MG/DL PROTEIN, TOTAL (test code = 2228) 6.9 G/DL ALBUMIN (test code = 2200) 4.5 G/DL CALC GLOBULIN (test code = 2240) 2.4 G/DL CALC A/G RATIO (test code = 2234) 1.9 RATIO BILIRUBIN, TOTAL (test code = 2206) 0.2 MG/DL ALKALINE PHOSPHATASE (test code = 4) 99 U/L AST (test code = 2218) 24 U/L ALT (test code = 9) 28 U/L Antoni LeeVITAMIN [id number] 00:00:00* Test Item Value Reference Range Interpretation Comme [facility] VITAMIN B-12 (test code = 2840) 500 PG/ML Antoni LeeIRON, [id number] 00:00:00* Test Item Value Reference Range Interpretation Comme nts IRON, SERUM (test code = 2222) 27 UG/DL Antoni LeeVITAMIN D, 25 [id number] 00:00:00* Test Item Value Reference Range Interpretation Comme nts VITAMIN D, 25 OH (test code = 4958) 14 NG/ML Antoni LeeTSH, THIRD [id number] 00:00:00* Test Item Value Reference Range Interpretation Comme nts TSH, THIRD GENERATION (test code = 2821) 2.600 UIU/ML Antoni LeeCBC W/AUTO [id number] 00:00:00* Test Item Value Reference Range Interpretation [...] ABS NUCLEATED RBCS (test cod e = 46391) 0.00 K/UL Antoni Swathi JesusCOMPREHENSIVE METABOLIC [id number] 00:00:00* Test Item Value Reference Range Interpretation Comme nts GLUCOSE (test code = 2217) 119 MG/DL BUN (test code = 2208) 13 MG/DL CREATININE (test code = 2214) 0.74 MG/DL eGFR (2020 CKD-EPI) (test code = 38062) 112 ML/MIN/1.73 CALC BUN/CREAT (test code = [...] code = 2219) 28 U/L Antoni LeeVITAMIN [id number] 00:00:00* Test Item Value Reference Range Interpretation Comme [facility] VITAMIN B-12 (test code = 2840) 500 PG/ML Antoni LeeIRON, [id number] 00:00:00* Test Item Value Reference Range Interpretation Comme [facility] IRON, SERUM (test code = 2222) 27 UG/DL Antoni LeeVITAMIN D, 25 [id number] 00:00:00* Test Item Value Reference Range Interpretation Comme [facility] VITAMIN D, 25 OH (test code = 4958) 14 NG/ML Antoni LeeTSH, THIRD [id number] 00:00:00* Test Item Value Reference Range Interpretation Comme [facility] TSH, THIRD GENERATION (test code = 2821) 2.600 UIU/ML Antoni LeeCBC W/AUTO [id number] 00:00:00* Test Item Value Reference Range Interpretation [...] ABS NUCLEATED RBCS (test cod e = 11103) 0.00 K/UL Antoni LeeCOMPREHENSIVE METABOLIC [id number] 00:00:00* Test Item Value Reference Range Interpretation Comme nts GLUCOSE (test code = 2217) 119 MG/DL BUN (test code = 2208) 13 MG/DL CREATININE (test code = 2214) 0.74 MG/DL eGFR (2020 CKD-EPI) (test code = 58124) 112 ML/MIN/1.73 CALC BUN/CREAT (test code = [...] code = 2219) 28 U/L Antoni LeeVITAMIN [id number] 00:00:00* Test Item Value Reference Range Interpretation Comme nts VITAMIN B-12 (test code = 2840) 500 PG/ML Antoni LeeIRON, [id number] 00:00:00* Test Item Value Reference Range Interpretation Comme nts IRON, SERUM (test code = 2222) 27 UG/DL Antoni LeeVITAMIN D, 25 [id number] 00:00:00* Test Item Value Reference Range Interpretation Comme nts VITAMIN D, 25 OH (test code = 4958) 14 NG/ML Antoni LeeTSH, THIRD [id number] 00:00:00* Test Item Value Reference Range Interpretation Comme nts TSH, THIRD GENERATION (test code = 2821) 2.600 UIU/ML Antoni LeeCBC W/AUTO [id number] 00:00:00* Test Item Value Reference Range Interpretation [...] ABS NUCLEATED RBCS (test cod e = 69008) 0.00 K/UL Antoni LeeCOMPREHENSIVE METABOLIC [id number] 00:00:00* Test Item Value Reference Range Interpretation Comme nts GLUCOSE (test code = 2217) 119 MG/DL BUN (test code = 2208) 13 MG/DL CREATININE (test code = 2214) 0.74 MG/DL eGFR (2020 CKD-EPI) (test code = ) 112 ML/MIN/1.73 CALC BUN/CREAT (test code = [...] G/DL CALC A/G RATIO (test code = 4) 1.9 RATIO BILIRUBIN, TOTAL (test code = 7) 0.2 MG/DL ALKALINE PHOSPHATASE (test code = 2203) 99 U/L AST (test code = 2217) 24 U/L ALT (test code = 2218) 28 U/L Antoni LeeVITAMIN [id number] 00:00:00* Test Item Value Reference Range Interpretation Comme [facility] VITAMIN B-12 (test code = 2840) 500 PG/ML Antoni LeeIRON, [id number] 00:00:00* Test Item Value Reference Range Interpretation Comme [facility] IRON, SERUM (test code = 2222) 27 UG/DL Antoni LeeVITAMIN D, 25 [id number] 00:00:00* Test Item Value Reference Range Interpretation Comme [facility] VITAMIN D, 25 OH (test code = 4958) 14 NG/ML Antoni LeeTSH, THIRD [id number] 00:00:00* Test Item Value Reference Range Interpretation Comme [facility] TSH, THIRD GENERATION (test code = 2821) 2.600 UIU/ML Antoni LeeCBC W/AUTO [id number] 00:00:00* Test Item Value Reference Range Interpretation Comme [facility] WBC (test code = 1001) 5.0 K/UL [...] ABS NUCLEATED RBCS (test cod e = 81343) 0.00 K/UL Antoni LeeCOMPREHENSIVE METABOLIC [id number] 00:00:00* Test Item Value Reference Range Interpretation Comme nts GLUCOSE (test code = 2217) 119 MG/DL BUN (test code = 2208) 13 MG/DL CREATININE (test code = 2214) 0.74 MG/DL eGFR (2020 CKD-EPI) (test code = 07391) 112 ML/MIN/1.73 CALC BUN/CREAT (test code = [...] code = 2219) 28 U/L Antoni LeeVITAMIN [id number] 00:00:00* Test Item Value Reference Range Interpretation Comme [facility] VITAMIN B-12 (test code = 2840) 500 PG/ML Antoni LeeIRON, [id number] 00:00:00* Test Item Value Reference Range Interpretation Comme [facility] IRON, SERUM (test code = 2222) 27 UG/DL Antoni LeeVITAMIN D, 25 [id number] 00:00:00* Test Item Value Reference Range Interpretation Comme [facility] VITAMIN D, 25 OH (test code = 4958) 14 NG/ML Antoni LeeTSH, THIRD [id number] 00:00:00* Test Item Value Reference Range Interpretation Comme [facility] TSH, THIRD GENERATION (test code = 2821) 2.600 UIU/ML Antoni LeeCBC W/AUTO [id number] 00:00:00* Test Item Value Reference Range Interpretation [...] ABS NUCLEATED RBCS (test cod e = 88892) 0.00 K/UL Antoni LeeCOMPREHENSIVE METABOLIC [id number] 00:00:00* Test Item Value Reference Range Interpretation Comme nts GLUCOSE (test code = 2217) 119 MG/DL BUN (test code = 2208) 13 MG/DL CREATININE (test code = 2214) 0.74 MG/DL eGFR (2020 CKD-EPI) (test code = 10370) 112 ML/MIN/1.73 CALC BUN/CREAT (test code = [...] code = 2219) 28 U/L Antoni LeeVITAMIN [id number] 00:00:00* Test Item Value Reference Range Interpretation Comme [facility] VITAMIN B-12 (test code = 2840) 500 PG/ML Antoni LeeIRON, [id number] 00:00:00* Test Item Value Reference Range Interpretation Comme nts IRON, SERUM (test code = 2222) 27 UG/DL Antoni LeeVITAMIN D, 25 [id number] 00:00:00* Test Item Value Reference Range Interpretation Comme nts VITAMIN D, 25 OH (test code = 4958) 14 NG/ML Antoni LeeTSH, THIRD [id number] 00:00:00* Test Item Value Reference Range Interpretation Comme nts TSH, THIRD GENERATION (test code = 2821) 2.600 UIU/ML Antoni LeeCBC W/AUTO [id number] 00:00:00* Test Item Value Reference Range Interpretation [...] ABS NUCLEATED RBCS (test cod e = 04916) 0.00 K/UL Antoni LeeJUAN JOSE SARS-COV-2 ANTIGEN (BINAX NOW)2022-06-30 20:18:00* Test Item Value Reference Range Interpretation Comme nts POCT SARS-COV-2 ANTIGEN (eda t code = 19245-7) Not Detected Not Detected On board controls acceptable with C Line (test code = 3574) Yes [facility] [id number] 00:00:00* Test Item Value Reference Range Interpretation Comme nts GLUCOSE (test code = 2217) 92 MG/DL BUN (test code = 2208) 14 MG/DL CREATININE (test code = 2214) 0.72 MG/DL eGFR (2020 CKD-EPI) (test code = 82974) 117 ML/MIN/1.73 CALC BUN/CREAT (test code = [...] code = 2219) 15 U/L Antoni LeeLIPID [id number] 00:00:00* Test Item Value Reference Range Interpretation Comme nts CHOLESTEROL (test code = 2210) 219 MG/DL TRIGLYCERIDES (test code = 2232) 71 MG/DL HDL CHOLESTEROL (test code = 2220) 70 MG/DL CALC LDL CHOL (test code = 2237) 132 MG/DL RISK RATIO LDL/HDL (test cod e = 2238) 1.89 RATIO Antoni Echevarria JesusTSH, THIRD [id number] 00:00:00* Test Item Value Reference Range Interpretation Comme nts TSH, THIRD GENERATION (test code = 2821) 3.630 UIU/ML Antoni LeeCOMPREHENSIVE METABOLIC [id number] 00:00:00* Test Item Value Reference Range Interpretation Comme nts GLUCOSE (test code = 2217) 92 MG/DL BUN (test code = 2208) 14 MG/DL CREATININE (test code = 2214) 0.72 MG/DL eGFR (2020 CKD-EPI) (test code = 33039) 117 ML/MIN/1.73 CALC BUN/CREAT (test code = [...] code = 2219) 15 U/L Antoni LeeLIPID [id number] 00:00:00* Test Item Value Reference Range Interpretation Comme nts CHOLESTEROL (test code = 2210) 219 MG/DL TRIGLYCERIDES (test code = 2232) 71 MG/DL HDL CHOLESTEROL (test code = 2220) 70 MG/DL CALC LDL CHOL (test code = 2237) 132 MG/DL RISK RATIO LDL/HDL (test cod e = 2238) 1.89 RATIO Antoni LeeTSH, THIRD [id number] 00:00:00* Test Item Value Reference Range Interpretation Comme nts TSH, THIRD GENERATION (test code = 2821) 3.630 UIU/ML Antoni Echevarria JesusCOMPREHENSIVE METABOLIC [id number] 00:00:00* Test Item Value Reference Range Interpretation Comme nts GLUCOSE (test code = 2217) 92 MG/DL BUN (test code = 2208) 14 MG/DL CREATININE (test code = 2214) 0.72 MG/DL eGFR (2020 CKD-EPI) (test code = 83938) 117 ML/MIN/1.73 CALC BUN/CREAT (test code = [...] code = 2219) 15 U/L Antoni LeeLIPID [id number] 00:00:00* Test Item Value Reference Range Interpretation Comme nts CHOLESTEROL (test code = 2210) 219 MG/DL TRIGLYCERIDES (test code = 2232) 71 MG/DL HDL CHOLESTEROL (test code = 2220) 70 MG/DL CALC LDL CHOL (test code = 2237) 132 MG/DL RISK RATIO LDL/HDL (test cod e = 2238) 1.89 RATIO Antoni LeeTSH, THIRD [id number] 00:00:00* Test Item Value Reference Range Interpretation Comme nts TSH, THIRD GENERATION (test code = 2821) 3.630 UIU/ML Antoni LeeCOMPREHENSIVE METABOLIC [id number] 00:00:00* Test Item Value Reference Range Interpretation Comme nts GLUCOSE (test code = 2217) 92 MG/DL BUN (test code = 2208) 14 MG/DL CREATININE (test code = 2214) 0.72 MG/DL eGFR (2020 CKD-EPI) (test code = 52973) 117 ML/MIN/1.73 CALC BUN/CREAT (test code = [...] code = 2219) 15 U/L Antoni LeeLIPID [id number] 00:00:00* Test Item Value Reference Range Interpretation Comme nts CHOLESTEROL (test code = 2210) 219 MG/DL TRIGLYCERIDES (test code = 2232) 71 MG/DL HDL CHOLESTEROL (test code = 2220) 70 MG/DL CALC LDL CHOL (test code = 2237) 132 MG/DL RISK RATIO LDL/HDL (test cod e = 2238) 1.89 RATIO Antoni LeeTSH, THIRD [id number] 00:00:00* Test Item Value Reference Range Interpretation Comme nts TSH, THIRD GENERATION (test code = 2821) 3.630 UIU/ML Antoni LeeCOMPREHENSIVE METABOLIC [id number] 00:00:00* Test Item Value Reference Range Interpretation Comme nts GLUCOSE (test code = 2217) 92 MG/DL BUN (test code = 2208) 14 MG/DL CREATININE (test code = 2214) 0.72 MG/DL eGFR (2020 CKD-EPI) (test code = 90612) 117 ML/MIN/1.73 CALC BUN/CREAT (test code = [...] code = 2219) 15 U/L Antoni LeeLIPID [id number] 00:00:00* Test Item Value Reference Range Interpretation Comme nts CHOLESTEROL (test code = 2210) 219 MG/DL TRIGLYCERIDES (test code = 2232) 71 MG/DL HDL CHOLESTEROL (test code = 2220) 70 MG/DL CALC LDL CHOL (test code = 2237) 132 MG/DL RISK RATIO LDL/HDL (test cod e = 2238) 1.89 RATIO Antoni LeeTSH, THIRD [id number] 00:00:00* Test Item Value Reference Range Interpretation Comme nts TSH, THIRD GENERATION (test code = 2821) 3.630 UIU/ML Antoni LeeCOMPREHENSIVE METABOLIC [id number] 00:00:00* Test Item Value Reference Range Interpretation Comme nts GLUCOSE (test code = 2217) 92 MG/DL BUN (test code = 2208) 14 MG/DL CREATININE (test code = 2214) 0.72 MG/DL eGFR (2020 CKD-EPI) (test code = 86148) 117 ML/MIN/1.73 CALC BUN/CREAT (test code = [...] code = 2219) 15 U/L Antoni LeeLIPID [id number] 00:00:00* Test Item Value Reference Range Interpretation Comme nts CHOLESTEROL (test code = 2210) 219 MG/DL TRIGLYCERIDES (test code = 2232) 71 MG/DL HDL CHOLESTEROL (test code = 2220) 70 MG/DL CALC LDL CHOL (test code = 2237) 132 MG/DL RISK RATIO LDL/HDL (test cod e = 2238) 1.89 RATIO Antoni Cuellar, THIRD [id number] 00:00:00* Test Item Value Reference Range Interpretation Comme nts TSH, THIRD GENERATION (test code = 2821) 3.630 UIU/ML Antoni LeeCBC W/AUTO [id number] 00:00:00* Test Item Value Reference Range Interpretation [...] ABS NUCLEATED RBCS (test cod e = 39545) 0.00 K/UL Antoni LeeHEMOGLOBIN [id number] 00:00:00* Test Item Value Reference Range Interpretation Comme nts HEMOGLOBIN A1c (test code = 44415) 5.1 % Antoni LeeCBC W/AUTO [id number] 00:00:00* Test Item Value Reference Range Interpretation [...] ABS NUCLEATED RBCS (test cod e = 08350) 0.00 K/UL Antoni LeeHEMOGLOBIN [id number] 00:00:00* Test Item Value Reference Range Interpretation Comme nts HEMOGLOBIN A1c (test code = 33910) 5.1 % Antoni LeeCBC W/AUTO [id number] 00:00:00* Test Item Value Reference Range Interpretation [...] ABS NUCLEATED RBCS (test cod e = 34927) 0.00 K/UL Antoni LeeHEMOGLOBIN [id number] 00:00:00* Test Item Value Reference Range Interpretation Comme nts HEMOGLOBIN A1c (test code = 81781) 5.1 % Antoni LeeCBC W/AUTO [id number] 00:00:00* Test Item Value Reference Range Interpretation [...] ABS NUCLEATED RBCS (test cod e = 38716) 0.00 K/UL Antoni LeeHEMOGLOBIN [id number] 00:00:00* Test Item Value Reference Range Interpretation Comme nts HEMOGLOBIN A1c (test code = 34371) 5.1 % Antoni LeeCBC W/AUTO [id number] 00:00:00* Test Item Value Reference Range Interpretation [...] ABS NUCLEATED RBCS (test cod e = 92152) 0.00 K/UL Antoni Echevarria AustinHEMOGLOBIN [id number] 00:00:00* Test Item Value Reference Range Interpretation Comme nts HEMOGLOBIN A1c (test code = 31033) 5.1 % Antoni LeeCBC W/AUTO [id number] 00:00:00* Test Item Value Reference Range Interpretation [...] ABS NUCLEATED RBCS (test cod e = 10873) 0.00 K/UL Antoni LeeHEMOGLOBIN [id number] 00:00:00* Test Item Value Reference Range Interpretation Comme nts HEMOGLOBIN A1c (test code = 85946) 5.1 % Antoni LeePOCT [id number] 14:26:00* Test Item Value Reference Range Interpretation Comme nts POCT PREG (test code = 1605) Negative On board controls acceptable with C Line (test code = 3574) Yes POCT PREG LOT # (test code = 3575) POCT PREG TEST DATE ( test code = 3576) [facility]IFIC [id number] 14:21:00* Test Item Value Reference Range Interpretation [...] U APPEAR (test code = 3267) clear [facility]/NG, NAAT, [id number] 11:31:42* Test Item Value Reference Range Interpretation Comme nts GONORRHEA, NAAT (test code = 76339) NEGATIVE NEGATIVE IMPORTANT NO DIGNA: SEE ANNOUNCEMENT AT [email or web address] Note: Assay methodology is nucleic acid amplification by digital recruiter mediated amplification (TMA) utilizing the Aptima Combo 2 Assay. IMPORTANT NOTICE: SEE ANNOUNCEMENT AT [email or web address] [email or web address] Note: Assay methodology is nucleic acid amplification by digital recruiter mediated amplification (TMA) utilizing the Aptima Combo 2 Assay. CHLAMYDIA, NAAT (test code = 73743) NEGATIVE NEGATIVE IMPORTANT NO DIGNA: SEE ANNOUNCEMENT AT [email or web address] Note: Assay methodology is nucleic acid amplification by digital recruiter mediated amplification (TMA) utilizing the Aptima Combo 2 Assay. IMPORTANT NOTICE: SEE ANNOUNCEMENT AT [email or web address] heCobasUrineKit Note: Assay methodology is nucleic acid amplification by digital recruiter mediated amplification (TMA) utilizing the Aptima Combo 2 Assay. PAP TEST, THINPREP, [id number] 10:40:24* Test Item Value Reference Range Interpretation Comme nts SOURCE: (test code = 8001) Cervical SLIDES: (test code = 8011) 1 LMP: (test code = 8021) 10/13/2021 SPECIMEN ADEQUACY: (test code = 93192) (NOTE) Satisfactory for evaluation. Endocervical cells/transformation zone component present. INTERPRETATION: (test code = 10904) ASCUS/EPITH. ABNORMALITY; SEE BELOW A - ------- EPITHELIAL CELL ABNORMALITY Atypical squamous cells of undetermined significance (ASC-US) FEED INSPECTION SUPERVISOR: (test code = 8101) NIMO Mclean(ASCP)I AC PATHOLOGIST INTERPRETATION BY: (test code = 8122) Annalise Swan LOCATION: (test code = 17303) (NOTE) Specimens proces sed at [facility], [address] [place] [address], , CLIA: [id number] interpreted at [facility], [address], [place] [address], , CLIA: [id number] CPT: (test code = 8140) (NOTE) 30477, 07674 UNL ESS OTHERWISE INDICATED, COMPUTER AIDED AND FEED INSPECTION SUPERVISOR SCREENING PERFORMED. The Pap test is a screening test with an inherent, but low probability of error. Your patient should be reminded to consult you immediately if she experiences any suspicious signs or symptoms, regardless of her Pap test result. An alternate report format containing images or consolidated prior Pap history is available as applicable. UNLESS OTHERWISE INDICATED, ALL TESTING PERFORMED [facility] [address] [place] [id number] AUTO DISMANTLER: RADHA ALEMAN M.D. IA NUMBER [id number] [facility] [place]. [id number] PAP TEST, THINPREP, [id number] 00:00:00* Test Item Value Reference Range Interpretation Comme nts SOURCE: (test code = 8001) Cervical SLIDES: (test code = 8011) 1 LMP: (test code = 8021) 10/13/2021 SPECIMEN ADEQUACY: (test code = 68393) (NOTE) INTERPRETATION: (test code = 92471) ASCUS/EPITH. ABNORMALITY; SEE BELOW FEED INSPECTION SUPERVISOR: (test code = 8101) NIMO Mclean(ASCP)IAC PATHOLOGIST INTERPRETATION BY: (test code = 8122) Annalise Swan LOCATION: (test code = 19467) (NOTE) CPT: (test code = 8140) (NOTE) Antoniminesh LeeGC AND CHLAMYDIA, AMPLIFIED, [id number] 00:00:00* Test Item Value Reference Range Interpretation Comme nts GONORRHEA, NAAT (test code = 10853) NEGATIVE CHLAMYDIA, NAAT (test code = 79928) NEGATIVE Antoni LeePAP TEST, THINPREP, [id number] 00:00:00* Test Item Value Reference Range Interpretation Comme nts SOURCE: (test code = 8001) Cervical SLIDES: (test code = 8011) 1 LMP: (test code = 8021) 10/13/2021 SPECIMEN ADEQUACY: (test code = 31380) (NOTE) INTERPRETATION: (test code = 58219) ASCUS/EPITH. ABNORMALITY; SEE BELOW FEED INSPECTION SUPERVISOR: (test code = 8101) NIMO Mclean(ASCP)IAC PATHOLOGIST INTERPRETATION BY: (test code = 8122) Annalise Swan LOCATION: (test code = 07946) (NOTE) CPT: (test code = 8140) (NOTE) Antoni LeeGC AND CHLAMYDIA, AMPLIFIED, [id number] 00:00:00* Test Item Value Reference Range Interpretation Comme nts GONORRHEA, NAAT (test code = 74149) NEGATIVE CHLAMYDIA, NAAT (test code = 82366) NEGATIVE Antoni LeePAP TEST, THINPREP, [id number] 00:00:00* Test Item Value Reference Range Interpretation Comme nts SOURCE: (test code = 8001) Cervical SLIDES: (test code = 8011) 1 LMP: (test code = 8021) 10/13/2021 SPECIMEN ADEQUACY: (test code = 56036) (NOTE) INTERPRETATION: (test code = 53872) ASCUS/EPITH. ABNORMALITY; SEE BELOW FEED INSPECTION SUPERVISOR: (test code = 8101) NIMO Mclean(ASCP)[facility] PATHOLOGIST INTERPRETATION BY: (test code = 8122) [facility] LOCATION: (test code = 32188) (NOTE) CPT: (test code = 8140) (NOTE) Antoni LeeGC AND CHLAMYDIA, AMPLIFIED, [id number] 00:00:00* Test Item Value Reference Range Interpretation Comme nts GONORRHEA, NAAT (test code = 05278) NEGATIVE CHLAMYDIA, NAAT (test code = 74936) NEGATIVE Antoni LeePAP TEST, THINPREP, [id number] 00:00:00* Test Item Value Reference Range Interpretation Comme nts SOURCE: (test code = 8001) Cervical SLIDES: (test code = 8011) 1 LMP: (test code = 8021) 10/13/2021 SPECIMEN ADEQUACY: (test code = 93578) (NOTE) INTERPRETATION: (test code = 45897) ASCUS/EPITH. ABNORMALITY; SEE BELOW FEED INSPECTION SUPERVISOR: (test code = 8101) Jennifer LynneCT(ASCP)IAC PATHOLOGIST INTERPRETATION BY: (test code = 8122) [facility] LOCATION: (test code = 96362) (NOTE) CPT: (test code = 8140) (NOTE) Antoni Swathi AustinGC AND CHLAMYDIA, AMPLIFIED, [id number] 00:00:00* Test Item Value Reference Range Interpretation Comme nts GONORRHEA, NAAT (test code = 39480) NEGATIVE CHLAMYDIA, NAAT (test code = 83751) NEGATIVE Antoni LeePAP TEST, THINPREP, [id number] 00:00:00* Test Item Value Reference Range Interpretation Comme nts SOURCE: (test code = 8001) Cervical SLIDES: (test code = 8011) 1 LMP: (test code = 8021) 10/13/2021 SPECIMEN ADEQUACY: (test code = 43777) (NOTE) INTERPRETATION: (test code = 47744) ASCUS/EPITH. ABNORMALITY; SEE BELOW FEED INSPECTION SUPERVISOR: (test code = 8101) NIMO Mclean(ASCP)[facility] PATHOLOGIST INTERPRETATION BY: (test code = 8122) [facility] LOCATION: (test code = 61196) (NOTE) CPT: (test code = 8140) (NOTE) Antoni LeeGC AND CHLAMYDIA, AMPLIFIED, [id number] 00:00:00* Test Item Value Reference Range Interpretation Comme nts GONORRHEA, NAAT (test code = 65598) NEGATIVE CHLAMYDIA, NAAT (test code = 04726) NEGATIVE Antoni LeePAP TEST, THINPREP, [id number] 00:00:00* Test Item Value Reference Range Interpretation Comme nts SOURCE: (test code = 8001) Cervical SLIDES: (test code = 8011) 1 LMP: (test code = 8021) 10/13/2021 SPECIMEN ADEQUACY: (test code = 67237) (NOTE) INTERPRETATION: (test code = 80247) ASCUS/EPITH. ABNORMALITY; SEE BELOW FEED INSPECTION SUPERVISOR: (test code = 8101) NIMO Mclean(ASCP)[facility] PATHOLOGIST INTERPRETATION BY: (test code = 8122) [facility] LOCATION: (test code = 01148) (NOTE) CPT: (test code = 8140) (NOTE) Antoni F AustinGC AND CHLAMYDIA, AMPLIFIED, [id number] 00:00:00* Test Item Value Reference Range Interpretation Comme nts GONORRHEA, NAAT (test code = 92930) NEGATIVE CHLAMYDIA, NAAT (test code = 76208) NEGATIVE Antoni Echevarria AustinVAGINAL PATHOGENS DNA [id number] 14:48:29* Test Item Value Reference Range Interpretation Comme nts CHARLES SPECIES (test code = ) NEGATIVE NEGATIVE G. VAGINALIS (test code = ) POSITIVE NEGATIVE A T. VAGINALIS (test code = ) NEGATIVE NEGATIVE HEPATITIS PANEL, [id number] 04:04:35* Test Item Value Reference Range Interpretation Comme nts HEPATITIS A IgM (test code = 80364) NON-REACTIVE NON-REACTIVE HEPATITIS B CORE IgM (test code = 4644) NON-REACTIVE NON-REACTIVE HEPATITIS B SURF AG (test code = 2739) NON-REACTIVE NON-REACTIVE HEPATITIS C ANTIBODY (test code = 4675) NON-REACTIVE NON-REACTIVE INTERPRETATION HEPATITIS A: (test code = 2552) (NOTE) Hepatitis A sero logy shows no evidence of acute hepatitis A. INTERPRETATION HEPATITIS B: (test code = 72000) (NOTE) Hepatitis B sero logy shows no evidence of acute hepatitis B andno indication of exposure to hepatitis B virus in the previous chicho eight months. INTERPRETATION HEPATITIS C: (test code = 90972) (NOTE) Hepatitis C sero logy shows no evidence of exposure to hepatitisC virus at this time. It can take up to 12 months after exposure tothe hepatitis C virus for antibodies to become detectable in the blood in certain patients. UNLESS OTHERWISE INDICATED, ALL TESTING PERFORMED [facility] [address] [place] [address] AUTO DISMANTLER: RADHA ALEMAN M.D. [place] NUMBER [id number] [facility] [place]. [id number] HIV 1/2 4TH GEN, RFLX [id number] 04:04:35* Test Item Value Reference Range Interpretation Comme nts HIV 1/2 4TH GEN, RFLX CONF ( test code = 3514) NON-REACTIVE NON-REACTIVE [id number] 02:50:30* Test Item Value Reference Range Interpretation Comme nts RPR RESULT (test code = 3501) NON-REACTIVE NON-REACTIVE RPR TITER (test code = 3500) NOT INDIC. TITER NOT INDIC. VAGINAL PATHOGENS DNA [id number] 00:00:00* Test Item Value Reference Range Interpretation Comme nts CHARLES SPECIES (test code = ) NEGATIVE G. VAGINALIS (test code = ) POSITIVE T. VAGINALIS (test code = ) NEGATIVE Antoni LeeHIV AB/AG COMBO RFLX [id number] 00:00:00* Test Item Value Reference Range Interpretation Comme nts HIV 1/2 4TH GEN, RFLX CONF ( test code = 3514) NON-REACTIVE Antoni Echevarria [id number] 00:00:00* Test Item Value Reference Range Interpretation Comme nts RPR RESULT (test code = 3501) NON-REACTIVE RPR TITER (test code = 3500) NOT INDIC. TITER Antoni LeeACUTE HEPATITIS [id number] 00:00:00* Test Item Value Reference Range Interpretation Comme nts HEPATITIS A IgM (test code = 73155) NON-REACTIVE HEPATITIS B CORE IgM (test c ode = 4644) NON-REACTIVE HEPATITIS B SURF AG (test co de = 2739) NON-REACTIVE HEPATITIS C ANTIBODY (test c ode = 4675) NON-REACTIVE INTERPRETATION HEPATITIS A: (test code = 2552) (NOTE) INTERPRETATION HEPATITIS B: (test code = 06415) (NOTE) INTERPRETATION HEPATITIS C: (test code = 53861) (NOTE) Antoni LeeVAGINAL PATHOGENS DNA [id number] 00:00:00* Test Item Value Reference Range Interpretation Comme nts CHARLES SPECIES (test code = 32871) NEGATIVE G. VAGINALIS (test code = 96543) POSITIVE T. VAGINALIS (test code = 12893) NEGATIVE Antoni LeeHIV AB/AG COMBO RFLX [id number] 00:00:00* Test Item Value Reference Range Interpretation Comme nts HIV 1/2 4TH GEN, RFLX CONF ( test code = 3514) NON-REACTIVE Antoni Echevarria [id number] 00:00:00* Test Item Value Reference Range Interpretation Comme nts RPR RESULT (test code = 3501) NON-REACTIVE RPR TITER (test code = 3500) NOT INDIC. TITER Antoni LeeACUTE HEPATITIS [id number] 00:00:00* Test Item Value Reference Range Interpretation Comme nts HEPATITIS A IgM (test code = 97472) NON-REACTIVE HEPATITIS B CORE IgM (test c ode = 4644) NON-REACTIVE HEPATITIS B SURF AG (test co de = 2739) NON-REACTIVE HEPATITIS C ANTIBODY (test c ode = 4675) NON-REACTIVE INTERPRETATION HEPATITIS A: (test code = 2552) (NOTE) INTERPRETATION HEPATITIS B: (test code = 05983) (NOTE) INTERPRETATION HEPATITIS C: (test code = 71260) (NOTE) Antoni LeeVAGINAL PATHOGENS DNA [id number] 00:00:00* Test Item Value Reference Range Interpretation Comme nts CHARLES SPECIES (test code = ) NEGATIVE G. VAGINALIS (test code = 58742) POSITIVE T. VAGINALIS (test code = 75470) NEGATIVE Antoni Echevarria AustinHIV AB/AG COMBO RFLX [id number] 00:00:00* Test Item Value Reference Range Interpretation Comme nts HIV 1/2 4TH GEN, RFLX CONF ( test code = 3514) NON-REACTIVE Antoni Echevarria [id number] 00:00:00* Test Item Value Reference Range Interpretation Comme nts RPR RESULT (test code = 3501) NON-REACTIVE RPR TITER (test code = 3500) NOT INDIC. TITER Antoni LeeACUTE HEPATITIS [id number] 00:00:00* Test Item Value Reference Range Interpretation Comme nts HEPATITIS A IgM (test code = 27452) NON-REACTIVE HEPATITIS B CORE IgM (test c ode = 4644) NON-REACTIVE HEPATITIS B SURF AG (test co de = 2739) NON-REACTIVE HEPATITIS C ANTIBODY (test c ode = 4675) NON-REACTIVE INTERPRETATION HEPATITIS A: (test code = 2552) (NOTE) INTERPRETATION HEPATITIS B: (test code = 87256) (NOTE) INTERPRETATION HEPATITIS C: (test code = 55957) (NOTE) Antoni LeeVAGINAL PATHOGENS DNA [id number] 00:00:00* Test Item Value Reference Range Interpretation Comme nts CHARLES SPECIES (test code = ) NEGATIVE G. VAGINALIS (test code = 61349) POSITIVE T. VAGINALIS (test code = 78285) NEGATIVE Antoni Echevarria AustinHIV AB/AG COMBO RFLX [id number] 00:00:00* Test Item Value Reference Range Interpretation Comme nts HIV 1/2 4TH GEN, RFLX CONF ( test code = 3514) NON-REACTIVE Antoni Echevarria [id number] 00:00:00* Test Item Value Reference Range Interpretation Comme nts RPR RESULT (test code = 3501) NON-REACTIVE RPR TITER (test code = 3500) NOT INDIC. TITER Antoni LeeACUTE HEPATITIS [id number] 00:00:00* Test Item Value Reference Range Interpretation Comme nts HEPATITIS A IgM (test code = 40142) NON-REACTIVE HEPATITIS B CORE IgM (test c ode = 4644) NON-REACTIVE HEPATITIS B SURF AG (test co de = 2739) NON-REACTIVE HEPATITIS C ANTIBODY (test c ode = 4675) NON-REACTIVE INTERPRETATION HEPATITIS A: (test code = 2552) (NOTE) INTERPRETATION HEPATITIS B: (test code = 45281) (NOTE) INTERPRETATION HEPATITIS C: (test code = 63525) (NOTE) Antoni Echevarria AustinVAGINAL PATHOGENS DNA [id number] 00:00:00* Test Item Value Reference Range Interpretation Comme nts CHARLES SPECIES (test code = ) NEGATIVE G. VAGINALIS (test code = ) POSITIVE T. VAGINALIS (test code = ) NEGATIVE Antoni LeeHIV AB/AG COMBO RFLX [id number] 00:00:00* Test Item Value Reference Range Interpretation Comme nts HIV 1/2 4TH GEN, RFLX CONF ( test code = 3514) NON-REACTIVE Antoni Echevarria [id number] 00:00:00* Test Item Value Reference Range Interpretation Comme nts RPR RESULT (test code = 3501) NON-REACTIVE RPR TITER (test code = 3500) NOT INDIC. TITER Antoni LeeACUTE HEPATITIS [id number] 00:00:00* Test Item Value Reference Range Interpretation Comme nts HEPATITIS A IgM (test code = 64715) NON-REACTIVE HEPATITIS B CORE IgM (test c ode = 4644) NON-REACTIVE HEPATITIS B SURF AG (test co de = 2739) NON-REACTIVE HEPATITIS C ANTIBODY (test c ode = 4675) NON-REACTIVE INTERPRETATION HEPATITIS A: (test code = 2552) (NOTE) INTERPRETATION HEPATITIS B: (test code = 71460) (NOTE) INTERPRETATION HEPATITIS C: (test code = 29444) (NOTE) Antoni Echevarria AustinVAGINAL PATHOGENS DNA [id number] 00:00:00* Test Item Value Reference Range Interpretation Comme nts CHARLES SPECIES (test code = ) NEGATIVE G. VAGINALIS (test code = 42543) POSITIVE T. VAGINALIS (test code = 08941) NEGATIVE Antoni LeeHIV AB/AG COMBO RFLX [id number] 00:00:00* Test Item Value Reference Range Interpretation Comme nts HIV 1/2 4TH GEN, RFLX CONF ( test code = 3514) NON-REACTIVE Antoni [id number] 00:00:00* Test Item Value Reference Range Interpretation Comme nts RPR RESULT (test code = 3501) NON-REACTIVE RPR TITER (test code = 3500) NOT INDIC. TITER Antoni LeeACUTE HEPATITIS [id number] 00:00:00* Test Item Value Reference Range Interpretation Comme nts HEPATITIS A IgM (test code = 15142) NON-REACTIVE HEPATITIS B CORE IgM (test c ode = 4644) NON-REACTIVE HEPATITIS B SURF AG (test co de = 2739) NON-REACTIVE HEPATITIS C ANTIBODY (test c ode = 4675) NON-REACTIVE INTERPRETATION HEPATITIS A: (test code = 2552) (NOTE) INTERPRETATION HEPATITIS B: (test code = 03972) (NOTE) INTERPRETATION HEPATITIS C: (test code = 02878) (NOTE) Antoni LeeVAGINAL PATHOGENS DNA [id number] 00:00:00* Test Item Value Reference Range Interpretation Comme nts CHARLES SPECIES (test code = 50060) NEGATIVE G. VAGINALIS (test code = 37094) POSITIVE T. VAGINALIS (test code = 49786) NEGATIVE Antoni LeeGC AND CHLAMYDIA, AMPLIFIED, [id number] 00:00:00* Test Item Value Reference Range Interpretation Comme nts GONORRHEA, TMA (test code = 38011) NEGATIVE CHLAMYDIA, TMA (test code = 26708) POSITIVE Antoni LeeVAGINAL PATHOGENS DNA [id number] 00:00:00* Test Item Value Reference Range Interpretation Comme nts CHARLES SPECIES (test code = 12693) NEGATIVE G. VAGINALIS (test code = 44399) POSITIVE T. VAGINALIS (test code = 41049) NEGATIVE Antoni LeeGC AND CHLAMYDIA, AMPLIFIED, [id number] 00:00:00* Test Item Value Reference Range Interpretation Comme nts GONORRHEA, TMA (test code = 72118) NEGATIVE CHLAMYDIA, TMA (test code = 92366) POSITIVE Antoni Echevarria AustinVAGINAL PATHOGENS DNA [id number] 00:00:00* Test Item Value Reference Range Interpretation Comme nts CHARLES SPECIES (test code = ) NEGATIVE G. VAGINALIS (test code = 99363) POSITIVE T. VAGINALIS (test code = 57613) NEGATIVE Antoni F AustinGC AND CHLAMYDIA, AMPLIFIED, [id number] 00:00:00* Test Item Value Reference Range Interpretation Comme nts GONORRHEA, TMA (test code = 75167) NEGATIVE CHLAMYDIA, TMA (test code = 73423) POSITIVE Antoni F AustinVAGINAL PATHOGENS DNA [id number] 00:00:00* Test Item Value Reference Range Interpretation Comme nts CHARLES SPECIES (test code = ) NEGATIVE G. VAGINALIS (test code = 25172) POSITIVE T. VAGINALIS (test code = 80720) NEGATIVE Antoni F AustinGC AND CHLAMYDIA, AMPLIFIED, [id number] 00:00:00* Test Item Value Reference Range Interpretation Comme nts GONORRHEA, TMA (test code = 15733) NEGATIVE CHLAMYDIA, TMA (test code = 01077) POSITIVE Antoni F AustinVAGINAL PATHOGENS DNA [id number] 00:00:00* Test Item Value Reference Range Interpretation Comme nts CHARLES SPECIES (test code = ) NEGATIVE G. VAGINALIS (test code = 38261) POSITIVE T. VAGINALIS (test code = 50257) NEGATIVE Antoni F AustinGC AND CHLAMYDIA, AMPLIFIED, [id number] 00:00:00* Test Item Value Reference Range Interpretation Comme nts GONORRHEA, TMA (test code = 45051) NEGATIVE CHLAMYDIA, TMA (test code = 02425) POSITIVE Antoni F AustinVAGINAL PATHOGENS DNA [id number] 00:00:00* Test Item Value Reference Range Interpretation Comme nts CHARLES SPECIES (test code = ) NEGATIVE G. VAGINALIS (test code = 20020) POSITIVE T. VAGINALIS (test code = 53707) NEGATIVE Antoni F AustinGC AND CHLAMYDIA, AMPLIFIED, [id number] 00:00:00* Test Item Value Reference Range Interpretation Comme nts GONORRHEA, TMA (test code = 27382) NEGATIVE CHLAMYDIA, TMA (test code = 79637) POSITIVE Antoni F AustinCOMPREHENSIVE METABOLIC [id number] 00:00:00* Test Item Value Reference Range Interpretation Comme nts GLUCOSE (test code = 2217) 93 MG/DL BUN (test code = 2208) 10 MG/DL CREATININE (test code = 2214) 0.87 MG/DL eGFR AMER. (test cod e = 19984) 110 ML/MIN/1.73 eGFR NON- AMER. (test code = 65298) 95 ML/MIN/1.73 CALC BUN/CREAT (test code = 2235) 11 RATIO SODIUM (test code = 2231) 141 MEQ/L POTASSIUM (test code = 2228) 4.3 MEQ/L CHLORIDE (test code = 2215) 102 MEQ/L CARBON DIOXIDE (test code = 2206) 24 MEQ/L CALCIUM (test code = 2209) 9.8 MG/DL PROTEIN, TOTAL (test code = 222) 7.3 G/DL ALBUMIN (test code = 2201) 4.6 G/DL CALC GLOBULIN (test code = 2240) 2.7 G/DL CALC A/G RATIO (test code = 2234) 1.7 RATIO BILIRUBIN, TOTAL (test code = 2207) 0.3 MG/DL ALKALINE PHOSPHATASE (test code = 2204) 115 U/L AST (test code = 2218) 16 U/L ALT (test code = 2219) 10 U/L Antoni LeeLIPID [id number] 00:00:00* Test Item Value Reference Range Interpretation Comme nts CHOLESTEROL (test code = 2210) 211 MG/DL TRIGLYCERIDES (test code = 2232) 77 MG/DL HDL CHOLESTEROL (test code = 2220) 75 MG/DL CALC LDL CHOL (test code = 2237) 121 MG/DL RISK RATIO LDL/HDL (test cod e = 2238) 1.61 RATIO Antoni LeeCBC W/AUTO [id number] 00:00:00* Test Item Value Reference Range Interpretation [...] code = 1015) 319 K/UL Antoni LeeHEMOGLOBIN [id number] 00:00:00* Test Item Value Reference Range Interpretation Comme richard HEMOGLOBIN A1c (test code = 07488) 5.0 % Antoni Echevarria [id number] 00:00:00* Test Item Value Reference Range Interpretation Comme nts TSH (test code = 2821) 2.6 UIU/ML Antoni LeeCOMPREHENSIVE METABOLIC [id number] 00:00:00* Test Item Value Reference Range Interpretation Comme nts GLUCOSE (test code = 2217) 93 MG/DL BUN (test code = 2208) 10 MG/DL CREATININE (test code = 2214) 0.87 MG/DL eGFR AMER. (test cod e = 42534) 110 ML/MIN/1.73 eGFR NON- AMER. (test code = 07681) 95 ML/MIN/1.73 CALC BUN/CREAT (test code = [...] code = 2219) 10 U/L Antoni LeeLIPID [id number] 00:00:00* Test Item Value Reference Range Interpretation Comme nts CHOLESTEROL (test code = 2210) 211 MG/DL TRIGLYCERIDES (test code = 2232) 77 MG/DL HDL CHOLESTEROL (test code = 2220) 75 MG/DL CALC LDL CHOL (test code = 2237) 121 MG/DL RISK RATIO LDL/HDL (test cod e = 2238) 1.61 RATIO Antoni LeeCBC W/AUTO [id number] 00:00:00* Test Item Value Reference Range Interpretation [...] code = 1015) 319 K/UL Antoni LeeHEMOGLOBIN [id number] 00:00:00* Test Item Value Reference Range Interpretation Comme richard HEMOGLOBIN A1c (test code = 09845) 5.0 % Antoni [id number] 00:00:00* Test Item Value Reference Range Interpretation Comme richard TSH (test code = 2821) 2.6 UIU/ML Antoni LeeCOMPREHENSIVE METABOLIC [id number] 00:00:00* Test Item Value Reference Range Interpretation Comme nts GLUCOSE (test code = 2217) 93 MG/DL BUN (test code = 2208) 10 MG/DL CREATININE (test code = 2214) 0.87 MG/DL eGFR AMER. (test cod e = 89980) 110 ML/MIN/1.73 eGFR NON- AMER. (test code = 10588) 95 ML/MIN/1.73 CALC BUN/CREAT (test code = [...] (test code = 2219) 10 U/L Antoni Echevarria JesusLIPID [id number] 00:00:00* Test Item Value Reference Range Interpretation Comme nts CHOLESTEROL (test code = 2210) 211 MG/DL TRIGLYCERIDES (test code = 2232) 77 MG/DL HDL CHOLESTEROL (test code = 2220) 75 MG/DL CALC LDL CHOL (test code = 2237) 121 MG/DL RISK RATIO LDL/HDL (test cod e = 2238) 1.61 RATIO Antoni Echevarria JesusCBC W/AUTO [id number] 00:00:00* Test Item Value Reference Range Interpretation [...] (test code = 1015) 319 K/UL Antoni Echevarria JesusHEMOGLOBIN [id number] 00:00:00* Test Item Value Reference Range Interpretation Comme nts HEMOGLOBIN A1c (test code = 81175) 5.0 % Antoni Swathi [id number] 00:00:00* Test Item Value Reference Range Interpretation Comme nts TSH (test code = 2821) 2.6 UIU/ML Antoni LeeCOMPREHENSIVE METABOLIC [id number] 00:00:00* Test Item Value Reference Range Interpretation Comme nts GLUCOSE (test code = 2217) 93 MG/DL BUN (test code = 2208) 10 MG/DL CREATININE (test code = 2214) 0.87 MG/DL eGFR AMER. (test cod e = 05698) 110 ML/MIN/1.73 eGFR NON- AMER. (test code = 19033) 95 ML/MIN/1.73 CALC BUN/CREAT (test code = [...] code = 2219) 10 U/L Antoni LeeLIPID [id number] 00:00:00* Test Item Value Reference Range Interpretation Comme nts CHOLESTEROL (test code = 2210) 211 MG/DL TRIGLYCERIDES (test code = 2232) 77 MG/DL HDL CHOLESTEROL (test code = 2220) 75 MG/DL CALC LDL CHOL (test code = 2237) 121 MG/DL RISK RATIO LDL/HDL (test cod e = 2238) 1.61 RATIO Antoni LeeCBC W/AUTO [id number] 00:00:00* Test Item Value Reference Range Interpretation [...] code = 1015) 319 K/UL Antoni LeeHEMOGLOBIN [id number] 00:00:00* Test Item Value Reference Range Interpretation Comme richard HEMOGLOBIN A1c (test code = 60307) 5.0 % Antoni [id number] 00:00:00* Test Item Value Reference Range Interpretation Comme nts TSH (test code = 2821) 2.6 UIU/ML Antoni LeeCOMPREHENSIVE METABOLIC [id number] 00:00:00* Test Item Value Reference Range Interpretation Comme nts GLUCOSE (test code = 2217) 93 MG/DL BUN (test code = 2208) 10 MG/DL CREATININE (test code = 2214) 0.87 MG/DL eGFR AMER. (test cod e = 84868) 110 ML/MIN/1.73 eGFR NON- AMER. (test code = 86238) 95 ML/MIN/1.73 CALC BUN/CREAT (test code = [...] code = 2219) 10 U/L Antoni LeeLIPID [id number] 00:00:00* Test Item Value Reference Range Interpretation Comme nts CHOLESTEROL (test code = 2210) 211 MG/DL TRIGLYCERIDES (test code = 2232) 77 MG/DL HDL CHOLESTEROL (test code = 2220) 75 MG/DL CALC LDL CHOL (test code = 2237) 121 MG/DL RISK RATIO LDL/HDL (test cod e = 2238) 1.61 RATIO Antoni LeeCBC W/AUTO [id number] 00:00:00* Test Item Value Reference Range Interpretation [...] code = 1015) 319 K/UL Antoni LeeHEMOGLOBIN [id number] 00:00:00* Test Item Value Reference Range Interpretation Comme richard HEMOGLOBIN A1c (test code = 18048) 5.0 % Antoni [id number] 00:00:00* Test Item Value Reference Range Interpretation Comme nts TSH (test code = 2821) 2.6 UIU/ML Antoni LeeCOMPREHENSIVE METABOLIC [id number] 00:00:00* Test Item Value Reference Range Interpretation Comme nts GLUCOSE (test code = 2217) 93 MG/DL BUN (test code = 2208) 10 MG/DL CREATININE (test code = 2214) 0.87 MG/DL eGFR AMER. (test cod e = 69322) 110 ML/MIN/1.73 eGFR NON- AMER. (test code = 40023) 95 ML/MIN/1.73 CALC BUN/CREAT (test code = [...] code = 2219) 10 U/L Antoni LeeLIPID [id number] 00:00:00* Test Item Value Reference Range Interpretation Comme nts CHOLESTEROL (test code = 2210) 211 MG/DL TRIGLYCERIDES (test code = 2232) 77 MG/DL HDL CHOLESTEROL (test code = 2220) 75 MG/DL CALC LDL CHOL (test code = 2237) 121 MG/DL RISK RATIO LDL/HDL (test cod e = 2238) 1.61 RATIO Antoni Swathi JesusCBC W/AUTO [id number] 00:00:00* Test Item Value Reference Range Interpretation [...] code = 1015) 319 K/UL Antoni LeeHEMOGLOBIN [id number] 00:00:00* Test Item Value Reference Range Interpretation Comme nts HEMOGLOBIN A1c (test code = 70339) 5.0 % Antoni [id number] 00:00:00* Test Item Value Reference Range Interpretation Comme nts TSH (test code = 2821) 2.6 UIU/ML Antoni Echevarria AustinTHYROID II PROFILE (T3U, [...] = 2821) 1.2 UIU/ML Antoni LeeHEPATIC DUCT [id number] 19:16:00 *.*.*.*.*.*.*.*.*.*.*.*.*.*FINAL*.*.*.*.*.*.*.*.*.*.*.*.*.*.*History: 16-year-old female with persistent right [...] by: ANNETTE SAWYER MD /Signed/ [facility] Date/Time Note Provider Source Antoni Cervantes [facility]2025-03-04 00:00:00 Antoni Cervantes [facility]2025-02-03 00:00:00 Antoni Cervantes [facility]2024-12-10 00:00:00 Antoni Cervantes [facility]2024-10-21 00:00:00 Antoni Cervantes [facility]2024-05-30 15:35:24 I called patient. She states [...] follow up in the clinic. [facility] Bush [id number] 07:40:49 Called patient and left vm to call my office. Nancy Kat [facility] [id number] 15:06:40 Annabel Chamberlain is a 28 year old female [...] the pt to discuss. Please advise. [facility] [id number] 00:00:00 Antoni Cervantes [facility]2023-08-29 11:00:00 Images from the original note were not included. Venipuncture collection performed by clean technique on the left anticubitus. Total of 1 attempts were made. Slight pressure and a bandage/dressing were applied to the site(s). The patient experienced no complications. The following specimens were processed according to instructions and sent to [facility] laboratories LT BLUE Lt Green SST 1 RED LAV 1 PPT DK GREEN (L) DK GREEN (S)/// Fibrosure set BLUE,SST & LAV BUCIO DK BLUE (K2) DK BLUE (S) ACD RST BLOOD CULTURE NIPT or ALLOSURE VERIFYNOW URINE URINE CULTURE APTIMA URINE STOOL Monogram Z plasma preservative tube (call lab for tube)[facility] Vasoactive Intestinal Peptide (call lab for tube)[facility] - [id number] 10:20:30 12/06/22 Community Wellness and Outreach team contacted patient to assist in completing Health Maintenance topics that are overdue. Annabel Chamberlain [id number] Attempt Number: First Health Maintenance topics attempted [...] to review overdue health maintenance: Pap Smear. [facility] with call back number. Researched Care everywhere and [facility] with no new medical records obtained. [place], [facility] II Community and Population Health 01/09/23 Community Wellness and Outreach team contacted patient to assist in completing Health Maintenance topics that are overdue. Annabel Chamberlain [id number] Attempt Number: 2nd/Final Health Maintenance topics addressed: [...] Per patient she uses outside source. [place], [facility] II Community and Population Health [facility]
[2024-09-04 12:46] LABS: Hemoglobin 12.5 g/dL (12.0-15.0); MCV 79.9 fL (80-100); RBC Red Blood Cell Count 4.62 M/uL (3.86-4.86)
[2024-09-04 12:47] LABS: Absolute Lymphocytes (CBC) 1.3 K/uL (0.7-4.9); Absolute Monocytes 0.2 K/uL (0.1-1.3); Absolute Neutrophil 2.5 K/uL (1.8-8.0); Basophils % 0.5 % (0-1.3); Eosinophils % 0.9 % (0-4.4); Lymphocytes % 32.8 % (15.3-44.8); MCH 27.1 pg (27.0-35.0); MCHC 33.9 g/dL (32.0-36.0); MPV 9.1 fL (7.6-11.3); Monocytes % 5.9 % (3.3-12.3); Neutrophils % 59.9 % (41.7-73.7); Nucleated Red Blood Cells % 0.2 % (0-0); Platelets 341 thou/uL (152-406); Red Cell Distribution Width 15.5 % (12.1-15.2)
[2024-09-04 12:48] LABS: Specific Gravity 1.019 (1.005-1.030)
[2024-09-04 12:49] LABS: Specific Gravity 1.019 (1.005-1.030); Urine Bacteria <20 /HPF (<20); Urine Bilirubin NEGATIVE (Negative); Urine Blood Negative (Negative); Urine Clarity Extremely Turbid (Clear); Urine Color Light-Yellow (Yellow); Urine Culture Reflex Order REFLEXED; Urine Glucose NEGATIVE (Negative); Urine Ketones NEGATIVE (Negative); Urine Microscopic Reflex YN ORDER UMIC; Urine Mucus Slight /HPF (None Seen); Urine Nitrite NEGATIVE (Negative); Urine Protein NEGATIVE (Negative); Urine RBC None Seen /HPF (None Seen); Urine Urobilinogen Normal (Normal); Urine WBC 20-50 /HPF (<5)
[2024-09-04 13:04] LABS: Albumin 3.9 g/dL (3.4-5.0); Anion Gap 9.8 mEq/L (5.0-15.0); Bilirubin Total 0.4 mg/dL (0.2-1.0); Globulin 3.8 g/dL (2.3-3.5); Potassium 3.8 mEq/L (3.5-5.1); Protein, Total 7.7 g/dL (6.4-8.2)
[2024-09-04] MEDS ORDERED: PHENAZOPYRIDINE 100MG TAB PO ONE (13:12)
[2024-09-04] MEDS ORDERED: ONDANSETRON 4 MG/2 ML VIAL ONE (13:12)
[2024-09-04] MEDS ORDERED: NA CHLORIDE 0.9% 1,000 ML ONE (13:13)
[2024-09-04] MEDS ORDERED: MORPHINE 4 MG/ML SYR ONE (13:13)
[2024-09-04] MEDS ORDERED: KETOROLAC 30 MG/ML INJ ONE (14:58)
--- NOTE | 2024-09-04 15:34 | RAD REPORT ---
EXAMINATION: CT ABDOMEN AND PELVIS WITH CONTRAST CLINICAL INDICATION: ABD PAIN TECHNIQUE: CT abdomen and pelvis was performed, after the administration of IV contrast, as per [facility] protocol. Axial, sagittal and coronal reconstructions were obtained. One or more of the following dose reduction techniques were used: Automated exposure control, adjustment of the mA and k V according to patient size, and iterative reconstruction. Unless otherwise specified, incidental findings do not require dedicated imaging follow-up. COMPARISON: 10/20/2023 FINDINGS: LOWER CHEST: The visualized lung bases are clear. LIVER: Normal in size and contour. No focal lesion. Cholecystectomy clips. SPLEEN: Normal size. No focal lesion. PANCREAS: No mass, ductal dilation, or katiana-pancreatic fluid. ADRENALS: Normal; no mass. KIDNEYS: 5 mm stone inferior calyx right kidney. No hydronephrosis. No left-sided calculus visualized . GASTROINTESTINAL TRACT: No evidence of free air, significant intra-abdominal free fluid, bowel obstru ction or abscess. APPENDIX: Normal appendix. LYMPH NODES: No lymphadenopathy. MUSCULOSKELETAL: No acute or suspicious osseous abnormality. ADDITIONAL FINDINGS: None. IMPRESSION: No acute abnormalities seen in the abdomen or pelvis. Nonobstructing 5 mm right renal calculus.
--- NOTE | 2024-09-04 15:51 | EDPHYS ---
Physician Documentation [facility] Name: Annabel Chamberlain Age: 29 yrs Sex: Female : 1995 Arrival Date: 09/04/2024 Time: 11:56 Bed 20 Private MD: ED Physician Pankaj Salter HPI: 09/04 12:23 This 29 yrs old Female presents to ER via Ambulatory with complaints of Abdominal Pain. sb4 12:23 The patient presents with abdominal pain right lower quadrant. Onset: The sb4 symptoms/episode began/occurred 4 day(s) ago. The symptoms radiate to. The symptoms. The symptoms radiate to right upper quadrant and left upper quadrant. Associated signs and symptoms: Pertinent positives: dysuria, nausea. The symptoms are described as sharp. Right lower quadrant and suprapubic abdominal pain x 4 days associated with burning with urination. States she went to urgent care a few days ago and was told that she did not have a UTI. States that her symptoms have gotten worse. Reports associated nausea, no vomiting. No constipation or diarrhea. Has been having "cold chills "unknown if febrile. 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 ROS: 12:23 Respiratory: Negative for shortness of breath, cough, wheezing, and pleuritic chest sb4 pain, 12:23 Constitutional: Positive for chills, 12:23 Abdomen/GI: Positive for abdominal pain, nausea, 12:23 : Positive for burning with urination, 12:23 All other systems are negative, Exam: 12:23 Head/Face: Normocephalic, atraumatic. Eyes: Extra-ocular motions intact. Periorbital sb4 areas with no swelling, redness, or edema. Cardiovascular: Regular rate and rhythm with a normal S1 and S2. Respiratory: No increased work of breathing, no retractions or nasal flaring. Abdomen/GI: Soft, non-tender, no distension. Skin: Warm, dry with normal turgor. Normal color with no rashes, no lesions, and no evidence of cellulitis. 12:23 Constitutional: The patient appears alert, awake, uncomfortable, 12:23 ENT: Mouth: Oral mucosa: dry, Vital Signs: 12:17 BP 126 / 67; Pulse 82; Resp 16; Temp 97.8; Pulse Ox 98% on R/A; iw 15:04 BP 116 / 61; Pulse 65; Resp 18 S; Pulse Ox 96% on R/A; kc6 MDM: 11:59 Medical Screening Exam initiated sb4 16:44 Data reviewed: vital signs, nurses notes, lab test result(s), radiologic studies, and sb4 as a result, I will discharge patient. Counseling: I had a detailed discussion with the patient and/or guardian regarding the historical points, exam findings, and any diagnostic results supporting the discharge/admit diagnosis, lab results, radiology results, the need for outpatient follow up, for definitive care, a urologist, to return to the emergency department if symptoms worsen or persist or if there are any questions or concerns that arise at home. 09/04 12:22 Order name: CBC with Diff; Complete Time: 12:49 sb4 09/04 12:22 Order name: CMP; Complete Time: 13:05 sb4 09/04 12:22 Order name: Lipase; Complete Time: 13:05 sb4 09/04 12:22 Order name: Test, Urine; Complete Time: 12:49 sb4 09/04 12:22 Order name: Urinalysis w/ reflexes; Complete Time: 12:51 sb4 09/04 12:53 Order name: Urine Culture EDAK 09/04 14:19 Order name: CT Abd/Pelvis - IV Contrast Only; Complete Time: 15:35 sb4 09/04 12:22 Order name: IV Saline Lock; Complete Time: 12:42 sb4 09/04 12:22 Order name: Labs collected and sent; Complete Time: 12:42 sb4 Administered Medications: 13:22 Drug: Ondansetron IVP 4 mg IVP once; over 2 minutes Route: IVP; Site: left antecubital; kc6 14:07 Follow up: Response: No adverse reaction kc6 13:22 Drug: morphine IVP or IV 4 mg IVP once over 4 mins Route: IVP; Infused Over: 4 mins; kc6 Site: left antecubital; 14:07 Follow up: Response: No adverse reaction; Pain is decreased; RASS: Alert and Calm (0) kc6 13:22 Drug: NS 0.9% IV 1000 ml IV at 1 bolus Per protocol; to be given as a bolus over 60 kc6 minutes Route: IV; Rate: 1 bolus; Site: left antecubital; 14:07 Follow up: Response: No adverse reaction; IV Status: Completed infusion; IV Intake: kc6 1000ml 13:22 Drug: Phenazopyridine PO 200 mg PO once Route: PO; kc6 14:07 Follow up: Response: No adverse reaction kc6 15:07 Drug: Ketorolac IVP 15 mg IVP once Route: IVP; Site: left antecubital; kc6 16:18 Follow up: Response: No adverse reaction; Pain is decreased kc6 Disposition Summary: 09/04/24 15:50 Discharge Ordered Notes: Location: Home sb4 Problem: new sb4 Symptoms: have improved sb4 Condition: Stable sb4 Diagnosis - Kidney stone - 5 mm, right sb4 - UTI/ Urinary tract infection, site not specified sb4 Followup: sb4 - With: Zachariah Smart MD - When: 1 week - Reason: Recheck today's complaints, Re-evaluation by your physician Discharge Instructions: - Discharge Summary Sheet sb4 - Urinary Tract Infection, Adult sb4 - Kidney Stones, [id number] sb4 Forms: - Antibiotic Education sb4 - Patient Portal Instructions sb4 - Leadership Thank You Letter sb4 Prescriptions: - ketorolac 10 mg Oral tablet - take 1 tablet ORAL route every 6 hours for 3 days as needed for pain; 15 sb4 tablet; Refills: 0, Product Selection Permitted - tamsulosin 0.4 mg Oral capsule - take 1 capsule ORAL route every 24 hours; 20 capsule; Refills: 0, Product sb4 Selection Permitted - Macrobid 100 mg Oral Capsule - take 1 capsule ORAL route every 12 hours for 7 days; 14 capsule; Refills: 0, sb4 Product Selection Permitted - ondansetron 8 mg Oral Tablet,disintegrating - take 1 tablet ORAL route every 8 hours; 10 tablet; Refills: 0, Product sb4 Selection Permitted Signatures: Dispatcher [employer] Andria Staton RN RN iw Rocio Peter RN RN kc6 Katina Bernardo PA-C PA-C sb4
--- NOTE | 2024-09-04 15:51 | ER ---
Nurse's Notes [facility] Name: Annabel Chamberlain Age: 29 yrs Sex: Female : 1995 Arrival Date: 09/04/2024 Time: 11:56 Bed 20 Private MD: Diagnosis: Kidney stone - 5 mm, right;UTI/ Urinary tract infection, site not specified Presentation: 09/04 12:17 Chief complaint: Patient states: 3 days of lower abd pain on right side , burning with iw urination. Coronavirus screen: At this time, the client does not indicate any symptoms associated with coronavirus-19. Ebola Screen: No symptoms or risks identified at this time. Initial Sepsis Screen: Does the patient meet any 2 criteria? No. Patient's initial sepsis screen is negative. Does the patient have a suspected source of infection? No. Patient's initial sepsis screen is negative. Risk Assessment: Do you want to hurt yourself or someone else? Patient reports no desire to harm self or others. Onset of symptoms was August 31, 2024. 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 Screenin:20 [facility] ED Fall Risk Assessment (Adult) History of falling in the last 3 months, iw including since admission No falls in past 3 months (0 pts) Confusion or Disorientation No (0 pts) Intoxicated or Sedated No (0 pts) Impaired Gait No (0 pts) Mobility Assist Device Used No (0 pt) Altered Elimination No (0 pt) Score/Fall Risk Level 0 - 2 = Low Risk Oriented to surroundings, Maintained a safe environment. Abuse screen: Denies threats or abuse. Denies injuries from another. Nutritional screening: No deficits noted. Tuberculosis screening: No symptoms or risk factors identified. Assessment: 12:19 General: Appears in no apparent distress. Behavior is calm, cooperative. Pain: iw Complains of pain in suprapubic area and right lower quadrant. Neuro: Level of Consciousness is awake, alert, obeys commands, Oriented to person, place, time, situation, Moves all extremities. GI: Abdomen is non-distended, Abd is non tender in right lower quadrant and left lower quadrant. : Reports burning with urination. Derm: Skin is intact, is healthy with good turgor. 13:22 General: Appears in no apparent distress. comfortable, well groomed, well developed, kc6 Behavior is calm, cooperative, appropriate for age. Pain: Complains of pain in right lower quadrant. Neuro: Level of Consciousness is awake, alert, obeys commands, Oriented to person, place, time, situation, Appropriate for age. Cardiovascular: Capillary refill < 3 seconds. Respiratory: Airway is patent Trachea midline Respiratory effort is even, unlabored, Respiratory pattern is regular, symmetrical. GI: Abdomen is flat, non-distended, Bowel sounds present X 4 quads. Abd is soft X 4 quads Abdomen is tender to palpation in suprapubic area and right lower quadrant Reports lower abdominal pain, nausea, Patient currently denies vomiting. : Reports burning with urination. EENT: No signs and/or symptoms were reported regarding the EENT system. Derm: No signs and/or symptoms reported regarding the dermatologic system. Skin is intact, is healthy with good turgor, Skin is pink, warm \T\ dry. Musculoskeletal: No signs and/or symptoms reported regarding the musculoskeletal system. Circulation, motion, and sensation intact. Range of motion: intact in all extremities. 14:22 Reassessment: Patient appears in no apparent distress at this time. No changes from kc6 previously documented assessment. Patient and/or family updated on plan of care and expected duration. Pain level reassessed. Patient is alert, oriented x 3, equal unlabored respirations, skin warm/dry/pink. 16:18 Reassessment: Patient appears in no apparent distress at this time. No changes from kc6 previously documented assessment. Patient and/or family updated on plan of care and expected duration. Pain level reassessed. Patient is alert, oriented x 3, equal unlabored respirations, skin warm/dry/pink. Patient states feeling better. Patient states symptoms have improved. Vital Signs: 12:17 BP 126 / 67; Pulse 82; Resp 16; Temp 97.8; Pulse Ox 98% on R/A; iw 15:04 BP 116 / 61; Pulse 65; Resp 18 S; Pulse Ox 96% on R/A; kc6 ED Course: 11:58 Patient arrived in ED. mr 11:59 [facility] sb4 11:59 Pankaj Salter MD is Attending Physician. sb4 12:18 Triage completed. iw 12:19 Arm band placed on. iw 12:41 Initial lab(s) drawn, by me, sent to lab. Urine collected: clean catch specimen, clear. zm Inserted saline lock: 20 gauge in left antecubital area, using aseptic technique. Blood collected. Flushed with 10 mL NS. 12:42 CBC with Diff Sent. zm 12:42 CMP Sent. zm 12:42 Lipase Sent. zm 12:42 Test, Urine Sent. zm 12:42 Urinalysis w/ reflexes Sent. zm 13:08 Rocio Peter, RN is Primary Nurse. kc6 13:23 Patient has correct armband on for positive identification. Bed in low position. Pulse kc6 ox on. NIBP on. Warm blanket given. Verbal reassurance given. 15:26 CT Abd/Pelvis - IV Contrast Only In Process Unspecified. EDMS 15:49 Zachariah Smart MD is Referral Physician. sb4 16:18 No provider procedures requiring assistance completed. IV discontinued, intact, kc6 bleeding controlled, No redness/swelling at site. Pressure dressing applied. Patient maintains SpO2 saturation greater than 95% on room air. Administered Medications: 13:22 Drug: Ondansetron IVP 4 mg IVP once; over 2 minutes Route: IVP; Site: left antecubital; kc6 14:07 Follow up: Response: No adverse reaction kc 13:22 Drug: morphine IVP or IV 4 mg IVP once over 4 mins Route: IVP; Infused Over: 4 mins; kc6 Site: left antecubital; 14:07 Follow up: Response: No adverse reaction; Pain is decreased; RASS: Alert and Calm (0) kc 13:22 Drug: NS 0.9% IV 1000 ml IV at 1 bolus Per protocol; to be given as a bolus over 60 kc6 minutes Route: IV; Rate: 1 bolus; Site: left antecubital; 14:07 Follow up: Response: No adverse reaction; IV Status: Completed infusion; IV Intake: kc6 1000ml 13:22 Drug: Phenazopyridine PO 200 mg PO once Route: PO; kc6 14:07 Follow up: Response: No adverse reaction kc6 15:07 Drug: Ketorolac IVP 15 mg IVP once Route: IVP; Site: left antecubital; kc6 16:18 Follow up: Response: No adverse reaction; Pain is decreased kc6 Medication: 12:20 VIS not applicable for this client. iw Intake: 14:07 IV: 1000ml; Total: 1000ml. kc6 Outcome: 15:50 Discharge ordered by . sb4 16:18 Discharged to home ambulatory, with family, kc6 16:18 Condition: improved 16:18 Discharge instructions given to patient, Instructed on discharge instructions, follow up and referral plans. no drinking with medication, no driving heavy equipment, medication usage, Demonstrated understanding of instructions, follow-up care, medications, Prescriptions given X 4, 16:18 Patient left the ED. kc6 Signatures: Dispatcher [employer] EDMS Francisca Junior, Reg Reg mr Andria Washington RN RN iw Martinez, Zaina zm Campbell, Kaitlyn, RN RN kc6 Brown, Sophia, PA-C PA-C sb4
[2024-09-04 16:35] VITALS: TEMP 97.8
[2024-09-04 16:37] VITALS: BP 116/61; O2SAT 96
== END 2024-09-04 16:18 | disposition home or self-care (01) ==
LOC: ER 11:56
DX: N39.0 Urinary tract infection, site not specified (principal); N20.0 Calculus of kidney
CPT/HCPCS: 87088; 85025; 81001; 87086; 36415; 81025; 83690; 80053; 74177; Q9967; J2405; J7030; 96361; 96374; 96375; 99284